=== PATIENT | male | born 1950 | race Caucasian/White ===

== ENCOUNTER 2016-03-18 16:35 | Inpatient (IN) | payer MEDICARE, OTHER ==
[2016-03-18] VITALS (9 sets, daily range): BP systolic 76–88; BP diastolic 37–67; PULSE 66–74; RESP 18–20; TEMP 89.7; Ht 152.4 cm; Wt 72.0 kg
[~2016-03-18] VITALS: Ht 152.4 cm; Wt 72.0 kg
[~2016-03-18 16:35] MED LIST: ACET500C5 PO; EPINEPHrine 0.1 MG/ML SYG ONE; MIDAZOLAM 1 MG/ML 2 ML INJ ONE; NA BICARBONATE 8.4% 50 ML SYG ONE; SUCCINYLCHOLINE CHLORIDE 100 MG/5 ML SYG IV ONE
[2016-03-18] MEDS ORDERED: CEFEPIME 2GM/50 ML (PMX) 50 ML IVPB STA (16:38)
[2016-03-18] MEDS ORDERED: SODIUM CHLORIDE 0.9% 1L BAG IV* STA (16:38)
--- NOTE | 2016-03-18 16:55 | RADRPT ---
PROCEDURE: XR Chest. CLINICAL INDICATION: Sepsis TECHNIQUE: Chest AP portable COMPARISON: None available FINDINGS: The mediastinal structures are unremarkable. There is calcification of the thoracic aorta (consiste nt with atherosclerosis). The heart is normal in size and configuration. There is pulmonary venous hypertension. No consolidation is identified. The pleural spaces are unremarkable. The osseous s tructures are unremarkable. IMPRESSION: Calcification of the thoracic aorta (consistent with atherosclerosis). Pulmonary venous hypertension RPTAT: HGDB .Florencio Barnes MD, Date Time Electronically viewed and signed by .Florencio Barnes MD, on 03/18/2016 16:55 .B/
[2016-03-18] MEDS ORDERED: VANCOMYCIN 1 GM (PMX) 250 ML IVPB ONE (17:00)
--- NOTE | 2016-03-18 17:04 | ERA ---
ER Documentation Chief Complaint Date/Time DATE: 03/18/16 TIME: 17:01 Chief Complaint PT BIB RA from SNF for desaturationand altered mental status. HPI Patient is a 65-year-old male brought in for altered mental status. Unfortunately he is unable to answer any questions. [facility] noted that he had decreased oxygen levels. He has decreased mental capabilities at baseline and a seizure disorder. There is no other information that is given in regards to history of present illness. ROS All systems reviewed and are negative except as per history of present illness. Medications Home Meds Discontinued Scripts Acetaminophen* (Tylophen*) 500 Mg Capsule, 1 CAP PO Q6H Y for PAIN AND OR ELEVATED TEMP, #20 CAP Prov:LEIF RYAN PA-C 11/10/15 Allergies Allergies: Coded Allergies: Unknown: Unable to obtain (Unverified , 03/18/16) PMhx/Soc History of Surgery: No Anesthesia Reaction: No Hx Neurological Disorder: No Hx Respiratory Disorders: No Hx Cardiac Disorders: No Hx Psychiatric Problems: No Hx Miscellaneous Medical Probl: Yes (SEIZURE , HYPOTHYROID , DM , DOWN'S SYNDROME ) Hx Alcohol Use: No Hx Substance Use: No Hx Tobacco Use: No Physical Exam Vitals Vital Signs Date Time Temp Pulse Resp B/P Pulse Ox O2 Delivery O2 Flow Rate FiO2 03/18/16 20:00 58 18 94/63 100 Mechanical Ventilator 03/18/16 19:44 85.5 53 18 104/65 100 Mechanical Ventilator 03/18/16 19:30 85.0 47 18 103/74 100 Mechanical Ventilator 03/18/16 19:15 85.0 47 18 109/69 100 Mechanical Ventilator 03/18/16 19:07 84.7 43 18 84/55 100 Mechanical Ventilator 03/18/16 19:01 84.5 40 16 67/43 100 Mechanical Ventilator 03/18/16 19:00 43 18 100 100 03/18/16 18:29 83.9 46 16 121/68 Mechanical Ventilator 03/18/16 18:17 46 18 100 100 03/18/16 17:51 93.8 45 18 95/46 98 Mechanical Ventilator 03/18/16 17:23 6.0 03/18/16 16:50 Nasal Cannula 3 03/18/16 16:48 92.9 47 19 107/54 95 Physical Exam Const: [] male lying on the bed responds to verbal stimuli, has faces consistent with congenital abnormality Head: Atraumatic Eyes: Normal Conjunctiva ENT: Normal External Ears, Nose and Mouth. Neck: Full range of motion..~ No meningismus. Resp: Coarse throughout, poor inspiratory effort, not tachypneic Cardio: Regular rate and rhythm, no murmurs Abd: Soft, non tender, non distended. Normal bowel sounds Skin: No petechiae or rashes, skin feels cold to touch Back: No midline or flank tenderness Ext: No cyanosis, or edema Neur: Awake, GCS equals E 3, m4, V2 Psych: Normal Mood and Affect Result Diagram: 03/18/16 1644 03/18/16 1644 Results 24 hrs Laboratory Tests Test 03/18/16 16:38 03/18/16 16:44 Arterial Blood HCO3 28.5mmol/L Arterial Blood Base Excess -0.2mmol/L Arterial Blood Oxygen Saturation 87.6mmHG Lincoln Test ACCEPTAB Arterial Blood Gas Puncture Site Left Radial Arterial Blood Carboxyhemoglobin 0% Arterial Blood Date Drawn 03/18/2016 5:15:52 PM Arterial Blood Methemoglobin 0.2% Arterial Blood pCO2 (Temp correct) 68.9mmhg Arterial Blood pH (Temp corrected) 7.234 Arterial Blood pO2 (Temp corrected) 66.5mmHG Blood Gas A-a O2 Differential 132.2mmHg Blood Gas Critical Value Read Back ROXANNA Alba Blood Gas Modality NASAL CANNULA Blood Gas Notified Time 03/18/2016 5:21:21 PM Blood Gas Notified Whom MDA Blood Gas Specimen Source Blood arterial Blood Gas Temperature 37.0C FiO2 39.0% Oxyhemoglobin Percent 87.4% Total Hemoglobin 10.9g/dl Activated Partial Thromboplast Time 36.1Sec Alanine Aminotransferase (ALT/SGPT) 87IU/L Albumin 3.0g/dl Albumin/Globulin Ratio 0.85 Alkaline Phosphatase 109IU/L Anion Gap 14 Aspartate Amino Transf (AST/SGOT) 82IU/L Band Neutrophils % 9.0% Blood Morphology Comment Blood Urea Nitrogen 34mg/dl Calcium Level 8.6mg/dl Carbon Dioxide Level 31mmol/L Chloride Level 110mmol/L Creatinine 0.66mg/dl Direct Bilirubin 0.00mg/dl Globulin 3.50g/dl Glucose Level 134mg/dl Hematocrit 36.7% Hemoglobin 12.4g/dl INR International Normalized Ratio 1.16 Indirect Bilirubin 0.1mg/dl Lactic Acid Level 1.8mmol/L Large Platelets FEW Lymphocytes # 0.310^3/ul Lymphocytes % 8.0% Mean Corpuscular Hemoglobin 35.0pg Mean Corpuscular Hemoglobin Concent 33.9g/dl Mean Corpuscular Volume 103.2fl Mean Platelet Volume 9.9fl Monocytes # 0.210^3/ul Monocytes % 7.0% Neutrophils # 2.410^3/ul Neutrophils % 76.0% Platelet Count 3010^3/UL Platelet Estimate PLT APPEAR DECREASED Potassium Level 4.8mmol/L Prothrombin Time 14.8Sec Prothrombin Time Ratio 1.2 Red Blood Count 3.5510^6/ul Red Cell Distribution Width 16.8% Sodium Level 150mmol/L Total Bilirubin 0.1mg/dl Total Protein 6.5g/dl Troponin I < 0.012ng/ml White Blood Count 3.210^3/ul Current Medications Medications (Trade) Dose Ordered Sig/Kaycee Route PRN Reason Start Time Stop Time Status Last Admin Dose Admin Sodium Chloride 2170 ml 2,170 ml BOLUS OVER 2 HOURS STAT IV* 03/18/16 16:38 03/18/16 16:41 DC 03/18/16 17:03 Cefepime HCl 50 ml @ 100 mls/hr ONCE STAT IVPB 03/18/16 16:38 03/18/16 17:07 DC 03/18/16 17:02 Vancomycin HCl (Vancocin) 250 ml @ 125 mls/hr ONCE ONCE IVPB 03/18/16 17:00 03/18/16 18:59 DC 03/18/16 17:38 Midazolam HCl (Versed) 4 mg ONCE ONCE IV 03/18/16 18:00 03/18/16 18:01 DC Succinylcholine Chloride 100 mg 100 mg ONCE ONCE IV 03/18/16 18:00 03/18/16 18:01 DC Dexmedetomidine HCl 200 mcg/ Sodium Chloride 50 ml @ 0 mls/hr TITRATE IV 03/18/16 18:00 03/19/16 08:00 Norepinephrine (Levophed) 250 ml @ 1.875 mls/ hr TITRATE IV 03/18/16 20:00 Procedures/MDM Differential includes but is not limited to sepsis, pneumonia, myocardial ischemia, CVA, urinary tract infection, respiratory failure, seizure I was notified of the patient's abnormal blood gas at 1735. Immediately set up for intubation. Endotracheal Intubation by me: Pre assessment performed. See preceding note for details. Pre-oxygenation performed with 100% oxygen RSI: Performed w/o complication or hypoxic events. Medications as ordered. Blade: Mac 3 glidoscope -it was noted at the time of intubation that the patient had purulent secretions emanating from his trachea through his vocal cords. They were rather copious. ET Tube: 7.0 cm Depth: 20 cm at the lip Intubation confirmed by colorimetric CO2, equal breath sounds, quiet over the stomach. Glidoscope was used for intubation Chest X-ray 1V Interpreted by me: Normal soft tissue, No pneumothorax. Cardiopulmonary Resuscitation by me: See code documentation for specific details. ACLS and BLS were performed with high quality chest compressions and minimal interruptions. Reversible causes were assessed and treated. Code was called at 1759. CPR was initiated as the patient was noted to be in PEA. Overall patient received 5 rounds of epinephrine and 1 round of bicarb. Initially a bedside ultrasound showed no cardiac activity noted. Approximately 1 minute later patient had a pulse. 1900: It was noted that the patient's blood pressure was drifting downward and most likely he needed a central line. I set up for central line. Central Line Placement by me: Patient consented, sterilely draped, full prep, gown, glove, mask, time out performed. Anesthesia: 1% lidocaine locally Location: Right femoral Device: Multiple lumen Technique: Seldinger technique. Secured with suture. Results: Venous return from all ports with easy saline flush. No complications. Guide wire retrieved and disposed of. 193: Patient's blood pressure is now 103/74, heart rate is 51. He is currently on Precedex. I do not have any family at the bedside. I have a call out to the hospitalist to have him admitted to the ICU. Critical care time of 1 hour not to include procedures. Departure Diagnosis: Primary Impression: Altered level of consciousness Additional Impressions: Sepsis Qualified Code: A41.9 - Sepsis, due to unspecified organism Respiratory failure with hypercapnia Qualified Code: J96.02 - Acute respiratory failure with hypercapnia Pneumonia Qualified Code: J18.9 - Pneumonia due to infectious organism, unspecified laterality, unspecified part of lung Hypotension Qualified Code: I95.9 - Hypotension, unspecified hypotension type Cardiac arrest due to other underlying condition Seizure disorder Condition: Critical ER Documentation Chief Complaint Date/Time DATE: 03/18/16 TIME: 20:08 Chief Complaint PT BIB RA from SNF for desaturationand altered mental status. ROS All systems reviewed and are negative except as per history of present illness. Medications Home Meds Discontinued Scripts Acetaminophen* (Tylophen*) 500 Mg Capsule, 1 CAP PO Q6H Y for PAIN AND OR ELEVATED TEMP, #20 CAP Prov:LEIF RYAN PA-C 11/10/15 Allergies Allergies: Coded Allergies: Unknown: Unable to obtain (Unverified , 03/18/16) PMhx/Soc History of Surgery: No Anesthesia Reaction: No Hx Neurological Disorder: No Hx Respiratory Disorders: No Hx Cardiac Disorders: No Hx Psychiatric Problems: No Hx Miscellaneous Medical Probl: Yes (SEIZURE , HYPOTHYROID , DM , DOWN'S SYNDROME ) Hx Alcohol Use: No Hx Substance Use: No Hx Tobacco Use: No Smoking Status: Never smoker Physical Exam Vitals Vital Signs Date Time Temp Pulse Resp B/P Pulse Ox O2 Delivery O2 Flow Rate FiO2 03/18/16 20:00 58 18 94/63 100 Mechanical Ventilator 03/18/16 19:44 85.5 53 18 104/65 100 Mechanical Ventilator 03/18/16 19:30 85.0 47 18 103/74 100 Mechanical Ventilator 03/18/16 19:15 85.0 47 18 109/69 100 Mechanical Ventilator 03/18/16 19:07 84.7 43 18 84/55 100 Mechanical Ventilator 03/18/16 19:01 84.5 40 16 67/43 100 Mechanical Ventilator 03/18/16 19:00 43 18 100 100 03/18/16 18:29 83.9 46 16 121/68 Mechanical Ventilator 03/18/16 18:17 46 18 100 100 03/18/16 17:51 93.8 45 18 95/46 98 Mechanical Ventilator 03/18/16 17:23 6.0 03/18/16 16:50 Nasal Cannula 3 03/18/16 16:48 92.9 47 19 107/54 95 Physical Exam Const: [] Head: Atraumatic Eyes: Normal Conjunctiva ENT: Normal External Ears, Nose and Mouth. Neck: Full range of motion..~ No meningismus. Resp: Clear to auscultation bilaterally Cardio: Regular rate and rhythm, no murmurs Abd: Soft, non tender, non distended. Normal bowel sounds Skin: No petechiae or rashes Back: No midline or flank tenderness Ext: No cyanosis, or edema Neur: Awake and alert Psych: Normal Mood and Affect Result Diagram: 03/18/16 1644 03/18/16 1644 Results 24 hrs Laboratory Tests Test 03/18/16 16:38 03/18/16 16:44 Arterial Blood HCO3 28.5mmol/L Arterial Blood Base Excess -0.2mmol/L Arterial Blood Oxygen Saturation 87.6mmHG [place] Test ACCEPTAB Arterial Blood Gas Puncture Site Left Radial Arterial Blood Carboxyhemoglobin 0% Arterial Blood Date Drawn 03/18/2016 5:15:52 PM Arterial Blood Methemoglobin 0.2% Arterial Blood pCO2 (Temp correct) 68.9mmhg Arterial Blood pH (Temp corrected) 7.234 Arterial Blood pO2 (Temp corrected) 66.5mmHG Blood Gas A-a O2 Differential 132.2mmHg Blood Gas Critical Value Read Back ROXANNA Alba Blood Gas Modality NASAL CANNULA Blood Gas Notified Time 03/18/2016 5:21:21 PM Blood Gas Notified Whom MDA Blood Gas Specimen Source Blood arterial Blood Gas Temperature 37.0C FiO2 39.0% Oxyhemoglobin Percent 87.4% Total Hemoglobin 10.9g/dl Activated Partial Thromboplast Time 36.1Sec Alanine Aminotransferase (ALT/SGPT) 87IU/L Albumin 3.0g/dl Albumin/Globulin Ratio 0.85 Alkaline Phosphatase 109IU/L Anion Gap 14 Aspartate Amino Transf (AST/SGOT) 82IU/L Band Neutrophils % 9.0% Blood Morphology Comment Blood Urea Nitrogen 34mg/dl Calcium Level 8.6mg/dl Carbon Dioxide Level 31mmol/L Chloride Level 110mmol/L Creatinine 0.66mg/dl Direct Bilirubin 0.00mg/dl Globulin 3.50g/dl Glucose Level 134mg/dl Hematocrit 36.7% Hemoglobin 12.4g/dl INR International Normalized Ratio 1.16 Indirect Bilirubin 0.1mg/dl Lactic Acid Level 1.8mmol/L Large Platelets FEW Lymphocytes # 0.310^3/ul Lymphocytes % 8.0% Mean Corpuscular Hemoglobin 35.0pg Mean Corpuscular Hemoglobin Concent 33.9g/dl Mean Corpuscular Volume 103.2fl Mean Platelet Volume 9.9fl Monocytes # 0.210^3/ul Monocytes % 7.0% Neutrophils # 2.410^3/ul Neutrophils % 76.0% Platelet Count 3010^3/UL Platelet Estimate PLT APPEAR DECREASED Potassium Level 4.8mmol/L Prothrombin Time 14.8Sec Prothrombin Time Ratio 1.2 Red Blood Count 3.5510^6/ul Red Cell Distribution Width 16.8% Sodium Level 150mmol/L Total Bilirubin 0.1mg/dl Total Protein 6.5g/dl Troponin I < 0.012ng/ml White Blood Count 3.210^3/ul Current Medications Medications (Trade) Dose Ordered Sig/Kaycee Route PRN Reason Start Time Stop Time Status Last Admin Dose Admin Sodium Chloride 2170 ml 2,170 ml BOLUS OVER 2 HOURS STAT IV* 03/18/16 16:38 03/18/16 16:41 DC 03/18/16 17:03 Cefepime HCl 50 ml @ 100 mls/hr ONCE STAT IVPB 03/18/16 16:38 03/18/16 17:07 DC 03/18/16 17:02 Vancomycin HCl (Vancocin) 250 ml @ 125 mls/hr ONCE ONCE IVPB 03/18/16 17:00 03/18/16 18:59 DC 03/18/16 17:38 Midazolam HCl (Versed) 4 mg ONCE ONCE IV 03/18/16 18:00 03/18/16 18:01 DC Succinylcholine Chloride 100 mg 100 mg ONCE ONCE IV 03/18/16 18:00 03/18/16 18:01 DC Dexmedetomidine HCl 200 mcg/ Sodium Chloride 50 ml @ 0 mls/hr TITRATE IV 03/18/16 18:00 03/19/16 08:00 Norepinephrine (Levophed) 250 ml @ 1.875 mls/ hr TITRATE IV 03/18/16 20:00 Procedures/MDM EKG showed a sinus bradycardia at 45 beats per minutes with a lot of motion artifact but no obvious ischemia noted, he had a nonspecific intraventricular conduction delay with nonspecific T-wave abnormalities, no old EKG available for comparison Departure Diagnosis: Primary Impression: Altered level of consciousness Additional Impressions: Sepsis Qualified Code: A41.9 - Sepsis, due to unspecified organism Respiratory failure with hypercapnia Qualified Code: J96.02 - Acute respiratory failure with hypercapnia Pneumonia Qualified Code: J18.9 - Pneumonia due to infectious organism, unspecified laterality, unspecified part of lung Hypotension Qualified Code: I95.9 - Hypotension, unspecified hypotension type Cardiac arrest due to other underlying condition Seizure disorder Condition: Critical WILBER MCKNIGHT Mar 18, 2016 17:04
[2016-03-18 17:08] LABS: HEMATOCRIT 36.7 % (42.0-52.0); HEMOGLOBIN 12.4 g/dl (14.0-18.0); MEAN CORPUSCULAR HGB CONC 33.9 g/dl (32.0-37.0); MEAN CORPUSCULAR VOLUME 103.2 fl (82.0-101.0); MEAN PLATELET VOLUME 9.9 fl (7.4-10.4); RED BLOOD COUNT 3.55 10^6/ul (4.70-6.10); RED CELL DISTRIBUTION WIDTH 16.8 % (11.5-14.5); UNCORRECTED WBC 3.2 10^3/ul (4.8-10.8); WHITE BLOOD COUNT 3.2 10^3/ul (4.8-10.8)
[2016-03-18 17:10] LABS: INR 1.16; PROTIME 14.8 Sec (12.2-14.2); PT RATIO 1.2
[2016-03-18 17:11] LABS: PARTIAL THROMBOPLASTIN TIME 36.1 Sec (25.0-35.0)
[2016-03-18 17:21] LABS: CONDITION 1; LH ANALYZER COMMENTS 1; SUSPECT 1
[2016-03-18 17:21] LABS: AADO2 Arterial 132.2 mmHg (7.0-24.0); Allen Test ACCEPTAB; Arterial Base Excess -0.2 mmol/L (-3.0-3); Arterial COHb 0 % (0.0-3.0); Arterial Fraction of Oxyhgb 87.4 % (93.0-99.0); Arterial HCO3 28.5 mmol/L (22.0-26.0); Arterial MetHb 0.2 % (0.0-1.5); Arterial Total Hemglobin 10.9 g/dl (12.0-18.0); MODE NASAL CANNULA
[2016-03-18 17:28] LABS: PLATELET COUNT 30 10^3/UL (140-440)
[2016-03-18 17:47] LABS: LYMPHOCYTES # 0.3 10^3/ul (0.8-2.9); MONOCYTE # 0.2 10^3/ul (0.3-0.9); NEUTROPHIL # 2.4 10^3/ul (1.6-7.5)
[2016-03-18 17:49] LABS: PLATELET ESTIMATE PLT APPEAR DECREASED
[2016-03-18 17:59] LABS: CHLORIDE 110 mmol/L (97-110); POTASSIUM 4.8 mmol/L (3.5-5.1); SODIUM 150 mmol/L (135-144)
[2016-03-18] MEDS ORDERED: MIDAZOLAM 1 MG/ML 5 ML INJ IV ONE (18:00)
[2016-03-18] MEDS ORDERED: DEXMEDETOMIDINE HCL 200 MCG in SOD CHLORIDE 0.9% 48 ML IV SCH (18:00)
[2016-03-18] MEDS ORDERED: SUCCINYLCHOLINE CHLORIDE 100 MG/5 ML SYG IV ONE (18:00)
[2016-03-18 18:01] LABS: CREATININE 0.66 mg/dl (0.61-1.24)
[2016-03-18 18:02] LABS: ALANINE AMINOTRANSFERASE 87 IU/L (13-69); ALBUMIN/GLOBULIN RATIO 0.85; ALKALINE PHOSPHATASE 109 IU/L (42-121); ANION GAP 14 (8-16); ASPARTATE AMINO TRANSFERASE 82 IU/L (15-46); BILIRUBIN,INDIRECT 0.1 mg/dl (0-1.1); BILIRUBIN,TOTAL 0.1 mg/dl (0.2-1.3); BLOOD UREA NITROGEN 34 mg/dl (7-20); CALCIUM 8.6 mg/dl (8.4-10.2); CARBON DIOXIDE 31 mmol/L (21-31); GLUCOSE 134 mg/dl (70-220); TOTAL PROTEIN 6.5 g/dl (6.1-8.1)
[2016-03-18 18:11] LABS: TROPONIN-I < 0.012 ng/ml (0.00-0.12)
[2016-03-18] MEDS ORDERED: NORepinephrine 8MG/250 ML (PMX 250 ML IV SCH ×2 (20:00→21:00)
--- NOTE | 2016-03-18 20:06 | RADRPT ---
PROCEDURE: XR Chest. CLINICAL INDICATION: Endotracheal intubation. TECHNIQUE: Portable AP supine view of the chest was obtained. COMPARISON: 03/18/2016 FINDINGS: The cardiomediastinal silhouette is within upper normal limits. Distal tip of the new endotracheal tube is in satisfactory position approximately 3.6 cm above the carolyn. Diffuse pulmonary edema pat tern appear slightly worse concerning for ARDS with probable small pleural effusions. The osseous s tructures are intact with no evidence for acute abnormality. RPTAT:HJJR IMPRESSION: 1. Successful endotracheal intubation with the distal tip of the tube projecting 3.6 cm above the c andreas. 2. Interval radiographic worsening in pulmonary edema pattern unable to exclude adult respiratory d istress syndrome. Physician Fly Date Time Electronically viewed and signed by Physician Fly on 03/18/2016 20:06 JR/
[2016-03-18] MEDS ORDERED: OXCA150T43 PO (20:33)
[2016-03-18] MEDS ORDERED: SYN1 PO (20:33)
[2016-03-18] MEDS ORDERED: ZIPR20CA12 PO (20:36)
[2016-03-18] MEDS ORDERED: OXYB5TAB7 PO (20:37)
[2016-03-18] MEDS ORDERED: SIMV20TA PO (20:38)
[2016-03-18] MEDS ORDERED: BROM2.5T13 PO (20:39)
[2016-03-18] MEDS ORDERED: VLP250480 PO (20:41)
[2016-03-18] MEDS ORDERED: KENC1 TOP (20:43)
[2016-03-18] MEDS ORDERED: AZEL137S9 NASAL (20:44)
[2016-03-18] MEDS ORDERED: MUPI22OI2 TOP (20:45)
[2016-03-18] MEDS ORDERED: TAMS0.4C2 PO (20:45)
[2016-03-18] MEDS ORDERED: DIAZ5TAB4 PO (20:46)
--- NOTE | 2016-03-18 20:55 | RADRPT ---
PROCEDURE: CT Brain without contrast. CLINICAL INDICATION: Altered mental status. TECHNIQUE: A CT of the brain was performed utilizing axial sections from the skull base through th e vertex without contrast. Multiplanar re-formations were generated. Images were reviewed on a high- resolution PACS workstation. CTDIvol: 45.01 mGy. DLP: 720.23 mGy-cm. COMPARISON: 11/10/2015 FINDINGS: The examination is limited by patient motion. There is mild to moderate generalized volume loss. No hydrocephalus is seen. There is no mass effect. No acute intracranial hemorrhage or extra-axial col lection is identified. Rebollar-white matter differentiation appears grossly preserved. There is no significant mucosal disease in the paranasal sinuses. The visualized mastoid air cells are clear. The ossesous structures are unremarkable. The extracranial soft tissues are unremarkable. IMPRESSION: 1. Limited examination due to patient motion. 2. No acute intracranial pathology is identified, however if there is continued concern for an intr acranial abnormality, a repeat CT scan should be obtained when the patient can lie still. RPTAT: HTAR .Adebayo Bourne MD, MD Date Time Electronically viewed and signed by .Adebayo Bourne MD, on 03/18/2016 20:55 .R/
[2016-03-18] MEDS ORDERED: ACETAMINOPHEN 650 MG SUPP PR PRN (21:00)
[2016-03-18] MEDS ORDERED: NON-FORMULARY/PATIENT OWN MED (Simvastatin* (Zocor*) 20 MG) PO SCH (21:00)
[2016-03-18] MEDS ORDERED: LORAZEPAM 2 MG INJ IV PRN (21:00)
[2016-03-18] MEDS ORDERED: ALBUTEROL HFA 8 GM INHALER INH PRN (21:00)
[2016-03-18] MEDS ORDERED: ONDANSETRON 4 MG INJ IV PRN (21:00)
[2016-03-18] MEDS ORDERED: IPRATROPIUM (HFA) 12.9 GM INHALER INH PRN (21:00)
[2016-03-18] MEDS ORDERED: HEPARIN 5,000 UNIT/0.5 ML SYG SC SCH (21:00)
[2016-03-18] MEDS ORDERED: MIDAZOLAM (DRIP) 50 mg/50 mL 50 ML IV SCH (21:00)
[2016-03-18] MEDS ORDERED: PROPOFOL 100 ML IV SCH (21:00)
--- NOTE | 2016-03-18 21:01 | RADRPT ---
PROCEDURE: CT Chest without contrast. CLINICAL INDICATION: Altered mental status. TECHNIQUE: A CT scan of the chest without contrast was performed. Coronal and sagittal reformatted images were obtained from the axial source images. CTDIvol: 15.55 mGy. Exam DLP: 500.91 mGy-cm. COMPARISON: Chest x-ray dated 03/18/2016. FINDINGS: There is no suspicious thyroid lesion. No thoracic lymphadenopathy is seen. The trachea and mainst em bronchi are patent. The heart is not enlarged. There is no pericardial or pleural effusion. No pneumothorax is identified. An endotracheal tube terminates in the upper thoracic trachea. The more distal trachea is narrowed w ith a minimum AP diameter 3 mm. There are extensive bilateral perihilar and posterior lung consolid ations with air bronchograms. Evaluation for small pleural effusions is limited by artifact from the patient's arms, which lie alongside the chest. There is no pneumothorax. Limited evaluation of the upper abdomen is unremarkable. There is no suspicious osseous lesion. IMPRESSION: 1. Extensive bilateral perihilar and posterior lung consolidations with air bronchograms, possibly representing alveolar edema, multifocal pneumonia, and/or aspiration pneumonitis. 2. Narrowing of the distal thoracic trachea with a minimum AP diameter 3 mm, suggestive of tracheom alacia. RPTAT: HTAR .Adebayo Bourne MD, Date Time Electronically viewed and signed by .Adebayo Bourne MD, on 03/18/2016 21:01 .R/
[2016-03-18 21:25] LABS: AADO2 Arterial 584.2 mmHg (7.0-24.0); Arterial Base Excess 0.6 mmol/L (-3.0-3); Arterial COHb 0.3 % (0.0-3.0); Arterial Fraction of Oxyhgb 95.4 % (93.0-99.0); Arterial HCO3 25.2 mmol/L (22.0-26.0); Arterial MetHb 0.2 % (0.0-1.5); Arterial Total Hemglobin 11.6 g/dl (12.0-18.0); Blood Gas Mean Airway Pressure 8.8; MODE VENT - AC
[2016-03-19] VITALS (91 sets, daily range): BP systolic 62–117; BP diastolic 33–89; PULSE 44–90; RESP 10–20
[2016-03-19] MEDS: DEXTROSE 5% 1,000 ML IV SCH ×3 (01:30→21:22)
[2016-03-19] MEDS: BROMOCRIPTINE 2.5 MG TAB PO SCH ×2 (03:08→21:21)
[2016-03-19] MEDS: MIDAZOLAM (DRIP) 50 mg/50 mL 50 ML IV SCH ×2 (06:01→16:11)
[2016-03-19] MEDS: PANTOPRAZOLE 40 MG INJ IV SCH (06:01)
[2016-03-19 06:16] LABS: HEMATOCRIT 29.2 % (42.0-52.0); MEAN CORPUSCULAR HEMOGLOBIN 34.8 pg (29.0-33.0); MEAN CORPUSCULAR HGB CONC 34.1 g/dl (32.0-37.0); MEAN CORPUSCULAR VOLUME 102.1 fl (82.0-101.0); MEAN PLATELET VOLUME 11.6 fl (7.4-10.4); PLATELET COUNT 45 10^3/UL (140-440); RED BLOOD COUNT 2.86 10^6/ul (4.70-6.10); WHITE BLOOD COUNT 3.5 10^3/ul (4.8-10.8)
[2016-03-19] MEDS: LEVOTHYROXINE 100 MCG TAB PO SCH (06:16)
[2016-03-19 06:20] LABS: ALBUMIN 2.3 g/dl (3.3-4.9)
[2016-03-19 06:21] LABS: POTASSIUM 4.7 mmol/L (3.5-5.1)
[2016-03-19 06:23] LABS: ALBUMIN/GLOBULIN RATIO 0.76; BILIRUBIN,INDIRECT 0.1 mg/dl (0-1.1); BILIRUBIN,TOTAL 0.1 mg/dl (0.2-1.3); CALCIUM 7.9 mg/dl (8.4-10.2); CREATININE 0.85 mg/dl (0.61-1.24); TOTAL PROTEIN 5.3 g/dl (6.1-8.1)
[2016-03-19 06:24] LABS: MAGNESIUM 1.5 mg/dl (1.7-2.5)
[2016-03-19 06:37] LABS: UNCORRECTED WBC 3.7 10^3/ul (4.8-10.8)
[2016-03-19 06:39] LABS: CONDITION 1; LH ANALYZER COMMENTS 1; SUSPECT 1
--- NOTE | 2016-03-19 07:28 | HP ---
DATE OF ADMISSION: 03/18/2016 CHIEF COMPLAINT: Low oxygen saturation, hypothermia, and altered mentation. HISTORY OF PRESENT ILLNESS: The patient is a 65-year-old male with a history of Down syndrome, seiz ure disorder, hypothyroidism, and diabetes who was brought from a [facility] facility for hypoxi a, altered mentation, and hypothermia. The patient is currently intubated, and as such, information is gathered from chart review and from the ER physician. Reportedly, his oxygen saturation was 48% on room air, and he was found cold and with altered mentation. When he presented to the ER, blood pressure was 107/54, heart rate 47, respiratory rate 19, temperat ure 92.9, oxygen saturation 95% on room air. His rectal temperature has been as low as 84. While the patient was in the ER, he went into cardiac arrest and was in PEA. ACLS were performed, a nd he received 5 round of epinephrine and 1 round of bicarbonate before ROSC. The patient was intub ated, central line was placed, started on a pressor, and currently admitted to ICU. The lowest docu mented blood pressure in the ER was 67/43, and his documented lowest heart rate was 40. Laboratory value shows a WBC of 3.2, hemoglobin is 12.4 with MCV of 103. Sodium 150, AST 82, ALT 87, initial l actic acid was 1.8, but it went up to 4.7 before trending slightly down to 4. His initial ABG showe d pH of 7.23, pCO2 of 69, pO2 66, bicarbonate 28 on 39% FIO2. Repeat ABG a few hours later shows im provement with pH of 7.4, pCO2 of 40, pO2 88, bicarbonate 25 on 100% FIO2 while he was on the vent. The patient received weight-based normal saline IV fluid, vancomycin, and cefepime while he was in the ER. His initial chest x-ray shows calcification of the thoracic aorta and pulmonary venous hype rtension. Brain CT was also a limited examination due to patient motion. Otherwise no acute intrac ranial pathology was identified. A repeat chest x-ray 3 hours later shows interval worsening in the pulmonary edema pattern, unable to exclude adult respiratory distress syndrome. REVIEW OF SYSTEMS: Unable to assess. PAST MEDICAL HISTORY: As per HPI. PAST SURGICAL HISTORY: Unknown. SOCIAL HISTORY: Unknown. ALLERGIES: NO KNOWN DRUG ALLERGIES. HOME MEDICATIONS: 1. Tamsulosin. 2. Zocor. 3. Bromocriptine 4. Diazepam. 5. Oxcarbazepine. 6. Valproic acid. 7. Ziprasidone. 8. Azelastine nasal spray. 9. Synthroid. 10. Bactroban ointment. 11. Triamcinolone. 12. Oxybutynin. PHYSICAL EXAMINATION: VITAL SIGNS: Blood pressure 86/37, heart rate 70, respiratory rate 18, temperature earlier was 91, oxygen saturation 100% on 100% FIO2. GENERAL: The patient is intubated and sedated, not in any acute distress. HEENT: No obvious head deformity. His pupils are very minimally reactive to light. CARDIOVASCULAR: Regular rate and rhythm. LUNGS: He has decreased breath sounds anteriorly. ABDOMEN: Soft. No grimaces noted. There is erythematous macular petechial rash in the periumbilic al area with very few and small vesicles. He has positive bowel sounds. EXTREMITIES: No edema. He has a similar type of erythematous macular petechial kind of rash on his lower extremities like the ones he has on his periumbilical area on his abdomen. NEUROLOGIC: Unable to fully assess given he is intubated and sedated, but he has gag reflex and his pupils are very minimally reactive to light. IMAGING: Chest x-ray and a brain CT with results as mentioned in the HPI. IMPRESSION: 1. Status post PEA cardiac arrest with ROSC after 5 rounds of epinephrine. 2. Ventilator dependent respiratory failure with possible ARDS. 3. Altered mentation, likely patient had unwitnessed seizure. 4. Shock, currently on 1 pressor. 5. Hypothermia. 6. History of Down syndrome. 7. Lactic acidosis. 8. Hypernatremia. 9. History of hypothyroidism. 10. History of diabetes. 11. Leukopenia. 12. Thrombocytopenia. 13. History of Down syndrome. PLAN: We will continue vent and pressor support, and we will try to wean off as tolerated. He will be placed on D5W IV fluid given hypernatremia. Note that he did receive weight-based normal saline IV fluid while he was in the ER. He will be placed on a Michelle Hugger for his continued hypothermia. The patient's presentation could be secondary to sepsis with infectious etiology even though there is no identifiable source yet. He could also have had an unwitnessed seizure given his history. H e will be placed on broad spectrum antibiotics. Cultures will be sent. We will place a pulmonary c onsult as well as infectious disease consult. We will order a 2D echo, and addition brain imaging w ill be done including an EEG. We will also place neurology consult. Electrolytes will be corrected as needed. He will be placed on insulin. We will continue some of his home medication with adjust ment as needed. We will try to get ahold of his power of criminal attorney to discuss the patient's situatio n, code status, as well as getting consent. Further workup and management per clinical course. Total critical time spent is about 45 minutes. Dictated By: MICHOACANO HOLT/MOHIT Conf#: [id number] DID#: [id number]
[2016-03-19] MEDS ORDERED: ZIPRASIDONE 20 MG CAP PO SCH (09:00)
[2016-03-19 09:14] LABS: T3 UPTAKE 45.4 % (23.5-40.5)
[2016-03-19 09:17] LABS: LYMPHOCYTES # 0.3 10^3/ul (0.8-2.9); MONOCYTE # 0.1 10^3/ul (0.3-0.9); PLATELET ESTIMATE PLT APPEAR DECREASED
[2016-03-19 09:29] LABS: THYROID STIMULATING HORMONE 1.72 MIU/L (0.465-4.680)
[2016-03-19] MEDS ORDERED: MAGNESIUM SULFATE 2 GM/50 ML 50 ML IVPB ONE (09:30)
[2016-03-19] MEDS: LEVETIRACETAM IV 500 MG in SOD CHLORIDE 0.9% 100 ML IVPB SCH ×4 (10:00→21:22)
[2016-03-19] MEDS: LEVOFLOXACIN 500MG/D5W (PMX) 100 ML IVPB SCH (10:00)
[2016-03-19] MEDS: OXCARBAZEPINE 150 MG TAB PO SCH ×3 (10:01→21:21)
[2016-03-19] MEDS: VALPROIC ACID LIQUID CUP 250 MG/5 ML CUP PO SCH ×3 (10:01→21:21)
[2016-03-19] MEDS: MUPIROCIN 2% 22 GM OINT TOP SCH ×3 (10:44→21:22)
--- NOTE | 2016-03-19 11:26 | QN ---
Documentation Comment Patient and labs reviewed Continue current care plan. PAUL VARGAS Mar 19, 2016 11:26
[2016-03-19] MEDS: PHENYLephrine 40 MG in DEXTROSE 5% 496 ML IV SCH ×2 (13:34→19:29)
--- NOTE | 2016-03-19 16:38 | CONS ---
DATE OF ADMISSION: 03/18/2016 DATE OF CONSULTATION: 03/19/2016 REASON FOR CONSULTATION: Ventilator management. Thank you, Dr. Caro, for this consultation. This is a sedated consultation on 03/19/2016. HISTORY OF PRESENT ILLNESS: This is a 65-year-old gentleman with history of Down syndrome, seizure disorder, hypothyroidism, diabetes, came from [facility] and care for altered mental status, hypoxemia r equiring emergent intubation in the emergency room with subsequent PEA arrest. He received epinephr ine, bicarbonate, and CPR with return of circulation. Since that time, he continues mechanical vent ilation with vasopressor support. Few further details are available. Patient had lactic acidosis, was commenced on broad spectrum antibiotics and remains on mechanical ventilation with evidence of p ossible seizure activity. PAST MEDICAL HISTORY: As above. MEDICATIONS: Per chart. ALLERGIES: NONE. SOCIAL HISTORY: Nonsmoker, no alcohol, no history of drug use. FAMILY HISTORY: Noncontributory. SYSTEMS REVIEW: A 12-point review of systems unable to perform. PHYSICAL EXAMINATION GENERAL: Chronically ill-appearing gentleman, intubated on mechanical ventilation. VITAL SIGNS: Temperature 99, pulse is 76, blood pressure 90/40, O2 saturation 96%, FIO2 of 50%. NECK: Supple. Dry mucous membranes. CARDIAC: S1, S2. CHEST: Diminished air entry bilaterally with a few rales. ABDOMEN: Soft, nontender. No guarding or rebound. EXTREMITIES: No cyanosis, clubbing, 1+ edema. NEUROLOGIC: Generalized weakness, unable to assess. LABORATORY DATA: White count 3.5, hemoglobin 10.0, platelets of 45. BUN 31, creatinine 0.85. INR 1.16. ABG: pH 7.41, pCO2 of 40, pO2 of 88, bicarbonate was 25. IMAGING: Chest x-ray showed mild pulmonary edema, possible early acute respiratory distress syndrom e. CT of the brain showed no acute intracranial abnormality. CT chest showed extensive bilateral c onsolidation with pulmonary edema and multifocal pneumonia. IMPRESSION AND PLAN: 1. Community-acquired pneumonia. 2. Possible aspiration pneumonia. 3. Hypoxemic respiratory failure. 4. Septic shock. 5. History of Down syndrome. The patient will require: 1. Continued volume resuscitation. 2. Vasopressors as needed. 3. Broad-spectrum antibiotics, currently on levofloxacin and will broaden coverage. 4. Continue antiepileptics. 5. DVT and GI prophylaxis. Dictated By: MJ VANN/MOHIT Conf#: [id number] DID#: [id number]
[2016-03-19] MEDS ORDERED: VANCOMYCIN IV PER PHARMACY XX SCH (17:30)
[2016-03-19] MEDS ORDERED: VANCOMYCIN 1.25 GM in SOD CHLORIDE 0.9% 250 ML IVPB SCH (18:30)
--- NOTE | 2016-03-19 19:20 | RADRPT ---
Echocardiogram Report Patient Name: BARRY DAVIS Gender: Male Date: 1950 Study Date: 19-Mar-2016 Director Of Religious Activities: ALEX Location: E Ref. Physician: MICHOACANO PINON Quality: Adequate Procedures: Transthoracic echocardiogram with 2D, M-Mode, and Doppler examination, no subcostal images. Indications: Congestive Heart Failure. Pulmonary Hypertension. 2D/M Mode Doppler Measurement Value Normal Ranges Measurement Value Normal Ranges AoR Diam MM 3.2 cm AV Peak Maykel 1.2 m/sec LVIDd 2D 4.3 3.5 - 5.6 cm AV Peak PG 5.9 mmHg LVIDs 2D 2.8 2.1 - 4.1 cm LVOT Peak Maykel 1.0 m/sec LVPWd 2D 0.8 0.6 - 1.1 cm LVOT Peak PG 4.0 mmHg IVSd 2D 1.1 0.6 - 1.1 cm MV E Peak Maykel 1.0 m/sec EDV 2D 82.4 cm3 MV A Peak Maykel 0.7 m/sec ESV 2D 21.9 cm3 MV E/A 1.4 LA Dimen 2D 2.6 2.3 - 4.0 cm MV Decel Time 217 msec MV Decel [place] 5 MV E/A 1.4 TR Peak Maykel 2.4 m/sec TR Peak PG 23.2 mmHg PV Peak Maykel 1.2 m/sec PV Peak PG 6.0 mmHg RVSP 26.2 mmHg Findings Left Ventricle: Normal left ventricular systolic function. Normal left ventricular cavity size. Normal left ventricular wall thickness. Ejection fraction is visually estimated at 65 %. Tissue Doppler/Mitral Doppler indices are within normal limits. E/E`=10. Right Ventricle: Normal right ventricular size. Normal right ventricular systolic function. Left Atrium: The left atrium is normal in size. Right Atrium: The right atrium is normal in size. Atrial Septum: Not well visualized. Mitral Valve: Normal appearance of the mitral valve. No mitral valve regurgitation is seen. Aortic Valve: Aortic cusps appear mildly calcified. Bicuspid aortic valve. Trace to mild aortic valve regurgitation. Tricuspid Valve: Normal appearance of the tricuspid valve. Estimated peak PA systolic pressure 26 mmHg. There is mild tricuspid regurgitation. Pulmonic Valve: Normal pulmonic valve appearance. There is trace pulmonic regurgitation. Pericardium: Normal pericardium with no significant pericardial effusion. Aorta: Normal aortic root. IVC: The IVC is not well visualized. Pulmonary Artery: Normal pulmonary artery size. Conclusions 1.Normal left ventricular systolic function. Normal left ventricular cavity size. Normal left ventricular wall thickness. Ejection fraction is visually estimated at 65 %. Tissue Doppler/Mitral Doppler indices are within normal limits. E/E`=10. 2.Normal right ventricular size. Normal right ventricular systolic function. 3.Normal appearance of the mitral valve. No mitral valve regurgitation is seen. 4.Aortic cusps appear mildly calcified. Bicuspid aortic valve. Trace to mild aortic valve regurgitation. 5.Normal appearance of the tricuspid valve. Estimated peak PA systolic pressure 26 mmHg. There is mild tricuspid regurgitation. 6.Normal pericardium with no significant pericardial effusion. Electronically Signed By: Timi Farfan 19-Mar-2016 19:19:30 -0800 Patient Name: BARRY DAVIS Study Date: 19-Mar-2016 [id number]
[2016-03-19] MEDS ORDERED: ATORVASTATIN 10 MG TAB PO SCH (21:00)
[2016-03-19] MEDS: TAMSULOSIN (SR) 0.4 MG CAP PO SCH ×2 (21:21)
[2016-03-20] VITALS (107 sets, daily range): BP systolic 53–146; BP diastolic 31–101; PULSE 41–96; RESP 16–25
[2016-03-20] MEDS: ALBUTEROL/IPRATROPIUM (NEB) 3 ML AMP HHN SCH ×5 (00:51→16:48)
[2016-03-20] MEDS: PHENYLephrine 40 MG in DEXTROSE 5% 496 ML IV SCH ×3 (01:58→20:06)
[2016-03-20] MEDS ORDERED: VANCOMYCIN 1 GM in NS 250 ML IVPB SCH (05:00)
[2016-03-20] MEDS: PANTOPRAZOLE 40 MG INJ IV SCH (05:06)
[2016-03-20 05:42] LABS: EOSINOPHILS % 0.1 % (0.0-7.0); HEMOGLOBIN 10.3 g/dl (14.0-18.0); LYMPHOCYTES # 0.8 10^3/ul (0.8-2.9); LYMPHOCYTES % 7.8 % (15.0-51.0); MEAN CORPUSCULAR HEMOGLOBIN 35.2 pg (29.0-33.0); MEAN CORPUSCULAR HGB CONC 34.4 g/dl (32.0-37.0); MEAN CORPUSCULAR VOLUME 102.5 fl (82.0-101.0); MEAN PLATELET VOLUME 12.2 fl (7.4-10.4); MONOCYTE # 0.1 10^3/ul (0.3-0.9); MONOCYTES % 0.7 % (0.0-11.0); NEUTROPHIL # 8.8 10^3/ul (1.6-7.5); NEUTROPHILS % 91.4 % (39.0-77.0); PLATELET COUNT 43 10^3/UL (140-440); RED BLOOD COUNT 2.93 10^6/ul (4.70-6.10); RED CELL DISTRIBUTION WIDTH 17.1 % (11.5-14.5); UNCORRECTED WBC 9.6 10^3/ul (4.8-10.8); WHITE BLOOD COUNT 9.6 10^3/ul (4.8-10.8)
[2016-03-20 05:43] LABS: POTASSIUM 4.4 mmol/L (3.5-5.1)
[2016-03-20 05:45] LABS: CREATININE 1.12 mg/dl (0.61-1.24)
[2016-03-20 05:46] LABS: CALCIUM 8.1 mg/dl (8.4-10.2); MAGNESIUM 2.1 mg/dl (1.7-2.5)
[2016-03-20 06:21] LABS: CONDITION 1; LH ANALYZER COMMENTS 1; SUSPECT 1
[2016-03-20] MEDS: LEVOTHYROXINE 100 MCG TAB PO SCH (06:21)
--- NOTE | 2016-03-20 07:08 | RADRPT ---
PROCEDURE: XR Chest. CLINICAL INDICATION: CHF TECHNIQUE: An AP view of the chest was obtained. COMPARISON: Chest x-ray dated 03/18/2016 FINDINGS: The endotracheal tube tip is approximately 4.0 cm above the carolyn. The tip of the enteric tube ex tends below the left diaphragm. There are diffuse bilateral interstitial opacities with small bilateral pleural effusions. No pneu mothorax is seen. The cardiomediastinal silhouette is mildly enlarged . Calcifications are seen wi thin the aortic arch. The osseous structures demonstrate senescent changes. IMPRESSION: 1. Findings suggestive of interstitial edema with small bilateral pleural effusions. Lung aeration is improved when compared to the prior examination. 2. Mild cardiomegaly and aortic atherosclerosis. 3. Tubes and lines, as described above. RPTAT: HH .Rosie Burns MD, MD Date Time Electronically viewed and signed by .Rosie Burns MD, on 03/20/2016 07:08 .G/
--- NOTE | 2016-03-20 07:12 | CONS ---
Date/Time of Note Date/Time of Note DATE: 03/20/16 TIME: 07:08 Assessment/Plan Assessment/Plan Additional Assessment/Plan Assessment and recommendations; 1. Patient admitted with sepsis have extensive right-sided pneumonia, status post CPR. 2. Severe hypertension currently on high-dose Levophed. 3. Current ventilator settings are AC of 18, tidal volume 500, PEEP of 5, 40% FiO2. Patient currently on vancomycin and Levaquin. Next 4. History of diabetes, Down syndrome. Next 5. History of seizures. No seizure activity noted. Continue current treatment, obtain a chest x-ray, patient does have thrombocytopenia which has been fairly stable since admission. Add cefepime 1 g IV every 12 hours. Start tube feeding. Continue current supportive care. Prognosis is guarded, and will and is dependent upon adequate mental status recovery. Consultation Date/Type/Reason Admit Date/Time Mar 18, 2016 at 20:49 Initial Consult Date 24 HR Interval Summary Free Text/Dictation Patient condition remains critical. Still requiring full ventilator support as well as high-dose Levophed drip for blood pressure maintenance. Patient is currently orally intubated, sedated, currently in no distress. Next General examination; elderly male, or intubated, sedated. Exam/Review of Systems Vital Signs Vitals Vital Signs Date Time Temp Pulse Resp B/P Pulse Ox O2 Delivery O2 Flow Rate FiO2 03/20/16 06:30 47 18 95/39 99 Mechanical Ventilator 03/20/16 05:27 40 03/20/16 02:40 97.4 03/18/16 17:23 6.0 Intake and Output 03/19/16 03/19/16 03/20/16 15:00 23:00 07:00 Intake Total 1029.49 ml 1867.999 ml 1406.50 ml Output Total 85 ml 1124 ml 1257 ml Balance 944.49 ml 743.999 ml 149.50 ml Exam HEENT examination; supple neck, no JVD. No lymphadenopathy. No thyromegaly. Pupils small bilaterally. Patient is edentulous. Chest examination; diminished but clear breath sounds. S1-S2 audible no murmurs , regular rhythm. Abdomen examination; soft, nondistended, no organomegaly. Bowel sounds audible. Umbilicus is inverted. There is mild erythema surrounding the umbilicus. Extremity examination; no peripheral edema. RECORD CUTTER examination; patient currently sedated. Results Result Diagram: 03/20/16 0400 03/20/16 0400 Results 24 hrs Laboratory Tests Test 03/19/16 22:45 03/20/16 04:00 03/20/16 05:05 Bedside Glucose 156 131 Anion Gap 12 Basophils # 0.0 Basophils % 0.0 Blood Morphology Comment Blood Urea Nitrogen 21 H Calcium Level 8.1 L Carbon Dioxide Level 25 Chloride Level 108 Creatinine 1.12 Eosinophils # 0.0 Eosinophils % 0.1 Glucose Level 119 Hematocrit 30.0 L Hemoglobin 10.3 L Lactic Acid Level 2.1 Lymphocytes # 0.8 Lymphocytes % 7.8 L Magnesium Level 2.1 Mean Corpuscular Hemoglobin 35.2 H Mean Corpuscular Hemoglobin Concent 34.4 Mean Corpuscular Volume 102.5 H Mean Platelet Volume 12.2 H Monocytes # 0.1 L Monocytes % 0.7 Neutrophils # 8.8 H Neutrophils % 91.4 H Nucleated Red Blood Cells # 0.0 Nucleated Red Blood Cells % 0.0 Platelet Count 43 L Potassium Level 4.4 Red Blood Count 2.93 L Red Cell Distribution Width 17.1 H Sodium Level 141 White Blood Count 9.6 # Medications Medications Current Medications Ondansetron HCl (Zofran Inj) 4 mg Q6H PRN IV NAUSEA AND/OR VOMITING; Start 03/18 at 21:00 Acetaminophen (Tylenol Supp) 650 mg Q4H PRN [place] PAIN LEVEL 1-3 OR FEVER; Start 03/18/16 at 21:00 Lorazepam (Ativan) 1 mg Q2H PRN IV ANXIETY; Start 03/18/16 at 21:00 Pantoprazole (Protonix Iv) 40 mg DAILY@06 IV Last administered on 03/20/16 05: 06; Admin Dose 40 MG; Start 03/19/16 at 06:00 Heparin Sodium (Porcine) (Heparin (5000 Units/0.5 ml)) 5,000 unit Q12 SC ; Start 03/18/16 at 21:00; Status Future Hold Lorazepam (Ativan) 2 mg Q1H PRN IV seizure; Start 03/18/16 at 21:00 Bromocriptine Mesylate (Parlodel) 2.5 mg QHS PO Last administered on 03/19/16 21:21; Admin Dose 2.5 MG; Start 03/18/16 at 21:00 Mupirocin (Bactroban) 1 applic BID TOP Last administered on 03/19/16 21:22; Admin Dose 1 APPLIC; Start 03/18/16 at 21:00 Oxcarbazepine (Trileptal) 150 mg BID PO Last administered on 03/19/16 21:21; Admin Dose 150 MG; Start 03/18/16 at 21:00 Tamsulosin HCl (Flomax) 0.4 mg HS PO Last administered on 03/19/16 21:21; Admin Dose 0.4 MG; Start 03/18/16 at 21:00 Valproate Sodium (Depakene Liquid Cup) 250 mg BID PO Last administered on 21:21; Admin Dose 250 MG; Start 03/18/16 at 21:00 Ziprasidone 20 mg 20 mg DAILY PO Last administered on 03/19/16 10:01; Admin Dose 20 MG; Start 03/19/16 at 09:00; Status Future Hold Levetiracetam 500 mg/Sodium Chloride 105 ml @ 420 mls/hr Q12 IVPB Last administered on 03/19/16 21:22; Admin Dose 420 MLS/HR; Start 03/18/16 at 21:00 Levofloxacin/ Dextrose (Levaquin 500mg/ D5W 100 ml (Pmx)) 100 ml @ 100 mls/hr DAILY IVPB Last administered on 03/19/16 10:00; Admin Dose 100 MLS/HR; Start at 09:00 Atorvastatin Calcium 10 mg 10 mg DAILY@21 PO Last administered on 03/19/16 21: 21; Admin Dose 10 MG; Start 03/19/16 at 21:00 Norepinephrine 16 mg/Dextrose 500 ml @ 1.87 mls/hr TITRATE IV Last administered on 03/20/16 01:57; Admin Dose 56.25 MLS/HR; Start 03/18/16 at 23:59 Dextrose 1,000 ml @ 100 mls/hr Q10H IV Last administered on 03/19/16 21:22; Admin Dose 100 MLS/HR; Start 03/19/16 at 01:30 Phenylephrine HCl 40 mg/Dextrose 500 ml @ 75 mls/hr TITRATE IV Last administered on 03/20/16 01:58; Admin Dose 60 MLS/HR; Start 03/19/16 at 11:30 Vancomycin HCl (Vancocin) 250 ml @ 125 mls/hr Q12H IVPB Last administered on t 05:07; Admin Dose 125 MLS/HR; Start 03/20/16 at 05:00 KEL JJ Mar 20, 2016 07:11
[2016-03-20] MEDS: DEXTROSE 5% 1,000 ML IV SCH ×4 (07:30→19:30)
[2016-03-20 07:58] LABS: Allen Test ACCEPTAB; Arterial Base Excess -0.7 mmol/L (-3.0-3); Arterial COHb 0.3 % (0.0-3.0); Arterial Fraction of Oxyhgb 97.9 % (93.0-99.0); Arterial HCO3 21.2 mmol/L (22.0-26.0); Arterial MetHb 0.3 % (0.0-1.5); Arterial Total Hemglobin 11.4 g/dl (12.0-18.0); MODE VENT - AC
[2016-03-20] MEDS: LEVETIRACETAM IV 500 MG in SOD CHLORIDE 0.9% 100 ML IVPB SCH ×2 (08:28→21:06)
[2016-03-20] MEDS: OXCARBAZEPINE 150 MG TAB PO SCH (08:28)
[2016-03-20] MEDS: VALPROIC ACID LIQUID CUP 250 MG/5 ML CUP PO SCH (08:28)
[2016-03-20] MEDS: CEFEPIME 1GM/50 ML (PMX) 50 ML IVPB SCH ×2 (08:28→21:06)
[2016-03-20] MEDS: LEVOFLOXACIN 500MG/D5W (PMX) 100 ML IVPB SCH (08:28)
[2016-03-20] MEDS: MUPIROCIN 2% 22 GM OINT TOP SCH ×2 (08:29→21:06)
[2016-03-20 08:58] LABS: AADO2 Arterial 361.4 mmHg (7.0-24.0); Allen Test ACCEPTAB; Arterial Base Excess 4.6 mmol/L (-3.0-3); Arterial COHb 0.3 % (0.0-3.0); Arterial Fraction of Oxyhgb 97.9 % (93.0-99.0); Arterial MetHb 0.4 % (0.0-1.5); Arterial Total Hemglobin 11.1 g/dl (12.0-18.0); MODE VENT - AC
--- NOTE | 2016-03-20 09:11 | PN ---
Date/Time of Note Date/Time of Note DATE: 03/20/16 TIME: 09:04 Assessment/Plan VTE Prophylaxis VTE Prophylaxis Intervention: heparin Lines/Catheters IV Catheter Type (from Nrs): Central Line Central line still needed: Yes (IV access ) Urinary Cath still in place: Yes Reason Cath still needed: other (indicate) (strict I/O) Assessment/Plan Assessment/Plan 1. Status post PEA cardiac arrest with ROSC after 5 rounds of epinephrine. 2. Ventilator dependent respiratory failure with possible ARDS due to pneumonia 3. Altered mentation, likely patient had unwitnessed seizure. 4. Shock, currently on 1 pressor. 5. Hypothermia. 6. History of Down syndrome. 7. Lactic acidosis. 8. Hypernatremia. 9. History of hypothyroidism. 10. History of diabetes. 11. Leukopenia. 12. Thrombocytopenia. 13. History of Down syndrome. PLAN: pt remained intubated on ventilator, continue ventilatory support BP labile on two pressor support Pulmonary has been following IV keppra for seizure IV ativan prn seizure appeciate pulmonary help heparin for DVT prophylaxis Subjective 24 Hr Interval Summary Free Text/Dictation Patient condition remains critical. Still requiring full ventilator support as well as high-dose Levophed drip for blood pressure maintenance. still intubated Exam/Review of Systems Vital Signs Vitals Vital Signs Date Time Temp Pulse Resp B/P Pulse Ox O2 Delivery O2 Flow Rate FiO2 03/20/16 08:00 40 03/20/16 08:00 45 03/20/16 07:22 18 100 03/20/16 07:15 107/44 Mechanical Ventilator 03/20/16 02:40 97.4 03/18/16 17:23 6.0 Intake and Output 03/19/16 03/19/16 03/20/16 15:00 23:00 07:00 Intake Total 1029.49 ml 1867.999 ml 1406.50 ml Output Total 85 ml 1124 ml 1257 ml Balance 944.49 ml 743.999 ml 149.50 ml Exam GENERAL: The patient is intubated and sedated, not in any acute distress. HEENT: No obvious head deformity. His pupils are very minimally reactive to light. CARDIOVASCULAR: Regular rate and rhythm. LUNGS: He has decreased breath sounds anteriorly. ABDOMEN: Soft. No grimaces noted. There is erythematous macular petechial rash in the periumbilical area with very few and small vesicles. He has positive bowel sounds. EXTREMITIES: No edema. He has a similar type of erythematous macular petechial kind of rash on his lower extremities like the ones he has on his periumbilical area on his abdomen. NEUROLOGIC: Unable to fully assess given he is intubated and sedated, but he has gag reflex and his pupils are very minimally reactive to light. Results Result Diagram: 03/20/16 0400 03/20/16 0400 Results 24 hrs Laboratory Tests Test 03/19/16 22:45 03/20/16 04:00 03/20/16 05:05 03/20/16 07:00 Bedside Glucose 156 131 Anion Gap 12 Basophils # 0.0 Basophils % 0.0 Blood Morphology Comment Blood Urea Nitrogen 21 H Calcium Level 8.1 L Carbon Dioxide Level 25 Chloride Level 108 Creatinine 1.12 Eosinophils # 0.0 Eosinophils % 0.1 Glucose Level 119 Hematocrit 30.0 L Hemoglobin 10.3 L Lactic Acid Level 2.1 Lymphocytes # 0.8 Lymphocytes % 7.8 L Magnesium Level 2.1 Mean Corpuscular Hemoglobin 35.2 H Mean Corpuscular Hemoglobin Concent 34.4 Mean Corpuscular Volume 102.5 H Mean Platelet Volume 12.2 H Monocytes # 0.1 L Monocytes % 0.7 Neutrophils # 8.8 H Neutrophils % 91.4 H Nucleated Red Blood Cells # 0.0 Nucleated Red Blood Cells % 0.0 Platelet Count 43 L Potassium Level 4.4 Red Blood Count 2.93 L Red Cell Distribution Width 17.1 H Sodium Level 141 White Blood Count 9.6 # Arterial Blood HCO3 21.2 L Arterial Blood Base Excess -0.7 Arterial Blood Oxygen Saturation 98.5 H [place] Test ACCEPTAB Arterial Blood Gas Puncture Site Right Radial Arterial Blood Carboxyhemoglobin 0.3 Arterial Blood Date Drawn 03/20/2016 7:30:51 AM Arterial Blood Methemoglobin 0.3 Arterial Blood pCO2 (Temp correct) 26.7 L Arterial Blood pH (Temp corrected) 7.517 H Arterial Blood pO2 (Temp corrected) 138.5 H Blood Gas A-a O2 Differential 116.0 H Blood Gas Actual Respiration Rate 18 Blood Gas Low PEEP Setting 5.0 Blood Gas Modality VENT - AC Blood Gas Notified Time 03/20/2016 7:58:36 AM Blood Gas Notified Whom JLD Blood Gas Respiration Rate 18.0 Blood Gas Specimen Source Blood arterial Blood Gas Temperature 37.0 Blood Gas Tidal Volume 500.0 FiO2 40.0 Oxyhemoglobin Percent 97.9 Total Hemoglobin 11.4 L Medications Medications Current Medications Ondansetron HCl (Zofran Inj) 4 mg Q6H PRN IV NAUSEA AND/OR VOMITING; Start 03/18 at 21:00 Acetaminophen (Tylenol Supp) 650 mg Q4H PRN [place] PAIN LEVEL 1-3 OR FEVER; Start 03/18/16 at 21:00 Lorazepam (Ativan) 1 mg Q2H PRN IV ANXIETY; Start 03/18/16 at 21:00 Pantoprazole (Protonix Iv) 40 mg DAILY@06 IV Last administered on 03/20/16 05: 06; Admin Dose 40 MG; Start 03/19/16 at 06:00 Heparin Sodium (Porcine) (Heparin (5000 Units/0.5 ml)) 5,000 unit Q12 SC ; Start 03/18/16 at 21:00; Status Future Hold Lorazepam (Ativan) 2 mg Q1H PRN IV seizure; Start 03/18/16 at 21:00 Bromocriptine Mesylate (Parlodel) 2.5 mg QHS PO Last administered on 03/19/16 21:21; Admin Dose 2.5 MG; Start 03/18/16 at 21:00 Mupirocin (Bactroban) 1 applic BID TOP Last administered on 03/20/16 08:29; Admin Dose 1 APPLIC; Start 03/18/16 at 21:00 Oxcarbazepine (Trileptal) 150 mg BID PO Last administered on 03/20/16 08:28; Admin Dose 150 MG; Start 03/18/16 at 21:00 Tamsulosin HCl (Flomax) 0.4 mg HS PO Last administered on 03/19/16 21:21; Admin Dose 0.4 MG; Start 03/18/16 at 21:00 Valproate Sodium (Depakene Liquid Cup) 250 mg BID PO Last administered on 08:28; Admin Dose 250 MG; Start 03/18/16 at 21:00 Ziprasidone 20 mg 20 mg DAILY PO Last administered on 03/19/16 10:01; Admin Dose 20 MG; Start 03/19/16 at 09:00; Status Future Hold Levetiracetam 500 mg/Sodium Chloride 105 ml @ 420 mls/hr Q12 IVPB Last administered on 03/20/16 08:28; Admin Dose 420 MLS/HR; Start 03/18/16 at 21:00 Levofloxacin/ Dextrose (Levaquin 500mg/ D5W 100 ml (Pmx)) 100 ml @ 100 mls/hr DAILY IVPB Last administered on 03/20/16 08:28; Admin Dose 100 MLS/HR; Start at 09:00 Atorvastatin Calcium 10 mg 10 mg DAILY@21 PO Last administered on 03/19/16 21: 21; Admin Dose 10 MG; Start 03/19/16 at 21:00 Norepinephrine 16 mg/Dextrose 500 ml @ 1.87 mls/hr TITRATE IV Last administered on 03/20/16 01:57; Admin Dose 56.25 MLS/HR; Start 03/18/16 at 23:59 Dextrose 1,000 ml @ 100 mls/hr Q10H IV Last administered on 03/19/16 21:22; Admin Dose 100 MLS/HR; Start 03/19/16 at 01:30 Phenylephrine HCl 40 mg/Dextrose 500 ml @ 75 mls/hr TITRATE IV Last administered on 03/20/16 01:58; Admin Dose 60 MLS/HR; Start 03/19/16 at 11:30 Vancomycin HCl 250 ml @ 125 mls/hr Q12H IVPB Last administered on 03/20/16 05: 07; Admin Dose 125 MLS/HR; Start 03/20/16 at 05:00 Cefepime HCl (Maxipime 1gm/50 ml (Pmx)) 50 ml @ 100 mls/hr Q12 IVPB Last administered on 03/20/16 08:28; Admin Dose 100 MLS/HR; Start 03/20/16 at 09:00 SAMANTHA SMALLS MD Mar 20, 2016 09:10
--- NOTE | 2016-03-20 19:03 | CONS ---
DATE OF ADMISSION: 03/18/2016 DATE OF CONSULTATION: 03/20/2016 Thank you, Dr. Trey Snow for cardiology consultation. REASON FOR CONSULTATION: Status post cardiac arrest. HISTORY OF PRESENT ILLNESS: The patient is a 65-year-old gentleman who came from an outside facilit y with altered mental status and subsequently he went into respiratory distress and desaturated and subsequently he was intubated and stabilized. Further subsequently went into PEA arrest and was res uscitated with CPR protocol administrating epinephrine and bicarbonate. The patient was started on v asopressin, norepinephrine and phenylephrine for hemodynamic support. PAST MEDICAL HISTORY: Significant for: 1. Down syndrome. 2. Seizures. 3. Hypothyroidism. 4. Diabetes. 5. Pneumonia. 6. Hypoxic respiratory failure. 7. Septic shock. 8. Electrolyte abnormalities. 9. Diabetes mellitus. 10. Thrombocytopenia. 11. Altered mental status. 12. Thrombocytopenia. SOCIAL HISTORY: Unable to elicit. FAMILY HISTORY: Unable to elicit. ALLERGIES: TO MEDICATIONS DENIED. CURRENT MEDICATIONS: Include: 1. Bactroban. 2. Trileptal. 3. Depakote. 4. Levothyroxine. 5. Levofloxacin. 6. Protonix. 7. Lipitor. 8. Tamsulosin. 9. Propofol. 10. Keppra. 11. Cefepime. 12. Bromocriptine. 13. Norepinephrine. 14. Phenylephrine. 15. Ipratropium bromide nebulizer. REVIEW OF SYSTEMS: Unremarkable except that mentioned in the HPI. PHYSICAL EXAMINATION: VITAL SIGNS: Temperature is 96.9, heart rate of 31, blood pressure 113/56 mmHg, breathing at 18 and saturating 97% on mechanical ventilator with FIO2 of 30%. GENERAL: The patient nonresponsive, intubated with sedation. NECK: No JVD or carotid bruit. CARDIOVASCULAR: Tachycardic. No murmur, rub or gallop. CHEST: Mechanical breath sounds heard bilaterally. ABDOMEN: Soft. Bowel sounds are present. There is no organomegaly. EXTREMITIES: Trace pedal edema bilaterally. IMAGING: Review of 12-lead EKG done on 03/19/2016 shows sinus bradycardia with 48 beats per minute, normal UT, normal QRS and normal QT intervals with nonspecific ST-T wave changes. Echocardiogram s hows normal left ventricular systolic function, estimated left ventricular ejection fraction at 65% with bicuspid aortic valve with trace to mild aortic valvular regurgitation with no pericardial effu bonnie and no pulmonary hypertension. Chest x-ray shows pulmonary vascular congestion with bilateral pleural effusion with cardiomegaly and aortic atherosclerosis. LABORATORY DATA: WBC 9.6, hemoglobin 10.8, hematocrit 30 with a platelet of 43. Sodium 140, potass ium 4.4, chloride 105, CO2 of 25, BUN 21, creatinine 1.12. Magnesium 2.1. Lactic acid initially 4. 7, now 2.1. Blood culture positive for gram-positive cocci in clusters. ASSESSMENT AND PLAN: A 65-year-old gentleman with: 1. Cardiac arrest status post cardiopulmonary resuscitation. 2. Respiratory failure. 3. Pneumonia. 4. Septic shock. 5. Seizures. 6. Hypothyroidism. 7. Diabetes mellitus. 8. Down syndrome. 9. Altered mental status. 10. Thrombocytopenia. 11. Hyperthermia. Patient is clinically and hemodynamically stable. RECOMMENDATIONS: 1. Being weaned off phenylephrine, mapped more than 60. 2. Continue Smooth-Synephrine. 3. Continue the vent support and pulmonary toilet toiletry. 4. Keep magnesium more than 2 and potassium more than 4. 5. Continue antibiotics as recommended. 6. Continue sedation as scheduled. 7. Continue GI and DVT prophylaxis. 8. Continue nebulization as scheduled. No more diagnostics as indicated as his echo shows he has normal left ventricular systolic function with bicuspid aortic valve with trace to mild aortic valvular regurgitation and no pulmonary hyperte nsion. No pericardial effusion. Dictated By: DAJA SHORT MD SR/NTS Conf#: [id number] DID#: [id number]
[2016-03-20] MEDS: OXCARBAZEPINE 150 MG TAB NGT SCH (21:06)
[2016-03-20] MEDS: TAMSULOSIN (SR) 0.4 MG CAP PO SCH (21:06)
[2016-03-20] MEDS: ATORVASTATIN 10 MG TAB NGT SCH (21:06)
[2016-03-20] MEDS: BROMOCRIPTINE 2.5 MG TAB NGT SCH (21:06)
[2016-03-20] MEDS: VALPROIC ACID LIQUID CUP 250 MG/5 ML CUP NGT SCH (21:20)
[2016-03-20] MEDS: ALBUTEROL HFA 8 GM INHALER INH SCH (21:43)
[2016-03-20] MEDS: IPRATROPIUM (HFA) 12.9 GM INHALER INH SCH (21:43)
[2016-03-20] MEDS ORDERED: DEXTROSE 50% 50 ML SYRINGE IV PRN ×2 (23:00)
[2016-03-20] MEDS ORDERED: GLUCOSE GEL 15 GRAM TUBE PO PRN ×2 (23:00)
[2016-03-20] MEDS ORDERED: GLUCOSE GEL 15 GRAM TUBE BUCCAL PRN (23:00)
[2016-03-20] MEDS ORDERED: GLUCAGON 1 MG INJ IM PRN (23:00)
[2016-03-21] VITALS (97 sets, daily range): BP systolic 71–141; BP diastolic 35–76; PULSE 39–73; RESP 16–23
[2016-03-21] MEDS: ALBUTEROL HFA 8 GM INHALER INH SCH ×6 (01:39→20:12)
[2016-03-21] MEDS: IPRATROPIUM (HFA) 12.9 GM INHALER INH SCH ×6 (01:39→20:12)
[2016-03-21] MEDS: DEXTROSE 5% 1,000 ML IV SCH (01:53)
[2016-03-21] MEDS: MIDAZOLAM (DRIP) 50 mg/50 mL 50 ML IV SCH (03:45)
[2016-03-21 04:58] LABS: BASOPHILS % 0.2 % (0.0-2.0); EOSINOPHILS % 0.1 % (0.0-7.0); HEMOGLOBIN 9.5 g/dl (14.0-18.0); LYMPHOCYTES # 0.8 10^3/ul (0.8-2.9); MEAN CORPUSCULAR HEMOGLOBIN 34.6 pg (29.0-33.0); MEAN CORPUSCULAR HGB CONC 33.7 g/dl (32.0-37.0); MEAN CORPUSCULAR VOLUME 102.6 fl (82.0-101.0); MEAN PLATELET VOLUME 10.4 fl (7.4-10.4); MONOCYTE # 0.2 10^3/ul (0.3-0.9); MONOCYTES % 3.2 % (0.0-11.0); NEUTROPHIL # 5.9 10^3/ul (1.6-7.5); NEUTROPHILS % 84.5 % (39.0-77.0); RED BLOOD COUNT 2.73 10^6/ul (4.70-6.10)
[2016-03-21 05:03] LABS: INR 1.17; PT RATIO 1.2
[2016-03-21 05:14] LABS: POTASSIUM 4.3 mmol/L (3.5-5.1)
[2016-03-21 05:17] LABS: CALCIUM 8.5 mg/dl (8.4-10.2)
[2016-03-21 05:36] LABS: AADO2 Arterial 98.1 mmHg (7.0-24.0); Allen Test ACCEPTAB; Arterial Base Excess 0.8 mmol/L (-3.0-3); Arterial COHb 0.1 % (0.0-3.0); Arterial Fraction of Oxyhgb 95.8 % (93.0-99.0); Arterial HCO3 22.8 mmol/L (22.0-26.0); Arterial MetHb 0.2 % (0.0-1.5); Arterial Total Hemglobin 12.7 g/dl (12.0-18.0); MODE VENT - AC
[2016-03-21 05:51] LABS: CONDITION 1; LH ANALYZER COMMENTS 1
[2016-03-21 05:57] LABS: PLATELET COUNT 29 10^3/UL (140-440)
[2016-03-21] MEDS ORDERED: ATROPINE 1 MG/10 ML SYRINGE ONE (05:58)
[2016-03-21] MEDS: INSULIN ASPART [NOVOLOG] 3 ML PEN SC SCH ×5 (06:00→23:48)
[2016-03-21] MEDS ORDERED: ATROPINE 1 MG/10 ML SYRINGE IV ONE ×2 (06:00→20:00)
[2016-03-21] MEDS ORDERED: ATROPINE 0.4 MG INJ IV ONE (06:00)
[2016-03-21] MEDS: LEVOTHYROXINE 100 MCG TAB NGT SCH ×2 (06:14→08:25)
[2016-03-21] MEDS: VANCOMYCIN 1 GM in NS 250 ML IVPB SCH (06:14)
[2016-03-21] MEDS: PANTOPRAZOLE 40 MG INJ IV SCH (06:14)
--- NOTE | 2016-03-21 07:10 | CONS ---
Date/Time of Note Date/Time of Note DATE: 03/21/16 TIME: 07:06 Assessment/Plan Assessment/Plan Additional Assessment/Plan Assessment recommendations; 1. Respiratory failure due to severe pneumonia next 2. Severe sepsis still requiring high-dose Levophed currently at 40 mics per minute. 3. Down syndrome next 4. Diabetes next 5. Brief episode of asystole this morning lasting a few seconds. Etiology is unclear. Continue current ventilator settings which are AC of 18, tidal volume 500, PEEP of 5, 30% FiO2. Stop sedation to assess mental status. Chest x-ray is pending from today. Once it is done I will reviewed and make further recommendations. A cardiology consult is pending. Consultation Date/Type/Reason Admit Date/Time Mar 18, 2016 at 20:49 Type of Consultation: Pulmonary/critical care 24 HR Interval Summary Free Text/Dictation Patient condition remains critical. Still on mechanical ventilation, or intubated. The patient did have a brief episode of asystole lasting a few seconds earlier this morning with spontaneous conversion to sinus rhythm and normalization of blood pressure. Patient currently is sedated, orally intubated. No distress noted. General examination; elderly male, currently in no distress. Exam/Review of Systems Vital Signs Vitals Vital Signs Date Time Temp Pulse Resp B/P Pulse Ox O2 Delivery O2 Flow Rate FiO2 03/21/16 06:30 69 18 118/57 97 03/21/16 06:15 Mechanical Ventilator 03/21/16 05:00 30 03/21/16 04:00 97.9 03/18/16 17:23 6.0 Intake and Output 03/20/16 03/20/16 03/21/16 15:00 23:00 07:00 Intake Total 1631.00 ml 1433.00 ml 773.75 ml Output Total 302 ml 1530 ml 3090 ml Balance 1329.00 ml -97.00 ml -2316.25 ml Exam HEENT examination; supple neck, no JVD. No lymphadenopathy. Or intubated. Pupils are small bilaterally. No neck masses. Patient is edentulous. Chest examination; diminished but clear breath sounds. S1-S2 audible, no murmurs. Regular rate and rhythm. Abdomen examination; soft, nondistended. No organomegaly. Bowel sounds audible. Extremity examination; no peripheral edema. Pulses 1+ bilaterally. [employer] WORK DISPATCH[employer] examination; patient is sedated. Results Result Diagram: 03/21/16 0330 03/21/16 0330 Results 24 hrs Laboratory Tests Test 03/20/16 12:10 03/20/16 16:35 03/20/16 21:51 03/20/16 23:54 Bedside Glucose 127 143 90 95 Test 03/21/16 03:30 03/21/16 05:00 03/21/16 06:17 Activated Partial Thromboplast Time 36.0 H Anion Gap 12 Basophils # 0.0 Basophils % 0.2 Blood Morphology Comment Blood Urea Nitrogen 16 Calcium Level 8.5 Carbon Dioxide Level 24 Chloride Level 110 Creatinine 1.00 Eosinophils # 0.0 Eosinophils % 0.1 Glucose Level 116 Hematocrit 28.0 L Hemoglobin 9.5 L INR International Normalized Ratio 1.17 Lymphocytes # 0.8 Lymphocytes % 12.0 L Mean Corpuscular Hemoglobin 34.6 H Mean Corpuscular Hemoglobin Concent 33.7 Mean Corpuscular Volume 102.6 H Mean Platelet Volume 10.4 Monocytes # 0.2 L Monocytes % 3.2 Neutrophils # 5.9 Neutrophils % 84.5 H Nucleated Red Blood Cells # 0.0 Nucleated Red Blood Cells % 0.0 Platelet Count 29 #*L Potassium Level 4.3 Prothrombin Time 15.0 H Prothrombin Time Ratio 1.2 Red Blood Count 2.73 L Red Cell Distribution Width 17.0 H Sodium Level 142 White Blood Count 7.0 # Arterial Blood HCO3 22.8 Arterial Blood Base Excess 0.8 Arterial Blood Oxygen Saturation 96.1 [place] Test ACCEPTAB Arterial Blood Gas Puncture Site Right Brachial Arterial Blood Carboxyhemoglobin 0.1 Arterial Blood Date Drawn 03/21/2016 5:15:08 AM Arterial Blood Methemoglobin 0.2 Arterial Blood pCO2 (Temp correct) 29.0 L Arterial Blood pH (Temp corrected) 7.514 H Arterial Blood pO2 (Temp corrected) 81.7 Blood Gas A-a O2 Differential 98.1 H Blood Gas Actual Respiration Rate 18 Blood Gas Inspiratory Pressure 20.0 Blood Gas Low PEEP Setting 5.0 Blood Gas Modality VENT - AC Blood Gas Notified Time 03/21/2016 5:35:59 AM Blood Gas Notified Whom RTR Blood Gas Respiration Rate 18.0 Blood Gas Specimen Source Blood arterial Blood Gas Temperature 37.0 Blood Gas Tidal Volume 500.0 FiO2 30.0 Oxyhemoglobin Percent 95.8 Total Hemoglobin 12.7 Bedside Glucose 121 Medications Medications Current Medications Ondansetron HCl (Zofran Inj) 4 mg Q6H PRN IV NAUSEA AND/OR VOMITING; Start 03/18 at 21:00 Acetaminophen (Tylenol Supp) 650 mg Q4H PRN [place] PAIN LEVEL 1-3 OR FEVER; Start 03/18/16 at 21:00 Lorazepam (Ativan) 1 mg Q2H PRN IV ANXIETY; Start 03/18/16 at 21:00 Pantoprazole (Protonix Iv) 40 mg DAILY@06 IV Last administered on 03/21/16 06: 14; Admin Dose 40 MG; Start 03/19/16 at 06:00 Heparin Sodium (Porcine) (Heparin (5000 Units/0.5 ml)) 5,000 unit Q12 SC ; Start 03/18/16 at 21:00; Status Future Hold Lorazepam (Ativan) 2 mg Q1H PRN IV seizure Last administered on 03/20/16 19:51 ; Admin Dose 2 MG; Start 03/18/16 at 21:00 Mupirocin (Bactroban) 1 applic BID TOP Last administered on 03/20/16 21:06; Admin Dose 1 APPLIC; Start 03/18/16 at 21:00 Tamsulosin HCl (Flomax) 0.4 mg HS PO Last administered on 03/20/16 21:06; Admin Dose 0.4 MG; Start 03/18/16 at 21:00 Ziprasidone 20 mg 20 mg DAILY PO Last administered on 03/19/16 10:01; Admin Dose 20 MG; Start 03/19/16 at 09:00; Status Future Hold Levetiracetam 500 mg/Sodium Chloride 105 ml @ 420 mls/hr Q12 IVPB Last administered on 03/20/16 21:06; Admin Dose 420 MLS/HR; Start 03/18/16 at 21:00 Levofloxacin/ Dextrose 100 ml @ 100 mls/hr DAILY IVPB Last administered on 03/20 08:28; Admin Dose 100 MLS/HR; Start 03/19/16 at 09:00 Norepinephrine 16 mg/Dextrose 500 ml @ 1.87 mls/hr TITRATE IV Last administered on 03/21/16 06:27; Admin Dose 26.25 MLS/HR; Start 03/18/16 at 23:59 Phenylephrine HCl 40 mg/Dextrose 500 ml @ 75 mls/hr TITRATE IV Last administered on 03/20/16 20:06; Admin Dose 60 MLS/HR; Start 03/19/16 at 11:30 Cefepime HCl 50 ml @ 100 mls/hr Q12 IVPB Last administered on 03/20/16 21:06; Admin Dose 100 MLS/HR; Start 03/20/16 at 09:00 Vancomycin HCl 250 ml @ 125 mls/hr Q24H IVPB Last administered on 03/21/16 06: 14; Admin Dose 125 MLS/HR; Start 03/21/16 at 06:00 Albumin Human 50 ml @ 100 mls/hr IV PRN IV IF SBP <90; Start 03/20/16 at 18:30 Dextrose (D5W) 1,000 ml @ 50 mls/hr Q20H IV Last administered on 03/21/16 01: 53; Admin Dose 50 MLS/HR; Start 03/20/16 at 19:30 Atorvastatin Calcium (Lipitor) 10 mg DAILY@21 NGT Last administered on 21:06; Admin Dose 10 MG; Start 03/20/16 at 21:00 Bromocriptine Mesylate (Parlodel) 2.5 mg QHS NGT Last administered on 03/20/16 21:06; Admin Dose 2.5 MG; Start 03/20/16 at 21:00 Oxcarbazepine (Trileptal) 150 mg BID NGT Last administered on 03/20/16 21:06; Admin Dose 150 MG; Start 03/20/16 at 21:00 Valproate Sodium (Depakene Liquid Cup) 250 mg BID NGT Last administered on 21:20; Admin Dose 250 MG; Start 03/20/16 at 21:00 Insulin Aspart (Novolog Insulin Pen) NOVOLOG *MILD* ALGORI... Q6 SC ; Start 03/21 at 00:00 Miscellaneous Information 1 ea NOTE XX ; Start 03/20/16 at 23:00 Glucose (Glutose) 15 gm Q15M PRN PO DECREASED GLUCOSE; Start 03/20/16 at 23:00 Glucose (Glutose) 22.5 gm Q15M PRN PO DECREASED GLUCOSE; Start 03/20/16 at 23:00 Dextrose (D50w Syringe) 25 ml Q15M PRN IV DECREASED GLUCOSE; Start 03/20/16 at 23:00 Dextrose (D50w Syringe) 50 ml Q15M PRN IV DECREASED GLUCOSE; Start 03/20/16 at 23:00 Glucagon (Glucagen) 1 mg Q15M PRN IM DECREASED GLUCOSE; Start 03/20/16 at 23:00 Glucose (Glutose) 15 gm Q15M PRN BUCCAL DECREASED GLUCOSE; Start 03/20/16 at 23: 00 KEL JJ Mar 21, 2016 07:10
--- NOTE | 2016-03-21 07:56 | RADRPT ---
PROCEDURE: XR Chest. CLINICAL INDICATION: Pneumonia TECHNIQUE: An AP view of the chest was obtained. COMPARISON: Chest x-ray dated 03/20/2016 FINDINGS: The endotracheal tube tip is approximately 1.7 cm above the carolyn. The tip of the enteric tube pr ojects over the left upper quadrant. There diffuse bilateral interstitial opacities with small bilateral pleural effusions. No pneumoth orax is seen. The cardiomediastinal silhouette is within normal limits for size. The osseous struc tures demonstrate senescent changes. IMPRESSION: 1. Findings suggestive of interstitial edema with small bilateral pleural effusions. No significant interval change. 2. Tubes and lines, as described above. RPTAT: HH .Rosie Burns MD, MD Date Time Electronically viewed and signed by .Rosie Burns MD, on 03/21/2016 07:55 .G/
[2016-03-21] MEDS: OXCARBAZEPINE 150 MG TAB NGT SCH ×2 (08:25→20:42)
[2016-03-21] MEDS: MUPIROCIN 2% 22 GM OINT TOP SCH ×2 (08:26→20:43)
[2016-03-21] MEDS: VALPROIC ACID LIQUID CUP 250 MG/5 ML CUP NGT SCH ×2 (08:26→20:42)
[2016-03-21] MEDS: LEVOFLOXACIN 500MG/D5W (PMX) 100 ML IVPB SCH (08:26)
[2016-03-21] MEDS: CEFEPIME 1GM/50 ML (PMX) 50 ML IVPB SCH ×2 (08:28→20:42)
[2016-03-21] MEDS: LEVETIRACETAM IV 500 MG in SOD CHLORIDE 0.9% 100 ML IVPB SCH ×2 (08:28→20:42)
--- NOTE | 2016-03-21 08:49 | PN ---
Date/Time of Note Date/Time of Note DATE: 03/21/16 TIME: 08:47 Assessment/Plan VTE Prophylaxis VTE Prophylaxis Intervention: heparin Lines/Catheters IV Catheter Type (from Nrs): Central Line Central line still needed: Yes (IV access ) Urinary Cath still in place: Yes Reason Cath still needed: urinary retention, other (indicate) (intubated on ventilator ) Assessment/Plan Assessment/Plan 1. Status post PEA cardiac arrest with ROSC after 5 rounds of epinephrine. 2. Ventilator dependent respiratory failure with possible ARDS due to pneumonia 3. Altered mentation, likely patient had unwitnessed seizure. 4. Shock, currently on 1 pressor. 5. Hypothermia. 6. History of Down syndrome. 7. Lactic acidosis. 8. Hypernatremia. 9. History of hypothyroidism. 10. History of diabetes. 11. Leukopenia. 12. Thrombocytopenia. 13. History of Down syndrome. PLAN: pt remained intubated on ventilator, continue ventilatory support BP labile on two pressor support Pulmonary has been following IV keppra for seizure IV ativan prn seizure appeciate pulmonary help cardiology consulted for bradycardia heparin for DVT prophylaxis Subjective 24 Hr Interval Summary Free Text/Dictation pt remains intubated, BPs table, afebrile, had a episode of bradycardia Exam/Review of Systems Vital Signs Vitals Vital Signs Date Time Temp Pulse Resp B/P Pulse Ox O2 Delivery O2 Flow Rate FiO2 03/21/16 08:10 58 18 97 30 03/21/16 06:30 118/57 03/21/16 06:15 Mechanical Ventilator 03/21/16 04:00 97.9 03/18/16 17:23 6.0 Intake and Output 03/20/16 03/20/16 03/21/16 15:00 23:00 07:00 Intake Total 1631.00 ml 1433.00 ml 976.00 ml Output Total 302 ml 1530 ml 3090 ml Balance 1329.00 ml -97.00 ml -2114.00 ml Exam GENERAL: The patient is intubated and sedated, not in any acute distress. HEENT: No obvious head deformity. His pupils are very minimally reactive to light. CARDIOVASCULAR: Regular rate and rhythm. LUNGS: He has decreased breath sounds anteriorly. ABDOMEN: Soft, NT, NG tube EXTREMITIES: no edema NEUROLOGIC: Unable to fully assess given he is intubated and sedated, but he has gag reflex and his pupils are very minimally reactive to light. Results Result Diagram: 03/21/16 0330 03/21/16 0330 Results 24 hrs Laboratory Tests Test 03/20/16 12:10 03/20/16 16:35 03/20/16 21:51 03/20/16 23:54 Bedside Glucose 127 143 90 95 Test 03/21/16 03:30 03/21/16 05:00 03/21/16 06:17 Activated Partial Thromboplast Time 36.0 H Anion Gap 12 Basophils # 0.0 Basophils % 0.2 Blood Morphology Comment Blood Urea Nitrogen 16 Calcium Level 8.5 Carbon Dioxide Level 24 Chloride Level 110 Creatinine 1.00 Eosinophils # 0.0 Eosinophils % 0.1 Glucose Level 116 Hematocrit 28.0 L Hemoglobin 9.5 L INR International Normalized Ratio 1.17 Lymphocytes # 0.8 Lymphocytes % 12.0 L Mean Corpuscular Hemoglobin 34.6 H Mean Corpuscular Hemoglobin Concent 33.7 Mean Corpuscular Volume 102.6 H Mean Platelet Volume 10.4 Monocytes # 0.2 L Monocytes % 3.2 Neutrophils # 5.9 Neutrophils % 84.5 H Nucleated Red Blood Cells # 0.0 Nucleated Red Blood Cells % 0.0 Platelet Count 29 #*L Potassium Level 4.3 Prothrombin Time 15.0 H Prothrombin Time Ratio 1.2 Red Blood Count 2.73 L Red Cell Distribution Width 17.0 H Sodium Level 142 White Blood Count 7.0 # Arterial Blood HCO3 22.8 Arterial Blood Base Excess 0.8 Arterial Blood Oxygen Saturation 96.1 [place] Test ACCEPTAB Arterial Blood Gas Puncture Site Right Brachial Arterial Blood Carboxyhemoglobin 0.1 Arterial Blood Date Drawn 03/21/2016 5:15:08 AM Arterial Blood Methemoglobin 0.2 Arterial Blood pCO2 (Temp correct) 29.0 L Arterial Blood pH (Temp corrected) 7.514 H Arterial Blood pO2 (Temp corrected) 81.7 Blood Gas A-a O2 Differential 98.1 H Blood Gas Actual Respiration Rate 18 Blood Gas Inspiratory Pressure 20.0 Blood Gas Low PEEP Setting 5.0 Blood Gas Modality VENT - AC Blood Gas Notified Time 03/21/2016 5:35:59 AM Blood Gas Notified Whom RTR Blood Gas Respiration Rate 18.0 Blood Gas Specimen Source Blood arterial Blood Gas Temperature 37.0 Blood Gas Tidal Volume 500.0 FiO2 30.0 Oxyhemoglobin Percent 95.8 Total Hemoglobin 12.7 Bedside Glucose 121 Medications Medications Current Medications Ondansetron HCl (Zofran Inj) 4 mg Q6H PRN IV NAUSEA AND/OR VOMITING; Start 03/18 at 21:00 Acetaminophen (Tylenol Supp) 650 mg Q4H PRN [place] PAIN LEVEL 1-3 OR FEVER; Start 03/18/16 at 21:00 Lorazepam (Ativan) 1 mg Q2H PRN IV ANXIETY; Start 03/18/16 at 21:00 Pantoprazole (Protonix Iv) 40 mg DAILY@06 IV Last administered on 03/21/16 06: 14; Admin Dose 40 MG; Start 03/19/16 at 06:00 Heparin Sodium (Porcine) (Heparin (5000 Units/0.5 ml)) 5,000 unit Q12 SC ; Start 03/18/16 at 21:00; Status Future Hold Lorazepam (Ativan) 2 mg Q1H PRN IV seizure Last administered on 03/20/16 19:51 ; Admin Dose 2 MG; Start 03/18/16 at 21:00 Mupirocin (Bactroban) 1 applic BID TOP Last administered on 03/21/16 08:26; Admin Dose 1 APPLIC; Start 03/18/16 at 21:00 Tamsulosin HCl (Flomax) 0.4 mg HS PO Last administered on 03/20/16 21:06; Admin Dose 0.4 MG; Start 03/18/16 at 21:00 Ziprasidone 20 mg 20 mg DAILY PO Last administered on 03/19/16 10:01; Admin Dose 20 MG; Start 03/19/16 at 09:00; Status Future Hold Levetiracetam 500 mg/Sodium Chloride 105 ml @ 420 mls/hr Q12 IVPB Last administered on 03/21/16 08:28; Admin Dose 420 MLS/HR; Start 03/18/16 at 21:00 Levofloxacin/ Dextrose 100 ml @ 100 mls/hr DAILY IVPB Last administered on 03/21 08:26; Admin Dose 100 MLS/HR; Start 03/19/16 at 09:00 Phenylephrine HCl 40 mg/Dextrose 500 ml @ 75 mls/hr TITRATE IV Last administered on 03/20/16 20:06; Admin Dose 60 MLS/HR; Start 03/19/16 at 11:30 Cefepime HCl 50 ml @ 100 mls/hr Q12 IVPB Last administered on 03/21/16 08:28; Admin Dose 100 MLS/HR; Start 03/20/16 at 09:00 Vancomycin HCl 250 ml @ 125 mls/hr Q24H IVPB Last administered on 03/21/16 06: 14; Admin Dose 125 MLS/HR; Start 03/21/16 at 06:00 Albumin Human 50 ml @ 100 mls/hr IV PRN IV IF SBP <90; Start 03/20/16 at 18:30 Dextrose (D5W) 1,000 ml @ 50 mls/hr Q20H IV Last administered on 03/21/16 01: 53; Admin Dose 50 MLS/HR; Start 03/20/16 at 19:30 Atorvastatin Calcium (Lipitor) 10 mg DAILY@21 NGT Last administered on 21:06; Admin Dose 10 MG; Start 03/20/16 at 21:00 Bromocriptine Mesylate (Parlodel) 2.5 mg QHS NGT Last administered on 03/20/16 21:06; Admin Dose 2.5 MG; Start 03/20/16 at 21:00 Oxcarbazepine (Trileptal) 150 mg BID NGT Last administered on 03/21/16 08:25; Admin Dose 150 MG; Start 03/20/16 at 21:00 Valproate Sodium (Depakene Liquid Cup) 250 mg BID NGT Last administered on 08:26; Admin Dose 250 MG; Start 03/20/16 at 21:00 Insulin Aspart (Novolog Insulin Pen) NOVOLOG *MILD* ALGORI... Q6 SC ; Start 03/21 at 00:00 Miscellaneous Information 1 ea NOTE XX ; Start 03/20/16 at 23:00 Glucose (Glutose) 15 gm Q15M PRN PO DECREASED GLUCOSE; Start 03/20/16 at 23:00 Glucose (Glutose) 22.5 gm Q15M PRN PO DECREASED GLUCOSE; Start 03/20/16 at 23:00 Dextrose (D50w Syringe) 25 ml Q15M PRN IV DECREASED GLUCOSE; Start 03/20/16 at 23:00 Dextrose (D50w Syringe) 50 ml Q15M PRN IV DECREASED GLUCOSE; Start 03/20/16 at 23:00 Glucagon (Glucagen) 1 mg Q15M PRN IM DECREASED GLUCOSE; Start 03/20/16 at 23:00 Glucose 15 gm 15 gm Q15M PRN BUCCAL DECREASED GLUCOSE; Start 03/20/16 at 23:00 Norepinephrine/ Dextrose (Levophed/D5W) 500 ml @ 0.93 mls/hr TITRATE IV ; Start 03/21/16 at 09:00 SAMANTHA SMALLS MD Mar 21, 2016 08:49
--- NOTE | 2016-03-21 11:27 | RADRPT ---
PROCEDURE: XR Chest AP portable CLINICAL INDICATION: Respiratory failure, intubated TECHNIQUE: An AP portable radiograph of the chest was submitted. COMPARISON: This area earlier on the same date FINDINGS: Support Hardware: The endotracheal to and the NG tube are stable and positioning. Cardiovascular: The cardiovascular silhouette appears unremarkable. Lung Bowen: There is again atelectasis seen to the heart within the left lower lobe. There is been interval improvement with regards to the interstitial infiltrates seen fairly diffusely through the right lung. Pleural Spaces: No pneumothorax or pleural effusion is identified. Osseous Structures: Degenerative changes are seen about the AC joints bilaterally. Soft Tissues: The soft tissues appear unremarkable. IMPRESSION: 1. Endotracheal tube and NG tube is stable and positioning. 2. Persistent atelectasis seen at the left lower lobe. 3. Improved aeration of the right lung with a minimal diffuse interstitial infiltrate. Physician Precious Date Time Electronically viewed and signed by Physician Precious on 03/21/2016 11:26 /
--- NOTE | 2016-03-21 18:10 | CONS ---
Date/Time of Note Date/Time of Note DATE: 03/21/16 TIME: 18:03 Assessment/Plan Assessment/Plan Additional Assessment/Plan ASSESSMENT AND PLAN: A 65-year-old gentleman with: 1. Cardiac arrest status post cardiopulmonary resuscitation. 2. Respiratory failure. 3. Pneumonia. 4. Septic shock. 5. Seizures. 6. Hypothyroidism. 7. Diabetes mellitus. 8. Down syndrome. 9. Altered mental status. 10. Thrombocytopenia. 11. Hypothermia. Patient is clinically and hemodynamically unstable. Intermittent Pauses ranging from 3-5 secs and Marked Bradycardia RECOMMENDATIONS: Wean off Levophed. If hypotensive administer 25% albumin if Hypotension Continue the vent support and pulmonary toilet toiletry. Keep magnesium more than 2 and potassium more than 4. Continue antibiotics as recommended. Continue GI and DVT prophylaxis. Continue nebulization as scheduled If persistent Bradycardia or Pause administer atropine 0.4mg IV PRN Recommend Hematology consult. Consultation Date/Type/Reason Admit Date/Time Mar 18, 2016 at 20:49 Initial Consult Date Type of Consultation: Pulmonary/critical care Exam/Review of Systems Vital Signs Vitals Vital Signs Date Time Temp Pulse Resp B/P Pulse Ox O2 Delivery O2 Flow Rate FiO2 03/21/16 16:37 40 18 99 03/21/16 14:00 112/50 Mechanical Ventilator 03/21/16 12:00 97.6 03/21/16 09:45 32 03/18/16 17:23 6.0 Intake and Output 03/20/16 03/20/16 03/21/16 15:00 23:00 07:00 Intake Total 1631.00 ml 1433.00 ml 976.00 ml Output Total 302 ml 1530 ml 3240 ml Balance 1329.00 ml -97.00 ml -2264.00 ml Exam GENERAL: The patient nonresponsive, intubated NECK: No JVD or carotid bruit. CARDIOVASCULAR: RRR No murmur, rub or gallop. CHEST: Mechanical breath sounds heard bilaterally. ABDOMEN: Soft. Bowel sounds are present. There is no organomegaly. EXTREMITIES: Trace pedal edema bilaterally. Results Result Diagram: 03/21/16 0330 03/21/16 0330 Results 24 hrs Laboratory Tests Test 03/20/16 21:51 03/20/16 23:54 03/21/16 03:30 03/21/16 05:00 Bedside Glucose 90 95 Activated Partial Thromboplast Time 36.0 H Anion Gap 12 Basophils # 0.0 Basophils % 0.2 Blood Morphology Comment Blood Urea Nitrogen 16 Calcium Level 8.5 Carbon Dioxide Level 24 Chloride Level 110 Creatinine 1.00 Eosinophils # 0.0 Eosinophils % 0.1 Glucose Level 116 Hematocrit 28.0 L Hemoglobin 9.5 L INR International Normalized Ratio 1.17 Lymphocytes # 0.8 Lymphocytes % 12.0 L Mean Corpuscular Hemoglobin 34.6 H Mean Corpuscular Hemoglobin Concent 33.7 Mean Corpuscular Volume 102.6 H Mean Platelet Volume 10.4 Monocytes # 0.2 L Monocytes % 3.2 Neutrophils # 5.9 Neutrophils % 84.5 H Nucleated Red Blood Cells # 0.0 Nucleated Red Blood Cells % 0.0 Platelet Count 29 #*L Potassium Level 4.3 Prothrombin Time 15.0 H Prothrombin Time Ratio 1.2 Red Blood Count 2.73 L Red Cell Distribution Width 17.0 H Sodium Level 142 White Blood Count 7.0 # Arterial Blood HCO3 22.8 Arterial Blood Base Excess 0.8 Arterial Blood Oxygen Saturation 96.1 [place] Test ACCEPTAB Arterial Blood Gas Puncture Site Right Brachial Arterial Blood Carboxyhemoglobin 0.1 Arterial Blood Date Drawn 03/21/2016 5:15:08 AM Arterial Blood Methemoglobin 0.2 Arterial Blood pCO2 (Temp correct) 29.0 L Arterial Blood pH (Temp corrected) 7.514 H Arterial Blood pO2 (Temp corrected) 81.7 Blood Gas A-a O2 Differential 98.1 H Blood Gas Actual Respiration Rate 18 Blood Gas Inspiratory Pressure 20.0 Blood Gas Low PEEP Setting 5.0 Blood Gas Modality VENT - AC Blood Gas Notified Time 03/21/2016 5:35:59 AM Blood Gas Notified Whom RTR Blood Gas Respiration Rate 18.0 Blood Gas Specimen Source Blood arterial Blood Gas Temperature 37.0 Blood Gas Tidal Volume 500.0 FiO2 30.0 Oxyhemoglobin Percent 95.8 Total Hemoglobin 12.7 Test 03/21/16 06:17 03/21/16 13:14 Bedside Glucose 121 121 Medications Medications Current Medications Ondansetron HCl (Zofran Inj) 4 mg Q6H PRN IV NAUSEA AND/OR VOMITING; Start 03/18 at 21:00 Acetaminophen (Tylenol Supp) 650 mg Q4H PRN [place] PAIN LEVEL 1-3 OR FEVER; Start 03/18/16 at 21:00 Lorazepam (Ativan) 1 mg Q2H PRN IV ANXIETY; Start 03/18/16 at 21:00 Pantoprazole (Protonix Iv) 40 mg DAILY@06 IV Last administered on 03/21/16 06: 14; Admin Dose 40 MG; Start 03/19/16 at 06:00 Heparin Sodium (Porcine) (Heparin (5000 Units/0.5 ml)) 5,000 unit Q12 SC ; Start 03/18/16 at 21:00; Status Future Hold Lorazepam (Ativan) 2 mg Q1H PRN IV seizure Last administered on 03/20/16 19:51 ; Admin Dose 2 MG; Start 03/18/16 at 21:00 Mupirocin (Bactroban) 1 applic BID TOP Last administered on 03/21/16 08:26; Admin Dose 1 APPLIC; Start 03/18/16 at 21:00 Tamsulosin HCl (Flomax) 0.4 mg HS PO Last administered on 03/20/16 21:06; Admin Dose 0.4 MG; Start 03/18/16 at 21:00 Ziprasidone 20 mg 20 mg DAILY PO Last administered on 03/19/16 10:01; Admin Dose 20 MG; Start 03/19/16 at 09:00; Status Future Hold Levetiracetam 500 mg/Sodium Chloride 105 ml @ 420 mls/hr Q12 IVPB Last administered on 03/21/16 08:28; Admin Dose 420 MLS/HR; Start 03/18/16 at 21:00 Levofloxacin/ Dextrose 100 ml @ 100 mls/hr DAILY IVPB Last administered on 03/21 08:26; Admin Dose 100 MLS/HR; Start 03/19/16 at 09:00 Phenylephrine HCl 40 mg/Dextrose 500 ml @ 75 mls/hr TITRATE IV Last administered on 03/20/16 20:06; Admin Dose 60 MLS/HR; Start 03/19/16 at 11:30 Cefepime HCl 50 ml @ 100 mls/hr Q12 IVPB Last administered on 03/21/16 08:28; Admin Dose 100 MLS/HR; Start 03/20/16 at 09:00 Vancomycin HCl 250 ml @ 125 mls/hr Q24H IVPB Last administered on 03/21/16 06: 14; Admin Dose 125 MLS/HR; Start 03/21/16 at 06:00 Albumin Human 50 ml @ 100 mls/hr IV PRN IV IF SBP <90; Start 03/20/16 at 18:30 Dextrose (D5W) 1,000 ml @ 50 mls/hr Q20H IV Last administered on 03/21/16 01: 53; Admin Dose 50 MLS/HR; Start 03/20/16 at 19:30 Atorvastatin Calcium (Lipitor) 10 mg DAILY@21 NGT Last administered on 21:06; Admin Dose 10 MG; Start 03/20/16 at 21:00 Bromocriptine Mesylate (Parlodel) 2.5 mg QHS NGT Last administered on 03/20/16 21:06; Admin Dose 2.5 MG; Start 03/20/16 at 21:00 Oxcarbazepine (Trileptal) 150 mg BID NGT Last administered on 03/21/16 08:25; Admin Dose 150 MG; Start 03/20/16 at 21:00 Valproate Sodium (Depakene Liquid Cup) 250 mg BID NGT Last administered on 08:26; Admin Dose 250 MG; Start 03/20/16 at 21:00 Insulin Aspart (Novolog Insulin Pen) NOVOLOG *MILD* ALGORI... Q6 SC ; Start 03/21 at 00:00 Miscellaneous Information 1 ea NOTE XX ; Start 03/20/16 at 23:00 Glucose (Glutose) 15 gm Q15M PRN PO DECREASED GLUCOSE; Start 03/20/16 at 23:00 Glucose (Glutose) 22.5 gm Q15M PRN PO DECREASED GLUCOSE; Start 03/20/16 at 23:00 Dextrose (D50w Syringe) 25 ml Q15M PRN IV DECREASED GLUCOSE; Start 03/20/16 at 23:00 Dextrose (D50w Syringe) 50 ml Q15M PRN IV DECREASED GLUCOSE; Start 03/20/16 at 23:00 Glucagon (Glucagen) 1 mg Q15M PRN IM DECREASED GLUCOSE; Start 03/20/16 at 23:00 Glucose 15 gm 15 gm Q15M PRN BUCCAL DECREASED GLUCOSE; Start 03/20/16 at 23:00 Norepinephrine/ Dextrose (Levophed/D5W) 500 ml @ 0.93 mls/hr TITRATE IV ; Start 03/21/16 at 09:00 Miscellaneous Information (*Rx Drug Level Order Reminder*) 1 ONCE ONCE XX ; Start 03/22/16 at 05:00; Stop 03/22/16 at 05:01 Nystatin (Nystatin Cr) 1 applic BID TOP ; Start 03/21/16 at 21:00 DAJA SHORT M.D. Mar 21, 2016 18:10
[2016-03-21] MEDS: BROMOCRIPTINE 2.5 MG TAB NGT SCH (20:42)
[2016-03-21] MEDS: TAMSULOSIN (SR) 0.4 MG CAP PO SCH (20:42)
[2016-03-21] MEDS: ATORVASTATIN 10 MG TAB NGT SCH (20:42)
[2016-03-21] MEDS: NYSTATIN 15 GM CR TOP SCH (20:42)
[2016-03-21] MEDS: LORAZEPAM 2 MG INJ IV PRN (21:11)
[2016-03-22] VITALS (98 sets, daily range): BP systolic 80–113; BP diastolic 35–68; PULSE 41–99; RESP 16–38
[2016-03-22] MEDS: ALBUTEROL HFA 8 GM INHALER INH SCH ×6 (01:10→20:00)
[2016-03-22] MEDS: IPRATROPIUM (HFA) 12.9 GM INHALER INH SCH ×6 (01:10→20:00)
[2016-03-22] MEDS: DEXTROSE 5% 1,000 ML IV SCH ×2 (01:20→23:49)
[2016-03-22 04:46] LABS: BASOPHILS % 0.4 % (0.0-2.0); EOSINOPHILS % 0.8 % (0.0-7.0); HEMATOCRIT 25.4 % (42.0-52.0); HEMOGLOBIN 8.6 g/dl (14.0-18.0); LYMPHOCYTES # 0.8 10^3/ul (0.8-2.9); LYMPHOCYTES % 25.8 % (15.0-51.0); MEAN CORPUSCULAR HEMOGLOBIN 34.7 pg (29.0-33.0); MEAN CORPUSCULAR VOLUME 101.9 fl (82.0-101.0); MEAN PLATELET VOLUME 10.2 fl (7.4-10.4); MONOCYTE # 0.2 10^3/ul (0.3-0.9); MONOCYTES % 6.2 % (0.0-11.0); NEUTROPHILS % 66.8 % (39.0-77.0); RED BLOOD COUNT 2.49 10^6/ul (4.70-6.10); RED CELL DISTRIBUTION WIDTH 17.2 % (11.5-14.5); UNCORRECTED WBC 2.9 10^3/ul (4.8-10.8); WHITE BLOOD COUNT 2.9 10^3/ul (4.8-10.8)
[2016-03-22 05:01] LABS: CONDITION 1; SUSPECT 1
[2016-03-22 05:04] LABS: PLATELET COUNT 24 10^3/UL (140-440)
[2016-03-22 05:17] LABS: POTASSIUM 3.9 mmol/L (3.5-5.1)
[2016-03-22 05:19] LABS: CREATININE 0.84 mg/dl (0.61-1.24)
[2016-03-22 05:20] LABS: CALCIUM 8.5 mg/dl (8.4-10.2)
[2016-03-22 05:30] LABS: AADO2 Arterial 90.5 mmHg (7.0-24.0); Arterial COHb 0.2 % (0.0-3.0); Arterial Fraction of Oxyhgb 95.9 % (93.0-99.0); Arterial HCO3 21.1 mmol/L (22.0-26.0); Arterial MetHb 0.2 % (0.0-1.5); Arterial Total Hemglobin 10.2 g/dl (12.0-18.0); MODE VENT - AC
[2016-03-22] MEDS: PANTOPRAZOLE 40 MG INJ IV SCH (05:54)
[2016-03-22] MEDS: INSULIN ASPART [NOVOLOG] 3 ML PEN SC SCH ×3 (05:54→17:56)
[2016-03-22] MEDS: VANCOMYCIN 1 GM in NS 250 ML IVPB SCH (06:57)
--- NOTE | 2016-03-22 07:32 | CONS ---
Date/Time of Note Date/Time of Note DATE: 03/22/16 TIME: 07:27 Assessment/Plan Assessment/Plan Additional Assessment/Plan Assessment and recommendation; 1. Patient admitted with respiratory failure due to bilateral pneumonia. 2. Down syndrome . 3. Seizure disorder . 4. Hypothyroidism 5. Patient is mildly alkalotic on current ventilator settings which are: assist control of 18, tidal volume 500, PEEP of 5,30% FiO2. ABG was reviewed. 6. Mental unresponsiveness patient off sedation since more than 24 hours now. 7. Episodes of asystole without any further recurrence since yesterday morning. 8. Thrombocytopenia, platelet count 24,000, not at a level where the patient would require platelet transfusion. Ventilator settings have been adjusted tidal volume has been decreased to 400 mL. Continue to hold sedation. Chest x-ray from today is pending. Continue current antibiotics. For the measures. Further weaning from mechanical ventilation will depend upon adequate mental status recovery. Prognosis is guarded. Consultation Date/Type/Reason Admit Date/Time Mar 18, 2016 at 20:49 Type of Consultation: Pulmonary/critical care 24 HR Interval Summary Free Text/Dictation Patient condition remains critical. Patient did not have any further episodes of asystole. Currently maintained on 6 mics of Levophed off phenylephrine drip. General examination; elderly male, orally intubated, unresponsive. Patient has been off sedation since more than 24 hours now. Exam/Review of Systems Vital Signs Vitals Vital Signs Date Time Temp Pulse Resp B/P Pulse Ox O2 Delivery O2 Flow Rate FiO2 03/22/16 07:15 76 24 97/45 96 03/22/16 07:00 Mechanical Ventilator 03/22/16 06:00 98.6 03/22/16 05:32 30 03/18/16 17:23 6.0 Intake and Output 03/21/16 03/21/16 03/22/16 15:00 23:00 07:00 Intake Total 614 ml 723.0 ml 670.10 ml Output Total 975 ml 725 ml 975 ml Balance -361 ml -2.0 ml -304.90 ml Exam HEENT examination; supple neck, no JVD. Patient is edentulous. Orally intubated. No thyromegaly. No neck bruits. Chest examination; diminished but clear breath sounds bilaterally. S1-S2 audible no murmurs regular rhythm. Abdomen examination; protuberant, no organomegaly, bowel sounds audible. Extremity examination; no peripheral edema. Next [employer] examination; patient is unresponsive. Results Result Diagram: 03/22/16 0345 03/22/16 0345 Results 24 hrs Laboratory Tests Test 03/21/16 13:14 03/21/16 23:47 03/22/16 03:45 03/22/16 05:00 Bedside Glucose 121 99 Anion Gap 13 Basophils # 0.0 Basophils % 0.4 Blood Morphology Comment Blood Urea Nitrogen 16 Calcium Level 8.5 Carbon Dioxide Level 22 Chloride Level 111 H Creatinine 0.84 Eosinophils # 0.0 Eosinophils % 0.8 Glucose Level 98 Hematocrit 25.4 L Hemoglobin 8.6 L Lymphocytes # 0.8 Lymphocytes % 25.8 Mean Corpuscular Hemoglobin 34.7 H Mean Corpuscular Hemoglobin Concent 34.0 Mean Corpuscular Volume 101.9 H Mean Platelet Volume 10.2 Monocytes # 0.2 L Monocytes % 6.2 Neutrophils # 2.0 Neutrophils % 66.8 Nucleated Red Blood Cells # 0.0 Nucleated Red Blood Cells % 0.0 Platelet Count 24 *L Potassium Level 3.9 Red Blood Count 2.49 L Red Cell Distribution Width 17.2 H Sodium Level 142 White Blood Count 2.9 #L Arterial Blood HCO3 21.1 L Arterial Blood Base Excess -1.0 Arterial Blood Oxygen Saturation 96.3 [place] Test N/A Arterial Blood Gas Puncture Site Right Brachial Arterial Blood Carboxyhemoglobin 0.2 Arterial Blood Date Drawn 03/22/2016 5:05:14 AM Arterial Blood Methemoglobin 0.2 Arterial Blood pCO2 (Temp correct) 26.7 L Arterial Blood pH (Temp corrected) 7.515 H Arterial Blood pO2 (Temp corrected) 92.0 Blood Gas A-a O2 Differential 90.5 H Blood Gas Actual Respiration Rate 18 Blood Gas Inspiratory Pressure 24.0 Blood Gas Low PEEP Setting 5.0 Blood Gas Modality VENT - AC Blood Gas Notified Time 03/22/2016 5:30:26 AM Blood Gas Notified Whom RTR Blood Gas Respiration Rate 18.0 Blood Gas Specimen Source Blood arterial Blood Gas Temperature 37.0 Blood Gas Tidal Volume 500.0 FiO2 30.0 Oxyhemoglobin Percent 95.9 Total Hemoglobin 10.2 L Test 03/22/16 05:22 03/22/16 05:48 Vancomycin Level Trough 12.1 Bedside Glucose 115 Medications Medications Current Medications Ondansetron HCl (Zofran Inj) 4 mg Q6H PRN IV NAUSEA AND/OR VOMITING; Start 03/18 at 21:00 Acetaminophen (Tylenol Supp) 650 mg Q4H PRN [place] PAIN LEVEL 1-3 OR FEVER; Start 03/18/16 at 21:00 Lorazepam (Ativan) 1 mg Q2H PRN IV ANXIETY Last administered on 03/21/16 21:11 ; Admin Dose 1 MG; Start 03/18/16 at 21:00 Pantoprazole (Protonix Iv) 40 mg DAILY@06 IV Last administered on 03/22/16 05: 54; Admin Dose 40 MG; Start 03/19/16 at 06:00 Heparin Sodium (Porcine) (Heparin (5000 Units/0.5 ml)) 5,000 unit Q12 SC ; Start 03/18/16 at 21:00; Status Future Hold Lorazepam (Ativan) 2 mg Q1H PRN IV seizure Last administered on 03/20/16 19:51 ; Admin Dose 2 MG; Start 03/18/16 at 21:00 Mupirocin (Bactroban) 1 applic BID TOP Last administered on 03/21/16 20:43; Admin Dose 1 APPLIC; Start 03/18/16 at 21:00 Tamsulosin HCl (Flomax) 0.4 mg HS PO Last administered on 03/21/16 20:42; Admin Dose 0.4 MG; Start 03/18/16 at 21:00 Ziprasidone 20 mg 20 mg DAILY PO Last administered on 03/19/16 10:01; Admin Dose 20 MG; Start 03/19/16 at 09:00; Status Future Hold Levetiracetam 500 mg/Sodium Chloride 105 ml @ 420 mls/hr Q12 IVPB Last administered on 03/21/16 20:42; Admin Dose 420 MLS/HR; Start 03/18/16 at 21:00 Levofloxacin/ Dextrose 100 ml @ 100 mls/hr DAILY IVPB Last administered on 03/21 08:26; Admin Dose 100 MLS/HR; Start 03/19/16 at 09:00 Phenylephrine HCl 40 mg/Dextrose 500 ml @ 75 mls/hr TITRATE IV Last administered on 03/20/16 20:06; Admin Dose 60 MLS/HR; Start 03/19/16 at 11:30 Cefepime HCl 50 ml @ 100 mls/hr Q12 IVPB Last administered on 03/21/16 20:42; Admin Dose 100 MLS/HR; Start 03/20/16 at 09:00 Vancomycin HCl 250 ml @ 125 mls/hr Q24H IVPB Last administered on 03/22/16 06: 57; Admin Dose 125 MLS/HR; Start 03/21/16 at 06:00 Albumin Human 50 ml @ 100 mls/hr IV PRN IV IF SBP <90; Start 03/20/16 at 18:30 Dextrose (D5W) 1,000 ml @ 50 mls/hr Q20H IV Last administered on 03/22/16 01: 20; Admin Dose 50 MLS/HR; Start 03/20/16 at 19:30 Atorvastatin Calcium (Lipitor) 10 mg DAILY@21 NGT Last administered on 20:42; Admin Dose 10 MG; Start 03/20/16 at 21:00 Bromocriptine Mesylate (Parlodel) 2.5 mg QHS NGT Last administered on 03/21/16 20:42; Admin Dose 2.5 MG; Start 03/20/16 at 21:00 Oxcarbazepine (Trileptal) 150 mg BID NGT Last administered on 03/21/16 20:42; Admin Dose 150 MG; Start 03/20/16 at 21:00 Valproate Sodium (Depakene Liquid Cup) 250 mg BID NGT Last administered on 20:42; Admin Dose 250 MG; Start 03/20/16 at 21:00 Insulin Aspart (Novolog Insulin Pen) NOVOLOG *MILD* ALGORI... Q6 SC ; Start 03/21 at 00:00 Miscellaneous Information 1 ea NOTE XX ; Start 03/20/16 at 23:00 Glucose (Glutose) 15 gm Q15M PRN PO DECREASED GLUCOSE; Start 03/20/16 at 23:00 Glucose (Glutose) 22.5 gm Q15M PRN PO DECREASED GLUCOSE; Start 03/20/16 at 23:00 Dextrose (D50w Syringe) 25 ml Q15M PRN IV DECREASED GLUCOSE; Start 03/20/16 at 23:00 Dextrose (D50w Syringe) 50 ml Q15M PRN IV DECREASED GLUCOSE; Start 03/20/16 at 23:00 Glucagon (Glucagen) 1 mg Q15M PRN IM DECREASED GLUCOSE; Start 03/20/16 at 23:00 Glucose 15 gm 15 gm Q15M PRN BUCCAL DECREASED GLUCOSE; Start 03/20/16 at 23:00 Norepinephrine/ Dextrose (Levophed/D5W) 500 ml @ 0.93 mls/hr TITRATE IV ; Start 03/21/16 at 09:00 Nystatin (Nystatin Cr) 1 applic BID TOP Last administered on 03/21/16t 20:42; Admin Dose 1 APPLIC; Start 03/21/16 at 21:00 KEL JJ Mar 22, 2016 07:32
[2016-03-22] MEDS ORDERED: POTASSIUM CHLORIDE 20 MEQ POWDER FOR ORAL SOLN PO PRN ×3 (09:30)
--- NOTE | 2016-03-22 09:51 | PN ---
Date/Time of Note Date/Time of Note DATE: 03/22/16 TIME: 09:50 Assessment/Plan VTE Prophylaxis VTE Prophylaxis Intervention: heparin Lines/Catheters IV Catheter Type (from Nrs): Central Line Central line still needed: Yes (IV access ) Urinary Cath still in place: Yes Reason Cath still needed: other (indicate) (strict I/O, intubated on ventilator ) Assessment/Plan Assessment/Plan 1. Status post PEA cardiac arrest with ROSC after 5 rounds of epinephrine. 2. Ventilator dependent respiratory failure with possible ARDS due to pneumonia 3. Altered mentation, likely patient had unwitnessed seizure. 4. Shock, currently on 1 pressor. 5. Hypothermia. 6. History of Down syndrome. 7. Lactic acidosis. 8. Hypernatremia. 9. History of hypothyroidism. 10. History of diabetes. 11. Leukopenia. 12. Thrombocytopenia. 13. History of Down syndrome. PLAN: pt remained intubated on ventilator, continue ventilatory support BP labile on two pressor support Pulmonary has been following IV keppra for seizure IV ativan prn seizure appeciate pulmonary help cardiology consulted for bradycardia heparin for DVT prophylaxis Subjective 24 Hr Interval Summary Free Text/Dictation pt remains intubated, still on two pressorrs, Tube feeding started Exam/Review of Systems Vital Signs Vitals Vital Signs Date Time Temp Pulse Resp B/P Pulse Ox O2 Delivery O2 Flow Rate FiO2 03/22/16 09:30 84 25 96/42 94 03/22/16 09:00 Mechanical Ventilator 03/22/16 08:00 97.2 03/22/16 05:32 30 03/18/16 17:23 6.0 Intake and Output 03/21/16 03/21/16 03/22/16 15:00 23:00 07:00 Intake Total 614 ml 723.0 ml 670.10 ml Output Total 975 ml 725 ml 975 ml Balance -361 ml -2.0 ml -304.90 ml Exam GENERAL: The patient is intubated and sedated, not in any acute distress. HEENT: No obvious head deformity. His pupils are very minimally reactive to light. CARDIOVASCULAR: Regular rate and rhythm. LUNGS: He has decreased breath sounds anteriorly. ABDOMEN: Soft, NT, NG tube EXTREMITIES: no edema + mercado catheter Results Result Diagram: 03/22/16 0345 03/22/16 0345 Results 24 hrs Laboratory Tests Test 2/7/17 13:14 03/21/16 23:47 03/22/16 03:45 03/22/16 05:00 Bedside Glucose 121 99 Anion Gap 13 Basophils # 0.0 Basophils % 0.4 Blood Morphology Comment Blood Urea Nitrogen 16 Calcium Level 8.5 Carbon Dioxide Level 22 Chloride Level 111 H Creatinine 0.84 Eosinophils # 0.0 Eosinophils % 0.8 Glucose Level 98 Hematocrit 25.4 L Hemoglobin 8.6 L Lymphocytes # 0.8 Lymphocytes % 25.8 Mean Corpuscular Hemoglobin 34.7 H Mean Corpuscular Hemoglobin Concent 34.0 Mean Corpuscular Volume 101.9 H Mean Platelet Volume 10.2 Monocytes # 0.2 L Monocytes % 6.2 Neutrophils # 2.0 Neutrophils % 66.8 Nucleated Red Blood Cells # 0.0 Nucleated Red Blood Cells % 0.0 Platelet Count 24 *L Potassium Level 3.9 Red Blood Count 2.49 L Red Cell Distribution Width 17.2 H Sodium Level 142 White Blood Count 2.9 #L Arterial Blood HCO3 21.1 L Arterial Blood Base Excess -1.0 Arterial Blood Oxygen Saturation 96.3 [place] Test N/A Arterial Blood Gas Puncture Site Right Brachial Arterial Blood Carboxyhemoglobin 0.2 Arterial Blood Date Drawn 03/22/2016 5:05:14 AM Arterial Blood Methemoglobin 0.2 Arterial Blood pCO2 (Temp correct) 26.7 L Arterial Blood pH (Temp corrected) 7.515 H Arterial Blood pO2 (Temp corrected) 92.0 Blood Gas A-a O2 Differential 90.5 H Blood Gas Actual Respiration Rate 18 Blood Gas Inspiratory Pressure 24.0 Blood Gas Low PEEP Setting 5.0 Blood Gas Modality VENT - AC Blood Gas Notified Time 03/22/2016 5:30:26 AM Blood Gas Notified Whom RTR Blood Gas Respiration Rate 18.0 Blood Gas Specimen Source Blood arterial Blood Gas Temperature 37.0 Blood Gas Tidal Volume 500.0 FiO2 30.0 Oxyhemoglobin Percent 95.9 Total Hemoglobin 10.2 L Test 03/22/16 05:22 03/22/16 05:48 Vancomycin Level Trough 12.1 Bedside Glucose 115 Medications Medications Current Medications Ondansetron HCl (Zofran Inj) 4 mg Q6H PRN IV NAUSEA AND/OR VOMITING; Start 03/18 at 21:00 Acetaminophen (Tylenol Supp) 650 mg Q4H PRN [place] PAIN LEVEL 1-3 OR FEVER; Start 03/18/16 at 21:00 Lorazepam (Ativan) 1 mg Q2H PRN IV ANXIETY Last administered on 03/21/16 21:11 ; Admin Dose 1 MG; Start 03/18/16 at 21:00 Pantoprazole (Protonix Iv) 40 mg DAILY@06 IV Last administered on 03/22/16 05: 54; Admin Dose 40 MG; Start 03/19/16 at 06:00 Heparin Sodium (Porcine) (Heparin (5000 Units/0.5 ml)) 5,000 unit Q12 SC ; Start 03/18/16 at 21:00; Status Future Hold Lorazepam (Ativan) 2 mg Q1H PRN IV seizure Last administered on 03/20/16 19:51 ; Admin Dose 2 MG; Start 03/18/16 at 21:00 Mupirocin (Bactroban) 1 applic BID TOP Last administered on 03/21/16 20:43; Admin Dose 1 APPLIC; Start 03/18/16 at 21:00 Tamsulosin HCl (Flomax) 0.4 mg HS PO Last administered on 03/21/16 20:42; Admin Dose 0.4 MG; Start 03/18/16 at 21:00 Ziprasidone 20 mg 20 mg DAILY PO Last administered on 03/19/16 10:01; Admin Dose 20 MG; Start 03/19/16 at 09:00; Status Future Hold Levetiracetam 500 mg/Sodium Chloride 105 ml @ 420 mls/hr Q12 IVPB Last administered on 03/21/16 20:42; Admin Dose 420 MLS/HR; Start 03/18/16 at 21:00 Levofloxacin/ Dextrose 100 ml @ 100 mls/hr DAILY IVPB Last administered on 03/21 08:26; Admin Dose 100 MLS/HR; Start 03/19/16 at 09:00 Phenylephrine HCl 40 mg/Dextrose 500 ml @ 75 mls/hr TITRATE IV Last administered on 03/20/16 20:06; Admin Dose 60 MLS/HR; Start 03/19/16 at 11:30 Cefepime HCl 50 ml @ 100 mls/hr Q12 IVPB Last administered on 03/21/16 20:42; Admin Dose 100 MLS/HR; Start 03/20/16 at 09:00 Vancomycin HCl 250 ml @ 125 mls/hr Q24H IVPB Last administered on 03/22/16 06: 57; Admin Dose 125 MLS/HR; Start 03/21/16 at 06:00 Albumin Human 50 ml @ 100 mls/hr IV PRN IV IF SBP <90; Start 03/20/16 at 18:30 Dextrose (D5W) 1,000 ml @ 50 mls/hr Q20H IV Last administered on 03/22/16 01: 20; Admin Dose 50 MLS/HR; Start 03/20/16 at 19:30 Atorvastatin Calcium (Lipitor) 10 mg DAILY@21 NGT Last administered on 20:42; Admin Dose 10 MG; Start 03/20/16 at 21:00 Bromocriptine Mesylate (Parlodel) 2.5 mg QHS NGT Last administered on 03/21/16 20:42; Admin Dose 2.5 MG; Start 03/20/16 at 21:00 Oxcarbazepine (Trileptal) 150 mg BID NGT Last administered on 03/21/16 20:42; Admin Dose 150 MG; Start 03/20/16 at 21:00 Valproate Sodium (Depakene Liquid Cup) 250 mg BID NGT Last administered on 20:42; Admin Dose 250 MG; Start 03/20/16 at 21:00 Insulin Aspart (Novolog Insulin Pen) NOVOLOG *MILD* ALGORI... Q6 SC ; Start 03/21 at 00:00 Miscellaneous Information 1 ea NOTE XX ; Start 03/20/16 at 23:00 Glucose (Glutose) 15 gm Q15M PRN PO DECREASED GLUCOSE; Start 03/20/16 at 23:00 Glucose (Glutose) 22.5 gm Q15M PRN PO DECREASED GLUCOSE; Start 03/20/16 at 23:00 Dextrose (D50w Syringe) 25 ml Q15M PRN IV DECREASED GLUCOSE; Start 03/20/16 at 23:00 Dextrose (D50w Syringe) 50 ml Q15M PRN IV DECREASED GLUCOSE; Start 03/20/16 at 23:00 Glucagon (Glucagen) 1 mg Q15M PRN IM DECREASED GLUCOSE; Start 03/20/16 at 23:00 Glucose 15 gm 15 gm Q15M PRN BUCCAL DECREASED GLUCOSE; Start 03/20/16 at 23:00 Norepinephrine/ Dextrose (Levophed/D5W) 500 ml @ 0.93 mls/hr TITRATE IV ; Start 03/21/16 at 09:00 Nystatin (Nystatin Cr) 1 applic BID TOP Last administered on 03/21/16t 20:42; Admin Dose 1 APPLIC; Start 03/21/16 at 21:00 SAMANTHA SMALLS MD Mar 22, 2016 09:51
[2016-03-22] MEDS: CEFEPIME 1GM/50 ML (PMX) 50 ML IVPB SCH ×2 (10:13→20:43)
[2016-03-22] MEDS: LEVETIRACETAM IV 500 MG in SOD CHLORIDE 0.9% 100 ML IVPB SCH ×2 (10:13→20:43)
[2016-03-22] MEDS: LEVOFLOXACIN 500MG/D5W (PMX) 100 ML IVPB SCH (10:13)
[2016-03-22] MEDS: OXCARBAZEPINE 150 MG TAB NGT SCH ×2 (10:14→20:44)
[2016-03-22] MEDS: VALPROIC ACID LIQUID CUP 250 MG/5 ML CUP NGT SCH ×2 (10:14→21:56)
[2016-03-22] MEDS: NYSTATIN 15 GM CR TOP SCH ×2 (10:14→20:43)
[2016-03-22] MEDS: MUPIROCIN 2% 22 GM OINT TOP SCH ×2 (10:15→20:43)
--- NOTE | 2016-03-22 10:56 | RADRPT ---
PROCEDURE: XR Chest 1 View. CLINICAL INDICATION: Shortness of breath, pneumonia TECHNIQUE: AP view of the chest were obtained. COMPARISON: March 21, 2016 FINDINGS: The cardiomediastinal silhouette is within normal limits. Endotracheal and nasogastric tubes are sta ble and appear in grossly appropriate location. Patchy infiltrates throughout the right lung and in the left lower lobe are stable. Small pleural effusions are stable. Osseous structures are unchang ed. IMPRESSION: Stable support lines and tubes. Stable patchy infiltrates throughout the right lung and in the left lower lobe. Stable small bilateral pleural effusions. RPTAT: AA .Chaitanya Salcedo MD, MD Date Time Electronically viewed and signed by .Chaitanya Salcedo MD, on 03/22/2016 10:55 .P/
--- NOTE | 2016-03-22 11:06 | CONS ---
Date/Time of Note Date/Time of Note DATE: 03/22/16 TIME: 11:04 Assessment/Plan Assessment/Plan Additional Assessment/Plan ASSESSMENT AND PLAN: A 65-year-old gentleman with: 1. Cardiac arrest status post cardiopulmonary resuscitation. 2. Respiratory failure. 3. Pneumonia. 4. Septic shock. 5. Seizures. 6. Hypothyroidism. 7. Diabetes mellitus. 8. Down syndrome. 9. Altered mental status. 10. Thrombocytopenia. 11. Hypothermia. 12. Pancytopenia Patient is clinically and hemodynamically unstable. RECOMMENDATIONS: Wean off Levophed. If hypotensive administer 25% albumin if Hypotension Continue the vent support and pulmonary toilet toiletry. Keep magnesium more than 2 and potassium more than 4. Continue antibiotics as recommended. Continue GI and DVT prophylaxis. Continue nebulization as scheduled If persistent Bradycardia or Pause administer atropine 0.4mg IV PRN Consultation Date/Type/Reason Admit Date/Time Mar 18, 2016 at 20:49 Type of Consultation: Pulmonary/critical care Exam/Review of Systems Vital Signs Vitals Vital Signs Date Time Temp Pulse Resp B/P Pulse Ox O2 Delivery O2 Flow Rate FiO2 03/22/16 09:30 84 25 96/42 94 03/22/16 09:00 Mechanical Ventilator 03/22/16 08:00 97.2 03/22/16 07:40 30 03/18/16 17:23 6.0 Intake and Output 03/21/16 03/21/16 03/22/16 15:00 23:00 07:00 Intake Total 614 ml 723.0 ml 670.10 ml Output Total 975 ml 725 ml 975 ml Balance -361 ml -2.0 ml -304.90 ml Exam GENERAL: The patient nonresponsive, intubated NECK: No JVD or carotid bruit. CARDIOVASCULAR: RRR No murmur, rub or gallop. CHEST: Mechanical breath sounds heard bilaterally. ABDOMEN: Soft. Bowel sounds are present. There is no organomegaly. EXTREMITIES: Trace pedal edema bilaterally. Results Result Diagram: 03/22/16 0345 03/22/16 0345 Results 24 hrs Laboratory Tests Test 03/21/16 13:14 03/21/16 23:47 03/22/16 03:45 03/22/16 05:00 Bedside Glucose 121 99 Anion Gap 13 Basophils # 0.0 Basophils % 0.4 Blood Morphology Comment Blood Urea Nitrogen 16 Calcium Level 8.5 Carbon Dioxide Level 22 Chloride Level 111 H Creatinine 0.84 Eosinophils # 0.0 Eosinophils % 0.8 Glucose Level 98 Hematocrit 25.4 L Hemoglobin 8.6 L Lymphocytes # 0.8 Lymphocytes % 25.8 Mean Corpuscular Hemoglobin 34.7 H Mean Corpuscular Hemoglobin Concent 34.0 Mean Corpuscular Volume 101.9 H Mean Platelet Volume 10.2 Monocytes # 0.2 L Monocytes % 6.2 Neutrophils # 2.0 Neutrophils % 66.8 Nucleated Red Blood Cells # 0.0 Nucleated Red Blood Cells % 0.0 Platelet Count 24 *L Potassium Level 3.9 Red Blood Count 2.49 L Red Cell Distribution Width 17.2 H Sodium Level 142 White Blood Count 2.9 #L Arterial Blood HCO3 21.1 L Arterial Blood Base Excess -1.0 Arterial Blood Oxygen Saturation 96.3 [place] Test N/A Arterial Blood Gas Puncture Site Right Brachial Arterial Blood Carboxyhemoglobin 0.2 Arterial Blood Date Drawn 03/22/2016 5:05:14 AM Arterial Blood Methemoglobin 0.2 Arterial Blood pCO2 (Temp correct) 26.7 L Arterial Blood pH (Temp corrected) 7.515 H Arterial Blood pO2 (Temp corrected) 92.0 Blood Gas A-a O2 Differential 90.5 H Blood Gas Actual Respiration Rate 18 Blood Gas Inspiratory Pressure 24.0 Blood Gas Low PEEP Setting 5.0 Blood Gas Modality VENT - AC Blood Gas Notified Time 03/22/2016 5:30:26 AM Blood Gas Notified Whom RTR Blood Gas Respiration Rate 18.0 Blood Gas Specimen Source Blood arterial Blood Gas Temperature 37.0 Blood Gas Tidal Volume 500.0 FiO2 30.0 Oxyhemoglobin Percent 95.9 Total Hemoglobin 10.2 L Test 03/22/16 05:22 03/22/16 05:48 Vancomycin Level Trough 12.1 Bedside Glucose 115 Medications Medications Current Medications Ondansetron HCl (Zofran Inj) 4 mg Q6H PRN IV NAUSEA AND/OR VOMITING; Start 03/18 at 21:00 Acetaminophen (Tylenol Supp) 650 mg Q4H PRN [place] PAIN LEVEL 1-3 OR FEVER; Start 03/18/16 at 21:00 Lorazepam (Ativan) 1 mg Q2H PRN IV ANXIETY Last administered on 03/21/16t 21:11 ; Admin Dose 1 MG; Start 03/18/16 at 21:00 Pantoprazole (Protonix Iv) 40 mg DAILY@06 IV Last administered on 03/22/16 05: 54; Admin Dose 40 MG; Start 03/19/16 at 06:00 Heparin Sodium (Porcine) (Heparin (5000 Units/0.5 ml)) 5,000 unit Q12 SC ; Start 03/18/16 at 21:00; Status Future Hold Lorazepam (Ativan) 2 mg Q1H PRN IV seizure Last administered on 03/20/16 19:51 ; Admin Dose 2 MG; Start 03/18/16 at 21:00 Mupirocin (Bactroban) 1 applic BID TOP Last administered on 03/22/16 10:15; Admin Dose 1 APPLIC; Start 03/18/16 at 21:00 Tamsulosin HCl (Flomax) 0.4 mg HS PO Last administered on 03/21/16 20:42; Admin Dose 0.4 MG; Start 03/18/16 at 21:00 Ziprasidone 20 mg 20 mg DAILY PO Last administered on 03/19/16 10:01; Admin Dose 20 MG; Start 03/19/16 at 09:00; Status Future Hold Levetiracetam 500 mg/Sodium Chloride 105 ml @ 420 mls/hr Q12 IVPB Last administered on 03/22/16 10:13; Admin Dose 420 MLS/HR; Start 03/18/16 at 21:00 Levofloxacin/ Dextrose 100 ml @ 100 mls/hr DAILY IVPB Last administered on 03/22 10:13; Admin Dose 100 MLS/HR; Start 03/19/16 at 09:00 Phenylephrine HCl 40 mg/Dextrose 500 ml @ 75 mls/hr TITRATE IV Last administered on 03/20/16 20:06; Admin Dose 60 MLS/HR; Start 03/19/16 at 11:30 Cefepime HCl 50 ml @ 100 mls/hr Q12 IVPB Last administered on 03/22/16 10:13; Admin Dose 100 MLS/HR; Start 03/20/16 at 09:00 Vancomycin HCl 250 ml @ 125 mls/hr Q24H IVPB Last administered on 03/22/16 06: 57; Admin Dose 125 MLS/HR; Start 03/21/16 at 06:00 Albumin Human 50 ml @ 100 mls/hr IV PRN IV IF SBP <90; Start 03/20/16 at 18:30 Dextrose (D5W) 1,000 ml @ 50 mls/hr Q20H IV Last administered on 03/22/16 01: 20; Admin Dose 50 MLS/HR; Start 03/20/16 at 19:30 Atorvastatin Calcium (Lipitor) 10 mg DAILY@21 NGT Last administered on 20:42; Admin Dose 10 MG; Start 03/20/16 at 21:00 Bromocriptine Mesylate (Parlodel) 2.5 mg QHS NGT Last administered on 03/21/16 20:42; Admin Dose 2.5 MG; Start 03/20/16 at 21:00 Oxcarbazepine (Trileptal) 150 mg BID NGT Last administered on 03/22/16 10:14; Admin Dose 150 MG; Start 03/20/16 at 21:00 Valproate Sodium (Depakene Liquid Cup) 250 mg BID NGT Last administered on 10:14; Admin Dose 250 MG; Start 03/20/16 at 21:00 Insulin Aspart (Novolog Insulin Pen) NOVOLOG *MILD* ALGORI... Q6 SC ; Start 03/21 at 00:00 Miscellaneous Information 1 ea NOTE XX ; Start 03/20/16 at 23:00 Glucose (Glutose) 15 gm Q15M PRN PO DECREASED GLUCOSE; Start 03/20/16 at 23:00 Glucose (Glutose) 22.5 gm Q15M PRN PO DECREASED GLUCOSE; Start 03/20/16 at 23:00 Dextrose (D50w Syringe) 25 ml Q15M PRN IV DECREASED GLUCOSE; Start 03/20/16 at 23:00 Dextrose (D50w Syringe) 50 ml Q15M PRN IV DECREASED GLUCOSE; Start 03/20/16 at 23:00 Glucagon (Glucagen) 1 mg Q15M PRN IM DECREASED GLUCOSE; Start 03/20/16 at 23:00 Glucose 15 gm 15 gm Q15M PRN BUCCAL DECREASED GLUCOSE; Start 03/20/16 at 23:00 Norepinephrine/ Dextrose (Levophed/D5W) 500 ml @ 0.93 mls/hr TITRATE IV ; Start 03/21/16 at 09:00 Nystatin (Nystatin Cr) 1 applic BID TOP Last administered on 03/22/16t 10:14; Admin Dose 1 APPLIC; Start 03/21/16 at 21:00 DAJA SHORT M.D. Mar 22, 2016 11:06
--- NOTE | 2016-03-22 14:46 | CONS ---
Date/Time of Note Date/Time of Note DATE: 03/22/16 TIME: 14:38 Assessment/Plan Assessment/Plan Chief Complaint/Hosp Course That patient is a 65 year old male with history of Down's syndrome, seizure disorder, hypothyroidism, diabetes, who presented with hypoxia, AMS and hypothermia, s/p PEA arrest, respiratory failure s/p intubation with pneumonia and septic shock, altered mental status with possible unwitnessed seizure, who was noted to have thrombocytopenia/pancytopenia. - Patient noted to have pancytopenia even on admission, baseline unclear, may be related to underlying seizure medications, with worsening of counts since admission. Likely multifactorial in the setting of sepsis, possible DIC, medication side effect (vancomycin may be contributory, also oxcarazepine, valproate and keppra may be contributing). - Heparin started on 03/18, however platelet count already low at 30,000 on admission. Low suspicion for HIT given less than 50% decline in platelet count , degree of thrombocytopenia, thrombocytopenia at baseline and worsening of platelet count < 5 days after starting heparin (unless patient had antecedent exposure). HIT panel previously sent and is pending at this time. - Will check DIC panel, HIV, hepatitis panel, and labs for anemia eval (iron panel, ferritin, LDH, retic, B12/folate). If fibrinogen low, please give cryo to keep fibrinogen > 150. - I have requested a peripheral smear by path review - Transfuse if platelets < 10, <20 if febrile, <50 if bleeding, or Hgb < 8 - Will continue to follow. Problems: Consultation Date/Type/Reason Admit Date/Time Mar 18, 2016 at 20:49 Date of Consultation: Mar 22, 2016 Type of Consultation: Hematology Reason for Consultation Thrombocytopenia Hx of Present Illness That patient is a 65 year old male with history of Down's syndrome, seizure disorder, hypothyroidism, diabetes, who presented with hypoxia, AMS and hypothermia, s/p PEA arrest, respiratory failure s/p intubation with pneumonia and septic shock, altered mental status with possible unwitnessed seizure. Patient intubated. Unable to be obtained Past Medical History per HPI Family History Significant Family History: other (unknown) Social History unknown, patient intubated Smoking Status: Never smoker Exam/Review of Systems Vital Signs Vitals Vital Signs Date Time Temp Pulse Resp B/P Pulse Ox O2 Delivery O2 Flow Rate FiO2 03/22/16 12:00 87 03/22/16 11:00 27 95 30 03/22/16 09:30 96/42 03/22/16 09:00 Mechanical Ventilator 03/22/16 08:00 97.2 03/18/16 17:23 6.0 Intake and Output 03/21/16 03/21/16 03/22/16 15:00 23:00 07:00 Intake Total 614 ml 723.0 ml 670.10 ml Output Total 975 ml 725 ml 975 ml Balance -361 ml -2.0 ml -304.90 ml Exam Constitutional: other (intubated, not responsive) Neck: supple Respiratory: other (mechanical breath sounds) Cardiovascular: regular rate and rhythm Gastrointestinal: non-tender, soft Musculoskeletal: nl extremities to inspection Results Result Diagram: 03/22/16 0345 03/22/16 0345 Results 24 hrs Laboratory Tests Test 03/21/16 23:47 03/22/16 03:45 03/22/16 05:00 03/22/16 05:22 Bedside Glucose 99 Anion Gap 13 Basophils # 0.0 Basophils % 0.4 Blood Morphology Comment Blood Urea Nitrogen 16 Calcium Level 8.5 Carbon Dioxide Level 22 Chloride Level 111 H Creatinine 0.84 Eosinophils # 0.0 Eosinophils % 0.8 Glucose Level 98 Hematocrit 25.4 L Hemoglobin 8.6 L Lymphocytes # 0.8 Lymphocytes % 25.8 Mean Corpuscular Hemoglobin 34.7 H Mean Corpuscular Hemoglobin Concent 34.0 Mean Corpuscular Volume 101.9 H Mean Platelet Volume 10.2 Monocytes # 0.2 L Monocytes % 6.2 Neutrophils # 2.0 Neutrophils % 66.8 Nucleated Red Blood Cells # 0.0 Nucleated Red Blood Cells % 0.0 Platelet Count 24 *L Potassium Level 3.9 Red Blood Count 2.49 L Red Cell Distribution Width 17.2 H Sodium Level 142 White Blood Count 2.9 #L Arterial Blood HCO3 21.1 L Arterial Blood Base Excess -1.0 Arterial Blood Oxygen Saturation 96.3 [place] Test N/A Arterial Blood Gas Puncture Site Right Brachial Arterial Blood Carboxyhemoglobin 0.2 Arterial Blood Date Drawn 03/22/2016 5:05:14 AM Arterial Blood Methemoglobin 0.2 Arterial Blood pCO2 (Temp correct) 26.7 L Arterial Blood pH (Temp corrected) 7.515 H Arterial Blood pO2 (Temp corrected) 92.0 Blood Gas A-a O2 Differential 90.5 H Blood Gas Actual Respiration Rate 18 Blood Gas Inspiratory Pressure 24.0 Blood Gas Low PEEP Setting 5.0 Blood Gas Modality VENT - AC Blood Gas Notified Time 03/22/2016 5:30:26 AM Blood Gas Notified Whom RTR Blood Gas Respiration Rate 18.0 Blood Gas Specimen Source Blood arterial Blood Gas Temperature 37.0 Blood Gas Tidal Volume 500.0 FiO2 30.0 Oxyhemoglobin Percent 95.9 Total Hemoglobin 10.2 L Vancomycin Level Trough 12.1 Test 03/22/16 05:48 03/22/16 12:47 Bedside Glucose 115 89 Medications Medications Current Medications Ondansetron HCl (Zofran Inj) 4 mg Q6H PRN IV NAUSEA AND/OR VOMITING; Start 03/18 at 21:00 Acetaminophen (Tylenol Supp) 650 mg Q4H PRN [place] PAIN LEVEL 1-3 OR FEVER; Start 03/18/16 at 21:00 Lorazepam (Ativan) 1 mg Q2H PRN IV ANXIETY Last administered on 03/21/16 21:11 ; Admin Dose 1 MG; Start 03/18/16 at 21:00 Pantoprazole (Protonix Iv) 40 mg DAILY@06 IV Last administered on 03/22/16 05: 54; Admin Dose 40 MG; Start 03/19/16 at 06:00 Heparin Sodium (Porcine) (Heparin (5000 Units/0.5 ml)) 5,000 unit Q12 SC ; Start 03/18/16 at 21:00; Status Future Hold Lorazepam (Ativan) 2 mg Q1H PRN IV seizure Last administered on 03/20/16 19:51 ; Admin Dose 2 MG; Start 03/18/16 at 21:00 Mupirocin (Bactroban) 1 applic BID TOP Last administered on 03/22/16 10:15; Admin Dose 1 APPLIC; Start 03/18/16 at 21:00 Tamsulosin HCl (Flomax) 0.4 mg HS PO Last administered on 03/21/16 20:42; Admin Dose 0.4 MG; Start 03/18/16 at 21:00 Ziprasidone 20 mg 20 mg DAILY PO Last administered on 03/19/16 10:01; Admin Dose 20 MG; Start 03/19/16 at 09:00; Status Future Hold Levetiracetam 500 mg/Sodium Chloride 105 ml @ 420 mls/hr Q12 IVPB Last administered on 03/22/16 10:13; Admin Dose 420 MLS/HR; Start 03/18/16 at 21:00 Levofloxacin/ Dextrose 100 ml @ 100 mls/hr DAILY IVPB Last administered on 03/22 10:13; Admin Dose 100 MLS/HR; Start 03/19/16 at 09:00 Phenylephrine HCl 40 mg/Dextrose 500 ml @ 75 mls/hr TITRATE IV Last administered on 03/20/16 20:06; Admin Dose 60 MLS/HR; Start 03/19/16 at 11:30 Cefepime HCl 50 ml @ 100 mls/hr Q12 IVPB Last administered on 03/22/16 10:13; Admin Dose 100 MLS/HR; Start 03/20/16 at 09:00 Vancomycin HCl 250 ml @ 125 mls/hr Q24H IVPB Last administered on 03/22/16 06: 57; Admin Dose 125 MLS/HR; Start 03/21/16 at 06:00 Albumin Human 50 ml @ 100 mls/hr IV PRN IV IF SBP <90; Start 03/20/16 at 18:30 Dextrose (D5W) 1,000 ml @ 50 mls/hr Q20H IV Last administered on 03/22/16 01: 20; Admin Dose 50 MLS/HR; Start 03/20/16 at 19:30 Atorvastatin Calcium (Lipitor) 10 mg DAILY@21 NGT Last administered on 20:42; Admin Dose 10 MG; Start 03/20/16 at 21:00 Bromocriptine Mesylate (Parlodel) 2.5 mg QHS NGT Last administered on 03/21/16 20:42; Admin Dose 2.5 MG; Start 03/20/16 at 21:00 Oxcarbazepine (Trileptal) 150 mg BID NGT Last administered on 03/22/16 10:14; Admin Dose 150 MG; Start 03/20/16 at 21:00 Valproate Sodium (Depakene Liquid Cup) 250 mg BID NGT Last administered on 10:14; Admin Dose 250 MG; Start 03/20/16 at 21:00 Insulin Aspart (Novolog Insulin Pen) NOVOLOG *MILD* ALGORI... Q6 SC ; Start 03/21 at 00:00 Miscellaneous Information 1 ea NOTE XX ; Start 03/20/16 at 23:00 Glucose (Glutose) 15 gm Q15M PRN PO DECREASED GLUCOSE; Start 03/20/16 at 23:00 Glucose (Glutose) 22.5 gm Q15M PRN PO DECREASED GLUCOSE; Start 03/20/16 at 23:00 Dextrose (D50w Syringe) 25 ml Q15M PRN IV DECREASED GLUCOSE; Start 03/20/16 at 23:00 Dextrose (D50w Syringe) 50 ml Q15M PRN IV DECREASED GLUCOSE; Start 03/20/16 at 23:00 Glucagon (Glucagen) 1 mg Q15M PRN IM DECREASED GLUCOSE; Start 03/20/16 at 23:00 Glucose 15 gm 15 gm Q15M PRN BUCCAL DECREASED GLUCOSE; Start 03/20/16 at 23:00 Norepinephrine/ Dextrose (Levophed/D5W) 500 ml @ 0.93 mls/hr TITRATE IV ; Start 03/21/16 at 09:00 Nystatin (Nystatin Cr) 1 applic BID TOP Last administered on 03/22/16t 10:14; Admin Dose 1 APPLIC; Start 03/21/16 at 21:00 TOBRIANNE MD Mar 22, 2016 14:46
[2016-03-22] MEDS ORDERED: RACEPINEPHRINE 2.25%(NEB) 0.5 ML AMP ONE (14:47)
[2016-03-22 14:59] LABS: HAAIG REFLEX REFLEX FILED
[2016-03-22 15:09] LABS: PLATELET COUNT 44 10^3/UL (140-440)
[2016-03-22 15:17] LABS: INR 1.21; PROTIME 15.4 Sec (12.2-14.2); PT RATIO 1.2
[2016-03-22 15:18] LABS: PARTIAL THROMBOPLASTIN TIME 34.6 Sec (25.0-35.0)
[2016-03-22 15:21] LABS: D-DIMER 1543.34 ng/ml (<460)
[2016-03-22 15:27] LABS: LACTATE DEHYDROGENASE 575 IU/L (313-618)
[2016-03-22 15:49] LABS: LH ANALYZER COMMENTS 1
[2016-03-22 16:22] LABS: IRON 45 ug/dl (35-150)
[2016-03-22 16:31] LABS: TOTAL IRON BINDING CAPACITY 194 ug/dl (241-421)
[2016-03-22 16:54] LABS: FIBRIN SPLIT PRODUCT <10 ug/ml (<10)
[2016-03-22 17:14] LABS: HEPATITIS B CORE ANTIBODY NEGATIVE (NEGATIVE)
[2016-03-22 17:30] LABS: FOLATE 8.6 ng/ml (2.8-20.0)
[2016-03-22] MEDS: ALBUMIN HUMAN 25% 50 ML IV PRN ×2 (19:25→23:17)
[2016-03-22] MEDS: LORAZEPAM 2 MG INJ IV PRN (20:39)
[2016-03-22] MEDS: ATORVASTATIN 10 MG TAB NGT SCH (20:44)
[2016-03-22] MEDS: BROMOCRIPTINE 2.5 MG TAB NGT SCH (20:44)
[2016-03-22] MEDS: TAMSULOSIN (SR) 0.4 MG CAP PO SCH (20:44)
[2016-03-23] VITALS (85 sets, daily range): BP systolic 48–119; BP diastolic 31–67; PULSE 55–81; RESP 17–33
[2016-03-23] MEDS: ALBUTEROL HFA 8 GM INHALER INH SCH ×6 (00:01→21:10)
[2016-03-23] MEDS: INSULIN ASPART [NOVOLOG] 3 ML PEN SC SCH ×4 (01:30→18:21)
[2016-03-23] MEDS: IPRATROPIUM (HFA) 12.9 GM INHALER INH SCH ×6 (04:27→21:09)
[2016-03-23 05:11] LABS: BASOPHILS % 0.3 % (0.0-2.0); EOSINOPHILS % 0.2 % (0.0-7.0); HEMATOCRIT 26.9 % (42.0-52.0); HEMOGLOBIN 9.1 g/dl (14.0-18.0); LYMPHOCYTES # 0.4 10^3/ul (0.8-2.9); LYMPHOCYTES % 4.9 % (15.0-51.0); MEAN CORPUSCULAR HEMOGLOBIN 34.8 pg (29.0-33.0); MEAN CORPUSCULAR VOLUME 102.3 fl (82.0-101.0); MEAN PLATELET VOLUME 9.2 fl (7.4-10.4); MONOCYTE # 0.4 10^3/ul (0.3-0.9); MONOCYTES % 5.2 % (0.0-11.0); NEUTROPHIL # 6.9 10^3/ul (1.6-7.5); NEUTROPHILS % 89.4 % (39.0-77.0); PLATELET COUNT 47 10^3/UL (140-440); RED BLOOD COUNT 2.62 10^6/ul (4.70-6.10); UNCORRECTED WBC 7.8 10^3/ul (4.8-10.8); WHITE BLOOD COUNT 7.8 10^3/ul (4.8-10.8)
[2016-03-23 05:15] LABS: INR 1.16; PROTIME 14.8 Sec (12.2-14.2); PT RATIO 1.2
[2016-03-23 05:23] LABS: CONDITION 1; LH ANALYZER COMMENTS 1
[2016-03-23] MEDS: PANTOPRAZOLE 40 MG INJ IV SCH (05:37)
[2016-03-23] MEDS: VANCOMYCIN 1 GM in NS 250 ML IVPB SCH (05:37)
[2016-03-23 05:45] LABS: POTASSIUM 4.4 mmol/L (3.5-5.1)
[2016-03-23 05:48] LABS: CREATININE 0.98 mg/dl (0.61-1.24)
[2016-03-23 05:49] LABS: CALCIUM 7.8 mg/dl (8.4-10.2)
[2016-03-23] MEDS: LEVOTHYROXINE 100 MCG TAB NGT SCH (06:33)
--- NOTE | 2016-03-23 07:25 | CONS ---
Date/Time of Note Date/Time of Note DATE: 03/23/16 TIME: 07:22 Assessment/Plan Assessment/Plan Additional Assessment/Plan Current ventilator settings are AC of 18, tidal volume 400, PEEP of 5, 30% FiO2. Assessment and recommendations; 1. Patient admitted with bilateral pneumonia leading to respiratory failure. 2. Down syndrome. 3. Seizure disorder. 4. Severe hypotension still requiring high-dose Levophed 5. Severe mental unresponsiveness patient off sedation for more than 48 hours now. Next 6. Hypothyroidism. Next Continue current ventilator settings. The patient was assessed at bedside briefly on CPAP mode currently has poor minute ventilation. Cortisone 50 mg every 8 hours will be added IV at least for 3 doses to assess response. Meanwhile continue current antibiotics other supportive measures. Weaning from mechanical ventilation will depend upon adequate mental status recovery. Consultation Date/Type/Reason Admit Date/Time Mar 18, 2016 at 20:49 Type of Consultation: Pulmonary/critical care 24 HR Interval Summary Free Text/Dictation Patient's condition remains critical. Still requiring high-dose Levophed for blood pressure maintenance. Patient remains essentially unresponsive despite being off sedation for more than 48 hours now. Still maintained on Ativan IV as needed because of episodes of agitation off and on. No seizure activity noted. General examination; elderly male, orally intubated, unresponsive. Currently in no distress. Exam/Review of Systems Vital Signs Vitals Vital Signs Date Time Temp Pulse Resp B/P Pulse Ox O2 Delivery O2 Flow Rate FiO2 03/23/16 07:00 55 20 100/38 96 Mechanical Ventilator 03/23/16 04:55 30 03/23/16 04:00 98.0 Intake and Output 03/22/16 03/22/16 03/23/16 15:00 23:00 07:00 Intake Total 925.0 ml 762.50 ml 1022.23 ml Output Total 1000 ml 675 ml 880 ml Balance -75.0 ml 87.50 ml 142.23 ml Exam H EENT examination; supple neck, no JVD. No lymphadenopathy. Patient is edentulous. No neck masses. Chest examination; clear to auscultation. S1-S2 audible. No murmurs. Regular rate and rhythm. Abdomen examination; soft, no organomegaly. Nondistended. Bowel sounds audible. Extremity examination; no peripheral edema. [employer] examination; patient remains unresponsive. Results Result Diagram: 03/23/16 0330 03/23/16 0330 Results 24 hrs Laboratory Tests Test 03/22/16 12:47 03/22/16 14:50 03/22/16 17:19 03/22/16 20:33 Bedside Glucose 89 87 80 Absolute Reticulocyte Count 0.001 L Activated Partial Thromboplast Time 34.6 D-Dimer 1543.34 H D-Dimer Comment Ferritin 533.0 H Fibrinogen 562.0 H Folate 8.6 HIV (1&2) Antibody NEGATIVE Hepatitis B Core Total Antibody NEGATIVE Hepatitis B Surface Antigen NEGATIVE Hepatitis C Antibody NEGATIVE INR International Normalized Ratio 1.21 Iron Level 45 Lactate Dehydrogenase 575 Percent Iron Saturation 23 Percent Reticulocyte Count 0.0 L Plasma Fibrin Degradation Products <10 Platelet Count 44 L Prothrombin Time 15.4 H Prothrombin Time Ratio 1.2 Thrombin Time 15.0 Total Iron Binding Capacity 194 L Vitamin B12 Level > 1000 H Test 03/22/16 21:19 03/22/16 21:51 03/23/16 00:10 03/23/16 03:30 Bedside Glucose 79 91 107 Activated Partial Thromboplast Time 35.0 Anion Gap 13 Basophils # 0.0 Basophils % 0.3 Blood Morphology Comment Blood Urea Nitrogen 23 H Calcium Level 7.8 L Carbon Dioxide Level 23 Chloride Level 106 Creatinine 0.98 Eosinophils # 0.0 Eosinophils % 0.2 Glucose Level 105 Hematocrit 26.9 L Hemoglobin 9.1 L INR International Normalized Ratio 1.16 Lymphocytes # 0.4 L Lymphocytes % 4.9 L Mean Corpuscular Hemoglobin 34.8 H Mean Corpuscular Hemoglobin Concent 34.0 Mean Corpuscular Volume 102.3 H Mean Platelet Volume 9.2 Monocytes # 0.4 Monocytes % 5.2 Neutrophils # 6.9 Neutrophils % 89.4 H Nucleated Red Blood Cells # 0.0 Nucleated Red Blood Cells % 0.0 Platelet Count 47 #L Potassium Level 4.4 Prothrombin Time 14.8 H Prothrombin Time Ratio 1.2 Red Blood Count 2.62 L Red Cell Distribution Width 17.0 H Sodium Level 138 White Blood Count 7.8 # Test 03/23/16 05:37 Bedside Glucose 128 Medications Medications Current Medications Ondansetron HCl (Zofran Inj) 4 mg Q6H PRN IV NAUSEA AND/OR VOMITING; Start 03/18 at 21:00 Acetaminophen (Tylenol Supp) 650 mg Q4H PRN [place] PAIN LEVEL 1-3 OR FEVER; Start 03/18/16 at 21:00 Lorazepam (Ativan) 1 mg Q2H PRN IV ANXIETY Last administered on 03/22/16 20:39 ; Admin Dose 1 MG; Start 03/18/16 at 21:00 Pantoprazole (Protonix Iv) 40 mg DAILY@06 IV Last administered on 03/23/16 05: 37; Admin Dose 40 MG; Start 03/19/16 at 06:00 Heparin Sodium (Porcine) (Heparin (5000 Units/0.5 ml)) 5,000 unit Q12 SC ; Start 03/18/16 at 21:00; Status Future Hold Lorazepam (Ativan) 2 mg Q1H PRN IV seizure Last administered on 03/20/16 19:51 ; Admin Dose 2 MG; Start 03/18/16 at 21:00 Mupirocin (Bactroban) 1 applic BID TOP Last administered on 03/22/16 20:43; Admin Dose 1 APPLIC; Start 03/18/16 at 21:00 Tamsulosin HCl (Flomax) 0.4 mg HS PO Last administered on 03/22/16 20:44; Admin Dose 0.4 MG; Start 03/18/16 at 21:00 Ziprasidone 20 mg 20 mg DAILY PO Last administered on 03/19/16 10:01; Admin Dose 20 MG; Start 03/19/16 at 09:00; Status Future Hold Levetiracetam 500 mg/Sodium Chloride 105 ml @ 420 mls/hr Q12 IVPB Last administered on 03/22/16 20:43; Admin Dose 420 MLS/HR; Start 03/18/16 at 21:00 Levofloxacin/ Dextrose 100 ml @ 100 mls/hr DAILY IVPB Last administered on 03/22 10:13; Admin Dose 100 MLS/HR; Start 03/19/16 at 09:00 Phenylephrine HCl 40 mg/Dextrose 500 ml @ 75 mls/hr TITRATE IV Last administered on 03/20/16 20:06; Admin Dose 60 MLS/HR; Start 03/19/16 at 11:30 Cefepime HCl 50 ml @ 100 mls/hr Q12 IVPB Last administered on 03/22/16 20:43; Admin Dose 100 MLS/HR; Start 03/20/16 at 09:00 Vancomycin HCl 250 ml @ 125 mls/hr Q24H IVPB Last administered on 03/23/16 05: 37; Admin Dose 125 MLS/HR; Start 03/21/16 at 06:00 Albumin Human 50 ml @ 100 mls/hr IV PRN IV IF SBP <90 Last administered on 03/22 23:17; Admin Dose 100 MLS/HR; Start 03/20/16 at 18:30 Dextrose (D5W) 1,000 ml @ 50 mls/hr Q20H IV Last administered on 03/22/16 23: 49; Admin Dose 50 MLS/HR; Start 03/20/16 at 19:30 Atorvastatin Calcium (Lipitor) 10 mg DAILY@21 NGT Last administered on 20:44; Admin Dose 10 MG; Start 03/20/16 at 21:00 Bromocriptine Mesylate (Parlodel) 2.5 mg QHS NGT Last administered on 03/22/16 20:44; Admin Dose 2.5 MG; Start 03/20/16 at 21:00 Oxcarbazepine (Trileptal) 150 mg BID NGT Last administered on 03/22/16 20:44; Admin Dose 150 MG; Start 03/20/16 at 21:00 Valproate Sodium (Depakene Liquid Cup) 250 mg BID NGT Last administered on 21:56; Admin Dose 250 MG; Start 03/20/16 at 21:00 Insulin Aspart (Novolog Insulin Pen) NOVOLOG *MILD* ALGORI... Q6 SC ; Start 03/21 at 00:00 Miscellaneous Information 1 ea NOTE XX ; Start 03/20/16 at 23:00 Glucose (Glutose) 15 gm Q15M PRN PO DECREASED GLUCOSE; Start 03/20/16 at 23:00 Glucose (Glutose) 22.5 gm Q15M PRN PO DECREASED GLUCOSE; Start 03/20/16 at 23:00 Dextrose (D50w Syringe) 25 ml Q15M PRN IV DECREASED GLUCOSE; Start 03/20/16 at 23:00 Dextrose (D50w Syringe) 50 ml Q15M PRN IV DECREASED GLUCOSE; Start 03/20/16 at 23:00 Glucagon (Glucagen) 1 mg Q15M PRN IM DECREASED GLUCOSE; Start 03/20/16 at 23:00 Glucose 15 gm 15 gm Q15M PRN BUCCAL DECREASED GLUCOSE; Start 03/20/16 at 23:00 Norepinephrine/ Dextrose (Levophed/D5W) 500 ml @ 0.93 mls/hr TITRATE IV Last administered on 03/22/16 07:00; Admin Dose 7.5 MLS/HR; Start 03/21/16 at 09:00 Nystatin (Nystatin Cr) 1 applic BID TOP Last administered on 03/22/16 20:43; Admin Dose 1 APPLIC; Start 03/21/16 at 21:00 KEL JJ Mar 23, 2016 07:25
[2016-03-23] MEDS ORDERED: HYDROCORTISONE 100 MG INJ IV SCH (07:38)
[2016-03-23] MEDS: LEVOFLOXACIN 500MG/D5W (PMX) 100 ML IVPB SCH (08:32)
[2016-03-23] MEDS: LEVETIRACETAM IV 500 MG in SOD CHLORIDE 0.9% 100 ML IVPB SCH ×2 (08:32→21:46)
[2016-03-23] MEDS: NYSTATIN 15 GM CR TOP SCH ×2 (08:33→21:47)
[2016-03-23] MEDS: VALPROIC ACID LIQUID CUP 250 MG/5 ML CUP NGT SCH ×2 (08:33→21:46)
[2016-03-23] MEDS: MUPIROCIN 2% 22 GM OINT TOP SCH ×2 (08:33→21:47)
[2016-03-23] MEDS: OXCARBAZEPINE 150 MG TAB NGT SCH ×2 (08:57→21:46)
[2016-03-23] MEDS: CEFEPIME 1GM/50 ML (PMX) 50 ML IVPB SCH ×2 (08:59→21:46)
--- NOTE | 2016-03-23 11:21 | CONS ---
Date/Time of Note Date/Time of Note DATE: 03/23/16 TIME: 11:19 Assessment/Plan Assessment/Plan Additional Assessment/Plan ASSESSMENT AND PLAN: A 65-year-old gentleman with: 1. Cardiac arrest status post cardiopulmonary resuscitation. 2. Respiratory failure. 3. Pneumonia. 4. Septic shock. 5. Seizures. 6. Hypothyroidism. 7. Diabetes mellitus. 8. Down syndrome. 9. Altered mental status. 10. Thrombocytopenia. 11. Hypothermia. 12. Pancytopenia Patient is clinically and hemodynamically unstable. Hypotensive and administered 25% albumin and had to increase levophed RECOMMENDATIONS: Wean off Levophed. If hypotensive administer 25% albumin if Hypotension Continue the vent support and pulmonary toilet toiletry. Keep magnesium more than 2 and potassium more than 4. Continue antibiotics as recommended. Continue GI and DVT prophylaxis. Continue nebulization as scheduled If persistent Bradycardia or Pause administer atropine 0.4mg IV PRN Repeat lactic acid level Consultation Date/Type/Reason Admit Date/Time Mar 18, 2016 at 20:49 Type of Consultation: Pulmonary/critical care Exam/Review of Systems Vital Signs Vitals Vital Signs Date Time Temp Pulse Resp B/P Pulse Ox O2 Delivery O2 Flow Rate FiO2 03/23/16 09:45 69 23 95 30 03/23/16 07:00 100/38 Mechanical Ventilator 03/23/16 04:00 98.0 Intake and Output 03/22/16 03/22/16 03/23/16 15:00 23:00 07:00 Intake Total 925.0 ml 762.50 ml 1022.23 ml Output Total 1000 ml 675 ml 880 ml Balance -75.0 ml 87.50 ml 142.23 ml Exam GENERAL: The patient nonresponsive, intubated CARDIOVASCULAR: RRR No murmur, rub or gallop. CHEST: Mechanical breath sounds heard bilaterally. ABDOMEN: Soft. Bowel sounds are present. There is no organomegaly. EXTREMITIES: Trace pedal edema bilaterally. Results Result Diagram: 03/23/16 03303/23/16 033 Results 24 hrs Laboratory Tests Test 03/22/16 12:47 03/22/16 14:50 03/22/16 17:19 03/22/16 20:33 Bedside Glucose 89 87 80 Absolute Reticulocyte Count 0.001 L Activated Partial Thromboplast Time 34.6 D-Dimer 1543.34 H D-Dimer Comment Ferritin 533.0 H Fibrinogen 562.0 H Folate 8.6 HIV (1&2) Antibody NEGATIVE Hepatitis B Core Total Antibody NEGATIVE Hepatitis B Surface Antigen NEGATIVE Hepatitis C Antibody NEGATIVE INR International Normalized Ratio 1.21 Iron Level 45 Lactate Dehydrogenase 575 Percent Iron Saturation 23 Percent Reticulocyte Count 0.0 L Plasma Fibrin Degradation Products <10 Platelet Count 44 L Prothrombin Time 15.4 H Prothrombin Time Ratio 1.2 Thrombin Time 15.0 Total Iron Binding Capacity 194 L Vitamin B12 Level > 1000 H Test 03/22/16 21:19 03/22/16 21:51 03/23/16 00:10 03/23/16 03:30 Bedside Glucose 79 91 107 Activated Partial Thromboplast Time 35.0 Anion Gap 13 Basophils # 0.0 Basophils % 0.3 Blood Morphology Comment Blood Urea Nitrogen 23 H Calcium Level 7.8 L Carbon Dioxide Level 23 Chloride Level 106 Creatinine 0.98 Eosinophils # 0.0 Eosinophils % 0.2 Glucose Level 105 Hematocrit 26.9 L Hemoglobin 9.1 L INR International Normalized Ratio 1.16 Lymphocytes # 0.4 L Lymphocytes % 4.9 L Mean Corpuscular Hemoglobin 34.8 H Mean Corpuscular Hemoglobin Concent 34.0 Mean Corpuscular Volume 102.3 H Mean Platelet Volume 9.2 Monocytes # 0.4 Monocytes % 5.2 Neutrophils # 6.9 Neutrophils % 89.4 H Nucleated Red Blood Cells # 0.0 Nucleated Red Blood Cells % 0.0 Platelet Count 47 #L Potassium Level 4.4 Prothrombin Time 14.8 H Prothrombin Time Ratio 1.2 Red Blood Count 2.62 L Red Cell Distribution Width 17.0 H Sodium Level 138 White Blood Count 7.8 # Test 03/23/16 05:37 Bedside Glucose 128 Medications Medications Current Medications Ondansetron HCl (Zofran Inj) 4 mg Q6H PRN IV NAUSEA AND/OR VOMITING; Start 03/18 at 21:00 Acetaminophen (Tylenol Supp) 650 mg Q4H PRN [place] PAIN LEVEL 1-3 OR FEVER; Start 03/18/16 at 21:00 Lorazepam (Ativan) 1 mg Q2H PRN IV ANXIETY Last administered on 03/22/16 20:39 ; Admin Dose 1 MG; Start 03/18/16 at 21:00 Pantoprazole (Protonix Iv) 40 mg DAILY@06 IV Last administered on 03/23/16 05: 37; Admin Dose 40 MG; Start 03/19/16 at 06:00 Heparin Sodium (Porcine) (Heparin (5000 Units/0.5 ml)) 5,000 unit Q12 SC ; Start 03/18/16 at 21:00; Status Future Hold Lorazepam (Ativan) 2 mg Q1H PRN IV seizure Last administered on 03/20/16 19:51 ; Admin Dose 2 MG; Start 03/18/16 at 21:00 Mupirocin (Bactroban) 1 applic BID TOP Last administered on 03/23/16 08:33; Admin Dose 1 APPLIC; Start 03/18/16 at 21:00 Tamsulosin HCl (Flomax) 0.4 mg HS PO Last administered on 03/22/16 20:44; Admin Dose 0.4 MG; Start 03/18/16 at 21:00 Ziprasidone 20 mg 20 mg DAILY PO Last administered on 03/19/16 10:01; Admin Dose 20 MG; Start 03/19/16 at 09:00; Status Future Hold Levetiracetam 500 mg/Sodium Chloride 105 ml @ 420 mls/hr Q12 IVPB Last administered on 03/23/16 08:32; Admin Dose 420 MLS/HR; Start 03/18/16 at 21:00 Levofloxacin/ Dextrose 100 ml @ 100 mls/hr DAILY IVPB Last administered on 03/23 08:32; Admin Dose 100 MLS/HR; Start 03/19/16 at 09:00 Phenylephrine HCl 40 mg/Dextrose 500 ml @ 75 mls/hr TITRATE IV Last administered on 03/20/16 20:06; Admin Dose 60 MLS/HR; Start 03/19/16 at 11:30 Cefepime HCl 50 ml @ 100 mls/hr Q12 IVPB Last administered on 03/23/16 08:59; Admin Dose 100 MLS/HR; Start 03/20/16 at 09:00 Vancomycin HCl 250 ml @ 125 mls/hr Q24H IVPB Last administered on 03/23/16 05: 37; Admin Dose 125 MLS/HR; Start 03/21/16 at 06:00 Albumin Human 50 ml @ 100 mls/hr IV PRN IV IF SBP <90 Last administered on 03/22 23:17; Admin Dose 100 MLS/HR; Start 03/20/16 at 18:30 Dextrose (D5W) 1,000 ml @ 50 mls/hr Q20H IV Last administered on 03/22/16 23: 49; Admin Dose 50 MLS/HR; Start 03/20/16 at 19:30 Atorvastatin Calcium (Lipitor) 10 mg DAILY@21 NGT Last administered on 20:44; Admin Dose 10 MG; Start 03/20/16 at 21:00 Bromocriptine Mesylate (Parlodel) 2.5 mg QHS NGT Last administered on 03/22/16 20:44; Admin Dose 2.5 MG; Start 03/20/16 at 21:00 Oxcarbazepine (Trileptal) 150 mg BID NGT Last administered on 03/23/16 08:57; Admin Dose 150 MG; Start 03/20/16 at 21:00 Valproate Sodium (Depakene Liquid Cup) 250 mg BID NGT Last administered on 08:33; Admin Dose 250 MG; Start 03/20/16 at 21:00 Insulin Aspart (Novolog Insulin Pen) NOVOLOG *MILD* ALGORI... Q6 SC ; Start 03/21 at 00:00 Miscellaneous Information 1 ea NOTE XX ; Start 03/20/16 at 23:00 Glucose (Glutose) 15 gm Q15M PRN PO DECREASED GLUCOSE; Start 03/20/16 at 23:00 Glucose (Glutose) 22.5 gm Q15M PRN PO DECREASED GLUCOSE; Start 03/20/16 at 23:00 Dextrose (D50w Syringe) 25 ml Q15M PRN IV DECREASED GLUCOSE; Start 03/20/16 at 23:00 Dextrose (D50w Syringe) 50 ml Q15M PRN IV DECREASED GLUCOSE; Start 03/20/16 at 23:00 Glucagon (Glucagen) 1 mg Q15M PRN IM DECREASED GLUCOSE; Start 03/20/16 at 23:00 Glucose 15 gm 15 gm Q15M PRN BUCCAL DECREASED GLUCOSE; Start 03/20/16 at 23:00 Norepinephrine/ Dextrose (Levophed/D5W) 500 ml @ 0.93 mls/hr TITRATE IV Last administered on 03/22/16 07:00; Admin Dose 7.5 MLS/HR; Start 03/21/16 at 09:00 Nystatin (Nystatin Cr) 1 applic BID TOP Last administered on 03/23/16 08:33; Admin Dose 1 APPLIC; Start 03/21/16 at 21:00 Hydrocortisone (Solu-Cortef) 50 mg Q8 IV Last administered on 03/23/16 11:00; Admin Dose 50 MG; Start 03/23/16 at 07:38 DAJA SHORT M.D. Mar 23, 2016 11:21
--- NOTE | 2016-03-23 11:45 | RADRPT ---
Vent Rate: 64 bpm RR Interval: 0 msec NH Interval: 158 msec QRS Duration: 86 msec QT Interval: 424 msec QTC Interval: 437 msec P-R-T Esmond: 58 - 70 - 61 degrees Normal sinus rhythm with sinus arrhythmia Nonspecific T wave abnormality Abnormal ECG Electronically Signed By: Juan Ruggiero [id number]
--- NOTE | 2016-03-23 13:14 | CONS ---
Date/Time of Note Date/Time of Note DATE: 03/23/16 TIME: 13:11 Assessment/Plan Assessment/Plan Chief Complaint/Hosp Course That patient is a 65 year old male with history of Down's syndrome, seizure disorder, hypothyroidism, diabetes, who presented with hypoxia, AMS and hypothermia, s/p PEA arrest, respiratory failure s/p intubation with pneumonia and septic shock, altered mental status with possible unwitnessed seizure, who was noted to have thrombocytopenia/pancytopenia. - Patient noted to have pancytopenia even on admission, baseline unclear, may be related to underlying seizure medications, with worsening of counts since admission. Counts today improved with WBC 7.8, Hgb 9.1, plt 47,000. Likely multifactorial in the setting of sepsis and medication side effect (vancomycin may be contributory, also oxcarazepine, valproate and keppra may be contributing ). Plt improved, may be due to improved infection as evidenced by weaning of pressors. - Heparin started on 03/18, however platelet count already low at 30,000 on admission. Low suspicion for HIT given less than 50% decline in platelet count , degree of thrombocytopenia, thrombocytopenia at baseline and worsening of platelet count < 5 days after starting heparin (unless patient had antecedent exposure). HIT panel previously sent and is pending at this time. - Labs not consistent with DIC, HIV and hep panel negative. - Retic count inappropriately low, iron panel consistent with anemia of chronic inflammation, LDH, B12/folate WNL - Smear reviewed by pathology and showed no schistocytes, no dysplatic features. - Transfuse if platelets < 10, <20 if febrile, <50 if bleeding, or Hgb < 8 - Will continue to follow. Problems: Consultation Date/Type/Reason Admit Date/Time Mar 18, 2016 at 20:49 Initial Consult Date 03/22/16 Type of Consultation: Hematology 24 HR Interval Summary Free Text/Dictation No overnight events, levophed being weaned. Exam/Review of Systems Vital Signs Vitals Vital Signs Date Time Temp Pulse Resp B/P Pulse Ox O2 Delivery O2 Flow Rate FiO2 03/23/16 12:00 67 03/23/16 11:30 19 95 30 03/23/16 07:00 100/38 Mechanical Ventilator 03/23/16 04:00 98.0 Intake and Output 03/22/16 03/22/16 03/23/16 15:00 23:00 07:00 Intake Total 925.0 ml 762.50 ml 1022.23 ml Output Total 1000 ml 675 ml 880 ml Balance -75.0 ml 87.50 ml 142.23 ml Exam Constitutional: other (intubated, not responsive) Neck: supple Respiratory: other (mechanical breath sounds) Cardiovascular: regular rate and rhythm Gastrointestinal: non-tender, soft Musculoskeletal: nl extremities to inspection Results Result Diagram: 03/23/16 0330 03/23/16 0330 Results 24 hrs Laboratory Tests Test 03/22/16 14:50 03/22/16 17:19 03/22/16 20:33 03/22/16 21:19 Absolute Reticulocyte Count 0.001 L Activated Partial Thromboplast Time 34.6 D-Dimer 1543.34 H D-Dimer Comment Ferritin 533.0 H Fibrinogen 562.0 H Folate 8.6 HIV (1&2) Antibody NEGATIVE Hepatitis B Core Total Antibody NEGATIVE Hepatitis B Surface Antigen NEGATIVE Hepatitis C Antibody NEGATIVE INR International Normalized Ratio 1.21 Iron Level 45 Lactate Dehydrogenase 575 Percent Iron Saturation 23 Percent Reticulocyte Count 0.0 L Plasma Fibrin Degradation Products <10 Platelet Count 44 L Prothrombin Time 15.4 H Prothrombin Time Ratio 1.2 Thrombin Time 15.0 Total Iron Binding Capacity 194 L Vitamin B12 Level > 1000 H Bedside Glucose 87 80 79 Test 03/22/16 21:51 03/23/16 00:10 03/23/16 03:30 03/23/16 05:37 Bedside Glucose 91 107 128 Activated Partial Thromboplast Time 35.0 Anion Gap 13 Basophils # 0.0 Basophils % 0.3 Blood Morphology Comment Blood Urea Nitrogen 23 H Calcium Level 7.8 L Carbon Dioxide Level 23 Chloride Level 106 Creatinine 0.98 Eosinophils # 0.0 Eosinophils % 0.2 Glucose Level 105 Hematocrit 26.9 L Hemoglobin 9.1 L INR International Normalized Ratio 1.16 Lymphocytes # 0.4 L Lymphocytes % 4.9 L Mean Corpuscular Hemoglobin 34.8 H Mean Corpuscular Hemoglobin Concent 34.0 Mean Corpuscular Volume 102.3 H Mean Platelet Volume 9.2 Monocytes # 0.4 Monocytes % 5.2 Neutrophils # 6.9 Neutrophils % 89.4 H Nucleated Red Blood Cells # 0.0 Nucleated Red Blood Cells % 0.0 Platelet Count 47 #L Potassium Level 4.4 Prothrombin Time 14.8 H Prothrombin Time Ratio 1.2 Red Blood Count 2.62 L Red Cell Distribution Width 17.0 H Sodium Level 138 White Blood Count 7.8 # Medications Medications Current Medications Ondansetron HCl (Zofran Inj) 4 mg Q6H PRN IV NAUSEA AND/OR VOMITING; Start 03/18 at 21:00 Acetaminophen (Tylenol Supp) 650 mg Q4H PRN ME PAIN LEVEL 1-3 OR FEVER; Start 03/18/16 at 21:00 Lorazepam (Ativan) 1 mg Q2H PRN IV ANXIETY Last administered on 03/22/16 20:39 ; Admin Dose 1 MG; Start 03/18/16 at 21:00 Pantoprazole (Protonix Iv) 40 mg DAILY@06 IV Last administered on 03/23/16 05: 37; Admin Dose 40 MG; Start 03/19/16 at 06:00 Heparin Sodium (Porcine) (Heparin (5000 Units/0.5 ml)) 5,000 unit Q12 SC ; Start 03/18/16 at 21:00; Status Future Hold Lorazepam (Ativan) 2 mg Q1H PRN IV seizure Last administered on 03/20/16 19:51 ; Admin Dose 2 MG; Start 03/18/16 at 21:00 Mupirocin (Bactroban) 1 applic BID TOP Last administered on 03/23/16 08:33; Admin Dose 1 APPLIC; Start 03/18/16 at 21:00 Tamsulosin HCl (Flomax) 0.4 mg HS PO Last administered on 03/22/16 20:44; Admin Dose 0.4 MG; Start 03/18/16 at 21:00 Ziprasidone 20 mg 20 mg DAILY PO Last administered on 03/19/16 10:01; Admin Dose 20 MG; Start 03/19/16 at 09:00; Status Future Hold Levetiracetam 500 mg/Sodium Chloride 105 ml @ 420 mls/hr Q12 IVPB Last administered on 03/23/16 08:32; Admin Dose 420 MLS/HR; Start 03/18/16 at 21:00 Levofloxacin/ Dextrose 100 ml @ 100 mls/hr DAILY IVPB Last administered on 03/23 08:32; Admin Dose 100 MLS/HR; Start 03/19/16 at 09:00 Phenylephrine HCl 40 mg/Dextrose 500 ml @ 75 mls/hr TITRATE IV Last administered on 03/20/16 20:06; Admin Dose 60 MLS/HR; Start 03/19/16 at 11:30 Cefepime HCl 50 ml @ 100 mls/hr Q12 IVPB Last administered on 03/23/16 08:59; Admin Dose 100 MLS/HR; Start 03/20/16 at 09:00 Vancomycin HCl 250 ml @ 125 mls/hr Q24H IVPB Last administered on 03/23/16 05: 37; Admin Dose 125 MLS/HR; Start 03/21/16 at 06:00 Albumin Human 50 ml @ 100 mls/hr IV PRN IV IF SBP <90 Last administered on 03/22 23:17; Admin Dose 100 MLS/HR; Start 03/20/16 at 18:30 Dextrose (D5W) 1,000 ml @ 50 mls/hr Q20H IV Last administered on 03/22/16 23: 49; Admin Dose 50 MLS/HR; Start 03/20/16 at 19:30 Atorvastatin Calcium (Lipitor) 10 mg DAILY@21 NGT Last administered on 20:44; Admin Dose 10 MG; Start 03/20/16 at 21:00 Bromocriptine Mesylate (Parlodel) 2.5 mg QHS NGT Last administered on 03/22/16 20:44; Admin Dose 2.5 MG; Start 03/20/16 at 21:00 Oxcarbazepine (Trileptal) 150 mg BID NGT Last administered on 03/23/16 08:57; Admin Dose 150 MG; Start 03/20/16 at 21:00 Valproate Sodium (Depakene Liquid Cup) 250 mg BID NGT Last administered on 08:33; Admin Dose 250 MG; Start 03/20/16 at 21:00 Insulin Aspart (Novolog Insulin Pen) NOVOLOG *MILD* ALGORI... Q6 SC ; Start 03/21 at 00:00 Miscellaneous Information 1 ea NOTE XX ; Start 03/20/16 at 23:00 Glucose (Glutose) 15 gm Q15M PRN PO DECREASED GLUCOSE; Start 03/20/16 at 23:00 Glucose (Glutose) 22.5 gm Q15M PRN PO DECREASED GLUCOSE; Start 03/20/16 at 23:00 Dextrose (D50w Syringe) 25 ml Q15M PRN IV DECREASED GLUCOSE; Start 03/20/16 at 23:00 Dextrose (D50w Syringe) 50 ml Q15M PRN IV DECREASED GLUCOSE; Start 03/20/16 at 23:00 Glucagon (Glucagen) 1 mg Q15M PRN IM DECREASED GLUCOSE; Start 03/20/16 at 23:00 Glucose 15 gm 15 gm Q15M PRN BUCCAL DECREASED GLUCOSE; Start 03/20/16 at 23:00 Norepinephrine/ Dextrose (Levophed/D5W) 500 ml @ 0.93 mls/hr TITRATE IV Last administered on 03/22/16 07:00; Admin Dose 7.5 MLS/HR; Start 03/21/16 at 09:00 Nystatin (Nystatin Cr) 1 applic BID TOP Last administered on 03/23/16 08:33; Admin Dose 1 APPLIC; Start 03/21/16 at 21:00 Hydrocortisone (Solu-Cortef) 50 mg Q8 IV Last administered on 03/23/16 11:00; Admin Dose 50 MG; Start 03/23/16 at 07:38 TOBRIANNE MD Mar 23, 2016 13:14
--- NOTE | 2016-03-23 13:42 | PN ---
Date/Time of Note Date/Time of Note DATE: 03/23/16 TIME: 13:40 Assessment/Plan VTE Prophylaxis VTE Prophylaxis Intervention: heparin Lines/Catheters IV Catheter Type (from Nrs): Central Line Central line still needed: Yes (IV access, difficutl to maintain peripheral access ) Urinary Cath still in place: Yes Reason Cath still needed: other (indicate) (strict I/o,Intubated on ventilator ) Assessment/Plan Assessment/Plan 1. Status post PEA cardiac arrest with ROSC after 5 rounds of epinephrine. 2. Ventilator dependent respiratory failure with possible ARDS due to pneumonia 3. Altered mentation, likely patient had unwitnessed seizure. 4. Septic Shock, currently on 2 pressor. 5. Hypothermia. 6. History of Down syndrome. 7. Lactic acidosis. 8. Hypernatremia. 9. History of hypothyroidism. 10. History of diabetes. 11. Leukopenia. 12. Thrombocytopenia. 13. History of Down syndrome. PLAN: pt remained intubated on ventilator, continue ventilatory support BP labile on two pressor support Pulmonary has been following IV keppra for seizure IV ativan prn seizure Cardiology and Pulmonary on case heparin for DVT prophylaxis Case management and Palliative has been consulted to talk to his regional center Subjective 24 Hr Interval Summary Free Text/Dictation pt remains intubated, BP still labile Exam/Review of Systems Vital Signs Vitals Vital Signs Date Time Temp Pulse Resp B/P Pulse Ox O2 Delivery O2 Flow Rate FiO2 03/23/16 12:00 67 03/23/16 11:30 19 95 30 03/23/16 07:00 100/38 Mechanical Ventilator 03/23/16 04:00 98.0 Intake and Output 03/22/16 03/22/16 03/23/16 15:00 23:00 07:00 Intake Total 925.0 ml 762.50 ml 1022.23 ml Output Total 1000 ml 675 ml 880 ml Balance -75.0 ml 87.50 ml 142.23 ml Exam GENERAL: The patient is intubated and sedated, not in any acute distress. HEENT: No obvious head deformity. His pupils are very minimally reactive to light. CARDIOVASCULAR: Regular rate and rhythm. LUNGS: He has decreased breath sounds anteriorly. ABDOMEN: Soft, NT, NG tube EXTREMITIES: no edema + mercado catheter Results Result Diagram: 03/23/16 03303/23/16 0330 Results 24 hrs Laboratory Tests Test 03/22/16 14:50 03/22/16 17:19 03/22/16 20:33 03/22/16 21:19 Absolute Reticulocyte Count 0.001 L Activated Partial Thromboplast Time 34.6 D-Dimer 1543.34 H D-Dimer Comment Ferritin 533.0 H Fibrinogen 562.0 H Folate 8.6 HIV (1&2) Antibody NEGATIVE Hepatitis B Core Total Antibody NEGATIVE Hepatitis B Surface Antigen NEGATIVE Hepatitis C Antibody NEGATIVE INR International Normalized Ratio 1.21 Iron Level 45 Lactate Dehydrogenase 575 Percent Iron Saturation 23 Percent Reticulocyte Count 0.0 L Plasma Fibrin Degradation Products <10 Platelet Count 44 L Prothrombin Time 15.4 H Prothrombin Time Ratio 1.2 Thrombin Time 15.0 Total Iron Binding Capacity 194 L Vitamin B12 Level > 1000 H Bedside Glucose 87 80 79 Test 03/22/16 21:51 03/23/16 00:10 03/23/16 03:30 03/23/16 05:37 Bedside Glucose 91 107 128 Activated Partial Thromboplast Time 35.0 Anion Gap 13 Basophils # 0.0 Basophils % 0.3 Blood Morphology Comment Blood Urea Nitrogen 23 H Calcium Level 7.8 L Carbon Dioxide Level 23 Chloride Level 106 Creatinine 0.98 Eosinophils # 0.0 Eosinophils % 0.2 Glucose Level 105 Hematocrit 26.9 L Hemoglobin 9.1 L INR International Normalized Ratio 1.16 Lymphocytes # 0.4 L Lymphocytes % 4.9 L Mean Corpuscular Hemoglobin 34.8 H Mean Corpuscular Hemoglobin Concent 34.0 Mean Corpuscular Volume 102.3 H Mean Platelet Volume 9.2 Monocytes # 0.4 Monocytes % 5.2 Neutrophils # 6.9 Neutrophils % 89.4 H Nucleated Red Blood Cells # 0.0 Nucleated Red Blood Cells % 0.0 Platelet Count 47 #L Potassium Level 4.4 Prothrombin Time 14.8 H Prothrombin Time Ratio 1.2 Red Blood Count 2.62 L Red Cell Distribution Width 17.0 H Sodium Level 138 White Blood Count 7.8 # Medications Medications Current Medications Ondansetron HCl (Zofran Inj) 4 mg Q6H PRN IV NAUSEA AND/OR VOMITING; Start 03/18 at 21:00 Acetaminophen (Tylenol Supp) 650 mg Q4H PRN SD PAIN LEVEL 1-3 OR FEVER; Start 03/18/16 at 21:00 Lorazepam (Ativan) 1 mg Q2H PRN IV ANXIETY Last administered on 03/22/16 20:39 ; Admin Dose 1 MG; Start 03/18/16 at 21:00 Pantoprazole (Protonix Iv) 40 mg DAILY@06 IV Last administered on 03/23/16 05: 37; Admin Dose 40 MG; Start 03/19/16 at 06:00 Heparin Sodium (Porcine) (Heparin (5000 Units/0.5 ml)) 5,000 unit Q12 SC ; Start 03/18/16 at 21:00; Status Future Hold Lorazepam (Ativan) 2 mg Q1H PRN IV seizure Last administered on 03/20/16 19:51 ; Admin Dose 2 MG; Start 03/18/16 at 21:00 Mupirocin (Bactroban) 1 applic BID TOP Last administered on 03/23/16 08:33; Admin Dose 1 APPLIC; Start 03/18/16 at 21:00 Tamsulosin HCl (Flomax) 0.4 mg HS PO Last administered on 03/22/16 20:44; Admin Dose 0.4 MG; Start 03/18/16 at 21:00 Ziprasidone 20 mg 20 mg DAILY PO Last administered on 03/19/16 10:01; Admin Dose 20 MG; Start 03/19/16 at 09:00; Status Future Hold Levetiracetam 500 mg/Sodium Chloride 105 ml @ 420 mls/hr Q12 IVPB Last administered on 03/23/16 08:32; Admin Dose 420 MLS/HR; Start 03/18/16 at 21:00 Levofloxacin/ Dextrose 100 ml @ 100 mls/hr DAILY IVPB Last administered on 03/23 08:32; Admin Dose 100 MLS/HR; Start 03/19/16 at 09:00 Phenylephrine HCl 40 mg/Dextrose 500 ml @ 75 mls/hr TITRATE IV Last administered on 03/20/16 20:06; Admin Dose 60 MLS/HR; Start 03/19/16 at 11:30 Cefepime HCl 50 ml @ 100 mls/hr Q12 IVPB Last administered on 03/23/16 08:59; Admin Dose 100 MLS/HR; Start 03/20/16 at 09:00 Vancomycin HCl 250 ml @ 125 mls/hr Q24H IVPB Last administered on 03/23/16 05: 37; Admin Dose 125 MLS/HR; Start 03/21/16 at 06:00 Albumin Human 50 ml @ 100 mls/hr IV PRN IV IF SBP <90 Last administered on 03/22 23:17; Admin Dose 100 MLS/HR; Start 03/20/16 at 18:30 Dextrose (D5W) 1,000 ml @ 50 mls/hr Q20H IV Last administered on 03/22/16 23: 49; Admin Dose 50 MLS/HR; Start 03/20/16 at 19:30 Atorvastatin Calcium (Lipitor) 10 mg DAILY@21 NGT Last administered on 20:44; Admin Dose 10 MG; Start 03/20/16 at 21:00 Bromocriptine Mesylate (Parlodel) 2.5 mg QHS NGT Last administered on 03/22/16 20:44; Admin Dose 2.5 MG; Start 03/20/16 at 21:00 Oxcarbazepine (Trileptal) 150 mg BID NGT Last administered on 03/23/16 08:57; Admin Dose 150 MG; Start 03/20/16 at 21:00 Valproate Sodium (Depakene Liquid Cup) 250 mg BID NGT Last administered on 08:33; Admin Dose 250 MG; Start 03/20/16 at 21:00 Insulin Aspart (Novolog Insulin Pen) NOVOLOG *MILD* ALGORI... Q6 SC ; Start 03/21 at 00:00 Miscellaneous Information 1 ea NOTE XX ; Start 03/20/16 at 23:00 Glucose (Glutose) 15 gm Q15M PRN PO DECREASED GLUCOSE; Start 03/20/16 at 23:00 Glucose (Glutose) 22.5 gm Q15M PRN PO DECREASED GLUCOSE; Start 03/20/16 at 23:00 Dextrose (D50w Syringe) 25 ml Q15M PRN IV DECREASED GLUCOSE; Start 03/20/16 at 23:00 Dextrose (D50w Syringe) 50 ml Q15M PRN IV DECREASED GLUCOSE; Start 03/20/16 at 23:00 Glucagon (Glucagen) 1 mg Q15M PRN IM DECREASED GLUCOSE; Start 03/20/16 at 23:00 Glucose 15 gm 15 gm Q15M PRN BUCCAL DECREASED GLUCOSE; Start 03/20/16 at 23:00 Norepinephrine/ Dextrose (Levophed/D5W) 500 ml @ 0.93 mls/hr TITRATE IV Last administered on 03/22/16 07:00; Admin Dose 7.5 MLS/HR; Start 03/21/16 at 09:00 Nystatin (Nystatin Cr) 1 applic BID TOP Last administered on 03/23/16 08:33; Admin Dose 1 APPLIC; Start 03/21/16 at 21:00 Hydrocortisone (Solu-Cortef) 50 mg Q8 IV Last administered on 03/23/16 11:00; Admin Dose 50 MG; Start 03/23/16 at 07:38 SAMANTHA SMALLS MD Mar 23, 2016 13:42
--- NOTE | 2016-03-23 21:03 | CONS ---
DATE OF ADMISSION: 03/18/2016 DATE OF CONSULTATION: 03/23/2016 TYPE OF CONSULTATION: Palliative care. REFERRING PHYSICIAN: Dr. Trey Snow HISTORY OF PRESENT ILLNESS: This is a 65-year-old gentleman who has a history of Down syndrome who is under the [facility] umbrella for the [facility] who presented to the emergency maria m at [facility], while in the emergency room had a cardiac arrest, was in PEA. AC LS was performed. The patient was stabilized as much as possible, was transferred to the intensive care unit. There is not much history I can obtain from the patient's medical records prior to this event. Where he came from, who he lives with, what presenting symptoms he had prior to this admissi on are unclear. The patient is a FULL CODE. He is on a ventilator at this time on 30% FIO2. He lynne s 96% sats. However, he is on 2 pressors at this point and still remains critically ill. He is javier ng seen by multiple consultants including Cardiology, Pulmonary Medicine and Oncology for thrombocyt openia and pancytopenia, being treated aggressively for sepsis syndrome, status post cardiac arrest, vent-dependent respiratory failure and is still gravely ill. That is the sum I could obtain from t barbara patient's medical records. I looked through his hard chart, and there are no medical records ganga casey were sent with the patient. There is a contact number but is a [phone] number. Reviewing gabrielle casey's notes from social work service, there is a referral for a physician by the name of Dr. Villalobos who is at [facility]. His number is [phone]. I reviewed the patient's medications, va rgies, major medical problems. Once again, we have an incomplete database. Last time patient was s een at [facility] was 11/10/2015 and was fast tracked through the emergency room. Apparently a bioethics consultation has been called, and those arrangements have been made, but ganga casey's for the . Today is 03/23. I made a phone call to Dr. Griselda webb and discussed Mr. Anabella sebastian's critical condition. He was unaware that he had become more unstable with hemodynamic compro mise and required pressor support. Therefore, I put a phone call in to Dr. Marcus Singh, [employer], and the bioethics consultation will be moved ahead to 03/24, tomorrow, at approximately 1 400 hours. I will speak to social workers in the morning and will ask social workers to call Dr. Huber and Dr. Singh and confirm and to organize the bioethics meeting and conference call. Dictated By: HADLEY HARRY MD, LP/MOHIT Conf#: [id number] DID#: [id number]
[2016-03-23] MEDS: HYDROCORTISONE 100 MG INJ IV SCH (21:18)
[2016-03-23] MEDS ORDERED: ACETAMINOPHEN 650MG/20.3ML CUP GTB PRN (21:30)
[2016-03-23] MEDS: ATORVASTATIN 10 MG TAB NGT SCH (21:46)
[2016-03-23] MEDS: TAMSULOSIN (SR) 0.4 MG CAP PO SCH (21:46)
[2016-03-23] MEDS: BROMOCRIPTINE 2.5 MG TAB NGT SCH (21:46)
[2016-03-23] MEDS: DEXTROSE 5% 1,000 ML IV SCH (21:59)
[2016-03-24] VITALS (73 sets, daily range): BP systolic 75–130; BP diastolic 34–72; PULSE 42–76; RESP 15–29
[2016-03-24] MEDS: INSULIN ASPART [NOVOLOG] 3 ML PEN SC SCH ×4 (00:58→18:00)
[2016-03-24] MEDS: IPRATROPIUM (HFA) 12.9 GM INHALER INH SCH ×3 (01:14→09:43)
[2016-03-24] MEDS: ALBUTEROL HFA 8 GM INHALER INH SCH ×3 (01:14→09:42)
[2016-03-24] MEDS: HYDROCORTISONE 100 MG INJ IV SCH ×3 (04:43→18:57)
[2016-03-24 06:32] LABS: ADD SCAN DIFF NO
[2016-03-24 06:45] LABS: ABNORMAL IP MESSAGE 1; BASOPHILS % 0.1 % (0.0-2.0); HEMATOCRIT 24.8 % (42.0-52.0); HEMOGLOBIN 8.4 g/dl (14.0-18.0); LYMPHOCYTES % 15.3 % (15.0-51.0); MEAN CORPUSCULAR HEMOGLOBIN 34.3 pg (29.0-33.0); MEAN CORPUSCULAR HGB CONC 33.9 g/dl (32.0-37.0); MEAN CORPUSCULAR VOLUME 101.2 fl (82.0-101.0); MEAN PLATELET VOLUME 12.7 fl (7.4-10.4); MONOCYTE # 0.4 10^3/ul (0.3-0.9); MONOCYTES % 6.3 % (0.0-11.0); NEUTROPHIL # 5.2 10^3/ul (1.6-7.5); NEUTROPHILS % 77.1 % (39.0-77.0); RED BLOOD COUNT 2.45 10^6/ul (4.70-6.10); RED CELL DISTRIBUTION WIDTH 15.8 % (11.5-14.5); WHITE BLOOD COUNT 6.7 10^3/ul (4.8-10.8)
[2016-03-24] MEDS: PANTOPRAZOLE 40 MG INJ IV SCH (06:45)
[2016-03-24] MEDS: VANCOMYCIN 1 GM in NS 250 ML IVPB SCH (06:46)
[2016-03-24] MEDS: LEVOTHYROXINE 100 MCG TAB NGT SCH (06:46)
[2016-03-24 06:55] LABS: INR 1.17; PARTIAL THROMBOPLASTIN TIME 32.4 Sec (25.0-35.0); PT RATIO 1.2
[2016-03-24 07:08] LABS: POTASSIUM 4.1 mmol/L (3.5-5.1)
[2016-03-24 07:11] LABS: CREATININE 0.91 mg/dl (0.61-1.24)
[2016-03-24 07:12] LABS: CALCIUM 7.8 mg/dl (8.4-10.2)
[2016-03-24 07:41] LABS: PLATELET COUNT 66 10^3/UL (140-415)
[2016-03-24] MEDS: LEVETIRACETAM IV 500 MG in SOD CHLORIDE 0.9% 100 ML IVPB SCH ×2 (08:08→20:55)
[2016-03-24] MEDS: CEFEPIME 1GM/50 ML (PMX) 50 ML IVPB SCH ×2 (08:09→20:55)
[2016-03-24] MEDS: VALPROIC ACID LIQUID CUP 250 MG/5 ML CUP NGT SCH ×2 (08:09→20:55)
[2016-03-24] MEDS: MUPIROCIN 2% 22 GM OINT TOP SCH ×2 (08:09→20:56)
[2016-03-24] MEDS: NYSTATIN 15 GM CR TOP SCH ×2 (08:10→20:56)
[2016-03-24] MEDS: OXCARBAZEPINE 150 MG TAB NGT SCH ×2 (08:19→20:55)
--- NOTE | 2016-03-24 08:19 | PN ---
Date/Time of Note Date/Time of Note DATE: 03/24/16 TIME: 08:17 Assessment/Plan VTE Prophylaxis VTE Prophylaxis Intervention: heparin Lines/Catheters IV Catheter Type (from Nrs): Central Line Central line still needed: Yes (IV access,Difficult to maintain peripheral access ) Urinary Cath still in place: Yes Reason Cath still needed: other (indicate) (strict I/o,Intubated on ventilator ) Assessment/Plan Assessment/Plan 1. Status post PEA cardiac arrest with ROSC after 5 rounds of epinephrine. 2. Ventilator dependent respiratory failure with possible ARDS due to pneumonia 3. Altered mentation, likely patient had unwitnessed seizure. 4. Septic Shock, currently on 2 pressor. 5. Hypothermia. 6. History of Down syndrome. 7. Lactic acidosis. 8. Hypernatremia. 9. History of hypothyroidism. 10. History of diabetes. 11. Leukopenia. 12. Thrombocytopenia. 13. History of Down syndrome. PLAN: pt remained intubated on ventilator, continue ventilatory support, on pressors for BP support s/p palliative care consult- Possible Bioethics meeting today at 2 pm IV keppra for seizure IV ativan prn seizure Cardiology and Pulmonary on case heparin for DVT prophylaxis Pt has critically ill, remains intubated despite being on aggressive ventilator care, unable to wean off, still BP labile on two pressors support- poor prognosis Meeting scheduled today to focus on goals of care Subjective 24 Hr Interval Summary Free Text/Dictation pt remains intubated, on pressors for BP support Exam/Review of Systems Vital Signs Vitals Vital Signs Date Time Temp Pulse Resp B/P Pulse Ox O2 Delivery O2 Flow Rate FiO2 03/24/16 07:00 53 18 100/40 97 Mechanical Ventilator 03/24/16 04:49 30 03/24/16 04:00 99.2 Intake and Output 03/23/16 03/23/16 03/24/16 15:00 23:00 07:00 Intake Total 835 ml 1110 ml Output Total 775 ml 705 ml 600 ml Balance -775 ml 130 ml 510 ml Exam GENERAL: The patient is intubated and sedated, not in any acute distress. HEENT: No obvious head deformity. His pupils are very minimally reactive to light. CARDIOVASCULAR: Regular rate and rhythm. LUNGS: He has decreased breath sounds anteriorly. ABDOMEN: Soft, NT, NG tube EXTREMITIES: no edema + mercado catheter Results Result Diagram: 03/24/16 0630 03/24/16 0630 Results 24 hrs Laboratory Tests Test 03/23/16 11:58 03/23/16 13:47 03/23/16 18:19 03/24/16 00:51 Lactic Acid Level 0.8 Bedside Glucose 127 161 161 Test 03/24/16 04:45 03/24/16 06:30 Bedside Glucose 163 Activated Partial Thromboplast Time 32.4 Anion Gap 10 Basophils # 0.0 Basophils % 0.1 Blood Urea Nitrogen 20 Calcium Level 7.8 L Carbon Dioxide Level 27 Chloride Level 104 Creatinine 0.91 Eosinophils # 0.0 Eosinophils % 0.0 Glucose Level 156 Hematocrit 24.8 L Hemoglobin 8.4 L INR International Normalized Ratio 1.17 Lymphocytes # 1.0 Lymphocytes % 15.3 Mean Corpuscular Hemoglobin 34.3 H Mean Corpuscular Hemoglobin Concent 33.9 Mean Corpuscular Volume 101.2 H Mean Platelet Volume 12.7 #H Monocytes # 0.4 Monocytes % 6.3 Neutrophils # 5.2 Neutrophils % 77.1 H Nucleated Red Blood Cells # 0.0 Nucleated Red Blood Cells % 0.0 Platelet Count 66 L Potassium Level 4.1 Prothrombin Time 15.0 H Prothrombin Time Ratio 1.2 Red Blood Count 2.45 L Red Cell Distribution Width 15.8 H Sodium Level 137 White Blood Count 6.7 Medications Medications Current Medications Ondansetron HCl (Zofran Inj) 4 mg Q6H PRN IV NAUSEA AND/OR VOMITING; Start 03/18 at 21:00 Acetaminophen (Tylenol Supp) 650 mg Q4H PRN [place] PAIN LEVEL 1-3 OR FEVER; Start 03/18/16 at 21:00 Lorazepam (Ativan) 1 mg Q2H PRN IV ANXIETY Last administered on 03/22/16 20:39 ; Admin Dose 1 MG; Start 03/18/16 at 21:00 Pantoprazole (Protonix Iv) 40 mg DAILY@06 IV Last administered on 03/24/16 06: 45; Admin Dose 40 MG; Start 03/19/16 at 06:00 Heparin Sodium (Porcine) (Heparin (5000 Units/0.5 ml)) 5,000 unit Q12 SC ; Start 03/18/16 at 21:00; Status Future Hold Lorazepam (Ativan) 2 mg Q1H PRN IV seizure Last administered on 03/20/16 19:51 ; Admin Dose 2 MG; Start 03/18/16 at 21:00 Mupirocin (Bactroban) 1 applic BID TOP Last administered on 03/24/16 08:09; Admin Dose 1 APPLIC; Start 03/18/16 at 21:00 Tamsulosin HCl (Flomax) 0.4 mg HS PO Last administered on 03/23/16 21:46; Admin Dose 0.4 MG; Start 03/18/16 at 21:00 Ziprasidone 20 mg 20 mg DAILY PO Last administered on 03/19/16 10:01; Admin Dose 20 MG; Start 03/19/16 at 09:00; Status Future Hold Levetiracetam 500 mg/Sodium Chloride 105 ml @ 420 mls/hr Q12 IVPB Last administered on 03/24/16 08:08; Admin Dose 420 MLS/HR; Start 03/18/16 at 21:00 Phenylephrine HCl 40 mg/Dextrose 500 ml @ 75 mls/hr TITRATE IV Last administered on 03/20/16 20:06; Admin Dose 60 MLS/HR; Start 03/19/16 at 11:30 Cefepime HCl 50 ml @ 100 mls/hr Q12 IVPB Last administered on 03/24/16 08:09 ; Admin Dose 100 MLS/HR; Start 03/20/16 at 09:00 Vancomycin HCl 250 ml @ 125 mls/hr Q24H IVPB Last administered on 03/24/16 06 :46; Admin Dose 125 MLS/HR; Start 03/21/16 at 06:00 Albumin Human 50 ml @ 100 mls/hr IV PRN IV IF SBP <90 Last administered on 03/22 23:17; Admin Dose 100 MLS/HR; Start 03/20/16 at 18:30 Dextrose (D5W) 1,000 ml @ 50 mls/hr Q20H IV Last administered on 03/23/16 21: 59; Admin Dose 50 MLS/HR; Start 03/20/16 at 19:30 Atorvastatin Calcium (Lipitor) 10 mg DAILY@21 NGT Last administered on 21:46; Admin Dose 10 MG; Start 03/20/16 at 21:00 Bromocriptine Mesylate (Parlodel) 2.5 mg QHS NGT Last administered on 03/23/16 21:46; Admin Dose 2.5 MG; Start 03/20/16 at 21:00 Oxcarbazepine (Trileptal) 150 mg BID NGT Last administered on 03/23/16 21:46; Admin Dose 150 MG; Start 03/20/16 at 21:00 Valproate Sodium (Depakene Liquid Cup) 250 mg BID NGT Last administered on 03/24 08:09; Admin Dose 250 MG; Start 03/20/16 at 21:00 Insulin Aspart (Novolog Insulin Pen) NOVOLOG *MILD* ALGORI... Q6 SC Last administered on 03/24/16 04:48; Admin Dose 1 UNIT; Start 03/21/16 at 00:00 Miscellaneous Information 1 ea NOTE XX ; Start 03/20/16 at 23:00 Glucose (Glutose) 15 gm Q15M PRN PO DECREASED GLUCOSE; Start 03/20/16 at 23:00 Glucose (Glutose) 22.5 gm Q15M PRN PO DECREASED GLUCOSE; Start 03/20/16 at 23:00 Dextrose (D50w Syringe) 25 ml Q15M PRN IV DECREASED GLUCOSE; Start 03/20/16 at 23:00 Dextrose (D50w Syringe) 50 ml Q15M PRN IV DECREASED GLUCOSE; Start 03/20/16 at 23:00 Glucagon (Glucagen) 1 mg Q15M PRN IM DECREASED GLUCOSE; Start 03/20/16 at 23:00 Glucose 15 gm 15 gm Q15M PRN BUCCAL DECREASED GLUCOSE; Start 03/20/16 at 23:00 Norepinephrine/ Dextrose (Levophed/D5W) 500 ml @ 0.93 mls/hr TITRATE IV Last administered on 03/24/16 01:06; Admin Dose 14.06 MLS/HR; Start 03/21/16 at 09:00 Nystatin (Nystatin Cr) 1 applic BID TOP Last administered on 03/24/16 08:10; Admin Dose 1 APPLIC; Start 03/21/16 at 21:00 Hydrocortisone (Solu-Cortef) 50 mg Q8H IV Last administered on 03/24/16 04:43 ; Admin Dose 50 MG; Start 03/23/16 at 19:00 Acetaminophen (Tylenol Liquid) 650 mg Q4H PRN GTB PAIN AND OR ELEVATED TEMP Last administered on 03/23/16t 21:46; Admin Dose 650 MG; Start 03/23/16 at 21:30 SAMANTHA SMALLS MD Mar 24, 2016 08:19
--- NOTE | 2016-03-24 08:37 | CONS ---
Date/Time of Note Date/Time of Note DATE: 03/24/16 TIME: 08:34 Assessment/Plan Assessment/Plan Additional Assessment/Plan Ventilator settings are AC of 18, tidal volume 400, PEEP of 5, 30% FiO2. Assessment recommendations; 1. Patient admitted with respiratory failure due to bilateral pneumonia. Next 2. Down syndrome. 3. Stable seizure disorder. 4. Hypothyroidism. Continue current antibiotics. The patient has been put on CPAP mode and has adequate weaning parameters. Will continue to observe for the next 30-40 minutes and perform an ABG. Ethics committee meeting will be held sometime today. The patient does not have any next of kin. Prognosis is guarded. Consultation Date/Type/Reason Admit Date/Time Mar 18, 2016 at 20:49 Type of Consultation: Pulmonary/critical care 24 HR Interval Summary Free Text/Dictation Patient's condition has improved the patient is more awake now but still not very responsive. Requiring Levophed for blood pressure maintenance. Next General examination; elderly male, or intubated, somewhat arousable. Currently in no distress. Exam/Review of Systems Vital Signs Vitals Vital Signs Date Time Temp Pulse Resp B/P Pulse Ox O2 Delivery O2 Flow Rate FiO2 03/24/16 07:00 53 18 100/40 97 Mechanical Ventilator 03/24/16 04:49 30 03/24/16 04:00 99.2 Intake and Output 03/23/16 03/23/16 03/24/16 15:00 23:00 07:00 Intake Total 835 ml 1110 ml Output Total 775 ml 705 ml 600 ml Balance -775 ml 130 ml 510 ml Exam H EENT examination; supple neck, no JVD. No lymphadenopathy. Patient is edentulous. Orally intubated. No neck masses. Chest examination; diminished but clear breath sounds bilaterally. S1-S2 audible, no murmurs. Regular rhythm. Patient is having sinus bradycardia. Abdomen examination; soft, no organomegaly. Bowel sounds audible. Extremity examination; no peripheral edema. [employer] examination; patient is arousable. Results Result Diagram: 03/24/16 0630 03/24/16 0630 Results 24 hrs Laboratory Tests Test 03/23/16 11:58 03/23/16 13:47 03/23/16 18:19 03/24/16 00:51 Lactic Acid Level 0.8 Bedside Glucose 127 161 161 Test 03/24/16 04:45 03/24/16 06:30 Bedside Glucose 163 Activated Partial Thromboplast Time 32.4 Anion Gap 10 Basophils # 0.0 Basophils % 0.1 Blood Urea Nitrogen 20 Calcium Level 7.8 L Carbon Dioxide Level 27 Chloride Level 104 Creatinine 0.91 Eosinophils # 0.0 Eosinophils % 0.0 Glucose Level 156 Hematocrit 24.8 L Hemoglobin 8.4 L INR International Normalized Ratio 1.17 Lymphocytes # 1.0 Lymphocytes % 15.3 Mean Corpuscular Hemoglobin 34.3 H Mean Corpuscular Hemoglobin Concent 33.9 Mean Corpuscular Volume 101.2 H Mean Platelet Volume 12.7 #H Monocytes # 0.4 Monocytes % 6.3 Neutrophils # 5.2 Neutrophils % 77.1 H Nucleated Red Blood Cells # 0.0 Nucleated Red Blood Cells % 0.0 Platelet Count 66 L Potassium Level 4.1 Prothrombin Time 15.0 H Prothrombin Time Ratio 1.2 Red Blood Count 2.45 L Red Cell Distribution Width 15.8 H Sodium Level 137 White Blood Count 6.7 Medications Medications Current Medications Ondansetron HCl (Zofran Inj) 4 mg Q6H PRN IV NAUSEA AND/OR VOMITING; Start 03/18 at 21:00 Acetaminophen (Tylenol Supp) 650 mg Q4H PRN [place] PAIN LEVEL 1-3 OR FEVER; Start 03/18/16 at 21:00 Lorazepam (Ativan) 1 mg Q2H PRN IV ANXIETY Last administered on 03/22/16 20:39 ; Admin Dose 1 MG; Start 03/18/16 at 21:00 Pantoprazole (Protonix Iv) 40 mg DAILY@06 IV Last administered on 03/24/16 06: 45; Admin Dose 40 MG; Start 03/19/16 at 06:00 Heparin Sodium (Porcine) (Heparin (5000 Units/0.5 ml)) 5,000 unit Q12 SC ; Start 03/18/16 at 21:00; Status Future Hold Lorazepam (Ativan) 2 mg Q1H PRN IV seizure Last administered on 03/20/16 19:51 ; Admin Dose 2 MG; Start 03/18/16 at 21:00 Mupirocin (Bactroban) 1 applic BID TOP Last administered on 03/24/16 08:09; Admin Dose 1 APPLIC; Start 03/18/16 at 21:00 Tamsulosin HCl (Flomax) 0.4 mg HS PO Last administered on 03/23/16 21:46; Admin Dose 0.4 MG; Start 03/18/16 at 21:00 Ziprasidone 20 mg 20 mg DAILY PO Last administered on 03/19/16 10:01; Admin Dose 20 MG; Start 03/19/16 at 09:00; Status Future Hold Levetiracetam 500 mg/Sodium Chloride 105 ml @ 420 mls/hr Q12 IVPB Last administered on 03/24/16 08:08; Admin Dose 420 MLS/HR; Start 03/18/16 at 21:00 Phenylephrine HCl 40 mg/Dextrose 500 ml @ 75 mls/hr TITRATE IV Last administered on 03/20/16 20:06; Admin Dose 60 MLS/HR; Start 03/19/16 at 11:30 Cefepime HCl 50 ml @ 100 mls/hr Q12 IVPB Last administered on 03/24/16 08:09 ; Admin Dose 100 MLS/HR; Start 03/20/16 at 09:00 Vancomycin HCl 250 ml @ 125 mls/hr Q24H IVPB Last administered on 03/24/16 06 :46; Admin Dose 125 MLS/HR; Start 03/21/16 at 06:00 Albumin Human 50 ml @ 100 mls/hr IV PRN IV IF SBP <90 Last administered on 03/22 23:17; Admin Dose 100 MLS/HR; Start 03/20/16 at 18:30 Dextrose (D5W) 1,000 ml @ 50 mls/hr Q20H IV Last administered on 03/23/16 21: 59; Admin Dose 50 MLS/HR; Start 03/20/16 at 19:30 Atorvastatin Calcium (Lipitor) 10 mg DAILY@21 NGT Last administered on 21:46; Admin Dose 10 MG; Start 03/20/16 at 21:00 Bromocriptine Mesylate (Parlodel) 2.5 mg QHS NGT Last administered on 03/23/16 21:46; Admin Dose 2.5 MG; Start 03/20/16 at 21:00 Oxcarbazepine (Trileptal) 150 mg BID NGT Last administered on 03/24/16 08:19; Admin Dose 150 MG; Start 03/20/16 at 21:00 Valproate Sodium (Depakene Liquid Cup) 250 mg BID NGT Last administered on 03/24 08:09; Admin Dose 250 MG; Start 03/20/16 at 21:00 Insulin Aspart (Novolog Insulin Pen) NOVOLOG *MILD* ALGORI... Q6 SC Last administered on 03/24/16 04:48; Admin Dose 1 UNIT; Start 03/21/16 at 00:00 Miscellaneous Information 1 ea NOTE XX ; Start 03/20/16 at 23:00 Glucose (Glutose) 15 gm Q15M PRN PO DECREASED GLUCOSE; Start 03/20/16 at 23:00 Glucose (Glutose) 22.5 gm Q15M PRN PO DECREASED GLUCOSE; Start 03/20/16 at 23:00 Dextrose (D50w Syringe) 25 ml Q15M PRN IV DECREASED GLUCOSE; Start 03/20/16 at 23:00 Dextrose (D50w Syringe) 50 ml Q15M PRN IV DECREASED GLUCOSE; Start 03/20/16 at 23:00 Glucagon (Glucagen) 1 mg Q15M PRN IM DECREASED GLUCOSE; Start 03/20/16 at 23:00 Glucose 15 gm 15 gm Q15M PRN BUCCAL DECREASED GLUCOSE; Start 03/20/16 at 23:00 Norepinephrine/ Dextrose (Levophed/D5W) 500 ml @ 0.93 mls/hr TITRATE IV Last administered on 03/24/16 01:06; Admin Dose 14.06 MLS/HR; Start 03/21/16 at 09:00 Nystatin (Nystatin Cr) 1 applic BID TOP Last administered on 03/24/16 08:10; Admin Dose 1 APPLIC; Start 03/21/16 at 21:00 Hydrocortisone (Solu-Cortef) 50 mg Q8H IV Last administered on 03/24/16 04:43 ; Admin Dose 50 MG; Start 03/23/16 at 19:00 Acetaminophen (Tylenol Liquid) 650 mg Q4H PRN GTB PAIN AND OR ELEVATED TEMP Last administered on 03/23/16 21:46; Admin Dose 650 MG; Start 03/23/16 at 21:30 KEL JJ Mar 24, 2016 08:37
[2016-03-24 10:06] LABS: AADO2 Arterial 33.7 mmHg (7.0-24.0); Allen Test ACCEPTAB; Arterial Base Excess -2.2 mmol/L (-3.0-3); Arterial COHb 0.3 % (0.0-3.0); Arterial Fraction of Oxyhgb 97.7 % (93.0-99.0); Arterial HCO3 21.4 mmol/L (22.0-26.0); Arterial MetHb 0.3 % (0.0-1.5); Blood Gas PS 10; MODE VENT - CPAP
--- NOTE | 2016-03-24 11:53 | CONS ---
Date/Time of Note Date/Time of Note DATE: 03/24/16 TIME: 11:52 Assessment/Plan Assessment/Plan Chief Complaint/Hosp Course That patient is a 65 year old male with history of Down's syndrome, seizure disorder, hypothyroidism, diabetes, who presented with hypoxia, AMS and hypothermia, s/p PEA arrest, respiratory failure s/p intubation with pneumonia and septic shock, altered mental status with possible unwitnessed seizure, who was noted to have thrombocytopenia/pancytopenia. - Patient noted to have pancytopenia even on admission, baseline unclear, may be related to underlying seizure medications, with worsening of counts since admission. Likely multifactorial in the setting of sepsis and medication side effect (vancomycin may be contributory, also oxcarazepine, valproate and keppra may be contributing). Thrombocytopenia continues to improve. - Heparin started on 03/18, however platelet count already low at 30,000 on admission. Low suspicion for HIT given less than 50% decline in platelet count , degree of thrombocytopenia, thrombocytopenia at baseline and worsening of platelet count < 5 days after starting heparin (unless patient had antecedent exposure). HIT panel previously sent and is pending at this time. - Labs not consistent with DIC, HIV and hep panel negative. - Retic count inappropriately low, iron panel consistent with anemia of chronic inflammation, LDH, B12/folate WNL - Smear reviewed by pathology and showed no schistocytes, no dysplatic features. - Transfuse if platelets < 10, <20 if febrile, <50 if bleeding, or Hgb < 8 - Will continue to follow. Problems: Consultation Date/Type/Reason Admit Date/Time Mar 18, 2016 at 20:49 Initial Consult Date 03/22/16 Type of Consultation: Hematology 24 HR Interval Summary Free Text/Dictation Patient extubated earlier today. Bioethics meeting to occur today for goals of care discussion. Patient remains on one pressor. Exam/Review of Systems Vital Signs Vitals Vital Signs Date Time Temp Pulse Resp B/P Pulse Ox O2 Delivery O2 Flow Rate FiO2 03/24/16 08:05 30 03/24/16 07:00 53 18 100/40 97 Mechanical Ventilator 03/24/16 04:00 99.2 Intake and Output 03/23/16 03/23/16 03/24/16 15:00 23:00 07:00 Intake Total 835 ml 1110 ml Output Total 775 ml 705 ml 600 ml Balance -775 ml 130 ml 510 ml Exam Constitutional: other (extubated, not responsive) Neck: supple Respiratory: clear Cardiovascular: regular rate and rhythm Gastrointestinal: non-tender, soft Musculoskeletal: nl extremities to inspection Results Result Diagram: 03/24/16 0630 03/24/16 0630 Results 24 hrs Laboratory Tests Test 03/23/16 11:58 03/23/16 13:47 03/23/16 18:19 03/24/16 00:51 Lactic Acid Level 0.8 Bedside Glucose 127 161 161 Test 03/24/16 04:45 03/24/16 06:30 03/24/16 09:54 Bedside Glucose 163 Activated Partial Thromboplast Time 32.4 Anion Gap 10 Basophils # 0.0 Basophils % 0.1 Blood Urea Nitrogen 20 Calcium Level 7.8 L Carbon Dioxide Level 27 Chloride Level 104 Creatinine 0.91 Eosinophils # 0.0 Eosinophils % 0.0 Glucose Level 156 Hematocrit 24.8 L Hemoglobin 8.4 L INR International Normalized Ratio 1.17 Lymphocytes # 1.0 Lymphocytes % 15.3 Mean Corpuscular Hemoglobin 34.3 H Mean Corpuscular Hemoglobin Concent 33.9 Mean Corpuscular Volume 101.2 H Mean Platelet Volume 12.7 #H Monocytes # 0.4 Monocytes % 6.3 Neutrophils # 5.2 Neutrophils % 77.1 H Nucleated Red Blood Cells # 0.0 Nucleated Red Blood Cells % 0.0 Platelet Count 66 L Potassium Level 4.1 Prothrombin Time 15.0 H Prothrombin Time Ratio 1.2 Red Blood Count 2.45 L Red Cell Distribution Width 15.8 H Sodium Level 137 White Blood Count 6.7 Arterial Blood HCO3 21.4 L Arterial Blood Base Excess -2.2 Arterial Blood Oxygen Saturation 98.3 H [place] Test ACCEPTAB Arterial Blood Gas Puncture Site Left Radial Arterial Blood Carboxyhemoglobin 0.3 Arterial Blood Date Drawn 03/24/2016 9:48:39 AM Arterial Blood Methemoglobin 0.3 Arterial Blood pCO2 (Temp correct) 32.1 L Arterial Blood pH (Temp corrected) 7.442 Arterial Blood pO2 (Temp corrected) 142.5 H Blood Gas A-a O2 Differential 33.7 H Blood Gas Actual Respiration Rate 14 Blood Gas Low PEEP Setting 5.0 Blood Gas Modality VENT - CPAP Blood Gas Notified Time 03/24/2016 10:06:22 AM Blood Gas Notified Whom JLD Blood Gas Pressure Support 10 Blood Gas Specimen Source Blood arterial Blood Gas Temperature 37.0 FiO2 30.0 Oxyhemoglobin Percent 97.7 Total Hemoglobin 9.0 L Medications Medications Current Medications Ondansetron HCl (Zofran Inj) 4 mg Q6H PRN IV NAUSEA AND/OR VOMITING; Start 03/18 at 21:00 Acetaminophen (Tylenol Supp) 650 mg Q4H PRN [place] PAIN LEVEL 1-3 OR FEVER; Start 03/18/16 at 21:00 Lorazepam (Ativan) 1 mg Q2H PRN IV ANXIETY Last administered on 03/22/16 20:39 ; Admin Dose 1 MG; Start 03/18/16 at 21:00 Pantoprazole (Protonix Iv) 40 mg DAILY@06 IV Last administered on 03/24/16 06: 45; Admin Dose 40 MG; Start 03/19/16 at 06:00 Heparin Sodium (Porcine) (Heparin (5000 Units/0.5 ml)) 5,000 unit Q12 SC ; Start 03/18/16 at 21:00; Status Future Hold Lorazepam (Ativan) 2 mg Q1H PRN IV seizure Last administered on 03/20/16 19:51 ; Admin Dose 2 MG; Start 03/18/16 at 21:00 Mupirocin (Bactroban) 1 applic BID TOP Last administered on 03/24/16 08:09; Admin Dose 1 APPLIC; Start 03/18/16 at 21:00 Tamsulosin HCl (Flomax) 0.4 mg HS PO Last administered on 03/23/16 21:46; Admin Dose 0.4 MG; Start 03/18/16 at 21:00 Ziprasidone 20 mg 20 mg DAILY PO Last administered on 03/19/16 10:01; Admin Dose 20 MG; Start 03/19/16 at 09:00; Status Future Hold Levetiracetam 500 mg/Sodium Chloride 105 ml @ 420 mls/hr Q12 IVPB Last administered on 03/24/16 08:08; Admin Dose 420 MLS/HR; Start 03/18/16 at 21:00 Phenylephrine HCl 40 mg/Dextrose 500 ml @ 75 mls/hr TITRATE IV Last administered on 03/20/16 20:06; Admin Dose 60 MLS/HR; Start 03/19/16 at 11:30 Cefepime HCl 50 ml @ 100 mls/hr Q12 IVPB Last administered on 03/24/16 08:09 ; Admin Dose 100 MLS/HR; Start 03/20/16 at 09:00 Vancomycin HCl 250 ml @ 125 mls/hr Q24H IVPB Last administered on 03/24/16 06 :46; Admin Dose 125 MLS/HR; Start 03/21/16 at 06:00 Albumin Human 50 ml @ 100 mls/hr IV PRN IV IF SBP <90 Last administered on 03/22 23:17; Admin Dose 100 MLS/HR; Start 03/20/16 at 18:30 Dextrose (D5W) 1,000 ml @ 50 mls/hr Q20H IV Last administered on 03/23/16 21: 59; Admin Dose 50 MLS/HR; Start 03/20/16 at 19:30 Atorvastatin Calcium (Lipitor) 10 mg DAILY@21 NGT Last administered on 21:46; Admin Dose 10 MG; Start 03/20/16 at 21:00 Bromocriptine Mesylate (Parlodel) 2.5 mg QHS NGT Last administered on 03/23/16 21:46; Admin Dose 2.5 MG; Start 03/20/16 at 21:00 Oxcarbazepine (Trileptal) 150 mg BID NGT Last administered on 03/24/16 08:19; Admin Dose 150 MG; Start 03/20/16 at 21:00 Valproate Sodium (Depakene Liquid Cup) 250 mg BID NGT Last administered on 03/24 08:09; Admin Dose 250 MG; Start 03/20/16 at 21:00 Insulin Aspart (Novolog Insulin Pen) NOVOLOG *MILD* ALGORI... Q6 SC Last administered on 03/24/16 04:48; Admin Dose 1 UNIT; Start 03/21/16 at 00:00 Miscellaneous Information 1 ea NOTE XX ; Start 03/20/16 at 23:00 Glucose (Glutose) 15 gm Q15M PRN PO DECREASED GLUCOSE; Start 03/20/16 at 23:00 Glucose (Glutose) 22.5 gm Q15M PRN PO DECREASED GLUCOSE; Start 03/20/16 at 23:00 Dextrose (D50w Syringe) 25 ml Q15M PRN IV DECREASED GLUCOSE; Start 03/20/16 at 23:00 Dextrose (D50w Syringe) 50 ml Q15M PRN IV DECREASED GLUCOSE; Start 03/20/16 at 23:00 Glucagon (Glucagen) 1 mg Q15M PRN IM DECREASED GLUCOSE; Start 03/20/16 at 23:00 Glucose 15 gm 15 gm Q15M PRN BUCCAL DECREASED GLUCOSE; Start 03/20/16 at 23:00 Norepinephrine/ Dextrose (Levophed/D5W) 500 ml @ 0.93 mls/hr TITRATE IV Last administered on 03/24/16 01:06; Admin Dose 14.06 MLS/HR; Start 03/21/16 at 09:00 Nystatin (Nystatin Cr) 1 applic BID TOP Last administered on 03/24/16 08:10; Admin Dose 1 APPLIC; Start 03/21/16 at 21:00 Hydrocortisone (Solu-Cortef) 50 mg Q8H IV Last administered on 03/24/16 04:43 ; Admin Dose 50 MG; Start 03/23/16 at 19:00 Acetaminophen (Tylenol Liquid) 650 mg Q4H PRN GTB PAIN AND OR ELEVATED TEMP Last administered on 03/23/16 21:46; Admin Dose 650 MG; Start 03/23/16 at 21:30 TO,BRIANNE Gomez MD Mar 24, 2016 11:53
[2016-03-24] MEDS: ALBUTEROL/IPRATROPIUM (NEB) 3 ML AMP HHN SCH ×2 (13:45→20:07)
--- NOTE | 2016-03-24 15:16 | CONS ---
Date/Time of Note Date/Time of Note DATE: 03/24/16 TIME: 15:13 Assessment/Plan Assessment/Plan Additional Assessment/Plan ASSESSMENT AND PLAN: A 65-year-old gentleman with: 1. Cardiac arrest status post cardiopulmonary resuscitation. 2. Respiratory failure. 3. Pneumonia. 4. Septic shock. 5. Seizures. 6. Hypothyroidism. 7. Diabetes mellitus. 8. Down syndrome. 9. Altered mental status. 10. Thrombocytopenia. 11. Hypothermia. 12. Pancytopenia Extubated this afternoon RECOMMENDATIONS: Wean off Levophed if MAO > 65mmHg If hypotensive administer 25% albumin if Hypotension Keep magnesium more than 2 and potassium more than 4. Continue antibiotics as recommended. Continue GI and DVT prophylaxis. Continue nebulization as scheduled If persistent Bradycardia or Pause administer atropine 0.4mg IV PRN Consultation Date/Type/Reason Admit Date/Time Mar 18, 2016 at 20:49 Type of Consultation: Hematology Exam/Review of Systems Vital Signs Vitals Vital Signs Date Time Temp Pulse Resp B/P Pulse Ox O2 Delivery O2 Flow Rate FiO2 03/24/16 12:30 54 24 96/51 99 03/24/16 11:05 30 03/24/16 07:00 Mechanical Ventilator 03/24/16 04:00 99.2 Intake and Output 03/23/16 03/23/16 03/24/16 15:00 23:00 07:00 Intake Total 835 ml 1110 ml Output Total 775 ml 705 ml 600 ml Balance -775 ml 130 ml 510 ml Exam Head: atraumatic, normocephalic Respiratory: clear to auscultation Cardiovascular: regular rate and rhythm Gastrointestinal: nl liver, spleen, non-tender, soft Extremities: normal pulses Results Result Diagram: 03/24/1630 03/24/16 0630 Results 24 hrs Laboratory Tests Test 03/23/16 18:19 03/24/16 00:51 03/24/16 04:45 03/24/16 06:30 Bedside Glucose 161 161 163 Activated Partial Thromboplast Time 32.4 Anion Gap 10 Basophils # 0.0 Basophils % 0.1 Blood Urea Nitrogen 20 Calcium Level 7.8 L Carbon Dioxide Level 27 Chloride Level 104 Creatinine 0.91 Eosinophils # 0.0 Eosinophils % 0.0 Glucose Level 156 Hematocrit 24.8 L Hemoglobin 8.4 L INR International Normalized Ratio 1.17 Lymphocytes # 1.0 Lymphocytes % 15.3 Mean Corpuscular Hemoglobin 34.3 H Mean Corpuscular Hemoglobin Concent 33.9 Mean Corpuscular Volume 101.2 H Mean Platelet Volume 12.7 #H Monocytes # 0.4 Monocytes % 6.3 Neutrophils # 5.2 Neutrophils % 77.1 H Nucleated Red Blood Cells # 0.0 Nucleated Red Blood Cells % 0.0 Platelet Count 66 L Potassium Level 4.1 Prothrombin Time 15.0 H Prothrombin Time Ratio 1.2 Red Blood Count 2.45 L Red Cell Distribution Width 15.8 H Sodium Level 137 White Blood Count 6.7 Test 03/24/16 09:54 03/24/16 12:50 Arterial Blood HCO3 21.4 L Arterial Blood Base Excess -2.2 Arterial Blood Oxygen Saturation 98.3 H [place] Test ACCEPTAB Arterial Blood Gas Puncture Site Left Radial Arterial Blood Carboxyhemoglobin 0.3 Arterial Blood Date Drawn 03/24/2016 9:48:39 AM Arterial Blood Methemoglobin 0.3 Arterial Blood pCO2 (Temp correct) 32.1 L Arterial Blood pH (Temp corrected) 7.442 Arterial Blood pO2 (Temp corrected) 142.5 H Blood Gas A-a O2 Differential 33.7 H Blood Gas Actual Respiration Rate 14 Blood Gas Low PEEP Setting 5.0 Blood Gas Modality VENT - CPAP Blood Gas Notified Time 03/24/2016 10:06:22 AM Blood Gas Notified Whom JLD Blood Gas Pressure Support 10 Blood Gas Specimen Source Blood arterial Blood Gas Temperature 37.0 FiO2 30.0 Oxyhemoglobin Percent 97.7 Total Hemoglobin 9.0 L Bedside Glucose 151 Medications Medications Current Medications Ondansetron HCl (Zofran Inj) 4 mg Q6H PRN IV NAUSEA AND/OR VOMITING; Start 03/18 at 21:00 Acetaminophen (Tylenol Supp) 650 mg Q4H PRN [place] PAIN LEVEL 1-3 OR FEVER; Start 03/18/16 at 21:00 Lorazepam (Ativan) 1 mg Q2H PRN IV ANXIETY Last administered on 03/22/16 20:39 ; Admin Dose 1 MG; Start 03/18/16 at 21:00 Pantoprazole (Protonix Iv) 40 mg DAILY@06 IV Last administered on 03/24/16 06: 45; Admin Dose 40 MG; Start 03/19/16 at 06:00 Heparin Sodium (Porcine) (Heparin (5000 Units/0.5 ml)) 5,000 unit Q12 SC ; Start 03/18/16 at 21:00; Status Future Hold Lorazepam (Ativan) 2 mg Q1H PRN IV seizure Last administered on 03/20/16 19:51 ; Admin Dose 2 MG; Start 03/18/16 at 21:00 Mupirocin (Bactroban) 1 applic BID TOP Last administered on 03/24/16 08:09; Admin Dose 1 APPLIC; Start 03/18/16 at 21:00 Tamsulosin HCl (Flomax) 0.4 mg HS PO Last administered on 03/23/16 21:46; Admin Dose 0.4 MG; Start 03/18/16 at 21:00 Ziprasidone 20 mg 20 mg DAILY PO Last administered on 03/19/16 10:01; Admin Dose 20 MG; Start 03/19/16 at 09:00; Status Future Hold Levetiracetam 500 mg/Sodium Chloride 105 ml @ 420 mls/hr Q12 IVPB Last administered on 03/24/16 08:08; Admin Dose 420 MLS/HR; Start 03/18/16 at 21:00 Phenylephrine HCl 40 mg/Dextrose 500 ml @ 75 mls/hr TITRATE IV Last administered on 03/20/16 20:06; Admin Dose 60 MLS/HR; Start 03/19/16 at 11:30 Cefepime HCl 50 ml @ 100 mls/hr Q12 IVPB Last administered on 03/24/16 08:09 ; Admin Dose 100 MLS/HR; Start 03/20/16 at 09:00 Vancomycin HCl 250 ml @ 125 mls/hr Q24H IVPB Last administered on 03/24/16 06 :46; Admin Dose 125 MLS/HR; Start 03/21/16 at 06:00 Albumin Human 50 ml @ 100 mls/hr IV PRN IV IF SBP <90 Last administered on 03/22 23:17; Admin Dose 100 MLS/HR; Start 03/20/16 at 18:30 Dextrose (D5W) 1,000 ml @ 50 mls/hr Q20H IV Last administered on 03/23/16 21: 59; Admin Dose 50 MLS/HR; Start 03/20/16 at 19:30 Atorvastatin Calcium (Lipitor) 10 mg DAILY@21 NGT Last administered on 21:46; Admin Dose 10 MG; Start 03/20/16 at 21:00 Bromocriptine Mesylate (Parlodel) 2.5 mg QHS NGT Last administered on 03/23/16 21:46; Admin Dose 2.5 MG; Start 03/20/16 at 21:00 Oxcarbazepine (Trileptal) 150 mg BID NGT Last administered on 03/24/16 08:19; Admin Dose 150 MG; Start 03/20/16 at 21:00 Valproate Sodium (Depakene Liquid Cup) 250 mg BID NGT Last administered on 03/24 08:09; Admin Dose 250 MG; Start 03/20/16 at 21:00 Insulin Aspart (Novolog Insulin Pen) NOVOLOG *MILD* ALGORI... Q6 SC Last administered on 03/24/16 12:57; Admin Dose 1 UNIT; Start 03/21/16 at 00:00 Miscellaneous Information 1 ea NOTE XX ; Start 03/20/16 at 23:00 Glucose (Glutose) 15 gm Q15M PRN PO DECREASED GLUCOSE; Start 03/20/16 at 23:00 Glucose (Glutose) 22.5 gm Q15M PRN PO DECREASED GLUCOSE; Start 03/20/16 at 23:00 Dextrose (D50w Syringe) 25 ml Q15M PRN IV DECREASED GLUCOSE; Start 03/20/16 at 23:00 Dextrose (D50w Syringe) 50 ml Q15M PRN IV DECREASED GLUCOSE; Start 03/20/16 at 23:00 Glucagon (Glucagen) 1 mg Q15M PRN IM DECREASED GLUCOSE; Start 03/20/16 at 23:00 Glucose 15 gm 15 gm Q15M PRN BUCCAL DECREASED GLUCOSE; Start 03/20/16 at 23:00 Norepinephrine/ Dextrose (Levophed/D5W) 500 ml @ 0.93 mls/hr TITRATE IV Last administered on 03/24/16 01:06; Admin Dose 14.06 MLS/HR; Start 03/21/16 at 09:00 Nystatin (Nystatin Cr) 1 applic BID TOP Last administered on 03/24/16 08:10; Admin Dose 1 APPLIC; Start 03/21/16 at 21:00 Hydrocortisone (Solu-Cortef) 50 mg Q8H IV Last administered on 03/24/16 04:43 ; Admin Dose 50 MG; Start 03/23/16 at 19:00 Acetaminophen (Tylenol Liquid) 650 mg Q4H PRN GTB PAIN AND OR ELEVATED TEMP Last administered on 03/23/16 21:46; Admin Dose 650 MG; Start 03/23/16 at 21:30 DAJA SHORT M.D. Mar 24, 2016 15:16
--- NOTE | 2016-03-24 16:58 | CONS ---
Date/Time of Note Date/Time of Note DATE: 03/24/16 TIME: 16:52 Assessment/Plan Assessment/Plan Problems: (1) Cardiac arrest due to other underlying condition Status: Acute Comment: After careful discussion of the patient's medical status the history that we had on the patient the pros and cons of the situation with the decision of the biomedical ethics committee with the concurrence of the medical transcriptionist of the [facility] and the advocates from [facility] and from disabled persons that are the most appropriate issue approach in this individual be the following. His to be converted over to DNR status. Please note he is already intubated. We will initiate attempts at full comfort care and not accelerate treatments. This means will not add in further pressor support. Over the next 72 hours based upon how he does if he continues to deteriorate then will he will be placed on hospice status and undergo compassionate extubation. However if he deteriorates more abruptly then he will not be resuscitated based on the current status and especially based on the features of his circumstances presently that indicated that the likelihood of meaningful recovery in the setting are extremely low to nil. Consultation Date/Type/Reason Admit Date/Time Mar 18, 2016 at 20:49 Date of Consultation: Mar 24, 2016 Type of Consultation: Biomedical ethics Reason for Consultation Advanced medical illness in the setting of a significant brain injury Hx of Present Illness 65-year-old male with a long-term history of Down's syndrome; seizure disorder; hypothyroidism. Please note the entire medical history is somewhat limited. He was brought into the emergency room at this facility on the morning of March 18, 2016 in extremis. He had a rapid onset of a full arrest and required 5 rounds to regain spontaneous circulation. Post event he has had a single episode of asystole which occurred on March 21, 2016. He has required pressor support and appears to have aspiration pneumonia with ARDS. His overall status has not improved and has been off of sedative therapy for several days and has not shown evidence of recovery of neurologic function. The patient is a subject of the [facility] having no living family members left. He has been a resident of a [id number]. Today biomedical ethics committee convened to discuss his case with the input from the [facility]. Subjective hx not possible: pt non-verbal, pt critical status Social History Smoking Status: Never smoker Exam/Review of Systems Vital Signs Vitals Vital Signs Date Time Temp Pulse Resp B/P Pulse Ox O2 Delivery O2 Flow Rate FiO2 03/24/16 16:14 Nasal Cannula 2.0 03/24/16 16:00 57 03/24/16 13:35 100 03/24/16 12:30 24 96/51 03/24/16 11:05 30 03/24/16 04:00 99.2 Intake and Output 03/23/16 03/23/16 03/24/16 15:00 23:00 07:00 Intake Total 835 ml 1110 ml Output Total 775 ml 705 ml 600 ml Balance -775 ml 130 ml 510 ml Results Result Diagram: 03/24/16 0630 03/24/16 0630 Results 24 hrs Laboratory Tests Test 03/23/16 18:19 03/24/16 00:51 03/24/16 04:45 03/24/16 06:30 Bedside Glucose 161 161 163 Activated Partial Thromboplast Time 32.4 Anion Gap 10 Basophils # 0.0 Basophils % 0.1 Blood Urea Nitrogen 20 Calcium Level 7.8 L Carbon Dioxide Level 27 Chloride Level 104 Creatinine 0.91 Eosinophils # 0.0 Eosinophils % 0.0 Glucose Level 156 Hematocrit 24.8 L Hemoglobin 8.4 L INR International Normalized Ratio 1.17 Lymphocytes # 1.0 Lymphocytes % 15.3 Mean Corpuscular Hemoglobin 34.3 H Mean Corpuscular Hemoglobin Concent 33.9 Mean Corpuscular Volume 101.2 H Mean Platelet Volume 12.7 #H Monocytes # 0.4 Monocytes % 6.3 Neutrophils # 5.2 Neutrophils % 77.1 H Nucleated Red Blood Cells # 0.0 Nucleated Red Blood Cells % 0.0 Platelet Count 66 L Potassium Level 4.1 Prothrombin Time 15.0 H Prothrombin Time Ratio 1.2 Red Blood Count 2.45 L Red Cell Distribution Width 15.8 H Sodium Level 137 White Blood Count 6.7 Test 03/24/16 09:54 03/24/16 12:50 03/24/16 15:40 Arterial Blood HCO3 21.4 L Arterial Blood Base Excess -2.2 Arterial Blood Oxygen Saturation 98.3 H [place] Test ACCEPTAB Arterial Blood Gas Puncture Site Left Radial Arterial Blood Carboxyhemoglobin 0.3 Arterial Blood Date Drawn 03/24/2016 9:48:39 AM Arterial Blood Methemoglobin 0.3 Arterial Blood pCO2 (Temp correct) 32.1 L Arterial Blood pH (Temp corrected) 7.442 Arterial Blood pO2 (Temp corrected) 142.5 H Blood Gas A-a O2 Differential 33.7 H Blood Gas Actual Respiration Rate 14 Blood Gas Low PEEP Setting 5.0 Blood Gas Modality VENT - CPAP Blood Gas Notified Time 03/24/2016 10:06:22 AM Blood Gas Notified Whom JLD Blood Gas Pressure Support 10 Blood Gas Specimen Source Blood arterial Blood Gas Temperature 37.0 FiO2 30.0 Oxyhemoglobin Percent 97.7 Total Hemoglobin 9.0 L Bedside Glucose 151 Magnesium Level 2.3 Medications Medications Current Medications Ondansetron HCl (Zofran Inj) 4 mg Q6H PRN IV NAUSEA AND/OR VOMITING; Start 03/18 at 21:00 Acetaminophen (Tylenol Supp) 650 mg Q4H PRN [place] PAIN LEVEL 1-3 OR FEVER; Start 03/18/16 at 21:00 Lorazepam (Ativan) 1 mg Q2H PRN IV ANXIETY Last administered on 03/22/16 20:39 ; Admin Dose 1 MG; Start 03/18/16 at 21:00 Pantoprazole (Protonix Iv) 40 mg DAILY@06 IV Last administered on 03/24/16 06: 45; Admin Dose 40 MG; Start 03/19/16 at 06:00 Heparin Sodium (Porcine) (Heparin (5000 Units/0.5 ml)) 5,000 unit Q12 SC ; Start 03/18/16 at 21:00; Status Future Hold Lorazepam (Ativan) 2 mg Q1H PRN IV seizure Last administered on 03/20/16 19:51 ; Admin Dose 2 MG; Start 03/18/16 at 21:00 Mupirocin (Bactroban) 1 applic BID TOP Last administered on 03/24/16 08:09; Admin Dose 1 APPLIC; Start 03/18/16 at 21:00 Tamsulosin HCl (Flomax) 0.4 mg HS PO Last administered on 03/23/16 21:46; Admin Dose 0.4 MG; Start 03/18/16 at 21:00 Ziprasidone 20 mg 20 mg DAILY PO Last administered on 03/19/16 10:01; Admin Dose 20 MG; Start 03/19/16 at 09:00; Status Future Hold Levetiracetam 500 mg/Sodium Chloride 105 ml @ 420 mls/hr Q12 IVPB Last administered on 03/24/16 08:08; Admin Dose 420 MLS/HR; Start 03/18/16 at 21:00 Phenylephrine HCl 40 mg/Dextrose 500 ml @ 75 mls/hr TITRATE IV Last administered on 03/20/16 20:06; Admin Dose 60 MLS/HR; Start 03/19/16 at 11:30 Cefepime HCl 50 ml @ 100 mls/hr Q12 IVPB Last administered on 03/24/16 08:09 ; Admin Dose 100 MLS/HR; Start 03/20/16 at 09:00 Vancomycin HCl 250 ml @ 125 mls/hr Q24H IVPB Last administered on 03/24/16 06 :46; Admin Dose 125 MLS/HR; Start 03/21/16 at 06:00 Albumin Human 50 ml @ 100 mls/hr IV PRN IV IF SBP <90 Last administered on 03/22 23:17; Admin Dose 100 MLS/HR; Start 03/20/16 at 18:30 Dextrose (D5W) 1,000 ml @ 50 mls/hr Q20H IV Last administered on 03/23/16 21: 59; Admin Dose 50 MLS/HR; Start 03/20/16 at 19:30 Atorvastatin Calcium (Lipitor) 10 mg DAILY@21 NGT Last administered on 21:46; Admin Dose 10 MG; Start 03/20/16 at 21:00 Bromocriptine Mesylate (Parlodel) 2.5 mg QHS NGT Last administered on 03/23/16 21:46; Admin Dose 2.5 MG; Start 03/20/16 at 21:00 Oxcarbazepine (Trileptal) 150 mg BID NGT Last administered on 03/24/16 08:19; Admin Dose 150 MG; Start 03/20/16 at 21:00 Valproate Sodium (Depakene Liquid Cup) 250 mg BID NGT Last administered on 03/24 08:09; Admin Dose 250 MG; Start 03/20/16 at 21:00 Insulin Aspart (Novolog Insulin Pen) NOVOLOG *MILD* ALGORI... Q6 SC Last administered on 03/24/16 12:57; Admin Dose 1 UNIT; Start 03/21/16 at 00:00 Miscellaneous Information 1 ea NOTE XX ; Start 03/20/16 at 23:00 Glucose (Glutose) 15 gm Q15M PRN PO DECREASED GLUCOSE; Start 03/20/16 at 23:00 Glucose (Glutose) 22.5 gm Q15M PRN PO DECREASED GLUCOSE; Start 03/20/16 at 23:00 Dextrose (D50w Syringe) 25 ml Q15M PRN IV DECREASED GLUCOSE; Start 03/20/16 at 23:00 Dextrose (D50w Syringe) 50 ml Q15M PRN IV DECREASED GLUCOSE; Start 03/20/16 at 23:00 Glucagon (Glucagen) 1 mg Q15M PRN IM DECREASED GLUCOSE; Start 03/20/16 at 23:00 Glucose 15 gm 15 gm Q15M PRN BUCCAL DECREASED GLUCOSE; Start 03/20/16 at 23:00 Norepinephrine/ Dextrose (Levophed/D5W) 500 ml @ 0.93 mls/hr TITRATE IV Last administered on 03/24/16 01:06; Admin Dose 14.06 MLS/HR; Start 03/21/16 at 09:00 Nystatin (Nystatin Cr) 1 applic BID TOP Last administered on 03/24/16 08:10; Admin Dose 1 APPLIC; Start 03/21/16 at 21:00 Hydrocortisone (Solu-Cortef) 50 mg Q8H IV Last administered on 03/24/16 04:43 ; Admin Dose 50 MG; Start 03/23/16 at 19:00 Acetaminophen (Tylenol Liquid) 650 mg Q4H PRN GTB PAIN AND OR ELEVATED TEMP Last administered on 03/23/16 21:46; Admin Dose 650 MG; Start 03/23/16 at 21:30 JOCELINE CARRIZALES MD Mar 24, 2016 16:58
[2016-03-24] MEDS: BROMOCRIPTINE 2.5 MG TAB NGT SCH (20:55)
[2016-03-24] MEDS: ATORVASTATIN 10 MG TAB NGT SCH (20:55)
[2016-03-24] MEDS: TAMSULOSIN (SR) 0.4 MG CAP PO SCH (20:56)
[2016-03-24] MEDS ORDERED: ATROPINE 1 MG/10 ML SYRINGE IV PRN (21:30)
[2016-03-24 21:40] LABS: HEPARIN INDUCED PLATELET AB NEGATIVE (NEGATIVE)
[2016-03-25] VITALS (80 sets, daily range): BP systolic 68–142; BP diastolic 33–103; PULSE 38–75; RESP 12–27
[2016-03-25] MEDS: INSULIN ASPART [NOVOLOG] 3 ML PEN SC SCH ×5 (00:03→22:58)
[2016-03-25] MEDS: ALBUTEROL/IPRATROPIUM (NEB) 3 ML AMP HHN SCH ×4 (01:38→19:27)
[2016-03-25] MEDS: HYDROCORTISONE 100 MG INJ IV SCH ×3 (02:03→21:49)
[2016-03-25] MEDS: DEXTROSE 5% 1,000 ML IV SCH ×2 (02:05→19:30)
[2016-03-25 05:30] LABS: AADO2 Arterial 42.5 mmHg (7.0-24.0); Allen Test ACCEPTAB; Arterial Base Excess 1.9 mmol/L (-3.0-3); Arterial COHb 0.2 % (0.0-3.0); Arterial HCO3 26.6 mmol/L (22.0-26.0); Arterial MetHb 0.2 % (0.0-1.5); Arterial Total Hemglobin 9.3 g/dl (12.0-18.0); MODE NASAL CANNULA
[2016-03-25] MEDS: VANCOMYCIN 1 GM in NS 250 ML IVPB SCH (05:31)
[2016-03-25] MEDS: LEVOTHYROXINE 100 MCG TAB NGT SCH (05:31)
[2016-03-25] MEDS: PANTOPRAZOLE 40 MG INJ IV SCH (05:31)
[2016-03-25 05:45] LABS: ADD SCAN DIFF NO
[2016-03-25 05:58] LABS: ABNORMAL IP MESSAGE 1; BASOPHILS % 0.2 % (0.0-2.0); HEMATOCRIT 25.3 % (42.0-52.0); HEMOGLOBIN 8.6 g/dl (14.0-18.0); LYMPHOCYTES # 0.6 10^3/ul (0.8-2.9); LYMPHOCYTES % 6.9 % (15.0-51.0); MEAN CORPUSCULAR HEMOGLOBIN 34.7 pg (29.0-33.0); MEAN PLATELET VOLUME 12.6 fl (7.4-10.4); MONOCYTE # 0.5 10^3/ul (0.3-0.9); MONOCYTES % 5.9 % (0.0-11.0); NEUTROPHIL # 7.3 10^3/ul (1.6-7.5); NEUTROPHILS % 85.5 % (39.0-77.0); PLATELET COUNT 71 10^3/UL (140-415); RED BLOOD COUNT 2.48 10^6/ul (4.70-6.10); RED CELL DISTRIBUTION WIDTH 15.2 % (11.5-14.5); WHITE BLOOD COUNT 8.5 10^3/ul (4.8-10.8)
[2016-03-25 06:00] LABS: INR 1.13; PARTIAL THROMBOPLASTIN TIME 29.2 Sec (25.0-35.0); PROTIME 14.5 Sec (12.2-14.2); PT RATIO 1.1
[2016-03-25 06:20] LABS: ALBUMIN 2.6 g/dl (3.3-4.9)
[2016-03-25 06:21] LABS: POTASSIUM 4.1 mmol/L (3.5-5.1)
[2016-03-25 06:23] LABS: ALBUMIN/GLOBULIN RATIO 0.78; BILIRUBIN,INDIRECT 0.2 mg/dl (0-1.1); BILIRUBIN,TOTAL 0.2 mg/dl (0.2-1.3); CREATININE 0.61 mg/dl (0.61-1.24); TOTAL PROTEIN 5.9 g/dl (6.1-8.1)
[2016-03-25 06:24] LABS: CALCIUM 8.1 mg/dl (8.4-10.2)
--- NOTE | 2016-03-25 09:47 | PN ---
Date/Time of Note Date/Time of Note DATE: 03/25/16 TIME: 09:44 Assessment/Plan VTE Prophylaxis VTE Prophylaxis Intervention: heparin Lines/Catheters IV Catheter Type (from Nrs): Central Line Central line still needed: Yes (IV access ) Urinary Cath still in place: Yes Reason Cath still needed: other (indicate) (intubated on ventilator, strict I/O ) Assessment/Plan Assessment/Plan 1. Status post PEA cardiac arrest with ROSC after 5 rounds of epinephrine. 2. s/p Ventilator dependent respiratory failure with possible ARDS due to pneumonia 3. Altered mentation, likely patient had unwitnessed seizure. 4. Septic Shock, currently on 2 pressor. 5. Hypothermia. 6. History of Down syndrome. 7. Lactic acidosis. 8. Hypernatremia. 9. History of hypothyroidism. 10. History of diabetes. 11. Leukopenia. 12. Thrombocytopenia. 13. History of Down syndrome. PLAN: s/p palliative care consult- made DNR, had a episode of Bradycardia, Received atropine today am continue neosynephrine for BP support IV keppra and IV ativan Restraints Cardiology and Pulmonary on case heparin for DVT prophylaxis Subjective 24 Hr Interval Summary Free Text/Dictation pt made DNR, now on one pressors, Required restraints, BP table, had a episode of bradycardia Exam/Review of Systems Vital Signs Vitals Vital Signs Date Time Temp Pulse Resp B/P Pulse Ox O2 Delivery O2 Flow Rate FiO2 03/25/16 08:47 48 16 100 Nasal Cannula 2.0 03/25/16 06:00 123/56 03/25/16 04:00 98.2 03/24/16 11:05 30 Intake and Output 03/24/16 03/24/16 03/25/16 15:00 23:00 07:00 Intake Total 653.42 ml 441.54 ml 91 ml Output Total 560 ml 390 ml 655 ml Balance 93.42 ml 51.54 ml -564 ml Exam GENERAL: no acute distress HEENT: No obvious head deformity. CARDIOVASCULAR: Regular rate and rhythm. bradycardia LUNGS: He has decreased breath sounds anteriorly. ABDOMEN: Soft, NT, NG tube EXTREMITIES: no edema + mercado catheter Results Result Diagram: 03/25/16 0430 03/25/16 0430 Results 24 hrs Laboratory Tests Test 03/24/16 09:54 03/24/16 12:50 03/24/16 15:40 03/24/16 18:09 Arterial Blood HCO3 21.4 L Arterial Blood Base Excess -2.2 Arterial Blood Oxygen Saturation 98.3 H [place] Test ACCEPTAB Arterial Blood Gas Puncture Site Left Radial Arterial Blood Carboxyhemoglobin 0.3 Arterial Blood Date Drawn 03/24/2016 9:48:39 AM Arterial Blood Methemoglobin 0.3 Arterial Blood pCO2 (Temp correct) 32.1 L Arterial Blood pH (Temp corrected) 7.442 Arterial Blood pO2 (Temp corrected) 142.5 H Blood Gas A-a O2 Differential 33.7 H Blood Gas Actual Respiration Rate 14 Blood Gas Low PEEP Setting 5.0 Blood Gas Modality VENT - CPAP Blood Gas Notified Time 03/24/2016 10:06:22 AM Blood Gas Notified Whom JLD Blood Gas Pressure Support 10 Blood Gas Specimen Source Blood arterial Blood Gas Temperature 37.0 FiO2 30.0 Oxyhemoglobin Percent 97.7 Total Hemoglobin 9.0 L Bedside Glucose 151 132 Magnesium Level 2.3 Test 03/25/16 00:00 03/25/16 04:30 03/25/16 04:35 03/25/16 05:00 Bedside Glucose 156 Alanine Aminotransferase (ALT/SGPT) 48 Albumin 2.6 L Albumin/Globulin Ratio 0.78 Alkaline Phosphatase 124 H Anion Gap 13 Aspartate Amino Transf (AST/SGOT) 39 Basophils # 0.0 Basophils % 0.2 Blood Urea Nitrogen 17 Calcium Level 8.1 L Carbon Dioxide Level 27 Chloride Level 107 Creatinine 0.61 Direct Bilirubin 0.00 Eosinophils # 0.0 Eosinophils % 0.0 Globulin 3.30 H Glucose Level 168 Hematocrit 25.3 L Hemoglobin 8.6 L Indirect Bilirubin 0.2 Lymphocytes # 0.6 L Lymphocytes % 6.9 L Mean Corpuscular Hemoglobin 34.7 H Mean Corpuscular Hemoglobin Concent 34.0 Mean Corpuscular Volume 102.0 H Mean Platelet Volume 12.6 H Monocytes # 0.5 Monocytes % 5.9 Neutrophils # 7.3 Neutrophils % 85.5 H Nucleated Red Blood Cells # 0.0 Nucleated Red Blood Cells % 0.0 Platelet Count 71 L Potassium Level 4.1 Red Blood Count 2.48 L Red Cell Distribution Width 15.2 H Sodium Level 143 Total Bilirubin 0.2 Total Protein 5.9 L White Blood Count 8.5 # Activated Partial Thromboplast Time 29.2 INR International Normalized Ratio 1.13 Prothrombin Time 14.5 H Prothrombin Time Ratio 1.1 Arterial Blood HCO3 26.6 H Arterial Blood Base Excess 1.9 Arterial Blood Oxygen Saturation 97.4 [place] Test ACCEPTAB Arterial Blood Gas Puncture Site Left Radial Arterial Blood Carboxyhemoglobin 0.2 Arterial Blood Date Drawn 03/25/2016 5:23:10 AM Arterial Blood Methemoglobin 0.2 Arterial Blood pCO2 (Temp correct) 42.6 Arterial Blood pH (Temp corrected) 7.414 Arterial Blood pO2 (Temp corrected) 99.6 Blood Gas A-a O2 Differential 42.5 H Blood Gas Modality NASAL CANNULA Blood Gas Notified Time 03/25/2016 5:29:49 AM Blood Gas Notified Whom BR Blood Gas Specimen Source Blood arterial Blood Gas Temperature 37.0 FiO2 27.0 Oxyhemoglobin Percent 97.0 Total Hemoglobin 9.3 L Test 03/25/16 05:34 Bedside Glucose 193 Medications Medications Current Medications Ondansetron HCl (Zofran Inj) 4 mg Q6H PRN IV NAUSEA AND/OR VOMITING; Start 03/18 at 21:00 Acetaminophen (Tylenol Supp) 650 mg Q4H PRN [place] PAIN LEVEL 1-3 OR FEVER; Start 03/18/16 at 21:00 Lorazepam (Ativan) 1 mg Q2H PRN IV ANXIETY Last administered on 03/22/16 20:39 ; Admin Dose 1 MG; Start 03/18/16 at 21:00 Pantoprazole (Protonix Iv) 40 mg DAILY@06 IV Last administered on 03/25/16 05: 31; Admin Dose 40 MG; Start 03/19/16 at 06:00 Heparin Sodium (Porcine) (Heparin (5000 Units/0.5 ml)) 5,000 unit Q12 SC ; Start 03/18/16 at 21:00; Status Future Hold Lorazepam (Ativan) 2 mg Q1H PRN IV seizure Last administered on 03/20/16 19:51 ; Admin Dose 2 MG; Start 03/18/16 at 21:00 Mupirocin (Bactroban) 1 applic BID TOP Last administered on 03/24/16 20:56; Admin Dose 1 APPLIC; Start 03/18/16 at 21:00 Tamsulosin HCl (Flomax) 0.4 mg HS PO Last administered on 03/24/16 20:56; Admin Dose 0.4 MG; Start 03/18/16 at 21:00 Ziprasidone 20 mg 20 mg DAILY PO Last administered on 03/19/16 10:01; Admin Dose 20 MG; Start 03/19/16 at 09:00; Status Future Hold Levetiracetam 500 mg/Sodium Chloride 105 ml @ 420 mls/hr Q12 IVPB Last administered on 03/24/16 20:55; Admin Dose 420 MLS/HR; Start 03/18/16 at 21:00 Phenylephrine HCl 40 mg/Dextrose 500 ml @ 75 mls/hr TITRATE IV Last administered on 03/20/16 20:06; Admin Dose 60 MLS/HR; Start 03/19/16 at 11:30 Cefepime HCl 50 ml @ 100 mls/hr Q12 IVPB Last administered on 03/24/16 20:55 ; Admin Dose 100 MLS/HR; Start 03/20/16 at 09:00 Vancomycin HCl 250 ml @ 125 mls/hr Q24H IVPB Last administered on 03/25/16 05 :31; Admin Dose 125 MLS/HR; Start 03/21/16 at 06:00 Albumin Human 50 ml @ 100 mls/hr IV PRN IV IF SBP <90 Last administered on 03/22 23:17; Admin Dose 100 MLS/HR; Start 03/20/16 at 18:30 Dextrose (D5W) 1,000 ml @ 50 mls/hr Q20H IV Last administered on 03/25/16 02: 05; Admin Dose 50 MLS/HR; Start 03/20/16 at 19:30 Atorvastatin Calcium (Lipitor) 10 mg DAILY@21 NGT Last administered on 20:55; Admin Dose 10 MG; Start 03/20/16 at 21:00 Bromocriptine Mesylate (Parlodel) 2.5 mg QHS NGT Last administered on 20:55; Admin Dose 2.5 MG; Start 03/20/16 at 21:00 Oxcarbazepine (Trileptal) 150 mg BID NGT Last administered on 03/24/16 20:55; Admin Dose 150 MG; Start 03/20/16 at 21:00 Valproate Sodium (Depakene Liquid Cup) 250 mg BID NGT Last administered on 03/24 20:55; Admin Dose 250 MG; Start 03/20/16 at 21:00 Insulin Aspart (Novolog Insulin Pen) NOVOLOG *MILD* ALGORI... Q6 SC Last administered on 03/25/16 06:23; Admin Dose 2 UNIT; Start 03/21/16 at 00:00 Miscellaneous Information 1 ea NOTE XX ; Start 03/20/16 at 23:00 Glucose (Glutose) 15 gm Q15M PRN PO DECREASED GLUCOSE; Start 03/20/16 at 23:00 Glucose (Glutose) 22.5 gm Q15M PRN PO DECREASED GLUCOSE; Start 03/20/16 at 23:00 Dextrose (D50w Syringe) 25 ml Q15M PRN IV DECREASED GLUCOSE; Start 03/20/16 at 23:00 Dextrose (D50w Syringe) 50 ml Q15M PRN IV DECREASED GLUCOSE; Start 03/20/16 at 23:00 Glucagon (Glucagen) 1 mg Q15M PRN IM DECREASED GLUCOSE; Start 03/20/16 at 23:00 Glucose 15 gm 15 gm Q15M PRN BUCCAL DECREASED GLUCOSE; Start 03/20/16 at 23:00 Norepinephrine/ Dextrose (Levophed/D5W) 500 ml @ 0.93 mls/hr TITRATE IV Last administered on 03/24/16 01:06; Admin Dose 14.06 MLS/HR; Start 03/21/16 at 09:00 Nystatin (Nystatin Cr) 1 applic BID TOP Last administered on 03/24/16 20:56; Admin Dose 1 APPLIC; Start 03/21/16 at 21:00 Hydrocortisone (Solu-Cortef) 50 mg Q8H IV Last administered on 03/25/16 02:03 ; Admin Dose 50 MG; Start 03/23/16 at 19:00 Acetaminophen (Tylenol Liquid) 650 mg Q4H PRN GTB PAIN AND OR ELEVATED TEMP Last administered on 03/23/16 21:46; Admin Dose 650 MG; Start 03/23/16 at 21:30 Atropine Sulfate (Atropine (Syringe)) 0.4 mg PRN PRN IV NOTE Last administered on 03/25/16 02:04; Admin Dose 0.4 MG; Start 03/24/16 at 21:30 SAMANTHA SMALLS MD Mar 25, 2016 09:47
[2016-03-25] MEDS: LEVETIRACETAM IV 500 MG in SOD CHLORIDE 0.9% 100 ML IVPB SCH ×2 (09:52→21:49)
[2016-03-25] MEDS: CEFEPIME 1GM/50 ML (PMX) 50 ML IVPB SCH ×2 (09:52→21:49)
[2016-03-25] MEDS: OXCARBAZEPINE 150 MG TAB NGT SCH ×3 (09:57→21:50)
[2016-03-25] MEDS: VALPROIC ACID LIQUID CUP 250 MG/5 ML CUP NGT SCH ×3 (09:57→21:49)
[2016-03-25] MEDS: NYSTATIN 15 GM CR TOP SCH ×2 (09:58→21:51)
[2016-03-25] MEDS: MUPIROCIN 2% 22 GM OINT TOP SCH ×2 (09:58→21:50)
[2016-03-25] MEDS ORDERED: LIDOCAINE 1% (MDV) 20 ML INJ SC ONE (10:30)
--- NOTE | 2016-03-25 11:31 | RADRPT ---
PROCEDURE: XR Chest. CLINICAL INDICATION: Respiratory failure TECHNIQUE: Frontal chest x-ray was obtained. COMPARISON: Chest x-ray March 22, 2016 FINDINGS: Noted is an NG tube. The tip is in the right lower lobe bronchus. There has been removal of the en dotracheal tube. Heart is not enlarged. Mediastinum is not widened. No hilar masses seen. There is hazy infiltrate in the perihilar lungs in the right lower lobe improved in appearance in the interim. No effusion or pneumothorax is present. IMPRESSION: Malpositioned NG tube. Findings were telephoned to the nurse caring for this patient at 11:30 a.m. on date of exam. Post extubation. Partial clearing hazy bibasilar infiltrates. .Elmer Mixon MD, MD Date Time Electronically viewed and signed by .Elmer Mixon MD, MD on 03/25/2016 11:30 .A/
--- NOTE | 2016-03-25 12:10 | CONS ---
Date/Time of Note Date/Time of Note DATE: 03/25/16 TIME: 12:07 Assessment/Plan Assessment/Plan Additional Assessment/Plan ASSESSMENT AND PLAN: A 65-year-old gentleman with: 1. Cardiac arrest status post cardiopulmonary resuscitation. 2. Respiratory failure. 3. Pneumonia. 4. Septic shock. 5. Seizures. 6. Hypothyroidism. 7. Diabetes mellitus. 8. Down syndrome. 9. Altered mental status. 10. Thrombocytopenia. 11. Hypothermia. 12. Pancytopenia Marked Bradycardia 0.4mg of atrophine administered RECOMMENDATIONS: Stop Levophed Start Dopamine will improve his BP and Heart rate since he not septic now If hypotensive administer 25% albumin if Hypotension Keep magnesium more than 2 and potassium more than 4. Continue antibiotics as recommended. Continue GI and DVT prophylaxis. Continue nebulization as scheduled If persistent Bradycardia or Pause administer atropine 0.4mg IV PRN Consultation Date/Type/Reason Admit Date/Time Mar 18, 2016 at 20:49 Type of Consultation: Biomedical ethics Exam/Review of Systems Vital Signs Vitals Vital Signs Date Time Temp Pulse Resp B/P Pulse Ox O2 Delivery O2 Flow Rate FiO2 03/25/16 11:45 47 17 100/53 100 03/25/16 08:47 Nasal Cannula 2.0 03/25/16 04:00 98.2 03/24/16 11:05 30 Intake and Output 03/24/16 03/24/16 03/25/16 15:00 23:00 07:00 Intake Total 653.42 ml 441.54 ml 91 ml Output Total 560 ml 390 ml 655 ml Balance 93.42 ml 51.54 ml -564 ml Exam Head: atraumatic, normocephalic Respiratory: clear to auscultation Cardiovascular: regular rate and rhythm Gastrointestinal: nl liver, spleen, non-tender, soft Extremities: normal pulses Results Result Diagram: 03/25/16 0430 03/25/16 0430 Results 24 hrs Laboratory Tests Test 03/24/16 12:50 03/24/16 15:40 03/24/16 18:09 03/25/16 00:00 Bedside Glucose 151 132 156 Magnesium Level 2.3 Test 03/25/16 04:30 03/25/16 04:35 03/25/16 05:00 03/25/16 05:34 Alanine Aminotransferase (ALT/SGPT) 48 Albumin 2.6 L Albumin/Globulin Ratio 0.78 Alkaline Phosphatase 124 H Anion Gap 13 Aspartate Amino Transf (AST/SGOT) 39 Basophils # 0.0 Basophils % 0.2 Blood Urea Nitrogen 17 Calcium Level 8.1 L Carbon Dioxide Level 27 Chloride Level 107 Creatinine 0.61 Direct Bilirubin 0.00 Eosinophils # 0.0 Eosinophils % 0.0 Globulin 3.30 H Glucose Level 168 Hematocrit 25.3 L Hemoglobin 8.6 L Indirect Bilirubin 0.2 Lymphocytes # 0.6 L Lymphocytes % 6.9 L Mean Corpuscular Hemoglobin 34.7 H Mean Corpuscular Hemoglobin Concent 34.0 Mean Corpuscular Volume 102.0 H Mean Platelet Volume 12.6 H Monocytes # 0.5 Monocytes % 5.9 Neutrophils # 7.3 Neutrophils % 85.5 H Nucleated Red Blood Cells # 0.0 Nucleated Red Blood Cells % 0.0 Platelet Count 71 L Potassium Level 4.1 Red Blood Count 2.48 L Red Cell Distribution Width 15.2 H Sodium Level 143 Total Bilirubin 0.2 Total Protein 5.9 L White Blood Count 8.5 # Activated Partial Thromboplast Time 29.2 INR International Normalized Ratio 1.13 Prothrombin Time 14.5 H Prothrombin Time Ratio 1.1 Arterial Blood HCO3 26.6 H Arterial Blood Base Excess 1.9 Arterial Blood Oxygen Saturation 97.4 [place] Test ACCEPTAB Arterial Blood Gas Puncture Site Left Radial Arterial Blood Carboxyhemoglobin 0.2 Arterial Blood Date Drawn 03/25/2016 5:23:10 AM Arterial Blood Methemoglobin 0.2 Arterial Blood pCO2 (Temp correct) 42.6 Arterial Blood pH (Temp corrected) 7.414 Arterial Blood pO2 (Temp corrected) 99.6 Blood Gas A-a O2 Differential 42.5 H Blood Gas Modality NASAL CANNULA Blood Gas Notified Time 03/25/2016 5:29:49 AM Blood Gas Notified Whom BR Blood Gas Specimen Source Blood arterial Blood Gas Temperature 37.0 FiO2 27.0 Oxyhemoglobin Percent 97.0 Total Hemoglobin 9.3 L Bedside Glucose 193 Medications Medications Current Medications Ondansetron HCl (Zofran Inj) 4 mg Q6H PRN IV NAUSEA AND/OR VOMITING; Start 03/18 at 21:00 Acetaminophen (Tylenol Supp) 650 mg Q4H PRN [place] PAIN LEVEL 1-3 OR FEVER; Start 03/18/16 at 21:00 Lorazepam (Ativan) 1 mg Q2H PRN IV ANXIETY Last administered on 03/22/16 20:39 ; Admin Dose 1 MG; Start 03/18/16 at 21:00 Pantoprazole (Protonix Iv) 40 mg DAILY@06 IV Last administered on 03/25/16 05: 31; Admin Dose 40 MG; Start 03/19/16 at 06:00 Heparin Sodium (Porcine) (Heparin (5000 Units/0.5 ml)) 5,000 unit Q12 SC ; Start 03/18/16 at 21:00; Status Future Hold Lorazepam (Ativan) 2 mg Q1H PRN IV seizure Last administered on 03/20/16 19:51 ; Admin Dose 2 MG; Start 03/18/16 at 21:00 Mupirocin (Bactroban) 1 applic BID TOP Last administered on 03/25/16 09:58; Admin Dose 1 APPLIC; Start 03/18/16 at 21:00 Tamsulosin HCl (Flomax) 0.4 mg HS PO Last administered on 03/24/16 20:56; Admin Dose 0.4 MG; Start 03/18/16 at 21:00 Ziprasidone 20 mg 20 mg DAILY PO Last administered on 03/19/16 10:01; Admin Dose 20 MG; Start 03/19/16 at 09:00; Status Future Hold Levetiracetam 500 mg/Sodium Chloride 105 ml @ 420 mls/hr Q12 IVPB Last administered on 03/25/16 09:52; Admin Dose 420 MLS/HR; Start 03/18/16 at 21:00 Phenylephrine HCl 40 mg/Dextrose 500 ml @ 75 mls/hr TITRATE IV Last administered on 03/20/16 20:06; Admin Dose 60 MLS/HR; Start 03/19/16 at 11:30 Cefepime HCl 50 ml @ 100 mls/hr Q12 IVPB Last administered on 03/25/16 09:52 ; Admin Dose 100 MLS/HR; Start 03/20/16 at 09:00 Vancomycin HCl 250 ml @ 125 mls/hr Q24H IVPB Last administered on 03/25/16 05 :31; Admin Dose 125 MLS/HR; Start 03/21/16 at 06:00 Albumin Human 50 ml @ 100 mls/hr IV PRN IV IF SBP <90 Last administered on 03/22 23:17; Admin Dose 100 MLS/HR; Start 03/20/16 at 18:30 Dextrose (D5W) 1,000 ml @ 50 mls/hr Q20H IV Last administered on 03/25/16 02: 05; Admin Dose 50 MLS/HR; Start 03/20/16 at 19:30 Atorvastatin Calcium (Lipitor) 10 mg DAILY@21 NGT Last administered on 20:55; Admin Dose 10 MG; Start 03/20/16 at 21:00 Bromocriptine Mesylate (Parlodel) 2.5 mg QHS NGT Last administered on 20:55; Admin Dose 2.5 MG; Start 03/20/16 at 21:00 Oxcarbazepine (Trileptal) 150 mg BID NGT Last administered on 03/24/16 20:55; Admin Dose 150 MG; Start 03/20/16 at 21:00 Valproate Sodium (Depakene Liquid Cup) 250 mg BID NGT Last administered on 03/25 09:57; Admin Dose 250 MG; Start 03/20/16 at 21:00 Insulin Aspart (Novolog Insulin Pen) NOVOLOG *MILD* ALGORI... Q6 SC Last administered on 03/25/16 06:23; Admin Dose 2 UNIT; Start 03/21/16 at 00:00 Miscellaneous Information 1 ea NOTE XX ; Start 03/20/16 at 23:00 Glucose (Glutose) 15 gm Q15M PRN PO DECREASED GLUCOSE; Start 03/20/16 at 23:00 Glucose (Glutose) 22.5 gm Q15M PRN PO DECREASED GLUCOSE; Start 03/20/16 at 23:00 Dextrose (D50w Syringe) 25 ml Q15M PRN IV DECREASED GLUCOSE; Start 03/20/16 at 23:00 Dextrose (D50w Syringe) 50 ml Q15M PRN IV DECREASED GLUCOSE; Start 03/20/16 at 23:00 Glucagon (Glucagen) 1 mg Q15M PRN IM DECREASED GLUCOSE; Start 03/20/16 at 23:00 Glucose 15 gm 15 gm Q15M PRN BUCCAL DECREASED GLUCOSE; Start 03/20/16 at 23:00 Norepinephrine/ Dextrose (Levophed/D5W) 500 ml @ 0.93 mls/hr TITRATE IV Last administered on 03/24/16 01:06; Admin Dose 14.06 MLS/HR; Start 03/21/16 at 09:00 Nystatin (Nystatin Cr) 1 applic BID TOP Last administered on 03/25/16 09:58; Admin Dose 1 APPLIC; Start 03/21/16 at 21:00 Hydrocortisone (Solu-Cortef) 50 mg Q8H IV Last administered on 03/25/16 11:01 ; Admin Dose 50 MG; Start 03/23/16 at 19:00 Acetaminophen (Tylenol Liquid) 650 mg Q4H PRN GTB PAIN AND OR ELEVATED TEMP Last administered on 03/23/16 21:46; Admin Dose 650 MG; Start 03/23/16 at 21:30 Atropine Sulfate (Atropine (Syringe)) 0.4 mg PRN PRN IV NOTE Last administered on 03/25/16 02:04; Admin Dose 0.4 MG; Start 03/24/16 at 21:30 Lidocaine (Xylocaine 1% (Mdv) 20 ml) 20 ml ONCE ONCE SC ; Start 03/25/16 at 10: 30; Stop 03/25/16 at 10:31 Miscellaneous Information (*Rx Drug Level Order Reminder*) VANCOMYCIN TROUGH AT 0500 ONCE ONCE XX ; Start 03/26/16 at 05:00; Stop 03/26/16 at 05:01 DAJA SHORT M.D. Mar 25, 2016 12:09
[2016-03-25] MEDS ORDERED: DOPamine-D5W 1.6 MG/ML 250 ML IV SCH (12:30)
[2016-03-25] MEDS: DOPamine 1.6 MG/ML D5W 250 ML IV SCH (12:38)
--- NOTE | 2016-03-25 14:52 | CONS ---
Date/Time of Note Date/Time of Note DATE: 03/25/16 TIME: 14:47 Consult Date/Type/Reason Admit Date/Time Mar 18, 2016 at 20:49 Initial Consult Date 03/24/16 Type of Consultation: Pulm Subjective Bradycardic events noted, s/p atropine. Now on dopamine gtt. NG placed in right mainstem, now replaced and in good position. Objective Vital Signs Date Time Temp Pulse Resp B/P Pulse Ox O2 Delivery O2 Flow Rate FiO2 03/25/16 13:48 49 18 97 Nasal Cannula 2.0 03/25/16 11:45 100/53 03/25/16 04:00 98.2 03/24/16 11:05 30 Intake and Output 03/24/16 03/24/16 03/25/16 15:00 23:00 07:00 Intake Total 653.42 ml 441.54 ml 91 ml Output Total 560 ml 390 ml 655 ml Balance 93.42 ml 51.54 ml -564 ml HEENT: Neck supple; no JVD; no LAD CVS: RRR, S1 and S2 CHEST: Clear ABD: Soft, NT, + BS EXT: No c/c/e Results/Medications Result Diagram: 03/25/16 0430 03/25/16 0430 Results 24 hrs Laboratory Tests Test 03/24/16 15:40 03/24/16 18:09 03/25/16 00:00 03/25/16 04:30 Magnesium Level 2.3 Bedside Glucose 132 156 Alanine Aminotransferase (ALT/SGPT) 48 Albumin 2.6 L Albumin/Globulin Ratio 0.78 Alkaline Phosphatase 124 H Anion Gap 13 Aspartate Amino Transf (AST/SGOT) 39 Basophils # 0.0 Basophils % 0.2 Blood Urea Nitrogen 17 Calcium Level 8.1 L Carbon Dioxide Level 27 Chloride Level 107 Creatinine 0.61 Direct Bilirubin 0.00 Eosinophils # 0.0 Eosinophils % 0.0 Globulin 3.30 H Glucose Level 168 Hematocrit 25.3 L Hemoglobin 8.6 L Indirect Bilirubin 0.2 Lymphocytes # 0.6 L Lymphocytes % 6.9 L Mean Corpuscular Hemoglobin 34.7 H Mean Corpuscular Hemoglobin Concent 34.0 Mean Corpuscular Volume 102.0 H Mean Platelet Volume 12.6 H Monocytes # 0.5 Monocytes % 5.9 Neutrophils # 7.3 Neutrophils % 85.5 H Nucleated Red Blood Cells # 0.0 Nucleated Red Blood Cells % 0.0 Platelet Count 71 L Potassium Level 4.1 Red Blood Count 2.48 L Red Cell Distribution Width 15.2 H Sodium Level 143 Total Bilirubin 0.2 Total Protein 5.9 L White Blood Count 8.5 # Test 03/25/16 04:35 03/25/16 05:00 03/25/16 05:34 03/25/16 12:25 Activated Partial Thromboplast Time 29.2 INR International Normalized Ratio 1.13 Prothrombin Time 14.5 H Prothrombin Time Ratio 1.1 Arterial Blood HCO3 26.6 H Arterial Blood Base Excess 1.9 Arterial Blood Oxygen Saturation 97.4 [place] Test ACCEPTAB Arterial Blood Gas Puncture Site Left Radial Arterial Blood Carboxyhemoglobin 0.2 Arterial Blood Date Drawn 03/25/2016 5:23:10 AM Arterial Blood Methemoglobin 0.2 Arterial Blood pCO2 (Temp correct) 42.6 Arterial Blood pH (Temp corrected) 7.414 Arterial Blood pO2 (Temp corrected) 99.6 Blood Gas A-a O2 Differential 42.5 H Blood Gas Modality NASAL CANNULA Blood Gas Notified Time 03/25/2016 5:29:49 AM Blood Gas Notified Whom BR Blood Gas Specimen Source Blood arterial Blood Gas Temperature 37.0 FiO2 27.0 Oxyhemoglobin Percent 97.0 Total Hemoglobin 9.3 L Bedside Glucose 193 151 Medications Current Medications Ondansetron HCl (Zofran Inj) 4 mg Q6H PRN IV NAUSEA AND/OR VOMITING; Start 03/18 at 21:00 Acetaminophen (Tylenol Supp) 650 mg Q4H PRN [place] PAIN LEVEL 1-3 OR FEVER; Start 03/18/16 at 21:00 Lorazepam (Ativan) 1 mg Q2H PRN IV ANXIETY Last administered on 03/22/16 20:39 ; Admin Dose 1 MG; Start 03/18/16 at 21:00 Pantoprazole (Protonix Iv) 40 mg DAILY@06 IV Last administered on 03/25/16 05: 31; Admin Dose 40 MG; Start 03/19/16 at 06:00 Heparin Sodium (Porcine) (Heparin (5000 Units/0.5 ml)) 5,000 unit Q12 SC ; Start 03/18/16 at 21:00; Status Future Hold Lorazepam (Ativan) 2 mg Q1H PRN IV seizure Last administered on 03/20/16 19:51 ; Admin Dose 2 MG; Start 03/18/16 at 21:00 Mupirocin (Bactroban) 1 applic BID TOP Last administered on 03/25/16 09:58; Admin Dose 1 APPLIC; Start 03/18/16 at 21:00 Tamsulosin HCl (Flomax) 0.4 mg HS PO Last administered on 03/24/16 20:56; Admin Dose 0.4 MG; Start 03/18/16 at 21:00 Ziprasidone 20 mg 20 mg DAILY PO Last administered on 03/19/16 10:01; Admin Dose 20 MG; Start 03/19/16 at 09:00; Status Future Hold Levetiracetam 500 mg/Sodium Chloride 105 ml @ 420 mls/hr Q12 IVPB Last administered on 03/25/16 09:52; Admin Dose 420 MLS/HR; Start 03/18/16 at 21:00 Phenylephrine HCl 40 mg/Dextrose 500 ml @ 75 mls/hr TITRATE IV Last administered on 03/20/16 20:06; Admin Dose 60 MLS/HR; Start 03/19/16 at 11:30 Cefepime HCl 50 ml @ 100 mls/hr Q12 IVPB Last administered on 03/25/16 09:52 ; Admin Dose 100 MLS/HR; Start 03/20/16 at 09:00 Vancomycin HCl 250 ml @ 125 mls/hr Q24H IVPB Last administered on 03/25/16 05 :31; Admin Dose 125 MLS/HR; Start 03/21/16 at 06:00 Albumin Human 50 ml @ 100 mls/hr IV PRN IV IF SBP <90 Last administered on 03/22 23:17; Admin Dose 100 MLS/HR; Start 03/20/16 at 18:30 Dextrose (D5W) 1,000 ml @ 50 mls/hr Q20H IV Last administered on 03/25/16 02: 05; Admin Dose 50 MLS/HR; Start 03/20/16 at 19:30 Atorvastatin Calcium (Lipitor) 10 mg DAILY@21 NGT Last administered on 20:55; Admin Dose 10 MG; Start 03/20/16 at 21:00 Bromocriptine Mesylate (Parlodel) 2.5 mg QHS NGT Last administered on 20:55; Admin Dose 2.5 MG; Start 03/20/16 at 21:00 Oxcarbazepine (Trileptal) 150 mg BID NGT Last administered on 03/24/16 20:55; Admin Dose 150 MG; Start 03/20/16 at 21:00 Valproate Sodium (Depakene Liquid Cup) 250 mg BID NGT Last administered on 03/25 09:57; Admin Dose 250 MG; Start 03/20/16 at 21:00 Insulin Aspart (Novolog Insulin Pen) NOVOLOG *MILD* ALGORI... Q6 SC Last administered on 03/25/16 12:39; Admin Dose 1 UNIT; Start 03/21/16 at 00:00 Miscellaneous Information 1 ea NOTE XX ; Start 03/20/16 at 23:00 Glucose (Glutose) 15 gm Q15M PRN PO DECREASED GLUCOSE; Start 03/20/16 at 23:00 Glucose (Glutose) 22.5 gm Q15M PRN PO DECREASED GLUCOSE; Start 03/20/16 at 23:00 Dextrose (D50w Syringe) 25 ml Q15M PRN IV DECREASED GLUCOSE; Start 03/20/16 at 23:00 Dextrose (D50w Syringe) 50 ml Q15M PRN IV DECREASED GLUCOSE; Start 03/20/16 at 23:00 Glucagon (Glucagen) 1 mg Q15M PRN IM DECREASED GLUCOSE; Start 03/20/16 at 23:00 Glucose (Glutose) 15 gm Q15M PRN BUCCAL DECREASED GLUCOSE; Start 03/20/16 at 23: 00 Nystatin (Nystatin Cr) 1 applic BID TOP Last administered on 03/25/16 09:58; Admin Dose 1 APPLIC; Start 03/21/16 at 21:00 Hydrocortisone (Solu-Cortef) 50 mg Q8H IV Last administered on 03/25/16 11:01 ; Admin Dose 50 MG; Start 03/23/16 at 19:00 Acetaminophen (Tylenol Liquid) 650 mg Q4H PRN GTB PAIN AND OR ELEVATED TEMP Last administered on 03/23/16 21:46; Admin Dose 650 MG; Start 03/23/16 at 21:30 Atropine Sulfate (Atropine (Syringe)) 0.4 mg PRN PRN IV NOTE Last administered on 03/25/16 02:04; Admin Dose 0.4 MG; Start 03/24/16 at 21:30 Lidocaine (Xylocaine 1% (Mdv) 20 ml) 20 ml ONCE ONCE SC ; Start 03/25/16 at 10: 30; Stop 03/25/16 at 10:31 Miscellaneous Information VANCOMYCIN TROUGH AT 0500 ONCE ONCE XX ; Start 03/26/16 at 05:00; Stop 03/26/16 at 05:01 Dopamine HCl/ Dextrose 250 ml @ 0 mls/hr TITRATE IV Last administered on 12:38; Admin Dose 6.75 MLS/HR; Start 03/25/16 at 12:30 Assessment/Plan Additional Assessment/Plan IMPRESSION: 1. Shock and bradycardia--on dopamine gtt 2. Multilobar pneumonia--likely aspiration 3. Stable seizure disorder. 4. Hypothyroidism. RECS: 1. Continue dopamine gtt for now 2. Aspiration precautions 3. Resume TF's/free H20 4. DNR/DNI 35 min CC time LOBO ROLLINS MD Mar 25, 2016 14:52
--- NOTE | 2016-03-25 16:26 | RADRPT ---
PROCEDURE: XR Chest. CLINICAL INDICATION: NG TUBE PLACEMENT TECHNIQUE: Frontal chest x-ray was obtained. COMPARISON: None. FINDINGS: There has been interval repositioning of the NG tube. The tip is now seen in the stomach. Catheter may be used. Heart is not enlarged. Mediastinum is not widened. No hilar masses seen. There is hazy infiltrate at the right lung base. No pneumothorax is seen. IMPRESSION: Hazy right basilar infiltrate. Proper position NG tube. It may be used. .Elmer Mixon MD, MD Date Time Electronically viewed and signed by .Elmer Mixon MD, MD on 03/25/2016 16:26 .A/
[2016-03-25] MEDS: ATORVASTATIN 10 MG TAB NGT SCH (21:50)
[2016-03-25] MEDS: TAMSULOSIN (SR) 0.4 MG CAP PO SCH (21:50)
[2016-03-25] MEDS: BROMOCRIPTINE 2.5 MG TAB NGT SCH (21:50)
[2016-03-26] VITALS (96 sets, daily range): BP systolic 68–121; BP diastolic 27–78; PULSE 51–95; RESP 11–23
[2016-03-26] MEDS: ALBUTEROL/IPRATROPIUM (NEB) 3 ML AMP HHN SCH ×4 (01:00→19:58)
[2016-03-26] MEDS: HYDROCORTISONE 100 MG INJ IV SCH ×3 (03:00→17:49)
--- NOTE | 2016-03-26 04:21 | PN ---
DATE: 03/25/2016 PALLIATIVE CARE PROGRESS NOTE This is a postdated note on Jonathan Clifton who is still in the intensive care unit at [facility], intubated, off sedation, minimally responsive to any verbal or tactile stimulation, still in shock on 2 pressors. [facility] The case was discussed with them. The patient's medical h istory was reviewed at admission and during this hospital course, and his current level of care incl uding his requirements for pressure support with 2 pressors at this time, continued need for intubat ion, altered mental status, fluid and electrolyte abnormalities, and sepsis syndrome. At the end of the conversation, all members were in agreement as was [facility] food service representative to continue t o treat patient but only in a palliative way. If he drops his blood pressure, do not increase the p ressors, do not do fluid resuscitation. No aggressive intervention insofar as studies. If he annette nues to deteriorate over the weekend, to switch him to comfort measures. Dictated By: HADLEY HARRY MD LP/NTS Conf#: [id number] DID#: [id number]
[2016-03-26] MEDS: DOPamine 1.6 MG/ML D5W 250 ML IV SCH ×2 (04:33→14:37)
[2016-03-26 05:08] LABS: AADO2 Arterial 56.7 mmHg (7.0-24.0); Arterial Base Excess 3.2 mmol/L (-3.0-3); Arterial COHb 0.3 % (0.0-3.0); Arterial Fraction of Oxyhgb 97.8 % (93.0-99.0); Arterial HCO3 28.6 mmol/L (22.0-26.0); Arterial MetHb 0.2 % (0.0-1.5); Arterial Total Hemglobin 9.3 g/dl (12.0-18.0); MODE ROOM AIR
[2016-03-26 05:23] LABS: POTASSIUM 3.7 mmol/L (3.5-5.1)
[2016-03-26 05:26] LABS: CREATININE 0.52 mg/dl (0.61-1.24)
[2016-03-26 05:27] LABS: CALCIUM 7.8 mg/dl (8.4-10.2)
[2016-03-26 05:28] LABS: INR 1.16; PROTIME 14.8 Sec (12.2-14.2); PT RATIO 1.2
[2016-03-26 05:29] LABS: PARTIAL THROMBOPLASTIN TIME 31.6 Sec (25.0-35.0)
[2016-03-26] MEDS: INSULIN ASPART [NOVOLOG] 3 ML PEN SC SCH ×3 (06:00→17:51)
[2016-03-26] MEDS: PANTOPRAZOLE 40 MG INJ IV SCH (06:02)
[2016-03-26] MEDS: LEVOTHYROXINE 100 MCG TAB NGT SCH (06:02)
[2016-03-26] MEDS: VANCOMYCIN 1 GM in NS 250 ML IVPB SCH (06:07)
[2016-03-26] MEDS: OXCARBAZEPINE 150 MG TAB NGT SCH ×2 (08:17→21:09)
[2016-03-26] MEDS: VALPROIC ACID LIQUID CUP 250 MG/5 ML CUP NGT SCH ×2 (08:17→21:09)
[2016-03-26] MEDS: CEFEPIME 1GM/50 ML (PMX) 50 ML IVPB SCH ×2 (08:17→21:08)
[2016-03-26] MEDS: LEVETIRACETAM IV 500 MG in SOD CHLORIDE 0.9% 100 ML IVPB SCH ×2 (08:17→21:08)
[2016-03-26] MEDS: MUPIROCIN 2% 22 GM OINT TOP SCH ×2 (08:18→21:09)
[2016-03-26] MEDS: NYSTATIN 15 GM CR TOP SCH ×2 (08:18→21:09)
--- NOTE | 2016-03-26 10:17 | PN ---
Date/Time of Note Date/Time of Note DATE: 03/26/16 TIME: 10:15 Assessment/Plan VTE Prophylaxis VTE Prophylaxis Intervention: heparin Lines/Catheters IV Catheter Type (from Nrs): Central Line Central line still needed: Yes (IV access ) Urinary Cath still in place: Yes Reason Cath still needed: other (indicate) (strict I/O) Assessment/Plan Assessment/Plan 1. Status post PEA cardiac arrest with ROSC after 5 rounds of epinephrine. 2. s/p Ventilator dependent respiratory failure with possible ARDS due to pneumonia 3. Altered mentation, likely patient had unwitnessed seizure. 4. Septic Shock, 5. Hypothermia. 6. History of Down syndrome. 7. Lactic acidosis. 8. Hypernatremia. 9. History of hypothyroidism. 10. History of diabetes. 11. Leukopenia. 12. Thrombocytopenia. 13. History of Down syndrome. PLAN: s/p palliative care consult- made DNR, had a episode of Bradycardia, Received atropine yesterday, started on dopamine gtt by cardiology still BP labile off Pressors IV keppra and IV ativan Restraints Cardiology and Pulmonary on case heparin for DVT prophylaxis Subjective 24 Hr Interval Summary Free Text/Dictation pt continues to be bradycardic, on dopamine gtt, DNR, Exam/Review of Systems Vital Signs Vitals Vital Signs Date Time Temp Pulse Resp B/P Pulse Ox O2 Delivery O2 Flow Rate FiO2 03/26/16 08:01 78 03/26/16 08:00 Nasal Cannula 3.0 03/26/16 07:45 16 88/69 96 03/26/16 07:30 98.1 03/24/16 11:05 30 Intake and Output 03/25/16 03/25/16 03/26/16 15:00 23:00 07:00 Intake Total 677.95 ml 693.75 ml 1076 ml Output Total 725 ml 595 ml 780 ml Balance -47.05 ml 98.75 ml 296 ml Exam GENERAL: no acute distress HEENT: No obvious head deformity. CARDIOVASCULAR: Regular rate and rhythm. bradycardia LUNGS: He has decreased breath sounds anteriorly. ABDOMEN: Soft, NT, NG tube EXTREMITIES: no edema + mercado catheter Results Result Diagram: 03/25/16 0430 03/26/16 0430 Results 24 hrs Laboratory Tests Test 03/25/16 12:25 03/25/16 18:48 03/25/16 22:54 03/26/16 04:30 Bedside Glucose 151 150 167 Activated Partial Thromboplast Time 31.6 Anion Gap 12 Blood Urea Nitrogen 16 Calcium Level 7.8 L Carbon Dioxide Level 29 Chloride Level 104 Creatinine 0.52 L Glucose Level 202 INR International Normalized Ratio 1.16 Potassium Level 3.7 Prothrombin Time 14.8 H Prothrombin Time Ratio 1.2 Sodium Level 141 Vancomycin Level Trough 9.1 L Test 03/26/16 05:00 03/26/16 06:04 Arterial Blood HCO3 28.6 H Arterial Blood Base Excess 3.2 H Arterial Blood Oxygen Saturation 98.3 H [place] Test N/A Arterial Blood Gas Puncture Site Right Brachial Arterial Blood Carboxyhemoglobin 0.3 Arterial Blood Date Drawn 03/26/2016 5:00:29 AM Arterial Blood Methemoglobin 0.2 Arterial Blood pCO2 (Temp correct) 48.3 H Arterial Blood pH (Temp corrected) 7.391 Arterial Blood pO2 (Temp corrected) 144.0 H Blood Gas A-a O2 Differential 56.7 H Blood Gas Modality ROOM AIR Blood Gas Notified Time 03/26/2016 5:08:05 AM Blood Gas Notified Whom MG Blood Gas Specimen Source Blood arterial Blood Gas Temperature 37.0 FiO2 36.0 Oxyhemoglobin Percent 97.8 Total Hemoglobin 9.3 L Bedside Glucose 140 Medications Medications Current Medications Ondansetron HCl (Zofran Inj) 4 mg Q6H PRN IV NAUSEA AND/OR VOMITING; Start 03/18 at 21:00 Acetaminophen (Tylenol Supp) 650 mg Q4H PRN [place] PAIN LEVEL 1-3 OR FEVER; Start 03/18/16 at 21:00 Lorazepam (Ativan) 1 mg Q2H PRN IV ANXIETY Last administered on 03/22/16 20:39 ; Admin Dose 1 MG; Start 03/18/16 at 21:00 Pantoprazole (Protonix Iv) 40 mg DAILY@06 IV Last administered on 03/26/16 06: 02; Admin Dose 40 MG; Start 03/19/16 at 06:00 Heparin Sodium (Porcine) (Heparin (5000 Units/0.5 ml)) 5,000 unit Q12 SC ; Start 03/18/16 at 21:00; Status Future Hold Lorazepam (Ativan) 2 mg Q1H PRN IV seizure Last administered on 03/20/16 19:51 ; Admin Dose 2 MG; Start 03/18/16 at 21:00 Mupirocin (Bactroban) 1 applic BID TOP Last administered on 03/26/16 08:18; Admin Dose 1 APPLIC; Start 03/18/16 at 21:00 Tamsulosin HCl (Flomax) 0.4 mg HS PO Last administered on 03/25/16 21:50; Admin Dose 0.4 MG; Start 03/18/16 at 21:00 Ziprasidone 20 mg 20 mg DAILY PO Last administered on 03/19/16 10:01; Admin Dose 20 MG; Start 03/19/16 at 09:00; Status Future Hold Levetiracetam 500 mg/Sodium Chloride 105 ml @ 420 mls/hr Q12 IVPB Last administered on 03/26/16 08:17; Admin Dose 420 MLS/HR; Start 03/18/16 at 21:00 Phenylephrine HCl 40 mg/Dextrose 500 ml @ 75 mls/hr TITRATE IV Last administered on 03/20/16 20:06; Admin Dose 60 MLS/HR; Start 03/19/16 at 11:30 Cefepime HCl 50 ml @ 100 mls/hr Q12 IVPB Last administered on 03/26/16 08:17 ; Admin Dose 100 MLS/HR; Start 03/20/16 at 09:00 Vancomycin HCl 250 ml @ 125 mls/hr Q24H IVPB Last administered on 03/26/16 06 :07; Admin Dose 125 MLS/HR; Start 03/21/16 at 06:00; Stop 03/26/16 at 09:00 Albumin Human 50 ml @ 100 mls/hr IV PRN IV IF SBP <90 Last administered on 03/22 23:17; Admin Dose 100 MLS/HR; Start 03/20/16 at 18:30 Dextrose (D5W) 1,000 ml @ 50 mls/hr Q20H IV Last administered on 03/25/16 19: 30; Admin Dose 50 MLS/HR; Start 03/20/16 at 19:30 Atorvastatin Calcium (Lipitor) 10 mg DAILY@21 NGT Last administered on 21:50; Admin Dose 10 MG; Start 03/20/16 at 21:00 Bromocriptine Mesylate (Parlodel) 2.5 mg QHS NGT Last administered on 21:50; Admin Dose 2.5 MG; Start 03/20/16 at 21:00 Oxcarbazepine (Trileptal) 150 mg BID NGT Last administered on 03/26/16 08:17; Admin Dose 150 MG; Start 03/20/16 at 21:00 Valproate Sodium (Depakene Liquid Cup) 250 mg BID NGT Last administered on 03/26 08:17; Admin Dose 250 MG; Start 03/20/16 at 21:00 Insulin Aspart (Novolog Insulin Pen) NOVOLOG *MILD* ALGORI... Q6 SC Last administered on 03/25/16 22:58; Admin Dose 1 UNIT; Start 03/21/16 at 00:00 Miscellaneous Information 1 ea NOTE XX ; Start 03/20/16 at 23:00 Glucose (Glutose) 15 gm Q15M PRN PO DECREASED GLUCOSE; Start 03/20/16 at 23:00 Glucose (Glutose) 22.5 gm Q15M PRN PO DECREASED GLUCOSE; Start 03/20/16 at 23:00 Dextrose (D50w Syringe) 25 ml Q15M PRN IV DECREASED GLUCOSE; Start 03/20/16 at 23:00 Dextrose (D50w Syringe) 50 ml Q15M PRN IV DECREASED GLUCOSE; Start 03/20/16 at 23:00 Glucagon (Glucagen) 1 mg Q15M PRN IM DECREASED GLUCOSE; Start 03/20/16 at 23:00 Glucose (Glutose) 15 gm Q15M PRN BUCCAL DECREASED GLUCOSE; Start 03/20/16 at 23: 00 Nystatin (Nystatin Cr) 1 applic BID TOP Last administered on 03/26/16 08:18; Admin Dose 1 APPLIC; Start 03/21/16 at 21:00 Hydrocortisone (Solu-Cortef) 50 mg Q8H IV Last administered on 03/26/16 03:00 ; Admin Dose 50 MG; Start 03/23/16 at 19:00 Acetaminophen (Tylenol Liquid) 650 mg Q4H PRN GTB PAIN AND OR ELEVATED TEMP Last administered on 03/23/16 21:46; Admin Dose 650 MG; Start 03/23/16 at 21:30 Atropine Sulfate (Atropine (Syringe)) 0.4 mg PRN PRN IV NOTE Last administered on 03/25/16 02:04; Admin Dose 0.4 MG; Start 03/24/16 at 21:30 Lidocaine (Xylocaine 1% (Mdv) 20 ml) 20 ml ONCE ONCE SC ; Start 03/25/16 at 10: 30; Stop 03/25/16 at 10:31 Miscellaneous Information VANCOMYCIN TROUGH AT 0500 ONCE ONCE XX ; Start 03/26/16 at 05:00; Stop 03/26/16 at 05:01 Dopamine HCl/ Dextrose 250 ml @ 0 mls/hr TITRATE IV Last administered on 04:33; Admin Dose 27 MLS/HR; Start 03/25/16 at 12:30 Vancomycin HCl/ Sodium Chloride (Vancocin/NS) 250 ml @ 83.333 mls/ hr Q24H IVPB ; Start 03/26/16 at 22:00 SAMANTHA SMALLS MD Mar 26, 2016 10:17
--- NOTE | 2016-03-26 11:41 | CONS ---
Date/Time of Note Date/Time of Note DATE: 03/26/16 TIME: 11:39 Consult Date/Type/Reason Admit Date/Time Mar 18, 2016 at 20:49 Initial Consult Date 03/24/16 Type of Consultation: Pulm Subjective No events. Remains of dopamine gtt at 8 mcg. Objective Vital Signs Date Time Temp Pulse Resp B/P Pulse Ox O2 Delivery O2 Flow Rate FiO2 03/26/16 08:01 78 03/26/16 08:00 Nasal Cannula 3.0 03/26/16 07:45 16 88/69 96 03/26/16 07:30 98.1 03/24/16 11:05 30 Intake and Output 03/25/16 03/25/16 03/26/16 15:00 23:00 07:00 Intake Total 677.95 ml 693.75 ml 1076 ml Output Total 725 ml 595 ml 780 ml Balance -47.05 ml 98.75 ml 296 ml HEENT: Neck supple; no JVD; no LAD CVS: RRR, S1 and S2 CHEST: Clear ABD: Soft, NT, + BS EXT: No c/c/e Results/Medications Result Diagram: 03/25/16 0430 03/26/16 0430 Results 24 hrs Laboratory Tests Test 03/25/16 12:25 03/25/16 18:48 03/25/16 22:54 03/26/16 04:30 Bedside Glucose 151 150 167 Activated Partial Thromboplast Time 31.6 Anion Gap 12 Blood Urea Nitrogen 16 Calcium Level 7.8 L Carbon Dioxide Level 29 Chloride Level 104 Creatinine 0.52 L Glucose Level 202 INR International Normalized Ratio 1.16 Potassium Level 3.7 Prothrombin Time 14.8 H Prothrombin Time Ratio 1.2 Sodium Level 141 Vancomycin Level Trough 9.1 L Test 03/26/16 05:00 03/26/16 06:04 Arterial Blood HCO3 28.6 H Arterial Blood Base Excess 3.2 H Arterial Blood Oxygen Saturation 98.3 H [place] Test N/A Arterial Blood Gas Puncture Site Right Brachial Arterial Blood Carboxyhemoglobin 0.3 Arterial Blood Date Drawn 03/26/2016 5:00:29 AM Arterial Blood Methemoglobin 0.2 Arterial Blood pCO2 (Temp correct) 48.3 H Arterial Blood pH (Temp corrected) 7.391 Arterial Blood pO2 (Temp corrected) 144.0 H Blood Gas A-a O2 Differential 56.7 H Blood Gas Modality ROOM AIR Blood Gas Notified Time 03/26/2016 5:08:05 AM Blood Gas Notified Whom MG Blood Gas Specimen Source Blood arterial Blood Gas Temperature 37.0 FiO2 36.0 Oxyhemoglobin Percent 97.8 Total Hemoglobin 9.3 L Bedside Glucose 140 Medications Current Medications Ondansetron HCl (Zofran Inj) 4 mg Q6H PRN IV NAUSEA AND/OR VOMITING; Start 03/18 at 21:00 Acetaminophen (Tylenol Supp) 650 mg Q4H PRN IN PAIN LEVEL 1-3 OR FEVER; Start 03/18/16 at 21:00 Lorazepam (Ativan) 1 mg Q2H PRN IV ANXIETY Last administered on 03/22/16 20:39 ; Admin Dose 1 MG; Start 03/18/16 at 21:00 Pantoprazole (Protonix Iv) 40 mg DAILY@06 IV Last administered on 03/26/16 06: 02; Admin Dose 40 MG; Start 03/19/16 at 06:00 Heparin Sodium (Porcine) (Heparin (5000 Units/0.5 ml)) 5,000 unit Q12 SC ; Start 03/18/16 at 21:00; Status Future Hold Lorazepam (Ativan) 2 mg Q1H PRN IV seizure Last administered on 03/20/16 19:51 ; Admin Dose 2 MG; Start 03/18/16 at 21:00 Mupirocin (Bactroban) 1 applic BID TOP Last administered on 03/26/16 08:18; Admin Dose 1 APPLIC; Start 03/18/16 at 21:00 Tamsulosin HCl (Flomax) 0.4 mg HS PO Last administered on 03/25/16 21:50; Admin Dose 0.4 MG; Start 03/18/16 at 21:00 Ziprasidone 20 mg 20 mg DAILY PO Last administered on 03/19/16 10:01; Admin Dose 20 MG; Start 03/19/16 at 09:00; Status Future Hold Levetiracetam 500 mg/Sodium Chloride 105 ml @ 420 mls/hr Q12 IVPB Last administered on 03/26/16 08:17; Admin Dose 420 MLS/HR; Start 03/18/16 at 21:00 Phenylephrine HCl 40 mg/Dextrose 500 ml @ 75 mls/hr TITRATE IV Last administered on 03/20/16 20:06; Admin Dose 60 MLS/HR; Start 03/19/16 at 11:30 Cefepime HCl 50 ml @ 100 mls/hr Q12 IVPB Last administered on 03/26/16 08:17 ; Admin Dose 100 MLS/HR; Start 03/20/16 at 09:00 Vancomycin HCl 250 ml @ 125 mls/hr Q24H IVPB Last administered on 03/26/16 06 :07; Admin Dose 125 MLS/HR; Start 03/21/16 at 06:00; Stop 03/26/16 at 09:00 Albumin Human 50 ml @ 100 mls/hr IV PRN IV IF SBP <90 Last administered on 03/22 23:17; Admin Dose 100 MLS/HR; Start 03/20/16 at 18:30 Dextrose (D5W) 1,000 ml @ 50 mls/hr Q20H IV Last administered on 03/25/16 19: 30; Admin Dose 50 MLS/HR; Start 03/20/16 at 19:30 Atorvastatin Calcium (Lipitor) 10 mg DAILY@21 NGT Last administered on 21:50; Admin Dose 10 MG; Start 03/20/16 at 21:00 Bromocriptine Mesylate (Parlodel) 2.5 mg QHS NGT Last administered on 21:50; Admin Dose 2.5 MG; Start 03/20/16 at 21:00 Oxcarbazepine (Trileptal) 150 mg BID NGT Last administered on 03/26/16 08:17; Admin Dose 150 MG; Start 03/20/16 at 21:00 Valproate Sodium (Depakene Liquid Cup) 250 mg BID NGT Last administered on 03/26 08:17; Admin Dose 250 MG; Start 03/20/16 at 21:00 Insulin Aspart (Novolog Insulin Pen) NOVOLOG *MILD* ALGORI... Q6 SC Last administered on 03/25/16 22:58; Admin Dose 1 UNIT; Start 03/21/16 at 00:00 Miscellaneous Information 1 ea NOTE XX ; Start 03/20/16 at 23:00 Glucose (Glutose) 15 gm Q15M PRN PO DECREASED GLUCOSE; Start 03/20/16 at 23:00 Glucose (Glutose) 22.5 gm Q15M PRN PO DECREASED GLUCOSE; Start 03/20/16 at 23:00 Dextrose (D50w Syringe) 25 ml Q15M PRN IV DECREASED GLUCOSE; Start 03/20/16 at 23:00 Dextrose (D50w Syringe) 50 ml Q15M PRN IV DECREASED GLUCOSE; Start 03/20/16 at 23:00 Glucagon (Glucagen) 1 mg Q15M PRN IM DECREASED GLUCOSE; Start 03/20/16 at 23:00 Glucose (Glutose) 15 gm Q15M PRN BUCCAL DECREASED GLUCOSE; Start 03/20/16 at 23: 00 Nystatin (Nystatin Cr) 1 applic BID TOP Last administered on 03/26/16 08:18; Admin Dose 1 APPLIC; Start 03/21/16 at 21:00 Hydrocortisone (Solu-Cortef) 50 mg Q8H IV Last administered on 03/26/16 03:00 ; Admin Dose 50 MG; Start 03/23/16 at 19:00 Acetaminophen (Tylenol Liquid) 650 mg Q4H PRN GTB PAIN AND OR ELEVATED TEMP Last administered on 03/23/16 21:46; Admin Dose 650 MG; Start 03/23/16 at 21:30 Atropine Sulfate (Atropine (Syringe)) 0.4 mg PRN PRN IV NOTE Last administered on 03/25/16 02:04; Admin Dose 0.4 MG; Start 03/24/16 at 21:30 Lidocaine (Xylocaine 1% (Mdv) 20 ml) 20 ml ONCE ONCE SC ; Start 03/25/16 at 10: 30; Stop 03/25/16 at 10:31 Miscellaneous Information VANCOMYCIN TROUGH AT 0500 ONCE ONCE XX ; Start 03/26/16 at 05:00; Stop 03/26/16 at 05:01 Dopamine HCl/ Dextrose 250 ml @ 0 mls/hr TITRATE IV Last administered on 04:33; Admin Dose 27 MLS/HR; Start 03/25/16 at 12:30 Vancomycin HCl/ Sodium Chloride (Vancocin/NS) 250 ml @ 83.333 mls/ hr Q24H IVPB ; Start 03/26/16 at 22:00 Assessment/Plan Additional Assessment/Plan IMPRESSION: 1. Shock and bradycardia--on dopamine gtt 2. Multilobar pneumonia--likely aspiration 3. Stable seizure disorder. 4. Hypothyroidism 5. Down's Syndrome RECS: 1. Continue dopamine gtt--titrate as tolerated. 2. Aspiration precautions 3. Resume TF's/free H20 4 CPT/suctioning as needed 5. DNR/DNI 35 min CC time LOBO ROLLINS MD Mar 26, 2016 11:41
--- NOTE | 2016-03-26 12:05 | CONS ---
Date/Time of Note Date/Time of Note DATE: 03/26/16 TIME: 12:02 Assessment/Plan Assessment/Plan Additional Assessment/Plan ASSESSMENT AND PLAN: A 65-year-old gentleman with: 1. Cardiac arrest status post cardiopulmonary resuscitation. 2. Respiratory failure. 3. Pneumonia. 4. Septic shock. 5. Seizures. 6. Hypothyroidism. 7. Diabetes mellitus. 8. Down syndrome. 9. Altered mental status. 10. Thrombocytopenia. 11. Hypothermia. 12. Pancytopenia RECOMMENDATIONS: Wean Dopamine if MAP > 65mmHg If hypotensive administer 25% albumin if Hypotension Keep magnesium more than 2 and potassium more than 4. Continue antibiotics as recommended. Continue GI and DVT prophylaxis. Continue nebulization as scheduled If persistent Bradycardia or Pause administer atropine 0.4mg IV PRN Consultation Date/Type/Reason Admit Date/Time Mar 18, 2016 at 20:49 Type of Consultation: Pulm Exam/Review of Systems Vital Signs Vitals Vital Signs Date Time Temp Pulse Resp B/P Pulse Ox O2 Delivery O2 Flow Rate FiO2 03/26/16 12:00 73 03/26/16 08:00 Nasal Cannula 3.0 03/26/16 07:45 16 88/69 96 03/26/16 07:30 98.1 03/24/16 11:05 30 Intake and Output 03/25/16 03/25/16 03/26/16 15:00 23:00 07:00 Intake Total 677.95 ml 693.75 ml 1076 ml Output Total 725 ml 595 ml 780 ml Balance -47.05 ml 98.75 ml 296 ml Exam Head: atraumatic, normocephalic Respiratory: clear to auscultation Cardiovascular: regular rate and rhythm Gastrointestinal: nl liver, spleen, non-tender, soft Extremities: normal pulses Results Result Diagram: 03/25/16 0430 03/26/16 0430 Results 24 hrs Laboratory Tests Test 03/25/16 12:25 03/25/16 18:48 03/25/16 22:54 03/26/16 04:30 Bedside Glucose 151 150 167 Activated Partial Thromboplast Time 31.6 Anion Gap 12 Blood Urea Nitrogen 16 Calcium Level 7.8 L Carbon Dioxide Level 29 Chloride Level 104 Creatinine 0.52 L Glucose Level 202 INR International Normalized Ratio 1.16 Potassium Level 3.7 Prothrombin Time 14.8 H Prothrombin Time Ratio 1.2 Sodium Level 141 Vancomycin Level Trough 9.1 L Test 03/26/16 05:00 03/26/16 06:04 Arterial Blood HCO3 28.6 H Arterial Blood Base Excess 3.2 H Arterial Blood Oxygen Saturation 98.3 H [place] Test N/A Arterial Blood Gas Puncture Site Right Brachial Arterial Blood Carboxyhemoglobin 0.3 Arterial Blood Date Drawn 03/26/2016 5:00:29 AM Arterial Blood Methemoglobin 0.2 Arterial Blood pCO2 (Temp correct) 48.3 H Arterial Blood pH (Temp corrected) 7.391 Arterial Blood pO2 (Temp corrected) 144.0 H Blood Gas A-a O2 Differential 56.7 H Blood Gas Modality ROOM AIR Blood Gas Notified Time 03/26/2016 5:08:05 AM Blood Gas Notified Whom MG Blood Gas Specimen Source Blood arterial Blood Gas Temperature 37.0 FiO2 36.0 Oxyhemoglobin Percent 97.8 Total Hemoglobin 9.3 L Bedside Glucose 140 Medications Medications Current Medications Ondansetron HCl (Zofran Inj) 4 mg Q6H PRN IV NAUSEA AND/OR VOMITING; Start 03/18 at 21:00 Acetaminophen (Tylenol Supp) 650 mg Q4H PRN [place] PAIN LEVEL 1-3 OR FEVER; Start 03/18/16 at 21:00 Lorazepam (Ativan) 1 mg Q2H PRN IV ANXIETY Last administered on 03/22/16 20:39 ; Admin Dose 1 MG; Start 03/18/16 at 21:00 Pantoprazole (Protonix Iv) 40 mg DAILY@06 IV Last administered on 03/26/16 06: 02; Admin Dose 40 MG; Start 03/19/16 at 06:00 Heparin Sodium (Porcine) (Heparin (5000 Units/0.5 ml)) 5,000 unit Q12 SC ; Start 03/18/16 at 21:00; Status Future Hold Lorazepam (Ativan) 2 mg Q1H PRN IV seizure Last administered on 03/20/16 19:51 ; Admin Dose 2 MG; Start 03/18/16 at 21:00 Mupirocin (Bactroban) 1 applic BID TOP Last administered on 03/26/16 08:18; Admin Dose 1 APPLIC; Start 03/18/16 at 21:00 Tamsulosin HCl (Flomax) 0.4 mg HS PO Last administered on 03/25/16 21:50; Admin Dose 0.4 MG; Start 03/18/16 at 21:00 Ziprasidone 20 mg 20 mg DAILY PO Last administered on 03/19/16 10:01; Admin Dose 20 MG; Start 03/19/16 at 09:00; Status Future Hold Levetiracetam 500 mg/Sodium Chloride 105 ml @ 420 mls/hr Q12 IVPB Last administered on 03/26/16 08:17; Admin Dose 420 MLS/HR; Start 03/18/16 at 21:00 Phenylephrine HCl 40 mg/Dextrose 500 ml @ 75 mls/hr TITRATE IV Last administered on 03/20/16 20:06; Admin Dose 60 MLS/HR; Start 03/19/16 at 11:30 Cefepime HCl 50 ml @ 100 mls/hr Q12 IVPB Last administered on 03/26/16 08:17 ; Admin Dose 100 MLS/HR; Start 03/20/16 at 09:00 Vancomycin HCl 250 ml @ 125 mls/hr Q24H IVPB Last administered on 03/26/16 06 :07; Admin Dose 125 MLS/HR; Start 03/21/16 at 06:00; Stop 03/26/16 at 09:00 Albumin Human 50 ml @ 100 mls/hr IV PRN IV IF SBP <90 Last administered on 03/22 23:17; Admin Dose 100 MLS/HR; Start 03/20/16 at 18:30 Dextrose (D5W) 1,000 ml @ 50 mls/hr Q20H IV Last administered on 03/25/16 19: 30; Admin Dose 50 MLS/HR; Start 03/20/16 at 19:30 Atorvastatin Calcium (Lipitor) 10 mg DAILY@21 NGT Last administered on 21:50; Admin Dose 10 MG; Start 03/20/16 at 21:00 Bromocriptine Mesylate (Parlodel) 2.5 mg QHS NGT Last administered on 21:50; Admin Dose 2.5 MG; Start 03/20/16 at 21:00 Oxcarbazepine (Trileptal) 150 mg BID NGT Last administered on 03/26/16 08:17; Admin Dose 150 MG; Start 03/20/16 at 21:00 Valproate Sodium (Depakene Liquid Cup) 250 mg BID NGT Last administered on 03/26 08:17; Admin Dose 250 MG; Start 03/20/16 at 21:00 Insulin Aspart (Novolog Insulin Pen) NOVOLOG *MILD* ALGORI... Q6 SC Last administered on 03/25/16 22:58; Admin Dose 1 UNIT; Start 03/21/16 at 00:00 Miscellaneous Information 1 ea NOTE XX ; Start 03/20/16 at 23:00 Glucose (Glutose) 15 gm Q15M PRN PO DECREASED GLUCOSE; Start 03/20/16 at 23:00 Glucose (Glutose) 22.5 gm Q15M PRN PO DECREASED GLUCOSE; Start 03/20/16 at 23:00 Dextrose (D50w Syringe) 25 ml Q15M PRN IV DECREASED GLUCOSE; Start 03/20/16 at 23:00 Dextrose (D50w Syringe) 50 ml Q15M PRN IV DECREASED GLUCOSE; Start 03/20/16 at 23:00 Glucagon (Glucagen) 1 mg Q15M PRN IM DECREASED GLUCOSE; Start 03/20/16 at 23:00 Glucose (Glutose) 15 gm Q15M PRN BUCCAL DECREASED GLUCOSE; Start 03/20/16 at 23: 00 Nystatin (Nystatin Cr) 1 applic BID TOP Last administered on 03/26/16 08:18; Admin Dose 1 APPLIC; Start 03/21/16 at 21:00 Hydrocortisone (Solu-Cortef) 50 mg Q8H IV Last administered on 03/26/16 03:00 ; Admin Dose 50 MG; Start 03/23/16 at 19:00 Acetaminophen (Tylenol Liquid) 650 mg Q4H PRN GTB PAIN AND OR ELEVATED TEMP Last administered on 03/23/16 21:46; Admin Dose 650 MG; Start 03/23/16 at 21:30 Atropine Sulfate (Atropine (Syringe)) 0.4 mg PRN PRN IV NOTE Last administered on 03/25/16 02:04; Admin Dose 0.4 MG; Start 03/24/16 at 21:30 Lidocaine (Xylocaine 1% (Mdv) 20 ml) 20 ml ONCE ONCE SC ; Start 03/25/16 at 10: 30; Stop 03/25/16 at 10:31 Miscellaneous Information VANCOMYCIN TROUGH AT 0500 ONCE ONCE XX ; Start 03/26/16 at 05:00; Stop 03/26/16 at 05:01 Dopamine HCl/ Dextrose 250 ml @ 0 mls/hr TITRATE IV Last administered on t 04:33; Admin Dose 27 MLS/HR; Start 03/25/16 at 12:30 Vancomycin HCl/ Sodium Chloride (Vancocin/NS) 250 ml @ 83.333 mls/ hr Q24H IVPB ; Start 03/26/16 at 22:00 DAJA SHORT M.D. Mar 26, 2016 12:05
[2016-03-26] MEDS ORDERED: POTASSIUM CHLORIDE 250 ML IVPB ONE (12:30)
[2016-03-26] MEDS: DEXTROSE 5% 1,000 ML IV SCH ×2 (15:30→17:17)
--- NOTE | 2016-03-26 16:47 | RADRPT ---
PROCEDURE: XR Chest. CLINICAL INDICATION: PICC line placement TECHNIQUE: PA and lateral chest x-ray. COMPARISON: 03/25/2016 FINDINGS: Right-sided PICC line is seen terminating in the right internal jugular vein Diffuse bilateral pulmonary infiltrates are unchanged from previous exam. Small bilateral pleural effusions are unchanged from previous exam. No evidence of pneumothorax. The heart size is large. There is atherosclerotic calcification of the aorta. The cardiomediastina l silhouette is otherwise unremarkable. The soft tissues are within normal limits. Bony structures are unremarkable. IMPRESSION: 1. Malpositioned PICC line which terminates in the right internal jugular vein. The PICC line is s een repositioned to the right subclavian vein on follow-up exam. 2. Small bilateral pleural effusion. 3. Cardiomegaly. 4. Diffuse air space opacities may be due to pulmonary edema or pneumonia and are unchanged. RPTAT: QQ .Pedro Pablo Trotter MD, MD Date Time Electronically viewed and signed by .Pedro Pablo Trotter MD, MD on 03/26/2016 16:47 .M/
--- NOTE | 2016-03-26 16:53 | RADRPT ---
PROCEDURE: XR Chest. CLINICAL INDICATION: PICC line placement TECHNIQUE: PA and lateral chest x-ray. COMPARISON: 03/26/2016 at 1409 hours and 03/26/2016 at 1421 hours. FINDINGS: Right-sided PICC line is again seen terminating in the right internal jugular vein. Small bilateral pleural effusions are again noted.. Diffuse air space opacities are unchanged from previous exam. No evidence of pneumothorax. The cardiomediastinal silhouette is unremarkable. The soft tissues are within normal limits. Bony structures are unremarkable. IMPRESSION: 1. Well-positioned right-sided PICC line. PICC line is seen repositioned to the right subclavian v ein follow-up exam. RPTAT: QQ .Pedro Pablo Trotter MD, MD Date Time Electronically viewed and signed by .Pedro Pablo Trotter MD, MD on 03/26/2016 16:52 .M/
--- NOTE | 2016-03-26 17:40 | RADRPT ---
PROCEDURE: XR Chest. CLINICAL INDICATION: PICC line placement TECHNIQUE: PA and lateral chest x-ray. COMPARISON: 03/26/2016 at 1415 hours FINDINGS: Right-sided PICC line has been repositioned and terminates the subclavian vein. The distal end of the PICC line is coiled upon itself. Diffuse bilateral air space opacities are unchanged from previous exam. Small bilateral pleural effusions are unchanged from previous exam. No evidence of pneumothorax. The cardiomediastinal silhouette is unchanged. The soft tissues are within normal limits. Bony structures are unremarkable. IMPRESSION: 1. Repositioning of PICC line which now terminates in the right subclavian vein. Distal end of the pigtail catheter is coiled upon itself and should be repositioned. RPTAT: QQ .Pedro Pablo Trotter MD, Date Time Electronically viewed and signed by .Pedro Pablo Trotter MD, on 03/26/2016 17:40 .M/
[2016-03-26] MEDS: BROMOCRIPTINE 2.5 MG TAB NGT SCH (21:09)
[2016-03-26] MEDS: TAMSULOSIN (SR) 0.4 MG CAP PO SCH (21:09)
[2016-03-26] MEDS: ATORVASTATIN 10 MG TAB NGT SCH (21:09)
[2016-03-26] MEDS ORDERED: VANCOMYCIN 1.25 GM in SOD CHLORIDE 0.9% 250 ML IVPB SCH (22:00)
[2016-03-27] VITALS (65 sets, daily range): BP systolic 41–132; BP diastolic 14–105; PULSE 58–105; RESP 12–24
[2016-03-27] MEDS ORDERED: VANCOMYCIN 1.25 GM in SOD CHLORIDE 0.9% 250 ML IVPB SCH ×2
[2016-03-27] MEDS: INSULIN ASPART [NOVOLOG] 3 ML PEN SC SCH ×2 (00:34→05:06)
[2016-03-27] MEDS: ALBUTEROL/IPRATROPIUM (NEB) 3 ML AMP HHN SCH ×2 (01:50→12:06)
[2016-03-27] MEDS: HYDROCORTISONE 100 MG INJ IV SCH (03:58)
[2016-03-27 04:58] LABS: BASOPHILS % 0.1 % (0.0-2.0); HEMATOCRIT 23.3 % (42.0-52.0); HEMOGLOBIN 7.8 g/dl (14.0-18.0); LYMPHOCYTES # 0.5 10^3/ul (0.8-2.9); LYMPHOCYTES % 10.2 % (15.0-51.0); MEAN CORPUSCULAR HEMOGLOBIN 34.5 pg (29.0-33.0); MEAN CORPUSCULAR HGB CONC 33.5 g/dl (32.0-37.0); MEAN CORPUSCULAR VOLUME 103.1 fl (82.0-101.0); MEAN PLATELET VOLUME 9.9 fl (7.4-10.4); MONOCYTE # 0.2 10^3/ul (0.3-0.9); MONOCYTES % 4.9 % (0.0-11.0); NEUTROPHILS % 84.8 % (39.0-77.0); PLATELET COUNT 127 10^3/UL (140-440); RED BLOOD COUNT 2.26 10^6/ul (4.70-6.10); RED CELL DISTRIBUTION WIDTH 16.8 % (11.5-14.5); UNCORRECTED WBC 4.7 10^3/ul (4.8-10.8); WHITE BLOOD COUNT 4.7 10^3/ul (4.8-10.8)
[2016-03-27] MEDS: PANTOPRAZOLE 40 MG INJ IV SCH (05:01)
[2016-03-27 05:02] LABS: INR 1.16; PROTIME 14.9 Sec (12.2-14.2); PT RATIO 1.2
[2016-03-27 05:03] LABS: PARTIAL THROMBOPLASTIN TIME 30.4 Sec (25.0-35.0)
[2016-03-27 05:04] LABS: CONDITION 1; LH ANALYZER COMMENTS 1
[2016-03-27 05:06] LABS: ALBUMIN 2.4 g/dl (3.3-4.9)
[2016-03-27 05:07] LABS: POTASSIUM 3.7 mmol/L (3.5-5.1)
[2016-03-27 05:09] LABS: ALBUMIN/GLOBULIN RATIO 0.8; BILIRUBIN,INDIRECT 0.2 mg/dl (0-1.1); BILIRUBIN,TOTAL 0.2 mg/dl (0.2-1.3); CREATININE 0.51 mg/dl (0.61-1.24); TOTAL PROTEIN 5.4 g/dl (6.1-8.1)
[2016-03-27 05:10] LABS: CALCIUM 8.3 mg/dl (8.4-10.2)
[2016-03-27 05:21] LABS: AADO2 Arterial 69.1 mmHg (7.0-24.0); Arterial COHb 0.2 % (0.0-3.0); Arterial Fraction of Oxyhgb 95.9 % (93.0-99.0); Arterial HCO3 28.6 mmol/L (22.0-26.0); Arterial MetHb 0.1 % (0.0-1.5); Arterial Total Hemglobin 10.7 g/dl (12.0-18.0); MODE NASAL CANNULA
--- NOTE | 2016-03-27 07:58 | RADRPT ---
PROCEDURE: XR Chest. CLINICAL INDICATION: Respiratory failure TECHNIQUE: An AP view of the chest was obtained. COMPARISON: Chest x-ray dated 03/26/2016 FINDINGS: The tip of the enteric tube projects over the left upper quadrant. There is a right upper extremity mid line. There are bibasilar interstitial opacities with small bilateral pleural effusions. No pneumothorax is seen. The cardiomediastinal silhouette is mildly enlarged . The osseous structures are unrem arkable. IMPRESSION: 1. Bibasilar interstitial opacities, may reflect interstitial edema, atelectasis, and / or pneumoni a. Lung aeration is mildly improved when compared to the prior examination. 2. Small, stable bilateral pleural effusions. 3. Tubes and lines, as described above. RPTAT: HH .Rosie Burns MD, MD Date Time Electronically viewed and signed by .Rosie Burns MD, on 03/27/2016 07:58 .G/
[2016-03-27] MEDS: CEFEPIME 1GM/50 ML (PMX) 50 ML IVPB SCH (08:05)
[2016-03-27] MEDS: LEVETIRACETAM IV 500 MG in SOD CHLORIDE 0.9% 100 ML IVPB SCH ×2 (08:05→21:44)
[2016-03-27] MEDS: OXCARBAZEPINE 150 MG TAB NGT SCH ×2 (08:05→22:01)
[2016-03-27] MEDS: LEVOTHYROXINE 100 MCG TAB NGT SCH (08:06)
[2016-03-27] MEDS: VALPROIC ACID LIQUID CUP 250 MG/5 ML CUP NGT SCH ×2 (08:40→22:01)
--- NOTE | 2016-03-27 08:41 | CONS ---
Date/Time of Note Date/Time of Note DATE: 03/27/16 TIME: 08:38 Assessment/Plan Assessment/Plan Additional Assessment/Plan Assessment and recommendations; 1. Patient admitted with respiratory failure due to severe bilateral pneumonia with marked clinical and radiological improvement. 2. Hypothyroidism. 3. Stable seizure disorder. 4. Down syndrome. 5. Dysphagia. 6. Mild anemia. Discontinue antibiotics. Continue other supportive measures. Wean off dopamine as tolerated. Patient may potentially need to have a PEG tube placed. Consultation Date/Type/Reason Admit Date/Time Mar 18, 2016 at 20:49 Type of Consultation: Pulm 24 HR Interval Summary Free Text/Dictation Patient condition is slightly unstable, still requiring dopamine, although at a low-dose at 5 micrograms per kilogram per minute. Patient is awake. Currently in no distress. Exam/Review of Systems Vital Signs Vitals Vital Signs Date Time Temp Pulse Resp B/P Pulse Ox O2 Delivery O2 Flow Rate FiO2 03/27/16 06:15 74 14 103/62 89 Nasal Cannula 03/27/16 04:00 98.2 03/27/16 02:00 2.0 03/27/16 01:50 21 Intake and Output 03/26/16 03/26/16 03/27/16 15:00 23:00 07:00 Intake Total 1378.8 ml 833.5 ml 738 ml Output Total 945 ml 400 ml 390 ml Balance 433.8 ml 433.5 ml 348 ml Exam H EENT examination; supple neck, no JVD. No lymphadenopathy. Edentulous. Pupils are midsize. No neck masses. Chest examination; clear to auscultation. S1-S2 audible, no murmurs. Regular rhythm. Abdomen examination; soft, nondistended. No organomegaly. Bowel sounds audible. Extremity examination; no peripheral edema. SNA[employer] examination; patient is awake and does not follow any commands. Results Result Diagram: 03/27/16 04303/27/16 0430 Results 24 hrs Laboratory Tests Test 03/26/16 12:05 03/26/16 17:46 03/27/16 00:29 03/27/16 04:30 Bedside Glucose 148 161 141 Activated Partial Thromboplast Time 30.4 Alanine Aminotransferase (ALT/SGPT) 79 H Albumin 2.4 L Albumin/Globulin Ratio 0.80 Alkaline Phosphatase 152 H Anion Gap 11 Aspartate Amino Transf (AST/SGOT) 64 #H Basophils # 0.0 Basophils % 0.1 Blood Morphology Comment Blood Urea Nitrogen 15 Calcium Level 8.3 L Carbon Dioxide Level 30 Chloride Level 108 Creatinine 0.51 L Direct Bilirubin 0.00 Eosinophils # 0.0 Eosinophils % 0.0 Globulin 3.00 Glucose Level 116 # Hematocrit 23.3 L Hemoglobin 7.8 L INR International Normalized Ratio 1.16 Indirect Bilirubin 0.2 Lymphocytes # 0.5 L Lymphocytes % 10.2 L Mean Corpuscular Hemoglobin 34.5 H Mean Corpuscular Hemoglobin Concent 33.5 Mean Corpuscular Volume 103.1 H Mean Platelet Volume 9.9 # Monocytes # 0.2 L Monocytes % 4.9 Neutrophils # 4.0 Neutrophils % 84.8 H Nucleated Red Blood Cells # 0.0 Nucleated Red Blood Cells % 0.0 Platelet Count 127 #L Potassium Level 3.7 Prothrombin Time 14.9 H Prothrombin Time Ratio 1.2 Red Blood Count 2.26 L Red Cell Distribution Width 16.8 H Sodium Level 145 H Total Bilirubin 0.2 Total Protein 5.4 L White Blood Count 4.7 #L Test 03/27/16 05:00 03/27/16 05:02 Arterial Blood HCO3 28.6 H Arterial Blood Base Excess 3.0 Arterial Blood Oxygen Saturation 96.2 [place] Test N/A Arterial Blood Gas Puncture Site LB Arterial Blood Carboxyhemoglobin 0.2 Arterial Blood Date Drawn 03/27/2016 4:39:14 AM Arterial Blood Methemoglobin 0.1 Arterial Blood pCO2 (Temp correct) 48.3 H Arterial Blood pH (Temp corrected) 7.390 Arterial Blood pO2 (Temp corrected) 88.1 Blood Gas A-a O2 Differential 69.1 H Blood Gas Modality NASAL CANNULA Blood Gas Notified Time 03/27/2016 5:21:01 AM Blood Gas Notified Whom MM Blood Gas Specimen Source Blood arterial Blood Gas Temperature 37.0 FiO2 30.0 Oxyhemoglobin Percent 95.9 Total Hemoglobin 10.7 L Bedside Glucose 134 Medications Medications Current Medications Ondansetron HCl (Zofran Inj) 4 mg Q6H PRN IV NAUSEA AND/OR VOMITING; Start 03/18 at 21:00 Acetaminophen (Tylenol Supp) 650 mg Q4H PRN [place] PAIN LEVEL 1-3 OR FEVER; Start 03/18/16 at 21:00 Lorazepam (Ativan) 1 mg Q2H PRN IV ANXIETY Last administered on 03/22/16 20:39 ; Admin Dose 1 MG; Start 03/18/16 at 21:00 Pantoprazole (Protonix Iv) 40 mg DAILY@06 IV Last administered on 03/27/16 05: 01; Admin Dose 40 MG; Start 03/19/16 at 06:00 Heparin Sodium (Porcine) (Heparin (5000 Units/0.5 ml)) 5,000 unit Q12 SC ; Start 03/18/16 at 21:00; Status Future Hold Lorazepam (Ativan) 2 mg Q1H PRN IV seizure Last administered on 03/20/16 19:51 ; Admin Dose 2 MG; Start 03/18/16 at 21:00 Mupirocin (Bactroban) 1 applic BID TOP Last administered on 03/26/16 21:09; Admin Dose 1 APPLIC; Start 03/18/16 at 21:00 Tamsulosin HCl (Flomax) 0.4 mg HS PO Last administered on 03/26/16 21:09; Admin Dose 0.4 MG; Start 03/18/16 at 21:00 Ziprasidone 20 mg 20 mg DAILY PO Last administered on 03/19/16 10:01; Admin Dose 20 MG; Start 03/19/16 at 09:00; Status Future Hold Levetiracetam 500 mg/Sodium Chloride 105 ml @ 420 mls/hr Q12 IVPB Last administered on 03/27/16 08:05; Admin Dose 420 MLS/HR; Start 03/18/16 at 21:00 Phenylephrine HCl 40 mg/Dextrose 500 ml @ 75 mls/hr TITRATE IV Last administered on 03/20/16 20:06; Admin Dose 60 MLS/HR; Start 03/19/16 at 11:30 Cefepime HCl 50 ml @ 100 mls/hr Q12 IVPB Last administered on 03/27/16 08:05 ; Admin Dose 100 MLS/HR; Start 03/20/16 at 09:00 Albumin Human 50 ml @ 100 mls/hr IV PRN IV IF SBP <90 Last administered on 03/22 23:17; Admin Dose 100 MLS/HR; Start 03/20/16 at 18:30 Dextrose (D5W) 1,000 ml @ 50 mls/hr Q20H IV Last administered on 03/26/16 17: 17; Admin Dose 50 MLS/HR; Start 03/20/16 at 19:30 Atorvastatin Calcium (Lipitor) 10 mg DAILY@21 NGT Last administered on 21:09; Admin Dose 10 MG; Start 03/20/16 at 21:00 Bromocriptine Mesylate (Parlodel) 2.5 mg QHS NGT Last administered on 21:09; Admin Dose 2.5 MG; Start 03/20/16 at 21:00 Oxcarbazepine (Trileptal) 150 mg BID NGT Last administered on 03/27/16 08:05; Admin Dose 150 MG; Start 03/20/16 at 21:00 Valproate Sodium (Depakene Liquid Cup) 250 mg BID NGT Last administered on 03/26 21:09; Admin Dose 250 MG; Start 03/20/16 at 21:00 Insulin Aspart (Novolog Insulin Pen) NOVOLOG *MILD* ALGORI... Q6 SC Last administered on 03/27/16 00:34; Admin Dose 1 UNIT; Start 03/21/16 at 00:00 Miscellaneous Information 1 ea NOTE XX ; Start 03/20/16 at 23:00 Glucose (Glutose) 15 gm Q15M PRN PO DECREASED GLUCOSE; Start 03/20/16 at 23:00 Glucose (Glutose) 22.5 gm Q15M PRN PO DECREASED GLUCOSE; Start 03/20/16 at 23:00 Dextrose (D50w Syringe) 25 ml Q15M PRN IV DECREASED GLUCOSE; Start 03/20/16 at 23:00 Dextrose (D50w Syringe) 50 ml Q15M PRN IV DECREASED GLUCOSE; Start 03/20/16 at 23:00 Glucagon (Glucagen) 1 mg Q15M PRN IM DECREASED GLUCOSE; Start 03/20/16 at 23:00 Glucose (Glutose) 15 gm Q15M PRN BUCCAL DECREASED GLUCOSE; Start 03/20/16 at 23: 00 Nystatin (Nystatin Cr) 1 applic BID TOP Last administered on 03/26/16 21:09; Admin Dose 1 APPLIC; Start 03/21/16 at 21:00 Hydrocortisone (Solu-Cortef) 50 mg Q8H IV Last administered on 03/27/16 03:58 ; Admin Dose 50 MG; Start 03/23/16 at 19:00 Acetaminophen (Tylenol Liquid) 650 mg Q4H PRN GTB PAIN AND OR ELEVATED TEMP Last administered on 03/23/16 21:46; Admin Dose 650 MG; Start 03/23/16 at 21:30 Atropine Sulfate 0.4 mg 0.4 mg PRN PRN IV NOTE Last administered on 03/25/16 02:04; Admin Dose 0.4 MG; Start 03/24/16 at 21:30 Dopamine HCl/ Dextrose 250 ml @ 0 mls/hr TITRATE IV Last administered on 14:37; Admin Dose 18.9 MLS/HR; Start 03/25/16 at 12:30 Vancomycin HCl/ Sodium Chloride (Vancocin/NS) 250 ml @ 83.333 mls/ hr Q24H IVPB Last administered on 03/27/16 00:31; Admin Dose 83.333 MLS/HR; Start at 00:00 KEL JJ Mar 27, 2016 08:41
[2016-03-27] MEDS: NYSTATIN 15 GM CR TOP SCH (08:42)
[2016-03-27] MEDS: MUPIROCIN 2% 22 GM OINT TOP SCH (08:43)
[2016-03-27] MEDS: DOPamine 1.6 MG/ML D5W 250 ML IV SCH (09:34)
--- NOTE | 2016-03-27 11:36 | CONS ---
Date/Time of Note Date/Time of Note DATE: 03/27/16 TIME: 11:35 Assessment/Plan Assessment/Plan Additional Assessment/Plan ASSESSMENT AND PLAN: A 65-year-old gentleman with: 1. Cardiac arrest status post cardiopulmonary resuscitation. 2. Respiratory failure. 3. Pneumonia. 4. Septic shock. 5. Seizures. 6. Hypothyroidism. 7. Diabetes mellitus. 8. Down syndrome. 9. Altered mental status. 10. Thrombocytopenia. 11. Hypothermia. 12. Pancytopenia RECOMMENDATIONS: Wean Dopamine if MAP > 65mmHg If hypotensive administer 25% albumin if Hypotension Keep magnesium more than 2 and potassium more than 4. Continue antibiotics as recommended. Continue GI and DVT prophylaxis. Continue nebulization as scheduled If persistent Bradycardia or Pause administer atropine 0.4mg IV PRN Consultation Date/Type/Reason Admit Date/Time Mar 18, 2016 at 20:49 Type of Consultation: Pulm Exam/Review of Systems Vital Signs Vitals Vital Signs Date Time Temp Pulse Resp B/P Pulse Ox O2 Delivery O2 Flow Rate FiO2 03/27/16 11:15 65 17 95/52 99 03/27/16 09:30 Nasal Cannula 2.0 03/27/16 07:30 98.0 03/27/16 01:50 21 Intake and Output 03/26/16 03/26/16 03/27/16 15:00 23:00 07:00 Intake Total 1378.8 ml 833.5 ml 821.5 ml Output Total 945 ml 400 ml 390 ml Balance 433.8 ml 433.5 ml 431.5 ml Exam Head: atraumatic, normocephalic Respiratory: clear to auscultation Cardiovascular: regular rate and rhythm Gastrointestinal: nl liver, spleen, non-tender, soft Extremities: normal pulses Results Result Diagram: 03/27/16 0430 03/27/16 0430 Results 24 hrs Laboratory Tests Test 03/26/16 12:05 03/26/16 17:46 03/27/16 00:29 03/27/16 04:30 Bedside Glucose 148 161 141 Activated Partial Thromboplast Time 30.4 Alanine Aminotransferase (ALT/SGPT) 79 H Albumin 2.4 L Albumin/Globulin Ratio 0.80 Alkaline Phosphatase 152 H Anion Gap 11 Aspartate Amino Transf (AST/SGOT) 64 #H Basophils # 0.0 Basophils % 0.1 Blood Morphology Comment Blood Urea Nitrogen 15 Calcium Level 8.3 L Carbon Dioxide Level 30 Chloride Level 108 Creatinine 0.51 L Direct Bilirubin 0.00 Eosinophils # 0.0 Eosinophils % 0.0 Globulin 3.00 Glucose Level 116 # Hematocrit 23.3 L Hemoglobin 7.8 L INR International Normalized Ratio 1.16 Indirect Bilirubin 0.2 Lymphocytes # 0.5 L Lymphocytes % 10.2 L Mean Corpuscular Hemoglobin 34.5 H Mean Corpuscular Hemoglobin Concent 33.5 Mean Corpuscular Volume 103.1 H Mean Platelet Volume 9.9 # Monocytes # 0.2 L Monocytes % 4.9 Neutrophils # 4.0 Neutrophils % 84.8 H Nucleated Red Blood Cells # 0.0 Nucleated Red Blood Cells % 0.0 Platelet Count 127 #L Potassium Level 3.7 Prothrombin Time 14.9 H Prothrombin Time Ratio 1.2 Red Blood Count 2.26 L Red Cell Distribution Width 16.8 H Sodium Level 145 H Total Bilirubin 0.2 Total Protein 5.4 L White Blood Count 4.7 #L Test 03/27/16 05:00 03/27/16 05:02 Arterial Blood HCO3 28.6 H Arterial Blood Base Excess 3.0 Arterial Blood Oxygen Saturation 96.2 [place] Test N/A Arterial Blood Gas Puncture Site LB Arterial Blood Carboxyhemoglobin 0.2 Arterial Blood Date Drawn 03/27/2016 4:39:14 AM Arterial Blood Methemoglobin 0.1 Arterial Blood pCO2 (Temp correct) 48.3 H Arterial Blood pH (Temp corrected) 7.390 Arterial Blood pO2 (Temp corrected) 88.1 Blood Gas A-a O2 Differential 69.1 H Blood Gas Modality NASAL CANNULA Blood Gas Notified Time 03/27/2016 5:21:01 AM Blood Gas Notified Whom MM Blood Gas Specimen Source Blood arterial Blood Gas Temperature 37.0 FiO2 30.0 Oxyhemoglobin Percent 95.9 Total Hemoglobin 10.7 L Bedside Glucose 134 Medications Medications Current Medications Ondansetron HCl (Zofran Inj) 4 mg Q6H PRN IV NAUSEA AND/OR VOMITING; Start 03/18 at 21:00 Acetaminophen (Tylenol Supp) 650 mg Q4H PRN ID PAIN LEVEL 1-3 OR FEVER; Start 03/18/16 at 21:00 Lorazepam (Ativan) 1 mg Q2H PRN IV ANXIETY Last administered on 03/22/16t 20:39 ; Admin Dose 1 MG; Start 03/18/16 at 21:00 Pantoprazole (Protonix Iv) 40 mg DAILY@06 IV Last administered on 03/27/16 05: 01; Admin Dose 40 MG; Start 03/19/16 at 06:00 Heparin Sodium (Porcine) (Heparin (5000 Units/0.5 ml)) 5,000 unit Q12 SC ; Start 03/18/16 at 21:00; Status Future Hold Lorazepam (Ativan) 2 mg Q1H PRN IV seizure Last administered on 03/20/16 19:51 ; Admin Dose 2 MG; Start 03/18/16 at 21:00 Mupirocin (Bactroban) 1 applic BID TOP Last administered on 03/27/16 08:43; Admin Dose 1 APPLIC; Start 03/18/16 at 21:00 Tamsulosin HCl (Flomax) 0.4 mg HS PO Last administered on 03/26/16 21:09; Admin Dose 0.4 MG; Start 03/18/16 at 21:00 Ziprasidone 20 mg 20 mg DAILY PO Last administered on 03/19/16 10:01; Admin Dose 20 MG; Start 03/19/16 at 09:00; Status Future Hold Levetiracetam 500 mg/Sodium Chloride 105 ml @ 420 mls/hr Q12 IVPB Last administered on 03/27/16 08:05; Admin Dose 420 MLS/HR; Start 03/18/16 at 21:00 Phenylephrine HCl 40 mg/Dextrose 500 ml @ 75 mls/hr TITRATE IV Last administered on 03/20/16 20:06; Admin Dose 60 MLS/HR; Start 03/19/16 at 11:30 Albumin Human 50 ml @ 100 mls/hr IV PRN IV IF SBP <90 Last administered on 03/22 23:17; Admin Dose 100 MLS/HR; Start 03/20/16 at 18:30 Dextrose (D5W) 1,000 ml @ 50 mls/hr Q20H IV Last administered on 03/26/16 17: 17; Admin Dose 50 MLS/HR; Start 03/20/16 at 19:30 Atorvastatin Calcium (Lipitor) 10 mg DAILY@21 NGT Last administered on 21:09; Admin Dose 10 MG; Start 03/20/16 at 21:00 Bromocriptine Mesylate (Parlodel) 2.5 mg QHS NGT Last administered on 21:09; Admin Dose 2.5 MG; Start 03/20/16 at 21:00 Oxcarbazepine (Trileptal) 150 mg BID NGT Last administered on 03/27/16 08:05; Admin Dose 150 MG; Start 03/20/16 at 21:00 Valproate Sodium (Depakene Liquid Cup) 250 mg BID NGT Last administered on 03/27 08:40; Admin Dose 250 MG; Start 03/20/16 at 21:00 Insulin Aspart (Novolog Insulin Pen) NOVOLOG *MILD* ALGORI... Q6 SC Last administered on 03/27/16 00:34; Admin Dose 1 UNIT; Start 03/21/16 at 00:00 Miscellaneous Information 1 ea NOTE XX ; Start 03/20/16 at 23:00 Glucose (Glutose) 15 gm Q15M PRN PO DECREASED GLUCOSE; Start 03/20/16 at 23:00 Glucose (Glutose) 22.5 gm Q15M PRN PO DECREASED GLUCOSE; Start 03/20/16 at 23:00 Dextrose (D50w Syringe) 25 ml Q15M PRN IV DECREASED GLUCOSE; Start 03/20/16 at 23:00 Dextrose (D50w Syringe) 50 ml Q15M PRN IV DECREASED GLUCOSE; Start 03/20/16 at 23:00 Glucagon (Glucagen) 1 mg Q15M PRN IM DECREASED GLUCOSE; Start 03/20/16 at 23:00 Glucose (Glutose) 15 gm Q15M PRN BUCCAL DECREASED GLUCOSE; Start 03/20/16 at 23: 00 Nystatin (Nystatin Cr) 1 applic BID TOP Last administered on 03/27/16 08:42; Admin Dose 1 APPLIC; Start 03/21/16 at 21:00 Hydrocortisone (Solu-Cortef) 50 mg Q8H IV Last administered on 03/27/16 03:58 ; Admin Dose 50 MG; Start 03/23/16 at 19:00 Acetaminophen (Tylenol Liquid) 650 mg Q4H PRN GTB PAIN AND OR ELEVATED TEMP Last administered on 03/23/16 21:46; Admin Dose 650 MG; Start 03/23/16 at 21:30 Atropine Sulfate 0.4 mg 0.4 mg PRN PRN IV NOTE Last administered on 03/25/16 02:04; Admin Dose 0.4 MG; Start 03/24/16 at 21:30 Dopamine HCl/ Dextrose 250 ml @ 0 mls/hr TITRATE IV Last administered on 09:34; Admin Dose 36.45 MLS/HR; Start 03/25/16 at 12:30 DAJA SHORT M.D. Mar 27, 2016 11:36
--- NOTE | 2016-03-27 13:49 | PN ---
Date/Time of Note Date/Time of Note DATE: 03/27/16 TIME: 13:35 Assessment/Plan VTE Prophylaxis VTE Prophylaxis Intervention: heparin Lines/Catheters IV Catheter Type (from Nrs): Mid Line Assessment/Plan Chief Complaint/Hosp Course 1. Status post PEA cardiac arrest with ROSC after 5 rounds of epinephrine 2. s/p Ventilator dependent respiratory failure with possible ARDS due to pneumonia 3. Altered mentation, likely patient had unwitnessed seizure. 4. Septic Shock 5. Hypothermia. 6. History of Down syndrome. 7. Lactic acidosis. 8. Hypernatremia. 9. History of hypothyroidism. 10. History of diabetes. 11. Leukopenia. 12. Thrombocytopenia. 13. History of Down syndrome. PLAN: s/p palliative care consult- made DNR, had a episode of Bradycardia, Received atropine yesterday, Bioethics consult and Palliative Care consult appreciated plan is for Comfort Care, DC dopamine gtt Cardiology and Pulmonary on case heparin for DVT prophylaxis Problems: Subjective 24 Hr Interval Summary Subjective hx not possible: pt non-verbal Exam/Review of Systems Vital Signs Vitals Vital Signs Date Time Temp Pulse Resp B/P Pulse Ox O2 Delivery O2 Flow Rate FiO2 03/27/16 12:45 64 03/27/16 12:07 18 99 Nasal Cannula 3.0 30 03/27/16 11:15 95/52 03/27/16 07:30 98.0 Intake and Output 03/26/16 03/26/16 03/27/16 15:00 23:00 07:00 Intake Total 1378.8 ml 833.5 ml 821.5 ml Output Total 945 ml 400 ml 390 ml Balance 433.8 ml 433.5 ml 431.5 ml Exam Constitutional: non-verbal Respiratory: clear to auscultation Cardiovascular: regular rate and rhythm Gastrointestinal: soft, No distended Musculoskeletal: nl extremities to inspection Results Result Diagram: 03/27/16 04303/27/16 0430 Results 24 hrs Laboratory Tests Test 03/26/16 17:46 03/27/16 00:29 03/27/16 04:30 03/27/16 05:00 Bedside Glucose 161 141 Activated Partial Thromboplast Time 30.4 Alanine Aminotransferase (ALT/SGPT) 79 H Albumin 2.4 L Albumin/Globulin Ratio 0.80 Alkaline Phosphatase 152 H Anion Gap 11 Aspartate Amino Transf (AST/SGOT) 64 #H Basophils # 0.0 Basophils % 0.1 Blood Morphology Comment Blood Urea Nitrogen 15 Calcium Level 8.3 L Carbon Dioxide Level 30 Chloride Level 108 Creatinine 0.51 L Direct Bilirubin 0.00 Eosinophils # 0.0 Eosinophils % 0.0 Globulin 3.00 Glucose Level 116 # Hematocrit 23.3 L Hemoglobin 7.8 L INR International Normalized Ratio 1.16 Indirect Bilirubin 0.2 Lymphocytes # 0.5 L Lymphocytes % 10.2 L Mean Corpuscular Hemoglobin 34.5 H Mean Corpuscular Hemoglobin Concent 33.5 Mean Corpuscular Volume 103.1 H Mean Platelet Volume 9.9 # Monocytes # 0.2 L Monocytes % 4.9 Neutrophils # 4.0 Neutrophils % 84.8 H Nucleated Red Blood Cells # 0.0 Nucleated Red Blood Cells % 0.0 Platelet Count 127 #L Potassium Level 3.7 Prothrombin Time 14.9 H Prothrombin Time Ratio 1.2 Red Blood Count 2.26 L Red Cell Distribution Width 16.8 H Sodium Level 145 H Total Bilirubin 0.2 Total Protein 5.4 L White Blood Count 4.7 #L Arterial Blood HCO3 28.6 H Arterial Blood Base Excess 3.0 Arterial Blood Oxygen Saturation 96.2 [place] Test N/A Arterial Blood Gas Puncture Site LB Arterial Blood Carboxyhemoglobin 0.2 Arterial Blood Date Drawn 03/27/2016 4:39:14 AM Arterial Blood Methemoglobin 0.1 Arterial Blood pCO2 (Temp correct) 48.3 H Arterial Blood pH (Temp corrected) 7.390 Arterial Blood pO2 (Temp corrected) 88.1 Blood Gas A-a O2 Differential 69.1 H Blood Gas Modality NASAL CANNULA Blood Gas Notified Time 03/27/2016 5:21:01 AM Blood Gas Notified Whom MM Blood Gas Specimen Source Blood arterial Blood Gas Temperature 37.0 FiO2 30.0 Oxyhemoglobin Percent 95.9 Total Hemoglobin 10.7 L Test 03/27/16 05:02 Bedside Glucose 134 Medications Medications Current Medications Lorazepam 2 mg 2 mg Q1H PRN IV seizure Last administered on 03/20/16 19:51; Admin Dose 2 MG; Start 03/18/16 at 21:00 Levetiracetam/ Sodium Chloride (Keppra Iv/NS) 105 ml @ 420 mls/hr Q12 IVPB Last administered on 03/27/16 08:05; Admin Dose 420 MLS/HR; Start 03/18/16 at 21 :00 Oxcarbazepine (Trileptal) 150 mg BID NGT Last administered on 03/27/16 08:05; Admin Dose 150 MG; Start 03/20/16 at 21:00 Valproate Sodium 250 mg 250 mg BID NGT Last administered on 03/27/16 08:40; Admin Dose 250 MG; Start 03/20/16 at 21:00 Morphine Sulfate/ Dextrose (morphine) 100 ml @ 1 mls/hr TITRATE IV ; Start 03/27 at 12:30 TIANNA ONEIL Mar 27, 2016 13:45
--- NOTE | 2016-03-27 15:01 | CONS ---
Date/Time of Note Date/Time of Note DATE: 03/27/16 TIME: 14:58 Assessment/Plan Assessment/Plan Chief Complaint/Hosp Course That patient is a 65 year old male with history of Down's syndrome, seizure disorder, hypothyroidism, diabetes, who presented with hypoxia, AMS and hypothermia, s/p PEA arrest, respiratory failure s/p intubation with pneumonia and septic shock, altered mental status with possible unwitnessed seizure, who was noted to have thrombocytopenia/pancytopenia. - Patient noted to have pancytopenia even on admission, baseline unclear, may be related to underlying seizure medications, with worsening of counts since admission. Likely multifactorial in the setting of sepsis and medication side effect (vancomycin may be contributory, also oxcarazepine, valproate and keppra may be contributing). Thrombocytopenia continues to improve. Platelets are now > 100K - Heparin started on 03/18, however platelet count already low at 30,000 on admission. Low suspicion for HIT given less than 50% decline in platelet count , degree of thrombocytopenia, thrombocytopenia at baseline and worsening of platelet count < 5 days after starting heparin (unless patient had antecedent exposure). HIT panel NEGATIVE - Labs not consistent with DIC, HIV and hep panel negative. - Retic count inappropriately low, iron panel consistent with anemia of chronic inflammation, LDH, B12/folate WNL - Smear reviewed by pathology and showed no schistocytes, no dysplatic features. - Transfuse if platelets < 10, <20 if febrile, <50 if bleeding, or Hgb < 8 - agree with comfort measures given his poor prognosis - Will continue to follow. Problems: Consultation Date/Type/Reason Admit Date/Time Mar 18, 2016 at 20:49 Initial Consult Date 03/24/16 Type of Consultation: Hematology Reason for Consultation thrombocytopenia Referring Provider: MICHOACANO PINON MD 24 HR Interval Summary Free Text/Dictation pt was extubated over the weekend. pressors are being weaned off. thrombocytopenia improving. no bleeding Exam/Review of Systems Vital Signs Vitals Vital Signs Date Time Temp Pulse Resp B/P Pulse Ox O2 Delivery O2 Flow Rate FiO2 03/27/16 14:15 66 13 56/29 100 03/27/16 12:07 Nasal Cannula 3.0 30 03/27/16 07:30 98.0 Intake and Output 03/26/16 03/26/16 03/27/16 15:00 23:00 07:00 Intake Total 1378.8 ml 833.5 ml 821.5 ml Output Total 945 ml 400 ml 390 ml Balance 433.8 ml 433.5 ml 431.5 ml Exam Constitutional: non-verbal Results Result Diagram: 03/27/16 0430 03/27/16 0430 Results 24 hrs Laboratory Tests Test 03/26/16 17:46 03/27/16 00:29 03/27/16 04:30 03/27/16 05:00 Bedside Glucose 161 141 Activated Partial Thromboplast Time 30.4 Alanine Aminotransferase (ALT/SGPT) 79 H Albumin 2.4 L Albumin/Globulin Ratio 0.80 Alkaline Phosphatase 152 H Anion Gap 11 Aspartate Amino Transf (AST/SGOT) 64 #H Basophils # 0.0 Basophils % 0.1 Blood Morphology Comment Blood Urea Nitrogen 15 Calcium Level 8.3 L Carbon Dioxide Level 30 Chloride Level 108 Creatinine 0.51 L Direct Bilirubin 0.00 Eosinophils # 0.0 Eosinophils % 0.0 Globulin 3.00 Glucose Level 116 # Hematocrit 23.3 L Hemoglobin 7.8 L INR International Normalized Ratio 1.16 Indirect Bilirubin 0.2 Lymphocytes # 0.5 L Lymphocytes % 10.2 L Mean Corpuscular Hemoglobin 34.5 H Mean Corpuscular Hemoglobin Concent 33.5 Mean Corpuscular Volume 103.1 H Mean Platelet Volume 9.9 # Monocytes # 0.2 L Monocytes % 4.9 Neutrophils # 4.0 Neutrophils % 84.8 H Nucleated Red Blood Cells # 0.0 Nucleated Red Blood Cells % 0.0 Platelet Count 127 #L Potassium Level 3.7 Prothrombin Time 14.9 H Prothrombin Time Ratio 1.2 Red Blood Count 2.26 L Red Cell Distribution Width 16.8 H Sodium Level 145 H Total Bilirubin 0.2 Total Protein 5.4 L White Blood Count 4.7 #L Arterial Blood HCO3 28.6 H Arterial Blood Base Excess 3.0 Arterial Blood Oxygen Saturation 96.2 [place] Test N/A Arterial Blood Gas Puncture Site LB Arterial Blood Carboxyhemoglobin 0.2 Arterial Blood Date Drawn 03/27/2016 4:39:14 AM Arterial Blood Methemoglobin 0.1 Arterial Blood pCO2 (Temp correct) 48.3 H Arterial Blood pH (Temp corrected) 7.390 Arterial Blood pO2 (Temp corrected) 88.1 Blood Gas A-a O2 Differential 69.1 H Blood Gas Modality NASAL CANNULA Blood Gas Notified Time 03/27/2016 5:21:01 AM Blood Gas Notified Whom MM Blood Gas Specimen Source Blood arterial Blood Gas Temperature 37.0 FiO2 30.0 Oxyhemoglobin Percent 95.9 Total Hemoglobin 10.7 L Test 03/27/16 05:02 Bedside Glucose 134 Medications Medications Current Medications Lorazepam 2 mg 2 mg Q1H PRN IV seizure Last administered on 03/20/16 19:51; Admin Dose 2 MG; Start 03/18/16 at 21:00 Levetiracetam/ Sodium Chloride (Keppra Iv/NS) 105 ml @ 420 mls/hr Q12 IVPB Last administered on 03/27/16 08:05; Admin Dose 420 MLS/HR; Start 03/18/16 at 21 :00 Oxcarbazepine (Trileptal) 150 mg BID NGT Last administered on 03/27/16 08:05; Admin Dose 150 MG; Start 03/20/16 at 21:00 Valproate Sodium 250 mg 250 mg BID NGT Last administered on 03/27/16 08:40; Admin Dose 250 MG; Start 03/20/16 at 21:00 Morphine Sulfate/ Dextrose (morphine) 100 ml @ 1 mls/hr TITRATE IV ; Start 03/27 at 12:30 DAYANA WADE M.D. Mar 27, 2016 15:01
--- NOTE | 2016-03-27 15:34 | CONS ---
DATE OF ADMISSION: 03/18/2016 DATE OF CONSULTATION: 03/27/2016 TYPE OF CONSULTATION: Palliative care progress note HISTORY OF PRESENT ILLNESS: Patient became hypotensive over the weekend and was started off on low dose dopamine. Unfortunately, this was not to occur. Patient's case was reviewed [facility] physician member service representative, Dr. Blunt as well as [facility] divorce attorney . It was decided at that time not to pursue any further aggressive care but treat patient at the jael of care he was presently receiving at that time, but if he deteriorated over the weekend and req uired pressors to discontinue pressors, discontinue level of care and to just make the patient comfo rtable. I have discussed this with nursing and I will discuss this with physicians and at this time will switch patient to comfort measures as prior discussed in my note and a note from Dr. Fawad traore, dated March 24 Dr. Singh's note and my note dated March 26. Patient can be moved out of [facility] ICU on comfort measures. Dictated By: HADLEY HARRY MD, LP/MOHIT Conf#: [id number] DID#: [id number]
[2016-03-27] MEDS: morphine (DRIP) 100 MG/D5W 100 ML IV SCH (19:40)
[2016-03-28 08:44] VITALS: BP 61/25; RESP 6
[2016-03-28] MEDS: VALPROIC ACID LIQUID CUP 250 MG/5 ML CUP NGT SCH ×2 (09:26→22:31)
[2016-03-28] MEDS: OXCARBAZEPINE 150 MG TAB NGT SCH ×2 (09:26→22:29)
[2016-03-28] MEDS: LEVETIRACETAM IV 500 MG in SOD CHLORIDE 0.9% 100 ML IVPB SCH ×2 (11:28→22:31)
--- NOTE | 2016-03-28 14:30 | PN ---
Date/Time of Note Date/Time of Note DATE: 03/28/16 TIME: 14:29 Assessment/Plan VTE Prophylaxis VTE Prophylaxis Intervention: other Assessment/Plan Chief Complaint/Hosp Course 1. Status post PEA cardiac arrest with ROSC after 5 rounds of epinephrine 2. s/p Ventilator dependent respiratory failure with possible ARDS due to pneumonia 3. Altered mentation, likely patient had unwitnessed seizure. 4. Septic Shock 5. Hypothermia. 6. History of Down syndrome. 7. Lactic acidosis. 8. Hypernatremia. 9. History of hypothyroidism. 10. History of diabetes. 11. Leukopenia. 12. Thrombocytopenia. 13. History of Down syndrome. PLAN: s/p palliative care consult- made DNR, had a episode of Bradycardia, Received atropine yesterday, Bioethics consult and Palliative Care consult appreciated plan is for Comfort Care, DC'd dopamine gtt -Hospice eval Problems: Subjective 24 Hr Interval Summary Subjective hx not possible: pt non-verbal Exam/Review of Systems Vital Signs Vitals Vital Signs Date Time Temp Pulse Resp B/P Pulse Ox O2 Delivery O2 Flow Rate FiO2 03/28/16 08:44 6 61/25 03/28/16 08:00 Nasal Cannula 3.0 03/27/16 20:31 97.6 60 97 03/27/16 12:07 30 Intake and Output 03/27/16 03/27/16 03/28/16 15:00 23:00 07:00 Intake Total 934.0 ml 105 ml 449 ml Output Total 500 ml 40 ml Balance 434.0 ml 105 ml 409 ml Exam Constitutional: non-verbal Respiratory: clear to auscultation Cardiovascular: regular rate and rhythm Gastrointestinal: soft, No distended Musculoskeletal: nl extremities to inspection Results Result Diagram: 03/27/16 0430 03/27/16 0430 Medications Medications Current Medications Lorazepam 2 mg 2 mg Q1H PRN IV seizure Last administered on 03/20/16 19:51; Admin Dose 2 MG; Start 03/18/16 at 21:00 Morphine Sulfate/ Dextrose 100 ml @ 1 mls/hr TITRATE IV Last administered on 19:40; Admin Dose 1 MLS/HR; Start 03/27/16 at 12:30 Levetiracetam/ Sodium Chloride (Keppra Iv/NS) 105 ml @ 420 mls/hr Q12 IVPB Last administered on 03/28/16 11:28; Admin Dose 420 MLS/HR; Start 03/27/16 at 21:00 Valproate Sodium (Depakene Liquid Cup) 250 mg BID NGT Last administered on 03/28 09:26; Admin Dose 250 MG; Start 03/27/16 at 21:00 Oxcarbazepine (Trileptal) 150 mg BID NGT Last administered on 03/28/16 09:26; Admin Dose 150 MG; Start 03/27/16 at 21:00 TIANNA ONEIL Mar 28, 2016 14:30
--- NOTE | 2016-03-28 14:42 | CONS ---
Date/Time of Note Date/Time of Note DATE: 03/28/16 TIME: 14:41 Assessment/Plan Assessment/Plan Chief Complaint/Hosp Course That patient is a 65 year old male with history of Down's syndrome, seizure disorder, hypothyroidism, diabetes, who presented with hypoxia, AMS and hypothermia, s/p PEA arrest, respiratory failure s/p intubation with pneumonia and septic shock, altered mental status with possible unwitnessed seizure, who was noted to have thrombocytopenia/pancytopenia. - Patient noted to have pancytopenia even on admission, baseline unclear, may be related to underlying seizure medications, with worsening of counts since admission. Likely multifactorial in the setting of sepsis and medication side effect (vancomycin may be contributory, also oxcarazepine, valproate and keppra may be contributing). Thrombocytopenia continues to improve. Platelets are now > 100K - Heparin started on 03/18, however platelet count already low at 30,000 on admission. Low suspicion for HIT given less than 50% decline in platelet count , degree of thrombocytopenia, thrombocytopenia at baseline and worsening of platelet count < 5 days after starting heparin (unless patient had antecedent exposure). HIT panel NEGATIVE - Labs not consistent with DIC, HIV and hep panel negative. - Retic count inappropriately low, iron panel consistent with anemia of chronic inflammation, LDH, B12/folate WNL - Smear reviewed by pathology and showed no schistocytes, no dysplatic features. - Transfuse if platelets < 10, <20 if febrile, <50 if bleeding, or Hgb < 8 - agree with comfort measures given his poor prognosis - Will continue to follow. Problems: Consultation Date/Type/Reason Admit Date/Time Mar 18, 2016 at 20:49 Initial Consult Date 03/24/16 Type of Consultation: Hematology Reason for Consultation thrombocytopenia Referring Provider: MICHOACANO PINON MD 24 HR Interval Summary Free Text/Dictation pt on comfort measures Exam/Review of Systems Vital Signs Vitals Vital Signs Date Time Temp Pulse Resp B/P Pulse Ox O2 Delivery O2 Flow Rate FiO2 03/28/16 08:44 6 61/25 03/28/16 08:00 Nasal Cannula 3.0 03/27/16 20:31 97.6 60 97 03/27/16 12:07 30 Intake and Output 03/27/16 03/27/16 03/28/16 15:00 23:00 07:00 Intake Total 934.0 ml 105 ml 449 ml Output Total 500 ml 40 ml Balance 434.0 ml 105 ml 409 ml Exam Constitutional: frail, non-verbal Head: normocephalic ENMT: nl external ears & nose Neck: non-tender, supple Respiratory: clear to auscultation Cardiovascular: regular rate and rhythm Gastrointestinal: soft Musculoskeletal: nl extremities to inspection, nl gait and stance Results Result Diagram: 03/27/16 0430 03/27/16 0430 Medications Medications Current Medications Lorazepam 2 mg 2 mg Q1H PRN IV seizure Last administered on 03/20/16 19:51; Admin Dose 2 MG; Start 03/18/16 at 21:00 Morphine Sulfate/ Dextrose 100 ml @ 1 mls/hr TITRATE IV Last administered on 19:40; Admin Dose 1 MLS/HR; Start 03/27/16 at 12:30 Levetiracetam/ Sodium Chloride (Keppra Iv/NS) 105 ml @ 420 mls/hr Q12 IVPB Last administered on 03/28/16 11:28; Admin Dose 420 MLS/HR; Start 03/27/16 at 21:00 Valproate Sodium (Depakene Liquid Cup) 250 mg BID NGT Last administered on 03/28 09:26; Admin Dose 250 MG; Start 03/27/16 at 21:00 Oxcarbazepine (Trileptal) 150 mg BID NGT Last administered on 03/28/16 09:26; Admin Dose 150 MG; Start 03/27/16 at 21:00 DAYANA WADE M.D. Mar 28, 2016 14:42
--- NOTE | 2016-03-28 15:29 | CONS ---
Date/Time of Note Date/Time of Note DATE: 03/28/16 TIME: 15:27 Assessment/Plan Assessment/Plan Additional Assessment/Plan A 65-year-old gentleman with: 1. Cardiac arrest status post cardiopulmonary resuscitation. 2. Respiratory failure. 3. Pneumonia. 4. Septic shock. 5. Seizures. 6. Hypothyroidism. 7. Diabetes mellitus. 8. Down syndrome. 9. Altered mental status. 10. Thrombocytopenia. 11. Hypothermia. 12. Pancytopenia Comfort care Consultation Date/Type/Reason Admit Date/Time Mar 18, 2016 at 20:49 Type of Consultation: Hematology Referring Provider: MICHOACANO PINON MD Exam/Review of Systems Vital Signs Vitals Vital Signs Date Time Temp Pulse Resp B/P Pulse Ox O2 Delivery O2 Flow Rate FiO2 03/28/16 08:44 6 61/25 03/28/16 08:00 Nasal Cannula 3.0 03/27/16 20:31 97.6 60 97 03/27/16 12:07 30 Intake and Output 03/27/16 03/27/16 03/28/16 15:00 23:00 07:00 Intake Total 934.0 ml 105 ml 449 ml Output Total 500 ml 40 ml Balance 434.0 ml 105 ml 409 ml Exam Head: atraumatic, normocephalic Respiratory: clear to auscultation Cardiovascular: regular rate and rhythm Gastrointestinal: nl liver, spleen, non-tender, soft Extremities: normal pulses Results Result Diagram: 03/27/16 04303/27/16 0430 Medications Medications Current Medications Lorazepam 2 mg 2 mg Q1H PRN IV seizure Last administered on 03/20/16 19:51; Admin Dose 2 MG; Start 03/18/16 at 21:00 Morphine Sulfate/ Dextrose 100 ml @ 1 mls/hr TITRATE IV Last administered on 19:40; Admin Dose 1 MLS/HR; Start 03/27/16 at 12:30 Levetiracetam/ Sodium Chloride (Keppra Iv/NS) 105 ml @ 420 mls/hr Q12 IVPB Last administered on 03/28/16 11:28; Admin Dose 420 MLS/HR; Start 03/27/16 at 21:00 Valproate Sodium (Depakene Liquid Cup) 250 mg BID NGT Last administered on 03/28 09:26; Admin Dose 250 MG; Start 03/27/16 at 21:00 Oxcarbazepine (Trileptal) 150 mg BID NGT Last administered on 03/28/16 09:26; Admin Dose 150 MG; Start 03/27/16 at 21:00 DAJA SHORT M.D. Mar 28, 2016 15:29
[2016-03-28 20:59] VITALS: BP 59/24; RESP 7
[2016-03-29 07:53] VITALS: BP 52/24; RESP 12
[2016-03-29] MEDS: OXCARBAZEPINE 150 MG TAB NGT SCH (08:04)
[2016-03-29] MEDS: LEVETIRACETAM IV 500 MG in SOD CHLORIDE 0.9% 100 ML IVPB SCH ×2 (08:05→22:23)
[2016-03-29] MEDS: VALPROIC ACID LIQUID CUP 250 MG/5 ML CUP NGT SCH (08:05)
[2016-03-29] MEDS ORDERED: PROCHLORPERAZINE 10 MG TAB PO PRN (16:00)
[2016-03-29] MEDS ORDERED: ARTIFICIAL TEARS 15 ML OPH BOTH EYES PRN (16:00)
[2016-03-29] MEDS ORDERED: DIMETHICONE STICK TOP PRN (16:00)
[2016-03-29] MEDS ORDERED: LORAZEPAM 2 MG INJ IV PRN ×2 (16:00)
[2016-03-29] MEDS ORDERED: DIPHENHYDRAMINE 50 MG INJ IV PRN (16:00)
[2016-03-29] MEDS ORDERED: ONDANSETRON 4 MG INJ IV PRN (16:00)
[2016-03-29] MEDS ORDERED: ACETAMINOPHEN 1000MG/100ML IV 100 ML IVPB PRN (16:00)
--- NOTE | 2016-03-29 16:21 | DS ---
DATE OF ADMISSION: 03/18/2016 DATE OF DISCHARGE: 03/29/2016 DISCHARGE DIAGNOSES 1. Status post PEA cardiac arrest with anoxic brain injury. The patient will be discharged to [facility] [place]. 2. Acute respiratory failure secondary to cardiac arrest, now improved, but not stable. 3. History of Down syndrome. 4. Septic shock, stable. HOSPITAL COURSE: The patient is a 65-year-old male with history of Down syndrome, seizure disorder, hypothyroidism, and diabetes. The patient was brought in from a [facility] facility for hypoxi a, altered mental status and hypothermia. The patient was intubated on arrival. While the patient was in the Emergency Room, the patient went into cardiac arrest and was in PEA. ACLS was performed and he received 5 rounds of epinephrine and the patient was transferred to the ICU. He was seen by palliative care and the bioethics committee was placing the patient, as the patient has a conservato r. Patient was ultimately extubated because of anoxic brain injury and so they had a poor prognosis . His baseline was already poor secondary to his Down syndrome. It was decided that the patient sh ould be comfort care. This was decided by the hospital hogshead weigher as well as palliative care physician and the bioethics committee, and hence, the patient was transferred out of the ICU to med/surg and ultimately was felt to be appropriate for inpatient hospice at [place]. CONDITION ON DISCHARGE: Poor. DISPOSITION: To inpatient hospice. MEDICATIONS: Per hospice. FOLLOWUP: The patient to follow up with hospice physicians. Greater than 30 minutes was spent coordinating discharge of patient. Dictated By: TIANNA ONEIL MD BS/NTS Conf#: [id number] DID#: [id number]
[2016-03-29] MEDS: SENNA/DOCUSATE NA (8.6MG/50MG) TAB NGT SCH ×2 (16:23→22:23)
[2016-03-29] MEDS: SCOPOLAMINE 1.5 MG PATCH TRANSDERM SCH (16:23)
[2016-03-29 21:50] VITALS: BP 58/23; RESP 18
[2016-03-29] MEDS ORDERED: VITAMIN A & D 5 GM OINT PACKET TOP ONE (22:38)
[2016-03-30 07:45] VITALS: BP 48/36; RESP 16
[2016-03-30] MEDS: LEVETIRACETAM IV 500 MG in SOD CHLORIDE 0.9% 100 ML IVPB SCH ×2 (08:14→21:57)
[2016-03-30] MEDS: SENNA/DOCUSATE NA (8.6MG/50MG) TAB NGT SCH ×2 (08:14→22:00)
[2016-03-30] MEDS: ARTIFICIAL TEARS 15 ML OPH BOTH EYES PRN (08:14)
--- NOTE | 2016-03-30 08:46 | HP ---
DATE OF ADMISSION: 03/18/2016 DATE OF ENTERING HOSPICE SERVICE: 03/29/2016 Please note that later dictation due to the inability to access the dictation system on 03/29/2016. 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 The patient was living in a [facility] with a past medical history of diabetes mellitus and hypothyroidism. He was brought in from [facility] facility for hypoxia, altered mental status, and hypothermia. The patient was intubated on arrival, he was in the emergency room, he went into cardiac arrest. He was in pulseless electrical activity. The ACLS protocol was performed and he received 5 rounds of epinephrine, and he was transferred to the ICU with intubation. The patient continues to deteriorate. The patient was extubated because of an anoxic brain injury. He had palliative evaluations , and due to his poor prognosis and anoxic encephalopathy, the palliative care physician, Dr. Jon Shipman, has communicated with the patient's [facility] physicians, and the patient was made a do not resuscitate and also enrolled into the hospice care due to his poor prognosis. The patient has an NG tube. He was getting NG tube feedings. The patient was seen by palliative care physicians and the bioethics committee. He was transferred out of the ICU and currently enrolling into the hospice care under the [facility]. He is not able to provide any detailed history. The patient is obtunded, lethargic, currently on NG tube feeding with Ativan and morphine as needed p.r.n. pain and comfort care. REVIEW OF SYSTEMS: Unable to obtain from the patient. PAST MEDICAL HISTORY: Notable for Down syndrome, seizure disorder, hypothyroidism, history of diabetes mellitus, the patient lives in a [facility] due to the Down syndrome and mental retardation. PAST SURGICAL HISTORY: Not available. SOCIAL HISTORY: The patient lives in a [facility] due to his Down syndrome and mental retardation, no other social history is available. FAMILY HISTORY: Not available. PHYSICAL EXAMINATION: VITAL SIGNS: Temperature 97, heart rate 88, respirations 18, blood pressure 158 /23, saturation is 97% on 5 L nasal cannula. GENERAL: Patient is lethargic, comfortable, on a morphine drip, no signs of any pain. HEENT: Pupils are equal, very pinpoint. NECK: Supple. HEART: S1, S2, bradycardia. LUNGS: Bilateral decreased breath sounds, bilateral basilar rales present. ABDOMEN: Soft, nontender. NG tube in place. EXTREMITIES: No clubbing, cyanosis, or edema. NEUROLOGICAL: Not able to assess since the patient is obtunded and sedated. LABORATORY DATA AND DIAGNOSTIC IMAGING: The patient has no labs done today because he is currently enrolling to the hospice service. The last labs were done on 03/27/2016. IMPRESSION: 1. Status post septic shock. 2. Status post pulseless electrical activity cardiac arrest with anoxic brain injury. Currently enrolling into the hospice service. 3. Acute respiratory failure requiring ventilator care, status post extubation. 4. History of Down syndrome with mental retardation. 5. History of hypertension. 6. History of hypothyroidism. 7. History of diabetes mellitus. PLAN: 1. We will enroll the patient into the [facility]. 2. The patient will be started on a morphine drip for comfort care. We will give him Ativan p.r.n. seizures, agitations. 3. The patient will be also given a scopolamine patch and hyoscyamine drops for oral secretions. 4. Hold off NG tube feedings at this point. 5. Turn the patient every 6 hours for bed sores. 6. Stop the other seizure medications except the Keppra. Will continue the Keppra with anticipation of a possible seizure. 7. Tylenol IV p.r.n. pain and fever. 8. The patient currently enrolling into the [facility] service. Will continue the comfort care. Will make sure the patient is a comfortable without any agitations or any seizures. Please note that the patient's care was coordinated with [facility] physicians, and the total time spent in the patient's enrollment into the hospice, communicating with the nurses, writing Hospice orders, and formulating a plan of hospice care took more than 60 minutes. Will follow the patient along with the [facility]. Dictated By: SAMANTHA SMALLS MD, KP/MOHIT Conf#: [id number] DID#: [id number] MTDD
--- NOTE | 2016-03-30 10:00 | PN ---
Date/Time of Note Date/Time of Note DATE: 03/30/16 TIME: 09:57 Assessment/Plan VTE Prophylaxis VTE Prophylaxis Intervention: SCD's Lines/Catheters IV Catheter Type (from Nrsg): PICC Line Central line still needed: Yes (IV access for Comfort care and morphine gtt ) Assessment/Plan Assessment/Plan 1. Status post septic shock. 2. Status post pulseless electrical activity cardiac arrest with anoxic brain injury. Currently enrolling into the hospice service. 3. Acute respiratory failure requiring ventilator care, status post extubation. 4. History of Down syndrome with mental retardation. 5. History of hypertension. 6. History of hypothyroidism. 7. History of diabetes mellitus. 8. Poor prognosis due to comorbidities PLAN: continuec urrent hospice care orders pt is comortable with morphine gtt and IV ativan prn Hold tube feeding Continue current care, communicated with nurse plan Total time spent in Pt examinatin, coordinating care with nursing staff and hospice is more than >45 minutes Subjective 24 Hr Interval Summary Free Text/Dictation pt comforatble with morphine and ativan prn Exam/Review of Systems Vital Signs Vitals Vital Signs Date Time Temp Pulse Resp B/P Pulse Ox O2 Delivery O2 Flow Rate FiO2 03/30/16 07:45 97.6 56 16 48/36 94 03/30/16 04:52 2.0 03/29/16 20:00 Nasal Cannula 03/27/16 12:07 30 Intake and Output 03/29/16 03/29/16 03/30/16 15:00 23:00 07:00 Intake Total 105 ml 412 ml 117 ml Output Total 20 ml 50 ml Balance 105 ml 392 ml 67 ml Exam GENERAL: Patient is lethargic, comfortable, on a morphine drip, no signs of any pain. HEENT: Pupils are equal, very pinpoint. NECK: Supple. HEART: S1, S2, bradycardia. LUNGS: Bilateral decreased breath sounds, bilateral basilar rales present. ABDOMEN: Soft, nontender. NG tube in place. EXTREMITIES: No clubbing, cyanosis, or edema. NEUROLOGICAL: Not able to assess since the patient is obtunded and sedated. Results Result Diagram: 03/27/16 0430 03/27/16 043 Medications Medications Current Medications Morphine Sulfate/ Dextrose 100 ml @ 1 mls/hr TITRATE IV Last administered on t 19:40; Admin Dose 1 MLS/HR; Start 03/27/16 at 12:30 Levetiracetam 500 mg/Sodium Chloride 105 ml @ 420 mls/hr Q12 IVPB Last administered on 03/30/16 08:14; Admin Dose 420 MLS/HR; Start 03/27/16 at 21:00 Morphine Sulfate/ Dextrose 100 ml @ 1 mls/hr TITRATE IV ; Start 03/29/16 at 16: 30 Acetaminophen (Ofirmev 1000mg/ 100ml Iv) 100 ml @ 400 mls/hr Q6H PRN IVPB PAIN AND OR ELEVATED TEMP; Start 03/29/16 at 16:00 Lorazepam (Ativan) 1 mg Q4H PRN IV ANXIETY/SEIZURES; Start 03/29/16 at 16:00 Ondansetron HCl (Zofran Inj) 4 mg Q6H PRN IV NAUSEA AND/OR VOMITING; Start at 16:00 Prochlorperazine (Compazine) 10 mg Q6H PRN PO NAUSEA AND/OR VOMITING; Start at 16:00 Senna/Docusate Sodium (Senokot-S) 1 tab BID NGT Last administered on 03/30/16 08:14; Admin Dose 1 TAB; Start 03/29/16 at 17:00 Scopolamine (Transderm-Scop) 1 patch Q72H TRANSDERM Last administered on 16:23; Admin Dose 1 PATCH; Start 03/29/16 at 17:00 Hyoscyamine (Levsin (Sl)) 0.125 mg Q4H PRN SL TERMINAL CONGESTION; Start at 16:00 Diphenhydramine HCl (Benadryl) 50 mg Q4H PRN IV PRURITUS; Start 03/29/16 at 16: 00 SAMANTHA SMALLS MD Mar 30, 2016 10:00
[2016-03-31] MEDS: morphine (DRIP) 100 MG/D5W 100 ML IV SCH (07:08)
[2016-03-31 08:24] VITALS: BP 52/20; RESP 9
[2016-03-31] MEDS: LEVETIRACETAM IV 500 MG in SOD CHLORIDE 0.9% 100 ML IVPB SCH ×2 (09:18→21:32)
[2016-03-31] MEDS: SENNA/DOCUSATE NA (8.6MG/50MG) TAB NGT SCH (09:21)
[2016-03-31] MEDS: HYOSCYAMINE 0.125 MG SUBL TAB SL PRN (09:21)
--- NOTE | 2016-03-31 09:57 | PN ---
Date/Time of Note Date/Time of Note DATE: 03/31/16 TIME: 09:55 Assessment/Plan VTE Prophylaxis VTE Prophylaxis Intervention: SCD's Lines/Catheters IV Catheter Type (from Nrsg): PICC Line Central line still needed: Yes (IV access for morphine gtt for comfort care ) Urinary Cath still in place: Yes Reason Cath still needed: other (indicate) (comfort care) Assessment/Plan Assessment/Plan 1. Status post septic shock. 2. Status post pulseless electrical activity cardiac arrest with anoxic brain injury. Currently enrolling into the hospice service. 3. Acute respiratory failure requiring ventilator care, status post extubation. 4. History of Down syndrome with mental retardation. 5. History of hypertension. 6. History of hypothyroidism. 7. History of diabetes mellitus. 8. Poor prognosis due to comorbidities PLAN: continuec urrent hospice care orders pt is comortable with morphine gtt and IV ativan prn d/c NG tube, Continue current care, communicated with nurse plan Total time spent in Pt examinatin, coordinating care with nursing staff and hospice is more than >45 minutes Subjective 24 Hr Interval Summary Free Text/Dictation pt remained comforatble on morphine gtt Exam/Review of Systems Vital Signs Vitals Vital Signs Date Time Temp Pulse Resp B/P Pulse Ox O2 Delivery O2 Flow Rate FiO2 03/31/16 08:24 96.0 71 9 52/20 98 03/30/16 20:15 Nasal Cannula 5.0 03/27/16 12:07 30 Intake and Output 03/30/16 03/30/16 03/31/16 15:00 23:00 07:00 Intake Total 105 ml 117 ml 11 ml Output Total 0 ml 25 ml Balance 105 ml 117 ml -14 ml Exam GENERAL: Patient is lethargic, comfortable, on a morphine drip, no signs of any pain. HEENT: Pupils are equal, very pinpoint. NECK: Supple. HEART: S1, S2, bradycardia. LUNGS: Bilateral decreased breath sounds, bilateral basilar rales present. ABDOMEN: Soft, nontender. NG tube in place. EXTREMITIES: No clubbing, cyanosis, or edema. NEUROLOGICAL: Not able to assess since the patient is obtunded and sedated. Results Result Diagram: 03/27/16 04303/27/16 043 Medications Medications Current Medications Morphine Sulfate/ Dextrose 100 ml @ 1 mls/hr TITRATE IV Last administered on 07:08; Admin Dose 1 MLS/HR; Start 03/27/16 at 12:30 Levetiracetam 500 mg/Sodium Chloride 105 ml @ 420 mls/hr Q12 IVPB Last administered on 03/31/16 09:18; Admin Dose 420 MLS/HR; Start 03/27/16 at 21:00 Morphine Sulfate/ Dextrose 100 ml @ 1 mls/hr TITRATE IV ; Start 03/29/16 at 16: 30 Acetaminophen (Ofirmev 1000mg/ 100ml Iv) 100 ml @ 400 mls/hr Q6H PRN IVPB PAIN AND OR ELEVATED TEMP; Start 03/29/16 at 16:00 Lorazepam (Ativan) 1 mg Q4H PRN IV ANXIETY/SEIZURES; Start 03/29/16 at 16:00 Ondansetron HCl (Zofran Inj) 4 mg Q6H PRN IV NAUSEA AND/OR VOMITING; Start at 16:00 Prochlorperazine (Compazine) 10 mg Q6H PRN PO NAUSEA AND/OR VOMITING; Start at 16:00 Senna/Docusate Sodium (Senokot-S) 1 tab BID NGT Last administered on 03/31/16 09:21; Admin Dose 1 TAB; Start 03/29/16 at 17:00 Scopolamine (Transderm-Scop) 1 patch Q72H TRANSDERM Last administered on 16:23; Admin Dose 1 PATCH; Start 03/29/16 at 17:00 Hyoscyamine (Levsin (Sl)) 0.125 mg Q4H PRN SL TERMINAL CONGESTION Last administered on 03/31/16 09:21; Admin Dose 0.125 MG; Start 03/29/16 at 16:00 Diphenhydramine HCl (Benadryl) 50 mg Q4H PRN IV PRURITUS; Start 03/29/16 at 16: 00 IV Flush (NS 10 ml) 10 ml Q12 PRN IV NOTE; Start 03/31/16 at 09:30 SAMANTHA SMALLS MD Mar 31, 2016 09:57
[2016-03-31] MEDS: ATROPINE SULFATE 1% 5ML SL PRN ×2 (11:30→15:59)
[2016-03-31 20:29] VITALS: BP 67/30; RESP 8
[2016-04-01 07:36] VITALS: BP 56/26; RESP 6
[2016-04-01] MEDS: LEVETIRACETAM IV 500 MG in SOD CHLORIDE 0.9% 100 ML IVPB SCH ×2 (09:30→21:24)
--- NOTE | 2016-04-01 11:29 | PN ---
Date/Time of Note Date/Time of Note DATE: 04/01/16 TIME: 11:26 Assessment/Plan VTE Prophylaxis VTE Prophylaxis Intervention: SCD's Lines/Catheters IV Catheter Type (from Nrsg): PICC Line Central line still needed: Yes (IV access for morphine gtt for comfort care) Urinary Cath still in place: Yes Reason Cath still needed: terminal illness/intractable pain Assessment/Plan Assessment/Plan 1. Status post septic shock. 2. Status post pulseless electrical activity cardiac arrest with anoxic brain injury. Currently enrolling into the hospice service. 3. Acute respiratory failure requiring ventilator care, status post extubation. 4. History of Down syndrome with mental retardation. 5. History of hypertension. 6. History of hypothyroidism. 7. History of diabetes mellitus. 8. Poor prognosis due to comorbidities PLAN: continuec urrent hospice care orders pt is comortable with morphine gtt and IV ativan prn d/aroldo NG tube, Continue current care, communicated with nurse plan Total time spent in Pt examinatin, coordinating care with nursing staff and hospice is more than >45 minutes Subjective 24 Hr Interval Summary Free Text/Dictation pt on comfort care, BP in systolic 50s Exam/Review of Systems Vital Signs Vitals Vital Signs Date Time Temp Pulse Resp B/P Pulse Ox O2 Delivery O2 Flow Rate FiO2 04/01/16 07:40 5.0 04/01/16 07:36 95.0 72 6 56/26 84 04/01/16 03:17 Nasal Cannula Intake and Output 03/31/16 03/31/16 04/01/16 15:00 23:00 07:00 Intake Total 107 ml 9 ml 0 ml Output Total 20 ml 50 ml Balance 107 ml -11 ml -50 ml Exam GENERAL: Patient is unresponsive, BP in systolic 50s comfortable, on a morphine drip, no signs of any pain. HEENT: Pupils are equal, very pinpoint. NECK: Supple. HEART: S1, S2, bradycardia. LUNGS: Bilateral decreased breath sounds, bilateral basilar rales present. ABDOMEN: Soft, nontender. NG tube in place. EXTREMITIES: No clubbing, cyanosis, or edema. NEUROLOGICAL: unable to assess Medications Medications Current Medications Levetiracetam 500 mg/Sodium Chloride 105 ml @ 420 mls/hr Q12 IVPB Last administered on 03/31/16t 21:32; Admin Dose 420 MLS/HR; Start 03/27/16 at 21:00 Morphine Sulfate/ Dextrose 100 ml @ 1 mls/hr TITRATE IV ; Start 03/29/16 at 16: 30 Acetaminophen (Ofirmev 1000mg/ 100ml Iv) 100 ml @ 400 mls/hr Q6H PRN IVPB PAIN AND OR ELEVATED TEMP; Start 03/29/16 at 16:00 Lorazepam (Ativan) 1 mg Q4H PRN IV ANXIETY/SEIZURES; Start 03/29/16 at 16:00 Ondansetron HCl (Zofran Inj) 4 mg Q6H PRN IV NAUSEA AND/OR VOMITING; Start at 16:00 Prochlorperazine (Compazine) 10 mg Q6H PRN PO NAUSEA AND/OR VOMITING; Start at 16:00 Scopolamine (Transderm-Scop) 1 patch Q72H TRANSDERM Last administered on 16:23; Admin Dose 1 PATCH; Start 03/29/16 at 17:00 Hyoscyamine (Levsin (Sl)) 0.125 mg Q4H PRN SL TERMINAL CONGESTION Last administered on 03/31/16 09:21; Admin Dose 0.125 MG; Start 03/29/16 at 16:00 Diphenhydramine HCl (Benadryl) 50 mg Q4H PRN IV PRURITUS; Start 03/29/16 at 16: 00 IV Flush (NS 10 ml) 10 ml Q12 PRN IV NOTE Last administered on 03/31/16 09:16 ; Admin Dose 10 ML; Start 03/31/16 at 09:30 Atropine Sulfate (Atropine Sulfate) 2 drop Q2H PRN SL PRN SECRETIONS Last administered on 03/31/16 15:59; Admin Dose 2 DROP; Start 03/31/16 at 11:30 SAMANTHA SMALLS MD Apr 01, 2016 11:29
[2016-04-01] MEDS: SCOPOLAMINE 1.5 MG PATCH TRANSDERM SCH (18:07)
[2016-04-01 21:07] VITALS: BP 67/30; RESP 6
[2016-04-02 08:14] VITALS: BP 73/33; RESP 7
[2016-04-02] MEDS: LEVETIRACETAM IV 500 MG in SOD CHLORIDE 0.9% 100 ML IVPB SCH ×2 (09:15→21:46)
[2016-04-02] MEDS: ATROPINE SULFATE 1% 5ML SL PRN (18:38)
--- NOTE | 2016-04-02 18:44 | PN ---
Date/Time of Note Date/Time of Note DATE: 04/02/16 TIME: 18:41 Assessment/Plan VTE Prophylaxis VTE Prophylaxis Intervention: SCD's Lines/Catheters IV Catheter Type (from Nrsg): PICC Line Central line still needed: Yes Urinary Cath still in place: Yes Reason Cath still needed: terminal illness/intractable pain (IV access for comfort care, morphine gtt) Assessment/Plan Assessment/Plan 1. Status post septic shock. 2. Status post pulseless electrical activity cardiac arrest with anoxic brain injury. Currently enrolling into the hospice service. 3. Acute respiratory failure requiring ventilator care, status post extubation. 4. History of Down syndrome with mental retardation. 5. History of hypertension. 6. History of hypothyroidism. 7. History of diabetes mellitus. 8. Poor prognosis due to comorbidities PLAN: continue current hospice care orders pt is comortable with morphine gtt and IV ativan prn Plan communicated with Nursing Staff. Total time spent in Pt examinatin, coordinating care with nursing staff and hospice is more than >45 minutes Subjective 24 Hr Interval Summary Free Text/Dictation pt on morphine gtt comforatable,afebrile, BP low in 50-70s systolic Exam/Review of Systems Vital Signs Vitals Vital Signs Date Time Temp Pulse Resp B/P Pulse Ox O2 Delivery O2 Flow Rate FiO2 04/02/16 16:00 5.0 04/02/16 08:14 95.0 54 7 73/33 95 04/02/16 08:00 Nasal Cannula Intake and Output 04/01/16 04/01/16 04/02/16 15:00 23:00 07:00 Intake Total 105 ml 105 ml 0 ml Output Total 15 ml 0 ml Balance 105 ml 90 ml 0 ml Exam GENERAL: Patient is lethargic, comfortable, on a morphine drip, no signs of any pain. HEENT: Pupils are equal, very pinpoint. NECK: Supple. HEART: S1, S2, bradycardia. LUNGS: Bilateral decreased breath sounds, bilateral basilar rales present. ABDOMEN: Soft, nontender. NEUROLOGICAL: Not able to assess since the patient is obtunded and sedated. Medications Medications Current Medications Levetiracetam 500 mg/Sodium Chloride 105 ml @ 420 mls/hr Q12 IVPB Last administered on 04/02/16t 09:15; Admin Dose 420 MLS/HR; Start 03/27/16 at 21:00 Morphine Sulfate/ Dextrose 100 ml @ 1 mls/hr TITRATE IV ; Start 03/29/16 at 16: 30 Acetaminophen (Ofirmev 1000mg/ 100ml Iv) 100 ml @ 400 mls/hr Q6H PRN IVPB PAIN AND OR ELEVATED TEMP; Start 03/29/16 at 16:00 Lorazepam (Ativan) 1 mg Q4H PRN IV ANXIETY/SEIZURES; Start 03/29/16 at 16:00 Ondansetron HCl (Zofran Inj) 4 mg Q6H PRN IV NAUSEA AND/OR VOMITING; Start at 16:00 Prochlorperazine (Compazine) 10 mg Q6H PRN PO NAUSEA AND/OR VOMITING; Start at 16:00 Scopolamine (Transderm-Scop) 1 patch Q72H TRANSDERM Last administered on 18:07; Admin Dose 1 PATCH; Start 03/29/16 at 17:00 Hyoscyamine (Levsin (Sl)) 0.125 mg Q4H PRN SL TERMINAL CONGESTION Last administered on 03/31/16 09:21; Admin Dose 0.125 MG; Start 03/29/16 at 16:00 Diphenhydramine HCl (Benadryl) 50 mg Q4H PRN IV PRURITUS; Start 03/29/16 at 16: 00 IV Flush (NS 10 ml) 10 ml Q12 PRN IV NOTE Last administered on 03/31/16 09:16 ; Admin Dose 10 ML; Start 03/31/16 at 09:30 Atropine Sulfate (Atropine Sulfate) 2 drop Q2H PRN SL PRN SECRETIONS Last administered on 04/02/16 18:38; Admin Dose 2 DROP; Start 03/31/16 at 11:30 SAMANTHA SMALLS MD Apr 02, 2016 18:44
[2016-04-02] MEDS: morphine (DRIP) 100 MG/D5W 100 ML IV SCH (19:41)
[2016-04-02 21:01] VITALS: BP 59/23; RESP 8
[2016-04-03 08:20] VITALS: RESP 7
[2016-04-03] MEDS: LEVETIRACETAM IV 500 MG in SOD CHLORIDE 0.9% 100 ML IVPB SCH ×2 (08:29→20:12)
[2016-04-03] MEDS: HYOSCYAMINE 0.125 MG SUBL TAB SL PRN (12:39)
[2016-04-03] MEDS: ARTIFICIAL TEARS 15 ML OPH BOTH EYES PRN (12:39)
[2016-04-03] MEDS: DIMETHICONE STICK TOP PRN (12:39)
[2016-04-03 19:50] VITALS: BP 129/90; RESP 16
--- NOTE | 2016-04-03 22:36 | PN ---
Date/Time of Note Date/Time of Note DATE: 04/03/16 TIME: 22:35 Assessment/Plan VTE Prophylaxis VTE Prophylaxis Intervention: SCD's Lines/Catheters IV Catheter Type (from Nrsg): PICC Line Central line still needed: Yes (IV access for comfort care ) Urinary Cath still in place: Yes Reason Cath still needed: terminal illness/intractable pain Assessment/Plan Assessment/Plan 1. Status post septic shock. 2. Status post pulseless electrical activity cardiac arrest with anoxic brain injury. Currently enrolling into the hospice service. 3. Acute respiratory failure requiring ventilator care, status post extubation. 4. History of Down syndrome with mental retardation. 5. History of hypertension. 6. History of hypothyroidism. 7. History of diabetes mellitus. 8. Poor prognosis due to comorbidities PLAN: continue current hospice care orders pt is comortable with morphine gtt and IV ativan prn Plan communicated with Nursing Staff. Total time spent in Pt examinatin, coordinating care with nursing staff and hospice is more than >45 minutes Subjective 24 Hr Interval Summary Free Text/Dictation pt comforateble with morphine gtt Exam/Review of Systems Vital Signs Vitals Vital Signs Date Time Temp Pulse Resp B/P Pulse Ox O2 Delivery O2 Flow Rate FiO2 04/03/16 19:50 98.0 53 16 129/90 90 04/03/16 14:53 5.0 04/03/16 09:56 Nasal Cannula Intake and Output 04/02/16 04/02/16 04/03/16 15:00 23:00 07:00 Intake Total 222 ml 10 ml Output Total 0 ml 20 ml Balance 222 ml -10 ml Exam GENERAL: Patient is lethargic, comfortable, on a morphine drip, no signs of any pain. HEENT: Pupils are equal, very pinpoint. NECK: Supple. HEART: S1, S2, bradycardia. LUNGS: Bilateral decreased breath sounds, bilateral basilar rales present. ABDOMEN: Soft, nontender. NEUROLOGICAL: Not able to assess since the patient is obtunded and sedated. Medications Medications Current Medications Levetiracetam 500 mg/Sodium Chloride 105 ml @ 420 mls/hr Q12 IVPB Last administered on 04/03/16 20:12; Admin Dose 420 MLS/HR; Start 03/27/16 at 21:00 Morphine Sulfate/ Dextrose 100 ml @ 1 mls/hr TITRATE IV Last administered on 19:41; Admin Dose 1 MLS/HR; Start 03/29/16 at 16:30 Acetaminophen (Ofirmev 1000mg/ 100ml Iv) 100 ml @ 400 mls/hr Q6H PRN IVPB PAIN AND OR ELEVATED TEMP; Start 03/29/16 at 16:00 Lorazepam (Ativan) 1 mg Q4H PRN IV ANXIETY/SEIZURES; Start 03/29/16 at 16:00 Ondansetron HCl (Zofran Inj) 4 mg Q6H PRN IV NAUSEA AND/OR VOMITING; Start at 16:00 Prochlorperazine (Compazine) 10 mg Q6H PRN PO NAUSEA AND/OR VOMITING; Start at 16:00 Scopolamine (Transderm-Scop) 1 patch Q72H TRANSDERM Last administered on 18:07; Admin Dose 1 PATCH; Start 03/29/16 at 17:00 Hyoscyamine (Levsin (Sl)) 0.125 mg Q4H PRN SL TERMINAL CONGESTION Last administered on 04/03/16 12:39; Admin Dose 0.125 MG; Start 03/29/16 at 16:00 Diphenhydramine HCl (Benadryl) 50 mg Q4H PRN IV PRURITUS; Start 03/29/16 at 16: 00 IV Flush (NS 10 ml) 10 ml Q12 PRN IV NOTE Last administered on 03/31/16 09:16 ; Admin Dose 10 ML; Start 03/31/16 at 09:30 Atropine Sulfate (Atropine Sulfate) 2 drop Q2H PRN SL PRN SECRETIONS Last administered on 04/02/16 18:38; Admin Dose 2 DROP; Start 03/31/16 at 11:30 SAMANTHA SMALLS MD Apr 03, 2016 22:36
[2016-04-04] MEDS: HYOSCYAMINE 0.125 MG SUBL TAB SL PRN ×2 (08:50→21:18)
[2016-04-04] MEDS: DIMETHICONE STICK TOP PRN (08:50)
[2016-04-04] MEDS: ARTIFICIAL TEARS 15 ML OPH BOTH EYES PRN (08:50)
[2016-04-04] MEDS: LEVETIRACETAM IV 500 MG in SOD CHLORIDE 0.9% 100 ML IVPB SCH ×2 (08:55→21:09)
--- NOTE | 2016-04-04 12:28 | PN ---
Date/Time of Note Date/Time of Note DATE: 04/04/16 TIME: 12:27 Assessment/Plan VTE Prophylaxis VTE Prophylaxis Intervention: SCD's Lines/Catheters IV Catheter Type (from Nrsg): PICC Line Central line still needed: Yes (IV access for comfort care ) Urinary Cath still in place: Yes Reason Cath still needed: other (indicate) (comfort care ) Assessment/Plan Assessment/Plan 1. Status post septic shock. 2. Status post pulseless electrical activity cardiac arrest with anoxic brain injury. Currently enrolling into the hospice service. 3. Acute respiratory failure requiring ventilator care, status post extubation. 4. History of Down syndrome with mental retardation. 5. History of hypertension. 6. History of hypothyroidism. 7. History of diabetes mellitus. 8. Poor prognosis due to comorbidities PLAN: continue current hospice care orders increase Morphine gtt rate and IV ativan prn Plan communicated with Nursing Staff. Total time spent in Pt examinatin, coordinating care with nursing staff and hospice is more than >45 minutes Exam/Review of Systems Vital Signs Vitals Vital Signs Date Time Temp Pulse Resp B/P Pulse Ox O2 Delivery O2 Flow Rate FiO2 04/04/16 10:39 Nasal Cannula 5.0 04/04/16 08:21 86.3 04/03/16 19:50 53 16 129/90 90 Intake and Output 04/03/16 04/03/16 04/04/16 15:00 23:00 07:00 Intake Total 105 ml 105 ml 12 ml Output Total 15 ml 15 ml Balance 105 ml 90 ml -3 ml Exam GENERAL: Patient is lethargic, comfortable, on a morphine drip, no signs of any pain. HEENT: Pupils are equal, very pinpoint. NECK: Supple. HEART: S1, S2, bradycardia. LUNGS: Bilateral decreased breath sounds, bilateral basilar rales present. ABDOMEN: Soft, nontender. NEUROLOGICAL: Not able to assess since the patient is obtunded and sedated. Medications Medications Current Medications Levetiracetam 500 mg/Sodium Chloride 105 ml @ 420 mls/hr Q12 IVPB Last administered on 04/04/16 08:55; Admin Dose 420 MLS/HR; Start 03/27/16 at 21:00 Morphine Sulfate/ Dextrose 100 ml @ 1 mls/hr TITRATE IV Last administered on 19:41; Admin Dose 1 MLS/HR; Start 03/29/16 at 16:30 Acetaminophen (Ofirmev 1000mg/ 100ml Iv) 100 ml @ 400 mls/hr Q6H PRN IVPB PAIN AND OR ELEVATED TEMP; Start 03/29/16 at 16:00 Lorazepam (Ativan) 1 mg Q4H PRN IV ANXIETY/SEIZURES; Start 03/29/16 at 16:00 Ondansetron HCl (Zofran Inj) 4 mg Q6H PRN IV NAUSEA AND/OR VOMITING; Start at 16:00 Prochlorperazine (Compazine) 10 mg Q6H PRN PO NAUSEA AND/OR VOMITING; Start at 16:00 Scopolamine (Transderm-Scop) 1 patch Q72H TRANSDERM Last administered on 18:07; Admin Dose 1 PATCH; Start 03/29/16 at 17:00 Hyoscyamine (Levsin (Sl)) 0.125 mg Q4H PRN SL TERMINAL CONGESTION Last administered on 04/04/16 08:50; Admin Dose 0.125 MG; Start 03/29/16 at 16:00 Diphenhydramine HCl (Benadryl) 50 mg Q4H PRN IV PRURITUS; Start 03/29/16 at 16: 00 IV Flush (NS 10 ml) 10 ml Q12 PRN IV NOTE Last administered on 03/31/16 09:16 ; Admin Dose 10 ML; Start 03/31/16 at 09:30 Atropine Sulfate (Atropine Sulfate) 2 drop Q2H PRN SL PRN SECRETIONS Last administered on 04/02/16 18:38; Admin Dose 2 DROP; Start 03/31/16 at 11:30 SAMANTHA SMALLS MD Apr 04, 2016 12:28
[2016-04-04] MEDS: SCOPOLAMINE 1.5 MG PATCH TRANSDERM SCH (16:08)
[2016-04-04 20:39] VITALS: BP 54/23; RESP 8
[2016-04-05 04:52] VITALS: BP 90/63; PULSE 124
[2016-04-05] MEDS: LEVETIRACETAM IV 500 MG in SOD CHLORIDE 0.9% 100 ML IVPB SCH ×2 (08:46→20:42)
[2016-04-05 09:32] VITALS: BP 61/29; RESP 8
--- NOTE | 2016-04-05 11:33 | PN ---
Date/Time of Note Date/Time of Note DATE: 04/05/16 TIME: 11:31 Assessment/Plan VTE Prophylaxis VTE Prophylaxis Intervention: SCD's Lines/Catheters IV Catheter Type (from Nrsg): PICC Line Central line still needed: Yes (IV morphine gtt ) Urinary Cath still in place: Yes Reason Cath still needed: other (indicate) (hospice care ) Assessment/Plan Assessment/Plan 1. Status post septic shock. 2. Status post pulseless electrical activity cardiac arrest with anoxic brain injury. Currently enrolling into the hospice service. 3. Acute respiratory failure requiring ventilator care, status post extubation. 4. History of Down syndrome with mental retardation. 5. History of hypertension. 6. History of hypothyroidism. 7. History of diabetes mellitus. 8. Poor prognosis due to comorbidities PLAN: continue current hospice care orders- increase morphine gtt to 3 mg/hr IV ativan prn agitation, seizure Plan communicated with Nursing Staff. Total time spent in Pt examinatin, coordinating care with nursing staff and hospice is more than >45 minutes Subjective 24 Hr Interval Summary Free Text/Dictation on morphine gtt at 1 mg/hr Exam/Review of Systems Vital Signs Vitals Vital Signs Date Time Temp Pulse Resp B/P Pulse Ox O2 Delivery O2 Flow Rate FiO2 04/05/16 10:54 Nasal Cannula 5.0 04/05/16 09:32 96.7 46 8 61/29 04/05/16 04:52 82 Intake and Output 04/04/16 04/04/16 04/05/16 15:00 23:00 07:00 Intake Total 105 ml 12 ml 0 ml Output Total 5 ml 0 ml Balance 105 ml 7 ml 0 ml Medications Medications Current Medications Levetiracetam 500 mg/Sodium Chloride 105 ml @ 420 mls/hr Q12 IVPB Last administered on 04/05/16 08:46; Admin Dose 420 MLS/HR; Start 03/27/16 at 21:00 Morphine Sulfate/ Dextrose 100 ml @ 1 mls/hr TITRATE IV Last administered on 19:41; Admin Dose 1 MLS/HR; Start 03/29/16 at 16:30 Acetaminophen (Ofirmev 1000mg/ 100ml Iv) 100 ml @ 400 mls/hr Q6H PRN IVPB PAIN AND OR ELEVATED TEMP; Start 03/29/16 at 16:00 Lorazepam (Ativan) 1 mg Q4H PRN IV ANXIETY/SEIZURES; Start 03/29/16 at 16:00 Ondansetron HCl (Zofran Inj) 4 mg Q6H PRN IV NAUSEA AND/OR VOMITING; Start at 16:00 Prochlorperazine (Compazine) 10 mg Q6H PRN PO NAUSEA AND/OR VOMITING; Start at 16:00 Scopolamine (Transderm-Scop) 1 patch Q72H TRANSDERM Last administered on 16:08; Admin Dose 1 PATCH; Start 03/29/16 at 17:00 Hyoscyamine (Levsin (Sl)) 0.125 mg Q4H PRN SL TERMINAL CONGESTION Last administered on 04/04/16 21:18; Admin Dose 0.125 MG; Start 03/29/16 at 16:00 Diphenhydramine HCl (Benadryl) 50 mg Q4H PRN IV PRURITUS; Start 03/29/16 at 16: 00 IV Flush (NS 10 ml) 10 ml Q12 PRN IV NOTE Last administered on 03/31/16 09:16 ; Admin Dose 10 ML; Start 03/31/16 at 09:30 Atropine Sulfate (Atropine Sulfate) 2 drop Q2H PRN SL PRN SECRETIONS Last administered on 04/02/16 18:38; Admin Dose 2 DROP; Start 03/31/16 at 11:30 SAMANTHA SMALLS MD Apr 05, 2016 11:33
[2016-04-05 21:00] VITALS: BP 50/20; RESP 4
[2016-04-06] MEDS: morphine (DRIP) 100 MG/D5W 100 ML IV SCH (03:43)
[2016-04-06 07:41] VITALS: RESP 6
[2016-04-06] MEDS: LEVETIRACETAM IV 500 MG in SOD CHLORIDE 0.9% 100 ML IVPB SCH ×2 (09:01→21:26)
--- NOTE | 2016-04-06 11:30 | PN ---
Date/Time of Note Date/Time of Note DATE: 04/06/16 TIME: 11:29 Assessment/Plan VTE Prophylaxis VTE Prophylaxis Intervention: SCD's Lines/Catheters IV Catheter Type (from Nrsg): PICC Line Central line still needed: Yes (IV access for morphine gtt) Urinary Cath still in place: Yes Reason Cath still needed: other (indicate) (hospice care/comfort care ) Assessment/Plan Assessment/Plan 1. Status post septic shock. 2. Status post pulseless electrical activity cardiac arrest with anoxic brain injury. Currently enrolling into the hospice service. 3. Acute respiratory failure requiring ventilator care, status post extubation. 4. History of Down syndrome with mental retardation. 5. History of hypertension. 6. History of hypothyroidism. 7. History of diabetes mellitus. 8. Poor prognosis due to comorbidities PLAN: continue current hospice care orders- increase morphine gtt to 3 mg/hr IV ativan prn agitation, seizure Plan communicated with Nursing Staff. Total time spent in Pt examinatin, coordinating care with nursing staff and hospice is more than >45 minutes Subjective 24 Hr Interval Summary Free Text/Dictation pt is on morphine gtt at 3 mg/hr, resp slowing down , comfortable Exam/Review of Systems Vital Signs Vitals Vital Signs Date Time Temp Pulse Resp B/P Pulse Ox O2 Delivery O2 Flow Rate FiO2 04/06/16 07:41 83.4 6 04/06/16 03:06 5.0 04/05/16 21:00 Nasal Cannula 04/05/16 09:32 46 04/05/16 04:52 82 Intake and Output 04/05/16 04/05/16 04/06/16 15:00 23:00 07:00 Intake Total 420 ml 105 ml 106 ml Output Total 0 ml 0 ml Balance 420 ml 105 ml 106 ml Exam GENERAL: unresponsive,comfortable on a morphine drip, no signs of any pain. HEENT: Pupils are equal, very pinpoint. NECK: Supple. HEART: S1, S2, bradycardia. LUNGS: Bilateral decreased breath sounds, bilateral basilar rales present. ABDOMEN: Soft, nontender. NG tube in place. EXTREMITIES: No clubbing, cyanosis, or edema. NEUROLOGICAL: Not able to assess since the patient is obtunded and sedated. Medications Medications Current Medications Levetiracetam 500 mg/Sodium Chloride 105 ml @ 420 mls/hr Q12 IVPB Last administered on 04/06/16 09:01; Admin Dose 420 MLS/HR; Start 03/27/16 at 21:00 Morphine Sulfate/ Dextrose 100 ml @ 1 mls/hr TITRATE IV Last administered on 03:43; Admin Dose 3 MLS/HR; Start 03/29/16 at 16:30 Acetaminophen (Ofirmev 1000mg/ 100ml Iv) 100 ml @ 400 mls/hr Q6H PRN IVPB PAIN AND OR ELEVATED TEMP; Start 03/29/16 at 16:00 Lorazepam (Ativan) 1 mg Q4H PRN IV ANXIETY/SEIZURES; Start 03/29/16 at 16:00 Ondansetron HCl (Zofran Inj) 4 mg Q6H PRN IV NAUSEA AND/OR VOMITING; Start at 16:00 Prochlorperazine (Compazine) 10 mg Q6H PRN PO NAUSEA AND/OR VOMITING; Start at 16:00 Scopolamine (Transderm-Scop) 1 patch Q72H TRANSDERM Last administered on 16:08; Admin Dose 1 PATCH; Start 03/29/16 at 17:00 Hyoscyamine (Levsin (Sl)) 0.125 mg Q4H PRN SL TERMINAL CONGESTION Last administered on 04/04/16 21:18; Admin Dose 0.125 MG; Start 03/29/16 at 16:00 Diphenhydramine HCl (Benadryl) 50 mg Q4H PRN IV PRURITUS; Start 03/29/16 at 16: 00 IV Flush (NS 10 ml) 10 ml Q12 PRN IV NOTE Last administered on 03/31/16 09:16 ; Admin Dose 10 ML; Start 03/31/16 at 09:30 Atropine Sulfate (Atropine Sulfate) 2 drop Q2H PRN SL PRN SECRETIONS Last administered on 04/02/16 18:38; Admin Dose 2 DROP; Start 03/31/16 at 11:30 SAMANTHA SMALLS MD Apr 06, 2016 11:30
[2016-04-06] MEDS: HYOSCYAMINE 0.125 MG SUBL TAB SL PRN (14:08)
[2016-04-07] MEDS: LEVETIRACETAM IV 500 MG in SOD CHLORIDE 0.9% 100 ML IVPB SCH ×2 (09:06→21:17)
--- NOTE | 2016-04-07 13:11 | PN ---
Date/Time of Note Date/Time of Note DATE: 04/07/16 TIME: 13:10 Assessment/Plan VTE Prophylaxis VTE Prophylaxis Intervention: SCD's, other Lines/Catheters IV Catheter Type (from Nrsg): PICC Line Central line still needed: Yes (IV access for morphine gtt ) Urinary Cath still in place: Yes Reason Cath still needed: other (indicate) (termial hospice care ) Assessment/Plan Assessment/Plan 1. Status post septic shock. 2. Status post pulseless electrical activity cardiac arrest with anoxic brain injury. Currently enrolling into the hospice service. 3. Acute respiratory failure requiring ventilator care, status post extubation. 4. History of Down syndrome with mental retardation. 5. History of hypertension. 6. History of hypothyroidism. 7. History of diabetes mellitus. 8. Poor prognosis due to comorbidities PLAN: continue current hospice care orders- increase morphine gtt to 3 mg/hr IV ativan prn agitation, seizure Plan communicated with Nursing Staff. Total time spent in Pt examinatin, coordinating care with nursing staff and hospice is more than >45 minutes Subjective 24 Hr Interval Summary Free Text/Dictation pt comfortable with current morphien gtt Exam/Review of Systems Vital Signs Vitals Vital Signs Date Time Temp Pulse Resp B/P Pulse Ox O2 Delivery O2 Flow Rate FiO2 04/07/16 08:00 Nasal Cannula 3.0 04/07/16 08:00 98.3 04/06/16 07:41 6 04/05/16 21:00 04/05/16 09:32 46 04/05/16 04:52 82 Intake and Output 04/06/16 04/06/16 04/07/16 15:00 23:00 07:00 Intake Total 105 ml 117 ml 24 ml Output Total 0 ml 0 ml Balance 105 ml 117 ml 24 ml Exam GENERAL: unresponsive,comfortable on a morphine drip, no signs of any pain. HEENT: Pupils are equal, very pinpoint. NECK: Supple. HEART: S1, S2, bradycardia. LUNGS: Bilateral decreased breath sounds, bilateral basilar rales present. ABDOMEN: Soft, nontender. NG tube in place. EXTREMITIES: No clubbing, cyanosis, or edema. NEUROLOGICAL: Not able to assess since the patient is obtunded and sedated. Medications Medications Current Medications Levetiracetam 500 mg/Sodium Chloride 105 ml @ 420 mls/hr Q12 IVPB Last administered on 04/07/16 09:06; Admin Dose 420 MLS/HR; Start 03/27/16 at 21:00 Morphine Sulfate/ Dextrose 100 ml @ 1 mls/hr TITRATE IV Last administered on 03:43; Admin Dose 3 MLS/HR; Start 03/29/16 at 16:30 Acetaminophen (Ofirmev 1000mg/ 100ml Iv) 100 ml @ 400 mls/hr Q6H PRN IVPB PAIN AND OR ELEVATED TEMP; Start 03/29/16 at 16:00 Lorazepam (Ativan) 1 mg Q4H PRN IV ANXIETY/SEIZURES; Start 03/29/16 at 16:00 Ondansetron HCl (Zofran Inj) 4 mg Q6H PRN IV NAUSEA AND/OR VOMITING; Start at 16:00 Prochlorperazine (Compazine) 10 mg Q6H PRN PO NAUSEA AND/OR VOMITING; Start at 16:00 Scopolamine (Transderm-Scop) 1 patch Q72H TRANSDERM Last administered on 16:08; Admin Dose 1 PATCH; Start 03/29/16 at 17:00 Hyoscyamine (Levsin (Sl)) 0.125 mg Q4H PRN SL TERMINAL CONGESTION Last administered on 04/06/16 14:08; Admin Dose 0.125 MG; Start 03/29/16 at 16:00 Diphenhydramine HCl (Benadryl) 50 mg Q4H PRN IV PRURITUS; Start 03/29/16 at 16: 00 IV Flush (NS 10 ml) 10 ml Q12 PRN IV NOTE Last administered on 03/31/16 09:16 ; Admin Dose 10 ML; Start 03/31/16 at 09:30 Atropine Sulfate (Atropine Sulfate) 2 drop Q2H PRN SL PRN SECRETIONS Last administered on 04/02/16 18:38; Admin Dose 2 DROP; Start 03/31/16 at 11:30 SAMANTHA SMALLS MD Apr 07, 2016 13:11
[2016-04-07] MEDS: SCOPOLAMINE 1.5 MG PATCH TRANSDERM SCH (17:29)
[2016-04-07] MEDS: morphine (DRIP) 100 MG/D5W 100 ML IV SCH (19:15)
== END 2016-04-08 02:50 | disposition expired | DRG 870 ==
LOC: E/R 16:35 → ICU 20:49 → PP2 03-27 18:14
PROVIDERS: ADMIT Internal Medicine Nephrology; ATTEND Internal Medicine Nephrology
PROC: 5A1955Z Respiratory Ventilation, Greater than 96 Consecutive Hours (ICD-10-PCS; principal; 2016-03-18)
PROC: 0BH17EZ Insertion of Endotracheal Airway into Trachea, Via Natural or Artificial Opening (ICD-10-PCS; 2016-03-18)
PROC: 05H533Z Insertion of Infusion Device into Right Subclavian Vein, Percutaneous Approach (ICD-10-PCS; 2016-03-18)
DX: A41.9 Sepsis, unspecified organism (principal); I46.9 Cardiac arrest, cause unspecified; R57.9 Shock, unspecified; J96.02 Acute respiratory failure with hypercapnia; J69.0 Pneumonitis due to inhalation of food and vomit; E87.0 Hyperosmolality and hypernatremia; G93.1 Anoxic brain damage, not elsewhere classified; J18.9 Pneumonia, unspecified organism; R65.21 Severe sepsis with septic shock; E87.2 Acidosis; J80 Acute respiratory distress syndrome; D69.6 Thrombocytopenia, unspecified; R41.82 Altered mental status, unspecified; Z66 Do not resuscitate; Q90.9 Down syndrome, unspecified; G40.909 Epilepsy, unspecified, not intractable, without status epilepticus; E03.9 Hypothyroidism, unspecified; T68.XXXA Hypothermia, initial encounter
CPT/HCPCS: 31500; 36415; 36569; 36600; 70450; 71010; 71250; 76937; 80048; 80053; 80164; 80202; 82607; 82728; 82746; 82803; 82962; 83036; 83540; 83605; 83615; 83735; 84436; 84443; 84479; 84484; 85025; 85045; 85049; 85362; 85378; 85384; 85610; 85670; 85730; 86022; 86703; 86704; 86709; 86803; 86850; 86900; 86901; 87040; 87070; 87081; 87340; 92950; 93005; 93306; 94002; 94003; 94640; 94664; 94770; 94799; 96374; 96375; C9113; J0171; J0330; J0461; J0692; J1265; J1720; J1815; J1953; J1956; J2060; J2250; J2270; J3370; J3475; J3480; J7030; J7050; J7070; P9047